=== PATIENT | female | born 1950 | race Caucasian/White ===

== ENCOUNTER 2020-10-04 07:23 | Outpatient (REF) | payer MEDICARE, SELFPAY ==
--- NOTE | ~2020-10-04 | MM_ITS ---
EXAMINATION: MM SCREENING DIGITAL BREAST TOMOSYNTHESIS, BILATERAL CLINICAL INFORMATION: Screening. Asymptomatic. The lifetime risk of breast cancer based on the Tyrer-Cuzick Model is 11.3%. COMPARISON: Mammography: September 28, 2019 and studies dating back to June 30, 2012 TECHNIQUE: Digital breast tomosynthesis is performed in both the craniocaudal and mediolateral oblique views along with computer-aided detection (CAD). Synthesized 2D images are generated from the tomosynthesis. FINDINGS: The breasts are extremely dense, which lowers the sensitivity of mammography (ACR BI-RADS breast composition Category d). Stable region of architectural distortion seen about the lateral aspect of the right breast. There is also stable region of distortion about the lateral aspect of the left breast. No new abnormal dominant mass or suspicious grouping of microcalcifications appreciated. MM/MM tomosynthesis screening BI IMPRESSION: There are no significant changes from prior study. ASSESSMENT: BI-RADS 2: Benign RECOMMENDATION: Routine annual mammography screening. This patient's information was entered into a reminder system with a target due date for their next mammogram.
== END 2020-10-04 07:24 | disposition home or self-care (01) ==
LOC: HO.MAMMO 07:23
PROVIDERS: PCP Internal Medicine; Visit Provider Internal Medicine
DX: Z12.31 Encounter for screening mammogram for malignant neoplasm of breast (principal)
CPT/HCPCS: 77063; 77067

== ENCOUNTER 2020-10-20 10:07 | Outpatient (REF) | payer MEDICARE, SELFPAY ==
[2020-10-20 10:11] LABS: MANUAL DIFF FLAG NO
[2020-10-20 10:27] LABS: Basophils Percent Auto 0.6 % (0-2); Eosinophils Absolute Auto 0.3 X10*3/uL (0.0-0.4); Eosinophils Percent Auto 5.8 % (0-4); Hematocrit 41.3 % (37-47); Hemoglobin 13.6 g/dl (12.0-16.0); Imm Gran Abs Auto 0.01 X10*3/uL (0.00-0.03); Imm Gran Pct Auto 0.2 % (0.0-0.4); Lymphocytes Percent Auto 37.8 % (20-40); Mean Corpuscular HGB Conc 32.9 g/dl (31.0-35.0); Mean Corpuscular Hemoglobin 30.6 pg (27.0-33.0); Mean Platelet Volume 10.9 fL (9.4-12.3); Monocytes Absolute Auto 0.6 X10*3/uL (0.1-1.2); Monocytes Percent Auto 10.8 % (2-11); Neutrophils Absolute Auto 2.3 X10*3/uL (2.0-8.3); Neutrophils Percent Auto 44.8 % (45-73); Platelet Count 227 X10*3/uL (160-400); Red Blood Count 4.44 X10*6/uL (4.20-5.50); White Blood Count 5.2 X10*3/uL (4.8-10.8)
[2020-10-20 10:50] LABS: Glucose Urine UA NEG (NEG); Leukocyte Esterase Urine NEG (NEG); Nitrite Urine NEG (NEG); Specific Gravity - Urine >= 1.030 (1.005-1.025); Urine Blood 2+ (NEG); Urine Ketones NEG (NEG); Urine Protein NEG (NEG-TRACE)
[2020-10-20 10:52] LABS: Appearance Urine CLEAR; Color Urine YELLOW
[2020-10-20 11:21] LABS: Alanine Aminotransferase 12 U/L (0-31); Alkaline Phosphatase 53 U/L (39-117); Anion Gap 11 (12-20); Aspartate Amino Transferase 16 U/L (5-31); Bilirubin Total 0.9 mg/dL (0.0-1.0); Blood Urea Nitrogen 12 mg/dL (9-16); Carbon Dioxide 27 mmol/L (22-29); Chloride 106 mmol/L (96-108); Cholesterol 255 mg/dL; Estimated Glomerular Filt Rate 54; Glucose Fasting 93 mg/dL (60-99); HDL Cholesterol 92 mg/dL; LDL Cholesterol Calculated 133 mg/dl; Potassium 3.8 mmol/L (3.3-5.1); Sodium 140 mmol/L (135-145); Total Protein 6.5 g/dL (6.5-8.0); Triglycerides 152 mg/dL
[2020-10-20 11:29] LABS: Amorphous Sediment Urine TRACE /LPF; RBC Urine 0-2 /HPF (0); Squamous Epithelial Cell Urine 1+ /LPF
[2020-10-20 11:41] LABS: Vitamin D 25-OH Total 37.9 ng/mL (>30)
== END 2020-10-20 10:08 | disposition home or self-care (01) ==
LOC: HO.LNP 10:07
PROVIDERS: Visit Provider Internal Medicine
DX: E78.00 Pure hypercholesterolemia, unspecified (principal); R31.21 Asymptomatic microscopic hematuria; N95.8 Other specified menopausal and perimenopausal disorders; E55.9 Vitamin D deficiency, unspecified
CPT/HCPCS: 80053; 80061; 81001; 82306; 85025

== ENCOUNTER 2020-12-29 08:12 | Outpatient (REF) | payer MEDICARE, SELFPAY ==
--- NOTE | ~2020-12-29 | MM_ITS ---
EXAMINATION: BONE DENSITOMETRY CLINICAL INDICATION: Postmenopausal. COMPARISON: Previous BD dated 09/26/2018 and baseline BD dated 07/11/2006. TECHNIQUE: Using a Bit[employer] DXA System (software version: 13.1) manufactured by [employer], dual-energy x-ray absorptiometry was performed of the lumbar spine and left hip. The images are of good technical quality. Summary results are attached. FINDINGS: AP SPINE L1-L4: Current: BMD 1.138 g/cm2, Z-score 1.0, T-score -0.3, normal, 1.5% decrease from previous, 8.0% decrease from baseline (<5% change is not significant). Prior: BMD 1.155 g/cm2. Baseline: BMD 1.237 g/cm2. LEFT FEMUR, NECK: Current: BMD 0.888 g/cm2, Z-score 0.4, T-score -1.1, osteopenia. Prior: BMD 0.913 g/cm2. Baseline: BMD 1.125 g/cm2. LEFT FEMUR, TOTAL: Current: BMD 0.972 g/cm2, Z-score 1.0, T-score -0.3, normal, 6.4% decrease from previous, 15.6% decrease from baseline (<5% change is not significant). Prior: BMD 1.038 g/cm2. Baseline: BMD 1.152 g/cm2. IDENTIFIED RISK FACTORS: Menopause, low calcium intake, renal, secondary osteoporosis. HISTORY OF FRACTURE: None listed. MEDICATIONS: Vitamin D. MM/XR DEXA axial skeleton IMPRESSION: 1. DIAGNOSIS: Osteopenia based on the lowest T-score value of -1.1 in the femoral neck applying World Health Organization criteria. 2. 10-YEAR FRACTURE RISK PREDICTION, FRAX: Major osteoporotic fracture (clinical spine, forearm, hip or shoulder) 9.0%. Hip fracture 1.0%. 3. Treatment Recommendations: NOF guidelines recommend consideration for treatment in postmenopausal women and men age 50 and older presenting with the following: -A hip or vertebral (clinical or morphometric) fracture. -T-score less than or equal to -2.5 at the femoral neck or spine after appropriate evaluation to exclude secondary causes. -Low bone mass at the hip or spine and a 10-year fracture probability by FRAX of greater than or equal to 3% for hip fracture or greater than or equal to 20% for major osteoporotic fracture based on the [place] adapted WHO algorithm. 4. Other Recommendations: All treatment decisions require clinical judgment and consideration of individual patient factors, including patient preferences, comorbidities, previous drug use, risk factors not captured in the FRAX model (e.g. frailty, falls, vitamin D deficiency, increased bone turnover, interval significant decline in bone density) and possible under or overestimation of fracture risk by FRAX. Additional medical evaluation for secondary cause of low bone mineral density may be appropriate. FUTURE SCAN RECOMMENDATION: People with diagnosed cases of osteoporosis or at high risk for fracture should have regular bone mineral density tests. For patients eligible for Medicare, routine testing is allowed once every 2 years. The testing frequency can be increased to one year for patients who have rapidly progressing disease, those who are receiving or discontinuing medical therapy to restore bone mass, or have additional risk factors.
== END 2020-12-29 08:13 | disposition home or self-care (01) ==
LOC: HO.MAMMO 08:12
PROVIDERS: Visit Provider Internal Medicine
DX: Z13.820 Encounter for screening for osteoporosis (principal); M85.80 Other specified disorders of bone density and structure, unspecified site; Z78.0 Asymptomatic menopausal state; Z79.899 Other long term (current) drug therapy
CPT/HCPCS: 77080

== ENCOUNTER 2021-01-11 07:56 | Day surgery (SDC) | payer MEDICARE, SELFPAY ==
--- NOTE | 2021-01-10 13:36 | P.CONAN_ITS ---
Documented by User: Lyn Beach NP 01/10/21 13:37 HPI - Anesthesia Eval Consult details Narrative: 70yo F for Colonoscopy PMFSH Past Medical History Medical History Arthritis Asthma Elevated cholesterol Gallstones Hayfever Hx of migraines IBS (irritable bowel syndrome) Mild obstructive sleep apnea PTSD (post-traumatic stress disorder) Renal cell carcinoma of right kidney Surgical History Surgical History History of breast surgery History of breast surgery History of right nephrectomy Hx of bilateral cataract extraction Hx of colonoscopy Hx of dilation and curettage Social History Social History Patient Tobacco Use Status: Never used Tobacco Use of substances other than those prescribed or required for medical reasons: No Have you been hit, kicked, punched, or otherwise hurt by someone within the past year? If so, by whom?: No Are you DNR?: No Advance Directives: No Advance Directives Information Provided: Yes Recently lost weight without trying: No Patient : No Meds Allergies Allergy/AdvReac Type Severity Reaction Status Date / Time Iodinated Contrast Media Allergy Unknown HIVES Verified 01/11/21 07:51 [IV CONTRAST] Penicillins [PENICILLINS] Allergy Unknown UNKNOWN Verified 01/11/21 07:51 senna [SENNA] Allergy Unknown RASH Verified 01/11/21 07:51 Home Medications Medication Instructions Recorded Confirmed Last Taken Type Lactobacillus rhamnosus GG 10 1 cap PO DAILY 01/04/21 01/04/21 Unknown History billion cell capsule (Culturelle) bupropion HCl 300 mg 24 hr tablet, 300 mg PO QAM 01/04/21 01/04/21 01/11/21 History extended release cholecalciferol (vitamin D3) 25 25 mcg PO DAILY 01/04/21 01/04/21 Unknown History mcg (1,000 unit) capsule (Vitamin D3) dextroamphetamine-amphetamine 20 20 mg PO DAILY 01/04/21 01/04/21 01/11/21 History mg tablet lorazepam 1 mg tablet 1 mg PO BEDTIME PRN 01/04/21 01/04/21 Unknown History sumatriptan succinate 100 mg tablet 100 mg PO BID PRN 01/04/21 01/04/21 Unknown History Exam Exam Date and Time: January 10, 2021 1336 Pertinent Lab Results Pertinent Lab Results: Laboratory Tests 10/20/20 10/20/20 07:10 07:10 WBC 5.2 Hgb 13.6 Hct 41.3 Plt Count 227 Sodium 140 Potassium 3.8 Chloride 106 Carbon Dioxide 27 BUN 12 Creatinine 1.01 Assessment and Plan Assessment Anesthesia Assessment: Chart Reviewed Documented by User: Ifeoma Gonzalez MD 01/11/21 10:02 [facility] Past Medical History Medical History Arthritis Asthma Elevated cholesterol Gallstones Hayfever Hx of migraines IBS (irritable bowel syndrome) Mild obstructive sleep apnea PTSD (post-traumatic stress disorder) Renal cell carcinoma of right kidney Surgical History Surgical History History of breast surgery History of breast surgery History of right nephrectomy Hx of bilateral cataract extraction Hx of colonoscopy Hx of dilation and curettage History of Problems with Anesthesia: No Social History Social History Patient Tobacco Use Status: Never used Tobacco Use of substances other than those prescribed or required for medical reasons: No Have you been hit, kicked, punched, or otherwise hurt by someone within the past year? If so, by whom?: No Are you DNR?: No Advance Directives: No Advance Directives Information Provided: Yes Recently lost weight without trying: No Patient : No Meds Allergies Allergy/AdvReac Type Severity Reaction Status Date / Time Iodinated Contrast Media Allergy Unknown HIVES Verified 01/11/21 07:51 [IV CONTRAST] Penicillins [PENICILLINS] Allergy Unknown UNKNOWN Verified 01/11/21 07:51 senna [SENNA] Allergy Unknown RASH Verified 01/11/21 07:51 Home Medications Medication Instructions Recorded Confirmed Last Taken Type Lactobacillus rhamnosus GG 10 1 cap PO DAILY 01/04/21 01/04/21 Unknown History billion cell capsule (Culturelle) bupropion HCl 300 mg 24 hr tablet, 300 mg PO QAM 01/04/21 01/04/21 01/11/21 History extended release cholecalciferol (vitamin D3) 25 25 mcg PO DAILY 01/04/21 01/04/21 Unknown History mcg (1,000 unit) capsule (Vitamin D3) dextroamphetamine-amphetamine 20 20 mg PO DAILY 01/04/21 01/04/21 01/11/21 History mg tablet lorazepam 1 mg tablet 1 mg PO BEDTIME PRN 01/04/21 01/04/21 Unknown History sumatriptan succinate 100 mg tablet 100 mg PO BID PRN 01/04/21 01/04/21 Unknown History Exam Airway Mallampati Class: II TM Dist: >3cm Neck ROM: Full Loose/Missing/Broken Teeth: No Heart: RRR Lungs: CTA Assessment and Plan Assessment Anesthesia Assessment: Anesthesia Plan Discussed Final Anesthetic Review History of Problems with Anesthesia: No NPO: Yes ASA Class: II Final Preanesthetic Review: Meds/Allgs Chart Reviewed, Consent Obtained/Reviewed and Anes Risks/Benef Reviewed Patient Risk: Low Procedure Risk: Low Anesthetic Plan Anesthetic Plan: MAC: Disposition: Standard PACU
[2021-01-11 07:49] VITALS: BMI 27.1
[2021-01-11 07:58] VITALS: BP 124/87; PULSE 90; RESP 7; TEMP 36.4; O2SAT 97
[2021-01-11] MEDS: Lactated Ringers 1,000 ML 50 ML IVCONT (08:21)
--- NOTE | 2021-01-11 10:48 | P.BOP_ITS ---
Brief Operative Note Date of Service: 01/11/21 Pre-op diagnosis: Screening Post-op diagnosis: other (Same, Diverticulsosis) Procedure: Coplonoscopy to the cecum and TI Surgeon: Garo Acosta Anesthesia: MAC Was an Product Development Engineer used for this Procedure?: No Estimated blood loss (mL): 0 Pathology: none sent Condition: stable Disposition: PACU
[2021-01-11 10:50] VITALS: BP 110/59; PULSE 88; RESP 16; TEMP 36.2; O2SAT 97
[2021-01-11 10:55] VITALS: BP 109/51; PULSE 78; RESP 16; O2SAT 97
[2021-01-11 11:00] VITALS: BP 119/53; PULSE 81; RESP 16; O2SAT 97
[2021-01-11 11:15] VITALS: BP 111/62; PULSE 83; RESP 16; O2SAT 97
--- NOTE | 2021-01-11 18:16 | OP_ITS ---
SURGEON: Garo Acosta MD INDICATIONS: The patient presents for evaluation of colorectal cancer screening and personal history of tubular adenoma of the colon. Full consent has been obtained from her for this, including risks of bleeding and perforation. PREOPERATIVE DIAGNOSIS: POSTOPERATIVE DIAGNOSIS: PROCEDURE PERFORMED: Colonoscopy to the cecum and terminal ileum. ESTIMATED BLOOD LOSS: COMPLICATIONS: ANESTHESIA: Monitored anesthesia care. ASSISTANTS: SPECIMENS: PREOPERATIVE DIAGNOSES: Colorectal cancer screening and personal history of tubular adenoma of the colon. POSTOPERATIVE DIAGNOSES: Colorectal cancer screening and personal history of tubular adenoma of the colon, diverticulosis and internal hemorrhoids. DESCRIPTION OF PROCEDURE: The patient was placed in the left lateral decubitus position. The digital rectal exam revealed no abnormalities. The Olympus video pediatric colonoscope was entered into the rectum and advanced to the cecum. Once in the cecum, I did identify normal-appearing cecal pouch with appendiceal orifice and a normal-appearing ileocecal valve. The terminal ileum was cannulated and appeared normal. The scope was withdrawn back in the colon. The entire cecum and ileocecal valve appeared normal. There was transillumination of light deep in the right lower quadrant. The scope was slowly withdrawn assessing all mucosal surfaces carefully. Preparation was excellent. I did not visualize any sign of polyps, colitis, nor angiodysplasia. There was a mild amount of sigmoid diverticulosis. In the rectum, scope was retroflexed, visualizing internal hemorrhoids, but no other pathology. The rectal mucosa appeared normal. The scope was straightened out and withdrawn from the patient. She tolerated the procedure well and was returned to recovery area in stable condition. IMPRESSION: 1. Diverticulosis. 2. Internal hemorrhoids. PLAN: Given today's negative exam, but previous history of tubular adenoma of the colon, I would recommend a repeat colonoscopy in 5 years for further screening. She will otherwise see me on a p.r.n. basis. This has been discussed with her . MD DIA Jacinto/KRYSTIN / [id number]
== END 2021-01-11 11:46 | disposition home or self-care (01) ==
PROVIDERS: PCP Internal Medicine; Visit Provider Internal Medicine
PROC: 0DJD8ZZ Inspection of Lower Intestinal Tract, Via Natural or Artificial Opening Endoscopic (ICD-10-PCS; CPT 45378; principal; 2021-01-11 09:10)
DX: Z12.11 Encounter for screening for malignant neoplasm of colon (principal); Z86.010 Personal history of colon polyps; Z83.71 Family history of colonic polyps; Z85.528 Personal history of other malignant neoplasm of kidney; Z80.49 Family history of malignant neoplasm of other genital organs; K57.30 Diverticulosis of large intestine without perforation or abscess without bleeding; K64.8 Other hemorrhoids; K58.1 Irritable bowel syndrome with constipation; K80.20 Calculus of gallbladder without cholecystitis without obstruction; G47.33 Obstructive sleep apnea (adult) (pediatric); J45.909 Unspecified asthma, uncomplicated; Z79.899 Other long term (current) drug therapy
CPT/HCPCS: G0105

== ENCOUNTER 2021-10-05 07:30 | Outpatient (REF) | payer MEDICARE, SELFPAY ==
--- NOTE | ~2021-10-05 | MM_ITS ---
EXAMINATION: MM SCREENING DIGITAL BREAST TOMOSYNTHESIS, BILATERAL CLINICAL INFORMATION: Screening. Asymptomatic. Previous breast biopsy. The lifetime risk of breast cancer based on the Tyrer-Cuzick Model is 5.1%. COMPARISON: Mammography: October 04, 2020 and studies dating back to June 30, 2012 TECHNIQUE: Digital breast tomosynthesis is performed in both the craniocaudal and mediolateral oblique views along with computer-aided detection (CAD). Synthesized 2D images are generated from the tomosynthesis. FINDINGS: The breasts are extremely dense, which lowers the sensitivity of mammography (ACR BI-RADS breast composition Category d). There are no significant masses, abnormal calcifications, or other abnormalities. Stable postsurgical change upper outer aspect right breast again seen. MM/MM tomosynthesis screening BI IMPRESSION: There are no significant changes from prior study. ASSESSMENT: BI-RADS 2: Benign RECOMMENDATION: Routine annual mammography screening. This patient's information was entered into a reminder system with a target due date for their next mammogram.
== END 2021-10-05 07:31 | disposition home or self-care (01) ==
LOC: HO.MAMMO 07:30
PROVIDERS: PCP Internal Medicine; Visit Provider Internal Medicine
DX: Z12.31 Encounter for screening mammogram for malignant neoplasm of breast (principal)
CPT/HCPCS: 77063; 77067

== ENCOUNTER 2021-11-20 07:54 | Outpatient (REF) | payer MEDICARE, SELFPAY ==
[2021-11-20 08:06] LABS: MANUAL DIFF FLAG NO
[2021-11-20 08:59] LABS: Basophils Absolute Auto 0.1 X10*3/uL (0.0-0.2); Basophils Percent Auto 0.7 % (0-2); Eosinophils Absolute Auto 0.2 X10*3/uL (0.0-0.4); Eosinophils Percent Auto 2.7 % (0-4); Hematocrit 40.8 % (37.0-47.0); Hemoglobin 13.2 g/dl (12.0-16.0); Imm Gran Abs Auto 0.03 X10*3/uL (0.00-0.03); Imm Gran Pct Auto 0.4 % (0.0-0.4); Lymphocytes Absolute Auto 2.4 X10*3/uL (1.2-4.9); Lymphocytes Percent Auto 34.3 % (20-40); Mean Corpuscular HGB Conc 32.4 g/dl (31.0-35.0); Mean Corpuscular Hemoglobin 29.5 pg (27.0-33.0); Mean Corpuscular Volume 91.1 fL (80.0-98.0); Mean Platelet Volume 10.9 fL (9.4-12.3); Monocytes Absolute Auto 0.6 X10*3/uL (0.1-1.2); Monocytes Percent Auto 8.4 % (2-11); Neutrophils Absolute Auto 3.8 x10*3/uL (2.0-8.3); Neutrophils Percent Auto 53.5 % (45-73); Platelet Count 268 X10*3/uL (160-400); Red Blood Count 4.48 X10*6/uL (4.20-5.50); Red Cell Distribution Width 11.9 % (11.0-16.0); White Blood Count 7.1 X10*3/uL (4.8-10.8)
[2021-11-20 08:59] LABS: Appearance Urine Clear; Color Urine Yellow; Glucose Urine UA Negative (Negative); Leukocyte Esterase Urine Large (3+) (Negative); Nitrite Urine Negative (Negative); PH 5.5 (5.0-9.0); UMIC TRIGGER UA YES; Urine Blood Trace (Negative); Urine Ketones Negative (Negative); Urine Protein Negative (Neg-Trace)
[2021-11-20 09:04] LABS: Bacteria Urine None Seen (None Seen); Hyaline Casts Urine 0-2 /LPF (0-2); RBC Urine 0-2 /HPF (0-2); WBC Urine 21-50 /HPF (0-5)
[2021-11-20 09:35] LABS: Alanine Aminotransferase 11 U/L (0-31); Alkaline Phosphatase 57 U/L (39-117); Anion Gap 15 (12-20); Aspartate Amino Transferase 16 U/L (5-31); Bilirubin Total 0.9 mg/dL (0.0-1.0); Blood Urea Nitrogen 12 mg/dL (9-16); Carbon Dioxide 25 mmol/L (22-29); Chloride 105 mmol/L (96-108); Cholesterol 270 mg/dL; Estimated Glomerular Filt Rate 51; Glucose Fasting 89 mg/dL (60-99); HDL Cholesterol 83 mg/dL; LDL Cholesterol Calculated 164 mg/dl; Sodium 141 mmol/L (135-145); Total Protein 6.5 g/dL (6.5-8.0); Triglycerides 116 mg/dL
[2021-11-20 09:54] LABS: Vitamin D 25-OH Total 39.8 ng/mL (>30)
== END 2021-11-20 07:55 | disposition home or self-care (01) ==
LOC: HO.LAB 07:54
PROVIDERS: PCP Internal Medicine; Visit Provider Internal Medicine
DX: E78.00 Pure hypercholesterolemia, unspecified (principal); E55.9 Vitamin D deficiency, unspecified
CPT/HCPCS: 36415; 80053; 80061; 81001; 82306; 85025

== ENCOUNTER 2021-11-27 16:18 | Outpatient (REF) | payer MEDICARE, SELFPAY | END 2021-11-27 16:19 | disposition home or self-care (01) | LOC: HO.LNP 16:18 | PROVIDERS: PCP Internal Medicine; Visit Provider Internal Medicine | DX: R82.81 Pyuria (principal) | CPT/HCPCS: 87086 ==

== ENCOUNTER 2022-10-08 07:28 | Outpatient (REF) | payer MEDICARE, SELFPAY ==
--- NOTE | ~2022-10-08 | MM_ITS ---
EXAMINATION: MM SCREENING DIGITAL BREAST TOMOSYNTHESIS, BILATERAL CLINICAL INFORMATION: Screening. Asymptomatic. The lifetime risk of breast cancer based on the Tyrer-Cuzick Model is 4.4%. COMPARISON: Mammography: This study is compared with prior exams dating back to 2017. TECHNIQUE: Digital breast tomosynthesis is performed in both the craniocaudal and mediolateral oblique views along with computer-aided detection (CAD). Synthesized 2D images are generated from the tomosynthesis. FINDINGS: The breasts are heterogeneously dense, which may obscure small masses (ACR BI-RADS breast composition Category c). There are no significant masses, abnormal calcifications, or other abnormalities. There is architectural changes in the upper outer quadrant of the right breast from prior surgery for benign disease. MM/MM tomosynthesis screening BI IMPRESSION: No mammographic evidence of malignancy. ASSESSMENT: BI-RADS BI-RADS 2 - Benign Findings RECOMMENDATION: Routine annual mammography screening. 1 year F/U This examination should not preclude the clinical evaluation of a suspicious palpable abnormality. This patient's information was entered into a reminder system with a target due date for their next mammogram.
== END 2022-10-08 07:29 | disposition home or self-care (01) ==
LOC: HO.MAMMO 07:28
PROVIDERS: PCP Internal Medicine; Visit Provider Internal Medicine
DX: Z12.31 Encounter for screening mammogram for malignant neoplasm of breast (principal)
CPT/HCPCS: 77063; 77067

== ENCOUNTER → 2022-10-08 07:45 | Outpatient (BNV) | payer MEDICARE, SELFPAY | PROVIDERS: PCP Internal Medicine; Visit Provider Radiology Diagnostic Radiology | DX: Z12.31 Encounter for screening mammogram for malignant neoplasm of breast (principal) | CPT/HCPCS: 77063; 77067 ==

== ENCOUNTER 2022-11-13 11:21 | Outpatient (REF) | payer MEDICARE, SELFPAY ==
[2022-11-13 11:24] LABS: MANUAL DIFF FLAG NO
[2022-11-13 11:38] LABS: Appearance Urine Clear; Color Urine Yellow; Glucose Urine UA Negative (Negative); Leukocyte Esterase Urine Moderate (2+) (Negative); Nitrite Urine Negative (Negative); UMIC TRIGGER UACC YES; Urine Blood Trace (Negative); Urine Ketones Negative (Negative); Urine Protein Negative (Neg-Trace)
[2022-11-13 11:44] LABS: Bacteria Urine None Seen (None Seen); Basophils Percent Auto 0.7 % (0-2); Eosinophils Absolute Auto 0.2 X10*3/uL (0.0-0.4); Eosinophils Percent Auto 3.1 % (0-4); Hematocrit 40.5 % (37.0-47.0); Hemoglobin 13.3 g/dl (12.0-16.0); Hyaline Casts Urine 0-2 /LPF (0-2); Imm Gran Abs Auto 0.02 X10*3/uL (0.00-0.03); Imm Gran Pct Auto 0.4 % (0.0-0.4); Lymphocytes Absolute Auto 2.4 X10*3/uL (1.2-4.9); Lymphocytes Percent Auto 43.2 % (20-40); Mean Corpuscular HGB Conc 32.8 g/dl (31.0-35.0); Mean Corpuscular Hemoglobin 29.9 pg (27.0-33.0); Mean Platelet Volume 11.1 fL (9.4-12.3); Monocytes Absolute Auto 0.5 X10*3/uL (0.1-1.2); Monocytes Percent Auto 9.1 % (2-11); Neutrophils Absolute Auto 2.4 x10*3/uL (2.0-8.3); Neutrophils Percent Auto 43.5 % (45-73); Platelet Count 250 X10*3/uL (160-400); RBC Urine 0-2 /HPF (0-2); Red Blood Count 4.45 X10*6/uL (4.20-5.50); Red Cell Distribution Width 11.9 % (11.0-16.0); UACC Culture Trigger YES; White Blood Count 5.5 X10*3/uL (4.8-10.8)
[2022-11-13 12:12] LABS: Alanine Aminotransferase 8 U/L (0-31); Albumin Level 3.9 g/dL (3.5-5.0); Alkaline Phosphatase 56 U/L (39-117); Anion Gap 10 (12-20); Aspartate Amino Transferase 16 U/L (5-31); Bilirubin Total 0.7 mg/dL (0.0-1.0); Blood Urea Nitrogen 12 mg/dL (9-16); Calcium 9.2 mg/dL (8.4-10.2); Carbon Dioxide 25 mmol/L (22-29); Chloride 110 mmol/L (96-108); Cholesterol 267 mg/dL (<200); Estimated Glomerular Filt Rate > 60; Glucose Fasting 95 mg/dL (60-99); HDL Cholesterol 81 mg/dL (>40); LDL Cholesterol Calculated 166 mg/dL (<100); Potassium 3.7 mmol/L (3.3-5.1); Sodium 141 mmol/L (135-145); Total Protein 6.7 g/dL (6.5-8.0); Triglycerides 104 mg/dL (<150)
[2022-11-13 12:14] LABS: Vitamin D 25-OH Total 69.6 ng/mL (>30)
== END 2022-11-13 11:22 | disposition home or self-care (01) ==
LOC: HO.LNP 11:21
PROVIDERS: Visit Provider Internal Medicine
DX: E78.00 Pure hypercholesterolemia, unspecified (principal); E55.9 Vitamin D deficiency, unspecified; R82.90 Unspecified abnormal findings in urine
CPT/HCPCS: 80053; 80061; 81001; 82306; 85025; 87086

== ENCOUNTER 2023-02-14 09:25 | Outpatient (REF) | payer MEDICARE, SELFPAY ==
--- NOTE | ~2023-02-14 | XR_ITS ---
EXAMINATION: XR CHEST CLINICAL INFORMATION: Persistent cough COMPARISON: None available. TECHNIQUE: 2 views of the chest were obtained. FINDINGS: The lungs are well expanded. No focal consolidation, interstitial pulmonary edema or pneumothorax. Central peribronchial thickening is noted. There is probably a focal area of atelectasis at the right lung base appreciated only on the PA view The cardiomediastinal silhouette is within normal limits for the pleural effusions. Mild degenerative changes involve the thoracic spine. XR/XR chest 2V IMPRESSION: 1. No pneumonia. 2. Probable focal area of atelectasis at the right lung base. 3. Central peribronchial thickening which can be seen with bronchitis or asthma.
== END 2023-02-14 09:26 | disposition home or self-care (01) ==
LOC: HO.XRAY 09:25
PROVIDERS: PCP Internal Medicine; Visit Provider Internal Medicine
DX: R05.3 Chronic cough (principal)
CPT/HCPCS: 71046

== ENCOUNTER 2023-03-15 10:23 | Outpatient (REF) | payer MEDICARE, SELFPAY ==
[2023-03-15 11:06] LABS: Blood Urea Nitrogen 18 mg/dL (9-16); Estimated Glomerular Filt Rate > 60
== END 2023-03-15 10:24 | disposition home or self-care (01) ==
LOC: HO.LNP 10:23
PROVIDERS: Visit Provider Internal Medicine
DX: K62.5 Hemorrhage of anus and rectum (principal)
CPT/HCPCS: 82565; 84520

== ENCOUNTER 2023-03-26 15:56 | Outpatient (REF) | payer MEDICARE, SELFPAY ==
--- NOTE | ~2023-03-26 | CT_ITS ---
EXAMINATION: CT ABDOMEN AND PELVIS WITHOUT AND WITH CONTRAST CLINICAL INFORMATION: Rectal bleeding COMPARISON: 09/19/2017 abdominal ultrasound TECHNIQUE: Multidetector volumetric imaging was performed of the abdomen and pelvis before and after the IV administration of 80 mL of Omnipaque 300 intravenous contrast. Sagittal and coronal reformatted images were obtained on the technologist's workstation. This CT examination was performed using dose optimization techniques as appropriate, variously including the following: *Automated exposure control *Adjustment of mA and/or kV according to patient size (this includes techniques or standardized protocols for targeted exams where dose is matched to indication/reason for exam; i.e. extremities or head) *Use of iterative reconstruction technique DLP: 982 mGy-cm FINDINGS: REED OR WIND INSTRUMENT TUNER: Nonobstructive bowel pattern. Phleboliths. L3-L4 disc space narrowing. Mild anterolisthesis L5 on S1 with disc space narrowing. LUNG BASES: Nonenlarged heart. No pericardial effusion. Right middle lobe atelectasis. LIVER, GALLBLADDER, AND BILIARY TREE: The liver is normal in size, shape, and attenuation. No biliary ductal dilatation is present. Multiple cysts, largest in the right hepatic lobe measures 4.2 cm The gallbladder contains layering dependent gallstones. No gallbladder wall thickening, or obvious pericholecystic inflammatory changes. PANCREAS: Unremarkable SPLEEN: Unremarkable ADRENAL GLANDS: Unremarkable KIDNEYS AND URETERS: Status post right nephrectomy. Left kidney measures 11.4 cm. Left upper pole focal cortical thinning/scarring. No identifiable renal parenchymal lesion. 2 mm nonobstructing left lower pole renal calculus. No hydronephrosis or hydroureter. No perinephric stranding. BLADDER: Decompressed. GASTROINTESTINAL TRACT: Under distended stomach, asymmetric fundal gastric wall thickening questioned. Nonobstructive bowel pattern. Unremarkable appendix. Mild diverticulosis without diverticulitis. Descending colon is decompressed. ABDOMINAL WALL: Very small fat filled umbilical hernia. LYMPH NODES: Normal VASCULAR: Unremarkable PELVIC VISCERA: Unremarkable. Phleboliths. OSSEOUS STRUCTURES: Degenerative changes. Grade 1 anterolisthesis L5 on S1 with disc space narrowing and vacuum disc phenomenon. L3-L4 disc space narrowing with vacuum disc. CT/CT abdomen pelvis wo/w IV con IMPRESSION: No acute intra-abdominal or pelvic pathology. Under distended stomach, fundal wall thickening questioned. Consider follow-up upper GI series or endoscopy. Status post right nephrectomy. 2 mm nonobstructing left lower pole renal calculus. Hepatic cysts. Cholelithiasis. Diverticulosis. Fleischner guidelines were followed.
[2023-03-26] MEDS: iohexoL 350 MG/ML 100 ML INFUS..BTL IV (16:42)
== END 2023-03-26 15:57 | disposition home or self-care (01) ==
LOC: HO.CT 15:56
PROVIDERS: PCP Internal Medicine; Visit Provider Internal Medicine
DX: K62.5 Hemorrhage of anus and rectum (principal)
CPT/HCPCS: 74178; Q9967

== ENCOUNTER 2023-04-04 14:35 | Outpatient (AMB) | payer MEDICARE, SELFPAY ==
--- NOTE | 2023-04-04 14:46 | A.OFFVIS_ITS ---
Intake Intake Visit Reasons: rectal bleeding Intake Note: This patient presents for an assessment for rectal bleeding. Patient c/o; Intermittent rectal bleeding, reports constipation, reports straining with bowel movements. Master [place] Required: No Accompanied by: Other Relationship Allergies Iodinated Contrast Media [IV CONTRAST] Allergy (Unknown, Verified 04/04/23 14:52) HIVES Penicillins [PENICILLINS] Allergy (Unknown, Verified 04/04/23 14:52) UNKNOWN senna [SENNA] Allergy (Unknown, Verified 04/04/23 14:52) RASH Medication List - Last Reconciled 04/04/23 by Nael Colorado MD bupropion HCl 300 mg PO QAM cholecalciferol (vitamin D3) (Vitamin D3) 25 mcg PO DAILY dextroamphetamine-amphetamine 20 mg 20 mg PO DAILY Lactobacillus rhamnosus GG (Culturelle) 1 cap PO DAILY lorazepam 1 mg PO BEDTIME PRN sumatriptan succinate 100 mg PO BID PRN HPI rectal bleeding HPI Details 72-year-old female referred for passage of bright blood per rectum. She states that this has been going on for several years. She had a colonoscopy [address] Acosta which did not reveal any significant colonic pathology She does note that she feels that she has hemorrhoids outside her anus She denies any pain with bowel movements. She denies being constipated [facility] Medical History (Updated 04/04/23 @ 15:27 by Nael Colorado MD) Bleeding hemorrhoids Arthritis Elevated cholesterol Mild obstructive sleep apnea Hayfever Hx of migraines Gallstones PTSD (post-traumatic stress disorder) IBS (irritable bowel syndrome) Asthma Renal cell carcinoma of right kidney Surgical History Hx of dilation and curettage Hx of bilateral cataract extraction History of breast surgery History of breast surgery Hx of colonoscopy History of right nephrectomy Family History Sister Cervical cancer Father Bladder cancer Liver cancer Cancer of kidney Social History Comment: Chronic shoulder pain present prior to procedure Patient Tobacco Use Status: Never used Tobacco Review of Systems Const Denies chills and Denies fever(s) Card Denies chest pain, Denies dyspnea and Denies dyspnea on exertion Resp Denies cough, Denies dyspnea and Denies dyspnea on exertion GI Reports hematochezia and Denies change in bowel habits Denies hematuria Musc Denies back pain and Denies limited range of motion Neuro Denies focal weakness and Denies convulsions Psych Denies depression and Denies mood swings Physical Exam Const General: comfortable and no acute distress Orientation/consciousness: patient oriented x3 Neck Neck: Yes no lymphadenopathy Resp Auscultation: clear to auscultation bilaterally Cardio Rhythm: regular rhythm GI Other: Rectal exam shows prominent external hemorrhoids 1 on the left lateral, 1 on the right posterior and 1 on the right anterior Palpation (GI): Soft to palpation, nontender and no guarding Neuro General: patient oriented x3 Office Procedures Anoscopy She was in graciela-knife position. The anoscope was gently inserted. A full examination of the anal canal was done. She had mixed internal and external hemorrhoidal columns on the left and 2 on the right side this was bulky has on the right side. There were no other lesions. There was no induration or any bleeding at this time. There was no tenderness [id number] Assessment & Plan Assessment & Plan (1) Bleeding hemorrhoids: Code(s): K64.9 - Unspecified hemorrhoids Plan: She has been passing bright blood per rectum for years and this is likely outlet bleeding from her hemorrhoids. I would explained to her the option of proceeding with hemorrhoidectomy. I discussed the technique of this procedure. I reviewed the risks including but not limited to bleeding, infections, postop pain, as well as the benefits and alternatives. I explained to her what to expect postoperatively At this time, she says that she has not ready to proceed with hemorrhoidectomy yet. She will reach out to me if she considers this down the line. Review of her colonoscopy 2020 shows she has some diverticulosis. Coding Level of Care Code New Pt Level 3 (47863) Diagnoses Bleeding hemorrhoids K64.9 CPT Codes Details - CPT: 11795-Rauzkytq ([id number])
== END 2023-04-04 15:13 | disposition home or self-care (01) ==
PROVIDERS: PCP Internal Medicine; Visit Provider Surgery
DX: K64.9 Unspecified hemorrhoids (principal); K64.8 Other hemorrhoids
CPT/HCPCS: 46600; 99203

== ENCOUNTER → 2023-04-04 14:35 | Outpatient (BNVA) | payer MEDICARE, SELFPAY | PROVIDERS: PCP Internal Medicine; Visit Provider Surgery | DX: K64.4 Residual hemorrhoidal skin tags (principal); K64.8 Other hemorrhoids | CPT/HCPCS: 46600; 99202 ==

== ENCOUNTER 2023-05-24 09:39 | Outpatient (REF) | payer MEDICARE, SELFPAY ==
--- NOTE | ~2023-05-24 | FL_ITS ---
EXAMINATION: XR FLUOROSCOPY UPPER GI WITH AIR CLINICAL INFORMATION: Reflux COMPARISON: None TECHNIQUE: Fluoroscopic air contrast upper GI examination was performed utilizing standard techniques with thin and thick barium and effervescent granules. Numerous spot images were obtained. FINDINGS: Lateral cine images of the oropharynx and hypopharynx demonstrate normal swallow mechanism with normal epiglottic inversion and soft palate elevation. No tracheal penetration, glottic or subglottic aspiration identified. No nasopharyngeal reflux present. Hypopharyngeal structures appear normal without evidence of mass or diverticulum. There is mild cricopharyngeal achalasia present. Dual and single contrast images of the esophagus demonstrate normal caliber, contour, and mucosal pattern. No evidence of stricture, mass, or ulcerations identified. Esophageal peristalsis was normal. A small type I hiatal hernia is present. Gastroesophageal reflux is seen up to the thoracic inlet. Dual contrast and single contrast images of the stomach demonstrated a normal contour. The gastric rugal folds appear mildly thickened. There are multiple tiny areas of contrast pooling in the fundus the stomach that may represents small superficial aphthous ulcers. No masses are seen. Contrast freely passed into the gastric antrum and duodenal bulb without delay. Single and air-contrast images of the duodenal bulb demonstrate no abnormality. The duodenal sweep has a normal appearance, course, and mucosal fold appearance. The imaged proximal jejunum has a normal fold pattern and caliber. FLUOROSCOPY TIME: 3 minutes 12 seconds Number of Spot Images: 11 Number of Cine: 13 DOSE AREA PRODUCT: 1622 uGy-m2 (microgray-meter squared) FL/FL upper GI series IMPRESSION: 1. Mild cricopharyngeal achalasia 2. Small type I hiatal hernia 3. Moderate gastroesophageal reflux 4. Mildly thickened gastric rugal folds. In addition there are multiple tiny areas of contrast pooling in the fundus the stomach suggesting apthous type ulcers. These findings are suggestive of erosive gastritis. Recommend correlation EGD. This procedure was performed by Raphael Pierce PA-C, and supervised by Dr. Reyes
== END 2023-05-24 09:40 | disposition home or self-care (01) ==
LOC: HO.XRAY 09:39
PROVIDERS: PCP Internal Medicine; Visit Provider Internal Medicine
DX: K80.20 Calculus of gallbladder without cholecystitis without obstruction (principal)
CPT/HCPCS: 74240

== ENCOUNTER → 2023-05-24 09:42 | Outpatient (BNV) | payer MEDICARE, SELFPAY | PROVIDERS: PCP Internal Medicine; Visit Provider Physician Assistant Surgical | DX: K21.9 Gastro-esophageal reflux disease without esophagitis (principal) | CPT/HCPCS: 74246 ==

== ENCOUNTER 2023-10-15 07:21 | Outpatient (REF) | payer MEDICARE, SELFPAY ==
--- NOTE | ~2023-10-15 | MM_ITS ---
EXAMINATION: MM SCREENING DIGITAL BREAST TOMOSYNTHESIS, BILATERAL CLINICAL INFORMATION: Screening. Asymptomatic. The patient has a history of bilateral, benign, excisional biopsies. COMPARISON: Mammography: This study is compared with prior exams dating back to 2019. TECHNIQUE: Digital breast tomosynthesis is performed in both the craniocaudal and mediolateral oblique views along with computer-aided detection (CAD). Synthesized 2D images are generated from the tomosynthesis. FINDINGS: The breasts are heterogeneously dense, which may obscure small masses (ACR BI-RADS breast composition Category c). There are no significant masses, abnormal calcifications, or other abnormalities. There are postsurgical changes and superior aspects of each breast. MM/MM tomosynthesis screening BI IMPRESSION: No mammographic evidence of malignancy. ASSESSMENT: BI-RADS BI-RADS 2 - Benign Findings RECOMMENDATION: Routine annual mammography screening. 1 year F/U This examination should not preclude the clinical evaluation of a suspicious palpable abnormality. This patient's information was entered into a reminder system with a target due date for their next mammogram. Electronically signed by: Patrica Lopes MD 11/07/2023 08:43 PM EDT
== END 2023-10-15 07:22 | disposition home or self-care (01) ==
LOC: HO.MAMMO 07:21
PROVIDERS: PCP Internal Medicine; Visit Provider Internal Medicine
DX: Z12.31 Encounter for screening mammogram for malignant neoplasm of breast (principal)
CPT/HCPCS: 77063; 77067

== ENCOUNTER → 2023-10-15 07:30 | Outpatient (BNV) | payer MEDICARE, SELFPAY | PROVIDERS: PCP Internal Medicine; Visit Provider Radiology Diagnostic Radiology | DX: Z12.31 Encounter for screening mammogram for malignant neoplasm of breast (principal) | CPT/HCPCS: 77063; 77067 ==

== ENCOUNTER 2023-11-22 15:59 | Outpatient (REF) | payer MEDICARE, SELFPAY ==
--- NOTE | ~2023-11-22 | XR_ITS ---
EXAMINATION: XR CHEST CLINICAL INFORMATION: Acute bronchitis. COMPARISON: Chest radiograph 02/14/2023. TECHNIQUE: 2 views of the chest were obtained. FINDINGS: Unchanged central peribronchial thickening. No focal consolidation, pleural effusion or pneumothorax. Normal appearance of the cardiomediastinal silhouette. No acute osseous findings. Thoracic spondylosis. XR/XR chest 2V IMPRESSION: Central peribronchial thickening which could be seen with small airways disease or atypical/viral infections. No consolidation or pleural effusion. Electronically signed by: Eliza Nash MD 11/22/2023 04:39 PM EDT
== END 2023-11-22 16:00 | disposition home or self-care (01) ==
LOC: HO.XRAY 15:59
PROVIDERS: PCP Internal Medicine; Visit Provider Internal Medicine
DX: J20.9 Acute bronchitis, unspecified (principal)
CPT/HCPCS: 71046

== ENCOUNTER 2023-12-12 13:43 | Outpatient (REF) | payer MEDICARE, SELFPAY ==
--- NOTE | ~2023-12-12 | CT_ITS ---
EXAMINATION: CT CHEST WITHOUT CONTRAST CLINICAL INFORMATION: Persistent cough COMPARISON: CT abdomen and pelvis 03/26/2023 TECHNIQUE: Multidetector volumetric CT imaging of the chest was done. Axial MIP volume rendering provided. Sagittal and coronal reformatted images were obtained. This CT examination was performed using dose optimization techniques as appropriate, variously including the following: *Automated exposure control *Adjustment of mA and/or kV according to patient size (this includes techniques or standardized protocols for targeted exams where dose is matched to indication/reason for exam; i.e. extremities or head) *Use of iterative reconstruction technique DLP: 168 mGy-cm FINDINGS: LUNGS: Central airways are patent. Focal pleural-based opacity in the anterior right middle lobe likely relating to atelectasis with adjacent bronchiolectasis, similar to prior CT from 03/26/2023. No focal consolidation. 2 mm pulmonary micronodule in the posterior medial right upper lobe, 5:169. Small calcified nodule/granuloma in the left upper lobe. No suspicious pulmonary nodule. Minimal bilateral bronchial wall thickening MEDIASTINUM: Heart is normal in size. No pericardial effusion. No enlarged mediastinal lymph nodes. Evaluation of hilar lymph nodes is limited in the absence of intravenous contrast. Nonaneurysmal thoracic aorta. CORONARY ARTERY CALCIFICATION: None visualized on this study. PLEURA: There is no pleural effusion. AXILLA: No lymphadenopathy. UPPER ABDOMEN: Scattered benign-appearing hepatic cysts ,similar to prior exam. Cholelithiasis. Surgical clips in the right retroperitoneum. OSSEOUS STRUCTURES: Minimal anterolisthesis of T2 over T3. Multilevel spondylosis of the visualized spine. No acute or suspicious osseous abnormality. CT/CT chest wo IV con IMPRESSION: Focal pleural-based opacity in the anterior right middle lobe likely relating to atelectasis with adjacent bronchiolectasis, similar to prior CT from 03/26/2023. No acute pulmonary disease. No suspicious pulmonary nodule. Minimal bilateral bronchial wall thickening which can be seen with reactive airways disease. Cholelithiasis. Scattered benign-appearing hepatic cysts. Electronically signed by: Bryan Ng MD 12/13/2023 09:01 AM EDT
== END 2023-12-12 13:44 | disposition home or self-care (01) ==
LOC: HO.CT 13:43
PROVIDERS: PCP Internal Medicine; Visit Provider Internal Medicine
DX: R05.3 Chronic cough (principal)
CPT/HCPCS: 71250

== ENCOUNTER 2024-01-22 13:51 | Outpatient (AMB) | payer MEDICARE, SELFPAY ==
--- NOTE | 2024-01-22 13:57 | MHC.OFFVIS ---
Vital Signs 01/22/24 13:58 Height 5 ft 6 in Weight 175 lb 4.28 oz BMI 28.3 BP 120/84 Blood Pressure Location Lt brachial Position Sitting Pulse 103 H Pulse Source Pulse Oximeter Pulse Oximetry (%) 94 Oxygen Delivery Method Room Air Intake Visit Reasons: cough Intake Note: pt is here as a new patient for a cough that has been happening since October. Movie Projectionist Required: No Allergies Iodinated Contrast Media [IV CONTRAST] Allergy (Unknown, Verified 01/22/24 14:38) HIVES Penicillins [PENICILLINS] Allergy (Unknown, Verified 01/22/24 14:38) UNKNOWN senna [SENNA] Allergy (Unknown, Verified 01/22/24 14:38) RASH Medication List - Last Reconciled 01/22/24 by Lucio Freitas MD bupropion HCl XL 300 mg PO QAM cholecalciferol (vitamin D3) (Vitamin D3) 25 mcg PO DAILY dextroamphetamine-amphetamine 20 mg 20 mg PO DAILY lorazepam 1 mg PO BEDTIME PRN Do you need a note to return to daycare/school/sports/work: No HPI HPI cough: Details: 73 YEARS OLD VERY PLEASANT FEMALE, BEING SEEN FOR THE 1ST TIME BECAUSE OF LINGERING COUGH SINCE MID OCTOBER OF THIS YEAR9 ALMOST 3 MONTHS) HER . 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 IT WAS ON 10/20 THAT SHE WAS WITH HER WHO WAS DOING THE RENOVATION WORK, SHE WAS EXPOSED TO SOME DUST AND MOLDS. IMMEDIATELY SHE FELT SOMEWHAT CONGESTED IN THE CHEST WITH COUGH AND . SOME WHEEZING A FEW DAYS EARLIER , THEY HAD A FAMILY GET-TOGETHER AND THERE WERE SOME KIDS IN THE GATHERING, WHO MAY HAVE HAD SOME ACUTE VIRAL CONDITION. AFTER THIS DATE SHE HAS CONTINUE TO HAVE COUGH, WITHOUT MUCH EXPECTORATION. COUGH GETS WORSE ON TALKING OR LAUGHING. SHE HAS BEEN TREATED WITH ALBUTEROL INHALER, WHICH HELPS ONLY TEMPORARILY. HAD 2 COURSES OF Z-JL, AND ALSO TO COURSES PREDNISONE, WITHOUT MUCH IMPROVEMENT. FOR THE LAST 2 WEEKS SHE IS USING BUDESONIDE 0.5 MG IN THE NEBULIZER TWICE A DAY, AND IT HAS HELPED SIGNIFICANTLY . NO LABA/ICS INHALERS WERE USED. IN THE PAST HISTORY, IT IS INTERESTING TO KNOW THAT WHEN SHE WAS GROWING UP SHE WAS LIVING WITH HER FATHER WHO WAS SMOKING UP TO 3 PACKS A DAY. FROM AGE 8 ON WORDS SHE DID HAVE FREQUENT BOUTS OF COUGH WITH CHEST CONGESTION. INTERESTINGLY WHEN SHE WENT TO COLLEGE AND MOVED AWAY FROM THE HOUSE, ALL HER RESPIRATORY SYMPTOMS IMPROVED AND LATER ON SHE HAS NOT BEEN BOTHERED BY THE SYMPTOMS UP UNTIL MID OCTOBER. SHE HAS NEVER BEEN SMOKER. SHE HAS HAD MILD POSTTRAUMATIC STRESS DISORDER/ADHD , AND USED DEXTRO AMPHETAMINE 20 MG A DAY BUT HAS NOT TAKEN IT FOR THE LAST 6 MONTHS. HAS HAD RIGHT NEPHRECTOMY FOR RENAL CANCER, NO RECURRENCE. 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 Bleeding hemorrhoids Arthritis Elevated cholesterol Mild obstructive sleep apnea Hayfever Hx of migraines Gallstones PTSD (post-traumatic stress disorder) IBS (irritable bowel syndrome) Asthma Renal cell carcinoma of right kidney Surgical History Hx of dilation and curettage Hx of bilateral cataract extraction History of breast surgery History of breast surgery Hx of colonoscopy History of right nephrectomy Family History Sister Cervical cancer Father Bladder cancer Liver cancer Cancer of kidney Social History Comment: Chronic shoulder pain present prior to procedure Patient Tobacco Use Status: Never used Tobacco Review of Systems Const All systems reviewed & are unremarkable except as noted in HPI and below Eyes Reports no additional complaints ENT Reports no additional complaints Card Denies chest pain, Denies irregular heart rhythm and Denies leg edema GI Reports no additional complaints Reports no additional complaints Musc Reports no additional complaints Skin/Breast Reports system reviewed and no additional complaints, except as documented Neuro Reports no additional complaints Psych Reports other (past h/o ADHD/PTSD , OK NOW ) Endo Reports no additional complaints Marshall/Lymph Reports no additional complaints Aller/Immun Reports no additional complaints Physical Exam Vital Signs: Last Vital Signs Pulse 103 H 01/22/24 13:58 BP 120/84 01/22/24 13:58 Pulse Ox 94 01/22/24 13:58 Oxygen Delivery Method Room Air 01/22/24 13:58 BMI result Body Mass Index 28.3 Const General: healthy appearing, comfortable, no acute distress, alert and awake Orientation/consciousness: patient oriented x3 HEENT Head: Yes normal to inspection General nose exam: No nasal polyps present and No nasal discharge present Face and sinus: Yes sinuses nontender Mouth: oropharynx normal Throat: Yes posterior oropharynx normal Eyes General: appearance normal, both eyes and all related structures Neck Neck: Yes normal visual inspection, Yes no lymphadenopathy, Yes trachea midline and Yes no JVD Thyroid: Thyroid normal Chest Chest palpation & inspection: normal inspection of the chest, normal palpation of entire chest wall and no tenderness Resp Effort & Inspection: normal respiratory effort Auscultation: clear to auscultation bilaterally, no crackles and no wheezes Cardio Palpation: normal PMI Rate: regular rate Rhythm: regular rhythm Heart sounds: no gallops and no murmurs Peripheral pulses: Peripheral pulses 2+ throughout GI Palpation (GI): Soft to palpation, nontender, No hepatosplenomegaly present and no masses Auscultation: normal bowel sounds Back/Spine/Pelvis Thoracic/Lumbar Spine: thoracic and lumbar spine normal to inspection Skin General skin exam: no rashes or lesions noted Neuro General: patient oriented x3 and no focal motor deficits Cranial nerves: Yes CN's II-XII intact bilaterally Extrem General: Yes normal to inspection, Yes no clubbing, cyanosis or edema and Yes no calf tenderness Psych Appearance: grossly normal and well kempt Speech and movement: Normal speech and movement present Results Reviewed Results Reviewed: CHEST X-RAY, 02/14/2023 NO INFILTRATE BUT PERIBRONCHIAL THICKENING WAS NOTED. CT SCAN OF THE CHEST ON 12/12/23 NO INFILTRATES OR MASS NOTED. NO INTERSTITIAL LUNG DISEASE. 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 AND SHE CONTINUES TO HAVE SPASMODIC COUGH FOR THE LAST 3 MONTHS. Code(s): J68.3 - Other acute and subacute respiratory conditions due to chemicals, gases, fumes and vapors Category: Medical Plan: DISCUSSED IN DETAIL WITH THE PATIENT. PULMONARY FUNCTION TEST IS ORDERED. FOR THE TIME BEING CONTINUE TO USE BUDESONIDE 0.5 MG SOLUTION IN THE NEBULIZER B.I.D.. (2) Asthma: Comment: ABOVE UNDER REACTIVE AIRWAYS SYNDROME. THIS PATIENT DOES HAVE HISTORY OF BRONCHIAL ASTHMA IN YOUNGER AGE, WHICH WAS AGGRAVATED BY SECONDHAND SMOKING. IT RESOLVED ONCE SHE WAS OUT OF THE SITUATION. NOW THE SYMPTOMS HAVE RECURRED AFTER EXPOSURE TO SOME IRRITANT MATERIAL OR AFTER A MILD NONSPECIFIC UPPER RESPIRATORY INFECTION, AND COUGH IS STILL LINGERING ON. Code(s): J45.909 - Unspecified asthma, uncomplicated Category: Medical Plan: TREATMENT UNDER REACTIVE AIRWAY DISORDER (3) Cough: Comment: COUGH IN HER CASE SEEMS TO BE AN ASTHMA VARIANT, Code(s): R05.9 - Cough, unspecified Category: Medical Plan: UNDER REACTIVE AIRWAY DISORDER Orders: Orders PFT pulmonary function test Today J45.909 - Unspecified asthma, uncomplicated, J68.3 - Other acute and subacute respiratory conditions due to chemicals, gases, fumes and vapors, R05.9 - Cough, unspecified Medications: New budesonide 0.5 mg (2 mL) inhalation BID 30 days 120 mL 3RF ASTHMA Coding Level of Care Code New Pt Level 4 (09250) Diagnoses 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
[2024-01-22 13:58] VITALS: BP 120/84; PULSE 103; O2SAT 94; BMI 28.3
== END 2024-01-22 14:47 | disposition home or self-care (01) ==
PROVIDERS: PCP Internal Medicine; Visit Provider Internal Medicine
DX: J68.3 Other acute and subacute respiratory conditions due to chemicals, gases, fumes and vapors (principal); J45.909 Unspecified asthma, uncomplicated; R05.9 Cough, unspecified
CPT/HCPCS: 99204

== ENCOUNTER → 2024-01-22 13:51 | Outpatient (BNVA) | payer MEDICARE, SELFPAY | PROVIDERS: PCP Internal Medicine; Visit Provider Internal Medicine | DX: R05.9 Cough, unspecified (principal); J68.3 Other acute and subacute respiratory conditions due to chemicals, gases, fumes and vapors; J45.909 Unspecified asthma, uncomplicated | CPT/HCPCS: 99202 ==

== ENCOUNTER 2024-02-06 12:14 | Outpatient (REF) | payer MEDICARE, SELFPAY ==
[2024-02-06 12:19] LABS: MANUAL DIFF FLAG NO
[2024-02-06 12:52] LABS: Appearance Urine Clear; Color Urine Dark Yellow; Glucose Urine UA Negative (Negative); Leukocyte Esterase Urine Trace (Negative); Nitrite Urine Negative (Negative); PH 5.5 (5.0-9.0); Specific Gravity - Urine >= 1.030 (1.005-1.025); UMIC TRIGGER UACC YES; Urine Blood Small (1+) (Negative); Urine Ketones Negative (Negative); Urine Protein Trace mg/dL (Neg-Trace)
[2024-02-06 12:53] LABS: Basophils Absolute Auto 0.1 X10*3/uL (0.0-0.2); Basophils Percent Auto 1.1 % (0-2); Eosinophils Absolute Auto 0.1 X10*3/uL (0.0-0.4); Eosinophils Percent Auto 3.1 % (0-4); Hematocrit 41.9 % (37.0-47.0); Hemoglobin 13.8 g/dl (12.0-16.0); Imm Gran Abs Auto 0.01 X10*3/uL (0.00-0.03); Imm Gran Pct Auto 0.2 % (0.0-0.4); Lymphocytes Percent Auto 43.5 % (20-40); Mean Corpuscular HGB Conc 32.9 g/dl (31.0-35.0); Mean Corpuscular Hemoglobin 29.4 pg (27.0-33.0); Mean Corpuscular Volume 89.3 fL (80.0-98.0); Mean Platelet Volume 10.6 fL (9.4-12.3); Monocytes Absolute Auto 0.6 X10*3/uL (0.1-1.2); Monocytes Percent Auto 13.8 % (2-11); Neutrophils Absolute Auto 1.8 x10*3/uL (2.0-8.3); Neutrophils Percent Auto 38.3 % (45-73); Platelet Count 238 X10*3/uL (160-400); Red Blood Count 4.69 X10*6/uL (4.20-5.50); White Blood Count 4.6 X10*3/uL (4.8-10.8)
[2024-02-06 13:09] LABS: Alanine Aminotransferase 15 U/L (0-31); Albumin Level 3.9 g/dL (3.5-5.0); Alkaline Phosphatase 53 U/L (39-117); Anion Gap 10 (12-20); Aspartate Amino Transferase 22 U/L (5-31); Bilirubin Total 0.9 mg/dL (0.0-1.0); Blood Urea Nitrogen 10 mg/dL (9-16); Calcium 8.9 mg/dL (8.4-10.2); Carbon Dioxide 28 mmol/L (22-29); Chloride 108 mmol/L (96-108); Cholesterol 250 mg/dL (<200); Estimated Glomerular Filt Rate 47; Glucose Fasting 102 mg/dL (60-99); HDL Cholesterol 77 mg/dL (>40); LDL Cholesterol Calculated 144 mg/dL (<100); Potassium 3.9 mmol/L (3.3-5.1); Sodium 142 mmol/L (135-145); Total Protein 6.9 g/dL (6.5-8.0); Triglycerides 147 mg/dL (<150)
[2024-02-06 13:24] LABS: Vitamin D 25-OH Total 50.3 ng/mL (>30)
[2024-02-06 13:25] LABS: Bacteria Urine None Seen (None Seen); Hyaline Casts Urine 0-2 /LPF (0-2); WBC Urine 0-5 /HPF (0-5)
== END 2024-02-06 12:15 | disposition home or self-care (01) ==
LOC: HO.LNP 12:14
PROVIDERS: Visit Provider Internal Medicine
DX: E78.00 Pure hypercholesterolemia, unspecified (principal); E55.9 Vitamin D deficiency, unspecified
CPT/HCPCS: 80053; 80061; 81001; 82306; 85025

== ENCOUNTER 2024-03-05 13:48 | Outpatient (REF) | payer MEDICARE, SELFPAY ==
[2024-03-05 09:39] VITALS: PULSE 89; O2SAT 97
--- NOTE | 2024-03-05 13:51 | PFT_ITS ---
Indication: Cough Spirometry [FEV1 to FVC 67%; FEV1 2.34 L; FVC 3.49 L. there was a significant response to bronchodilators noted.] Lung Volumes [Total lung capacity 100% predicted; expiratory reserve volume 41% predicted] Diffusion Capacity [DLCO 118% predicted] Comparisons [None] Interpretation [There is a obstructive ventilatory defect consistent with mild COPD. There is a significant response to bronchodilators noted. Significant small airways disease. Lung volumes are normal except for decrease in the expiratory reserve volume secondary to an elevated BMI. Diffusing capacity is within normal limits. Clinical correlation warranted.] MTDD
--- OUTSIDE RECORDS SUMMARY | 2024-03-05 15:08 | XMS_ITS ---
Author Organization Harpreet Vega MD Address [address] [place], [place] [id number] Care Team Providers Care Talking Books Library Clerk Name Role Phone Harpreet Vega Primary Care Provider RESULTS Component Value Reference Range Notes Complete Blood Count Auto Di ff Reviewed date:02/06/2024 03:16:30 PM Interpretation: Performing Lab:[facility], [address] [place] [phone] Notes/Report: White Blood Count 4.6 4.8-10.8 X10*3/uL [...] NRBC Abs Auto 0.000 0.0-0.012 X10*3/uL Comprehensive [place]. Panel Fa st Reviewed date:02/06/2024 03:31:30 PM Interpretation: Performing Lab:[address] [phone] Notes/Report: Sodium 142 135-145 mmol/L Potassium 3.9 [...] Panel Reviewed date:02/06/2024 03:13:49 PM Interpretation: Performing Lab:[facility], [address] [place] [phone] Notes/Report: Triglycerides 147 <150 mg/dL Desirable Triglyceride: [...] Total Reviewed date:02/06/2024 03:14:41 PM Interpretation: Performing Lab:[facility], [address] [place] [phone] Notes/Report: Vitamin D 25-OH Total 50.3 >30 [...] t Reviewed date:02/06/2024 03:14:32 PM Interpretation: Performing Lab:[facility], [address] [place] [phone] Notes/Report: Urine, Clean Catch Color Urine Dark Yellow Appearance Urine Clear PH 5.5 5.0-9.0 Glucose Urine UA Negative Negative mg/dL Urine Blood Small (1+) Negative Specific [place] - Urine >= 1.030 1.005-1.025 Urine Protein [...] Location Date Provider Diagnosis Harpreet Vega MD [address] [place] [address] [place] [phone] 02/06/2024 Harpreet Vega Pure hypercholestero lemia E78.00 and Vitamin D deficiency E55.9 ASSESSMENTS Encounter Date Diagnosis Assessment Notes Treatment Notes Treatment Clinical Notes 02/06/2024 Pure hypercholestero lemia (ICD-10 - E78.00) 02/06/2024 Vitamin D deficiency (ICD-10 - E55.9) PLAN OF TREATMENT Next Appt Details Provider Name:Harpreet gunter, 03/09/2024 03:00:00 PM, [address] [place] [address], [place] [address], [place], [place], [phone], Provider Name:Harpreet gunter, 08/03/2024 08:00:00 AM, [address] [place] [address], [place] [address], [place], [place], [phone], Provider Name:Harpreet gunter, 08/10/2024 09:15:00 AM, [address] [place] [address], [place] [address], [place], [place], [phone], Provider Name:Harpreet gunter, 02/05/2025 07:45:00 AM, [address] [place] [address], [address], [phone], Provider Name:Harpreet gunter, 02/12/2025 08:00:00 AM, [address] [place] [address], [address], [phone],
--- OUTSIDE RECORDS SUMMARY | 2024-03-05 15:09 | XMS_ITS ---
Author Organization Harpreet Vega MD Address [address] [place], [place] [phone] Care Team Providers Care Brake Tester Name Role Phone Harpreet Vega Primary Care Provider ALLERGIES Allergen (clinical drug ingredient) Drug/Non Drug Allergy documented on EMR Reaction Allergy Type Onset Date Status Gadolinium hives Drug Allergy Active IVP dye (uncoded) huge hives Allergy A ctive penicillin (uncoded) hives Allergy Active REASON FOR VISIT 2 week follow up appt, Accompanied by MEDICATIONS Medication SIG (Take, Route, Frequency, Duration) Notes [...] mL Inhalation Twi ce a day in [facility] for 30 days 12/23/2023 Active SUMAtriptan Succinate 100 MG TAKE ONE TABLET BY MOUTH TWICE A DAY NEEDED for 30 Not-Taking Culturelle Digestive Daily - as directed Orally Not-Takin g Pramipexole Dihydrochloride 0.25 MG 1 tablet before bedtime Orally Once a day Not-Taking Ventolin HFA 108 (90 Base) MCG/ACT 2 puffs as needed Inhalation every 4 hrs for 30 days 11/18/2015 Not-Taking VITAL SIGNS Blood pressure systolic 122 mm Hg 01/03/20 24 Blood pressure diastolic 70 mm Hg 024 Height 66.5 in 01/03/2024 Encounters Encounter Location Date Provider Diagnosis Harpreet Vega MD [address] [place] [phone] 01/03/2024 Harpreet Vega Mild intermittent asthmatic bronchitis with acute exacerbation J45.21 ASSESSMENTS Encounter Date Diagnosis Assessment Notes Treatment Notes Treatment Clinical Notes 01/03/2024 Mild intermittent asthmatic bronchitis with acute exacerbation (ICD-10 - J45.21) PLAN OF TREATMENT Medication Medication Name Sig Start Date Stop Date Notes Pulmicort 0.5 MG/2ML 1 mL Inhalation Twi ce a day for 14 days 12/23/2023 Next Appt Details Follow Up: 4 Weeks, Reason: Provider Name:Harpreet gunter, 03/09/2024 03:00:00 PM, [address] [place] [address], [address], [phone], Provider Name:Harpreet gunter, 08/03/2024 08:00:00 AM, [address] [place] [address], [phone], Provider Name:Harpreet gunter, 08/10/2024 09:15:00 AM, [address] [place] [address], [phone], Provider Name:Harpreet ugnter, 02/05/2025 07:45:00 AM, [address] [place] [address], [phone], Provider Name:Harpreet gunter, 02/12/2025 08:00:00 AM, [address], [address], [place], [place], [phone], Progress Notes * Examination Category Sub-Category Detail Notes General Examination GENERAL APPEARANCE: much les s coughing HEAD: normocephalic HEART: no murmurs, rubs, ga llops , regular rate and rhythm LUNGS: no wheezes, rales, r honchi , good air movement , clear to auscultation bilaterally
--- OUTSIDE RECORDS SUMMARY | 2024-03-05 15:09 | XMS_ITS | Patient Health Record ---
Author Organization Harpreet Vega MD Address [address] [place], [place] [id number] Care Team Providers Care Supervisor Sheet Manufacturing Name Role Phone Harpreet Vega Primary Care Provider ALLERGIES Allergen (clinical drug ingredient) Drug/Non Drug Allergy documented on EMR Reaction Allergy Type Onset Date Status Gadolinium hives Drug Allergy Active IVP dye (uncoded) huge hives Allergy A ctive penicillin (uncoded) hives Allergy Active RESULTS Component Value Reference Range Notes Hold Red Reviewed date:03/15/2023 12:51:26 PM Interpretation: Performing Lab:[facility], [address] [place] [phone] Notes/Report: Hold Red See Note Specimen held untested for 24 hours; Call to request Chemistry testing. Blood Urea Nitrogen Reviewed date:03/15/2023 12:39:01 PM Interpretation: Performing Lab:[facility], [address] [place] [phone] Notes/Report: Blood Urea Nitrogen 18 9-16 mg/dL Creatinine Reviewed date:03/15/2023 12:38:42 PM Interpretation: Performing Lab:[facility], [address] [place] [phone] Notes/Report: Creatinine 0.90 0.5-1.4 mg/dL Estimated Glomerular Filt Rate > 60 NOTE: For -Maltese individuals, multiply the result by 1.210. Chronic Kidney Disease: Estimated GFR < 60 mL/min/1.73m2 Severe Kidney Disease: Estimated GFR < 15 mL/min/1.73m2 CT abdomen pelvis wo/w con Reviewed date:04/01/2023 09:48:25 AM Interpretation:CBAVIRGIL 04/01/23 Performing Lab: Notes/Report: [address] [address] [address] Scan Report Signed Patient: Pedro Joshi MR#: [id number] 9 : 1950 Acct:[id number] Age/Sex: 72 / F ADM Date: 03/26/23 Loc: HO.CT Attending Dr: Harpreet Vega MD Ordering Physician: Harpreet Vega MD Date of Service: 03/26/23 Procedure(s): CT abdomen pelvis wo/w IV con Accession Number(s): [id number] cc: Harpreet Vega MD EXAMINATION: CT ABDOMEN AND PELVIS WITHOUT AND WITH CONTRAST CLINICAL INFORMATION: Rectal bleeding COMPARISON: 09/19/2017 abdominal ultrasound TECHNIQUE: Multidetector volumetric imaging was performed of the abdomen and pelvis before and after the IV administration of 80 mL of Omnipaque 300 intravenous contrast. Sagittal and coronal reformatted images were obtained on the technologist's workstation. This CT examination was performed using dose optimization techniques as appropriate, variously including the following: *Automated exposure control *Adjustment of mA and/or kV according to patient size (this includes techniques or standardized protocols for targeted exams where dose is matched to indication/reason for exam; i.e. extremities or head) *Use of iterative reconstruction technique DLP: 982 mGy-cm FINDINGS: PLASTIC PARTS DESIGNER: Nonobstructive bowel pattern. Phleboliths. L3-L4 disc space narrowing. Mild anterolisthesis L5 on S1 with disc space narrowing. LUNG BASES: Nonenlarged heart. No pericardial effusion. Right middle lobe atelectasis. LIVER, GALLBLADDER, AND BILIARY TREE: The liver is normal in size, shape, and attenuation. No biliary ductal dilatation is present. Multiple cysts, largest in the right hepatic lobe measures 4.2 cm The gallbladder contains layering dependent gallstones. No gallbladder wall thickening, or obvious pericholecystic inflammatory changes. PANCREAS: Unremarkable SPLEEN: Unremarkable ADRENAL GLANDS: Unremarkable KIDNEYS AND URETERS: Status post right nephrectomy. Left kidney measures 11.4 cm. Left upper pole focal cortical thinning/scarring. No identifiable renal parenchymal lesion. 2 mm nonobstructing left lower pole renal calculus. No hydronephrosis or hydroureter. No perinephric stranding. BLADDER: Decompressed. GASTROINTESTINAL TRACT: Under distended stomach, asymmetric fundal gastric wall thickening questioned. Nonobstructive bowel pattern. Unremarkable appendix. Mild diverticulosis without diverticulitis. Descending colon is decompressed. ABDOMINAL WALL: Very small fat filled umbilical hernia. LYMPH NODES: Normal VASCULAR: Unremarkable PELVIC VISCERA: Unremarkable. Phleboliths. OSSEOUS STRUCTURES: Degenerative changes. Grade 1 anterolisthesis L5 on S1 with disc space narrowing and vacuum disc phenomenon. L3-L4 disc space narrowing with vacuum disc. CT/CT abdomen pelvis wo/w IV con IMPRESSION: No acute intra-abdominal or pelvic pathology. Under distended stomach, fundal wall thickening questioned. Consider follow-up upper GI series or endoscopy. Status post right nephrectomy. 2 mm nonobstructing left lower pole renal calculus. Hepatic cysts. Cholelithiasis. Diverticulosis. Fleischner guidelines were followed. Dictated By: Tarsha Snow MD Signed By: <Electronically signed by Tarsha Snow MD in OV> 03/29/23 0936 DD/ 1647 TD/TT: Case Management Manager: FL upper GI series Reviewed date:05/28/2023 10:47:11 AM Interpretation:see back 05-28-2023 Performing Lab: Notes/Report: [address] [address] Fluoroscopy Report Signed Patient: Pedro Joshi MR#: [id number] 9 : 1950 Acct:[id number] Age/Sex: 72 / F ADM Date: 05/24/23 Loc: HO.KANNAN Attending Dr: Harpreet Vega MD Ordering Physician: Harpreet Vega MD Date of Service: 05/24/23 Procedure(s): FL upper GI series Accession Number(s): [id number] cc: Harpreet Vega MD EXAMINATION: XR FLUOROSCOPY UPPER GI WITH AIR CLINICAL INFORMATION: Reflux COMPARISON: None TECHNIQUE: Fluoroscopic air contrast upper GI examination was performed utilizing standard techniques with thin and thick barium and effervescent granules. Numerous spot images were obtained. FINDINGS: Lateral cine images of the oropharynx and hypopharynx demonstrate normal swallow mechanism with normal epiglottic inversion and soft palate elevation. No tracheal penetration, glottic or subglottic aspiration identified. No nasopharyngeal reflux present. Hypopharyngeal structures appear normal without evidence of mass or diverticulum. There is mild cricopharyngeal achalasia present. Dual and single contrast images of the esophagus demonstrate normal caliber, contour, and mucosal pattern. No evidence of stricture, mass, or ulcerations identified. Esophageal peristalsis was normal. A small type I hiatal hernia is present. Gastroesophageal reflux is seen up to the thoracic inlet. Dual contrast and single contrast images of the stomach demonstrated a normal contour. The gastric rugal folds appear mildly thickened. There are multiple tiny areas of contrast pooling in the fundus the stomach that may represents small superficial aphthous ulcers. No masses are seen. Contrast freely passed into the gastric antrum and duodenal bulb without delay. Single and air-contrast images of the duodenal bulb demonstrate no abnormality. The duodenal sweep has a normal appearance, course, and mucosal fold appearance. The imaged proximal jejunum has a normal fold pattern and caliber. FLUOROSCOPY TIME: 3 minutes 12 seconds Number of Spot Images: 11 Number of Cine: 13 DOSE AREA PRODUCT: 1622 uGy-m2 (microgray-meter squared) FL/FL upper GI series IMPRESSION: 1. Mild cricopharyngeal achalasia 2. Small type I hiatal hernia 3. Moderate gastroesophageal reflux 4. Mildly thickened gastric rugal folds. In addition there are multiple tiny areas of contrast pooling in the fundus the stomach suggesting apthous type ulcers. These findings are suggestive of erosive gastritis. Recommend correlation EGD. This procedure was performed by Raphael Pierce PA-C, and supervised by Dr. Reyes Dictated By: Raphael Pierce Signed By: <Electronically signed by Raphael Pierce in OV> 05/24/23 1548 <Electronically signed by Nathan Reyes MD in OV> 05/24/23 1552 DD/ 1022 TD/TT: Case Management Manager: [place] tomosynthesis screening B I Reviewed date:11/12/2023 08:47:23 AM Interpretation: Performing Lab: Notes/Report: [address] [place] [address] Mammography Report Signed Patient: Pedro Joshi MR#: [id number] 9 : 1950 Acct:[id number] Age/Sex: 73 / F ADM Date: 10/15/23 Loc: HO.MAMMO Attending Dr: Harpreet Vega MD Ordering Physician: Harpreet Vega MD Results: 2Be nign Findings Date of Service: 10/15/23 Follow Up: 1 Year From [facility] Mammogram Procedure(s): MM tomosynthesis screening BI Accession Number(s): [id number] cc: Harpreet Vega MD EXAMINATION: MM SCREENING DIGITAL BREAST TOMOSYNTHESIS, BILATERAL CLINICAL INFORMATION: Screening. Asymptomatic. The patient has a history of bilateral, benign, excisional biopsies. COMPARISON: Mammography: This study is compared with prior exams dating back to 2019. TECHNIQUE: Digital breast tomosynthesis is performed in both the craniocaudal and mediolateral oblique views along with computer-aided detection (CAD). Synthesized 2D images are generated from the tomosynthesis. FINDINGS: The breasts are heterogeneously dense, which may obscure small masses (ACR BI-RADS breast composition Category c). There are no significant masses, abnormal calcifications, or other abnormalities. There are postsurgical changes and superior aspects of each breast. MM/MM tomosynthesis screening BI IMPRESSION: No mammographic evidence of malignancy. ASSESSMENT: BI-RADS BI-RADS 2 - Benign Findings RECOMMENDATION: Routine annual mammography screening. 1 year F/U This examination should not preclude the clinical evaluation of a suspicious palpable abnormality. This patient's information was entered into a reminder system with a target due date for their next mammogram. Electronically signed by: Patrica Lopes MD 11/07/2023 08:43 PM EDT Dictated By: Patrica Lopes MD Signed By: <Electronically signed by Patrica Lopes MD in OV> 11/07/232042 DD/ 9 TD/TT: 10/15/2348 Case Management Manager: XR chest 2V Reviewed date:11/25/2023 08:52:38 AM Interpretation: Performing Lab: Notes/Report: [address] [address] XRay Report Signed Patient: Pedro Joshi MR#: [id number] 9 : 1950 Acct:[id number] Age/Sex: 73 / F ADM Date: 11/22/23 Loc: HO.XRAY Attending Dr: Harpreet Vega MD Ordering Physician: Harpreet Vega MD Date of Service: 11/22/23 Procedure(s): XR chest 2V Accession Number(s): [id number] cc: Harpreet Vega MD EXAMINATION: XR CHEST CLINICAL INFORMATION: Acute bronchitis. COMPARISON: Chest radiograph 02/14/2023. TECHNIQUE: 2 views of the chest were obtained. FINDINGS: Unchanged central peribronchial thickening. No focal consolidation, pleural effusion or pneumothorax. Normal appearance of the cardiomediastinal silhouette. No acute osseous findings. Thoracic spondylosis. XR/XR chest 2V IMPRESSION: Central peribronchial thickening which could be seen with small airways disease or atypical/viral infections. No consolidation or pleural effusion. Electronically signed by: Eliza Nash MD 11/22/2023 04:39 PM EDT RP Dictated By: Eliza Nash Signed By: <Electronically signed by Eliza Nash in OV> 11/22/23 1639 DD/ 1605 TD/TT: 11/22/23 1628 Case Management Manager: CT chest wo con Reviewed date:12/13/2023 01:45:48 PM Interpretation: Performing Lab: Notes/Report: [address] [address] [address] Scan Report Signed Patient: Pedro Joshi MR#: [id number] 9 : 1950 Acct:[id number] Age/Sex: 73 / F ADM Date: 12/12/23 Loc: HO.CT Attending Dr: Harpreet Vega MD Ordering Physician: Harpreet Vega MD Date of Service: 12/12/23 Procedure(s): CT chest wo IV con Accession Number(s): [id number] cc: Harpreet Vega MD EXAMINATION: CT CHEST WITHOUT CONTRAST CLINICAL INFORMATION: Persistent cough COMPARISON: CT abdomen and pelvis 03/26/2023 TECHNIQUE: Multidetector volumetric CT imaging of the chest was done. Axial MIP volume rendering provided. Sagittal and coronal reformatted images were obtained. This CT examination was performed using dose optimization techniques as appropriate, variously including the following: *Automated exposure control *Adjustment of mA and/or kV according to patient size (this includes techniques or standardized protocols for targeted exams where dose is matched to indication/reason for exam; i.e. extremities or head) *Use of iterative reconstruction technique DLP: 168 mGy-cm FINDINGS: LUNGS: Central airways are patent. Focal pleural-based opacity in the anterior right middle lobe likely relating to atelectasis with adjacent bronchiolectasis, similar to prior CT from 03/26/2023. No focal consolidation. 2 mm pulmonary micronodule in the posterior medial right upper lobe, 5:169. Small calcified nodule/granuloma in the left upper lobe. No suspicious pulmonary nodule. Minimal bilateral bronchial wall thickening MEDIASTINUM: Heart is normal in size. No pericardial effusion. No enlarged mediastinal lymph nodes. Evaluation of hilar lymph nodes is limited in the absence of intravenous contrast. Nonaneurysmal thoracic aorta. CORONARY ARTERY CALCIFICATION: None visualized on this study. PLEURA: There is no pleural effusion. AXILLA: No lymphadenopathy. UPPER ABDOMEN: Scattered benign-appearing hepatic cysts ,similar to prior exam. Cholelithiasis. Surgical clips in the right retroperitoneum. OSSEOUS STRUCTURES: Minimal anterolisthesis of T2 over T3. Multilevel spondylosis of the visualized spine. No acute or suspicious osseous abnormality. CT/CT chest wo IV con IMPRESSION: Focal pleural-based opacity in the anterior right middle lobe likely relating to atelectasis with adjacent bronchiolectasis, similar to prior CT from 03/26/2023. No acute pulmonary disease. No suspicious pulmonary nodule. Minimal bilateral bronchial wall thickening which can be seen with reactive airways disease. Cholelithiasis. Scattered benign-appearing hepatic cysts. Electronically signed by: Bryan Ng MD 12/13/2023 09:01 AM EDT Dictated By: Bryan Ng Signed By: <Electronically signed by Bryan Ng in OV> 12/13/23 0901 DD/ 1356 TD/TT: 12/12/23 1423 Case Management Manager: Katina Benitez Reviewed date:02/06/2024 12:50:56 PM Interpretation: Performing Lab:[facility], [address] [place] [phone] Notes/Report: Katina Benitez See Note Specimen held untested for 24 hours; Call to request Chemistry testing. Complete Blood Count Auto Di ff Reviewed date:02/06/2024 03:16:30 PM Interpretation: Performing Lab:[facility], [address] [place] [phone] Notes/Report: White Blood Count 4.6 4.8-10.8 X10*3/uL [...] NRBC Abs Auto 0.000 0.0-0.012 X10*3/uL Comprehensive [place]. Panel Fa Reviewed date:02/06/2024 03:31:30 PM Interpretation: Performing Lab:[facility], [address] [place] [phone] Notes/Report: Sodium 142 135-145 mmol/L Potassium 3.9 [...] Panel Reviewed date:02/06/2024 03:13:49 PM Interpretation: Performing Lab:[facility], [address] [place] [phone] Notes/Report: Triglycerides 147 <150 mg/dL Desirable Triglyceride: [...] Total Reviewed date:02/06/2024 03:14:41 PM Interpretation: Performing Lab:[facility], [address] [place] [phone] Notes/Report: Vitamin D 25-OH Total 50.3 >30 [...] t Reviewed date:02/06/2024 03:14:32 PM Interpretation: Performing Lab:[facility], [address] [place] [phone] Notes/Report: Urine, Clean Catch Color Urine Dark Yellow Appearance Urine Clear PH 5.5 5.0-9.0 Glucose Urine UA Negative Negative mg/dL Urine Blood Small (1+) Negative Specific [place] - Urine >= 1.030 1.005-1.025 Urine Protein Trace Neg-Trace mg/dL Urine Ketones Negative Negative mg/dL Nitrite Urine Negative Negative Leukocyte Esterase Urine Trace Negative RBC Urine 3-5 0-2 /HPF WBC Urine 0-5 0-5 /HPF Squamous Epithelial Cell Urine 3-5 0-2 /HPF Bacteria Urine None Seen None Seen Hyaline Casts Urine 0-2 0-2 /LPF REASON FOR REFERRAL Reason rectal bleeding Diagnosis 1 Rectal bleeding (K62 .5) Referral Organization Harpreet Vega MD Referring Provider First Name Harpreet Referring Provider Last Name Silvia Referring Provider Speciality Internal M edicine Referred Provider Nael [place] Referred Provider Specialty Surgery General Notes Flores Richard 10:00:58 AM EST > patient is aware of appt Referral Priority Routine Referral Appointment Date 04/04/2023 Reason acute superficial ga stritis without hemorrhage Diagnosis 1 Acute superficial ga stritis without hemorrhage (K29.00) Referral Organization Harpreet Vega MD Referring Provider First Name Harpreet Referring Provider Last Name Silvia Referring Provider Speciality Internal M edicine Referred Provider Garo Harrington Referred Provider Specialty Gastroentero logy General Notes Flores Richard 09:36:21 AM EDT > info faxed Hilary Annette 06/04/2023 08:20:10 AM EDT > info mailed to patient , Maria Esther Calixto 10/14/2023 12:53:19 PM EDT > PER DR HARRINGTON OFFICE PEDRO CANCELLED HER APPT BECAUSE SHE WAS FEELING BETTER Referral Priority Routine Referral Appointment Date 10/14/2023 Reason persistent cough Diagnosis 1 Persistent cough (R0 5.3) Referral Organization aHrpreet Vega MD Referring Provider First Name Harpreet Referring Provider Last Name Silvia Referring Provider Speciality Internal M edicine Referred Provider BENITA YATES Referred Provider Specialty Pulmonary Di seases General Notes Flores Richard 01:16:28 PM EDT > ct chest for persistent cough at [facility] 12-12-2023 2pmHilary Annette 12/12/2023 12:54:05 PM EDT > info faxedHilary Annette 12/19/2023 03:03:17 PM >was told to refaxHilary rubi Annette 12/23/2023 09:45:52 AM >was told by office they will be reaching out to patient on SaturdayHilary Annette 12/27/2023 11:49:24 AM > patient was called with above info Referral Priority Routine Referral Appointment Date 01/22/2024 MEDICATIONS Medication SIG (Take, Route, Frequency, Duration) Notes Start Date End Date Status diphenhydrAMINE HCl 50 MG 1 capsule at b edtime as needed Orally take one hour before the test for 1 days 02/14/2023 Active Albuterol Sulfate (2.5 MG/3ML) 0.083% 3 mL as needed Inhalation every 6 hrs 11/22/2023 Active Pulmicort 0.5 MG/2ML 1 mL Inhalation Twi ce a day 12/23/2023 Active Amphetamine-Dextroamphetami ne 20 MG (Schedule II Drug) TAKE 1 TABLET BY MOUTH TWICE A DAY Oral once a day Active Wellbutrin XL 300 MG 1 tablet in the morning Orally Once a day Active Vitamin D 1000 UNIT 1 tablet Orally Once a day Active SUMAtriptan Succinate 100 MG TAKE ONE TABLET BY MOUTH TWICE A DAY NEEDED for 30 Not-Taking Pramipexole Dihydrochloride 0.25 MG 1 tablet before bedtime Orally Once a day Not-Taking Albuterol Sulfate HFA 108 (90 Base) MCG/ACT 1 puff as needed Inhalation every 4 hrs 08/03/2022 Active Hyoscyamine Sulfate 0.125 MG 1 tablet under the tongue and allow to dissolve before meals as needed Sublingual every 4 hrs as needed 01/29/2012 Not-Taking LORazepam 1 MG 2 tablet HS Act murray IMMUNIZATIONS Vaccine Route Administration Date Status Comme nts Flu Vaccine IM Intramuscular 02/05/2012 Administered Shingles IM Intramuscular 01/05/2013 Administered Fluarix Quadrivalent IM Intramuscular 11/10/2013 Administe red TDaP Unknown 06/19/2010 Administered Fluarix Quadrivalent IM Intramuscular 12/07/2014 Admin[facility] red TDaP IM Intramuscular 04/25/2015 Administered PPSV23 (Pnemovax) IM Intramuscular 06/14/2015 Administered Fluarix Quadrivalent IM Intramuscular 12/05/2015 Admininscription [facility] red Prevnar 13 IM Intramuscular 07/03/2016 Administered Fluarix Quadrivalent IM Intramuscular 11/19/2016 Admininscription [facility] red Fluarix Quadrivalent IM Intramuscular 12/16/2017 Admininscription [facility] red Influenza High Dose IM Intramuscular 12/09/2018 Administer ed PPSV23 (Pnemovax) IM Intramuscular 04/06/2019 Administered Influenza High Dose IM Intramuscular 11/05/2019 Administer ed SARS-COV-2 Moderna Unknown 04/28/2020 Administered SARS-COV-2 Moderna Unknown 05/26/2020 Administered Influenza High Dose IM Intramuscular 11/11/2020 Administer ed Influenza High Dose IM Intramuscular 12/01/2021 Administer ed Influenza High Dose IM Intramuscular 11/13/2022 Administer ed Influenza High Dose IM Intramuscular 12/23/2023 Administer ed Flu Vaccine Unknown 11/10/2013 Pending SOCIAL HISTORY Tobacco Use: Social History Observation Description Date Details (start date - stop date) Never Smoker NA - NA Sex Assigned At : Social History Observation Description Sex Assigned At Unknown Tobacco Use/Smoking Question Answer Notes Patient is a nonsmoker Additional Findings: Tobacco Non-User Cu rrent non-smoker, currently using no form of tobacco Alcohol Screen Question Answer Notes Did you have a drink containing alcohol in the p ast year? No Points 0 Interpretation Negative PROBLEMS Problem Type ICD Code Onset Dates Problem Status W/U Status Risk SNOMED Code Notes Problem Actinic keratosis (L57.0) Active confirmed Problem Neuropathy (G62.9) Active confirmed 386 109101 Problem Lymphocytosis (D72.820) Active confirmed 68554907 Problem Restless leg syndrom e (G25.81) Active confirmed 11632158 Problem Vitamin D deficiency (E55.9) Active confirmed 92852866 Problem Dupuytren contractur e (M72.0) Active confirmed 229354163 Problem Other specified menopausal and perimenopausal disorders (N95.8) Active confirmed 295808992 Problem Lumbar disc disease (M51.9) Active confirmed 440058830 Problem Tubular adenoma of colon (D12.6) Active confirmed 629506267 Problem Cervical disc diseas e (M50.90) Active confirmed 327987204 Problem Migraine without aur a and without status migrainosus, not intractable (G43.009) Active confirmed 709013892 Problem Gall stones (K80.20) Active confirmed 2 21075406 Problem Carpal tunnel syndro me of right wrist (G56.01) Active confirmed 238022424291141 Problem Dysthymia (F34.1) Active confirmed 7866 7006 Problem Sleep apnea, unspecified type (G47.30) Active confirmed 22644468 Problem Psychophysiological insomnia (F51.04) Active confirmed 490387356 Problem Pure hypercholesterolemia (E78.00) Active confirmed 627969507 Problem Mild intermittent asthmatic bronchitis with acute exacerbation (J45.21) Active confirmed 341924297 Problem Moderate persistent asthmatic bronchitis with acute exacerbation (J45.41) Active confirmed 814450389 Problem Malignant neoplasm o f kidney, 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) Active confirmed 091238815 Problem Acute superficial gastritis without hemorrhage (K29.00) Active confirmed 609251506 Problem Osteopenia of lumbar spine (M85.88) Active confirmed 532715003 Problem Abnormal chest xray (R93.89) Active confirmed 337532907 Problem Moderate major depression (F32.1) Active confirmed 766288 Problem Compulsive eating patterns (F50.9) Active confirmed 025844967 Problem Abnormal CT scan (R93.89) Active confirmed 475220426 VITAL SIGNS Blood pressure diastolic 90 mm Hg 02/14/2024 michelle ght is up 6 pounds since 02-08-23 Height 66.5 in 02/14/2024 weight is up 6 pounds since 02-08-23 Blood pressure systolic 136 mm Hg 02/14/2024 weig ht is up 6 pounds since 02-08-23 Weight 175 lbs 02/14/2024 weight is up 6 pounds since 02-08-23 BMI 27.82 kg/m2 02/14/2024 weight is up 6 pounds since 02-08-23 Encounters Encounter Location Date Provider Diagnosis Harpreet Vega MD [address] [place] [id number] 04/01/2023 Harpreet Vega Gall stones K80.20 ; Rectal bleeding K62.[address] scan R93.89 [address]reet Vega [address] [place] [id number] 02/14/2024 Harpreet Vega Mild intermittent asthmatic bronchitis with acute exacerbation J45.21 ; Microscopic hematuria R31.29 ; Lymphocytosis D72.820 ; Pure hypercholesterolemia E78.00 ; Vitamin D deficiency E55.9 and Dysthymia F34.1 Harpreet Vega MD [address] [place] [id number] 02/06/2024 Harpreet Vega Pure hypercholestero lemia E78.00 and Vitamin D deficiency E55.9 Harpreet Vega MD [address] [place] [id number] 03/15/2023 Harpreet Vega Rectal bleeding K62. 5 [address]reet Vega [address] [place] [id number] 06/21/2023 Harpreet Vega Dupuytren contractur e M72.0 ; Cervical disc disease M50.90 and Carpal tunnel syndrome of right wrist G56.01 Harpreet Vega MD [address] [place] [id number] 12/10/2023 Harpreet Vega Persistent cough R05 .3 Harpreet Vega MD [address] [place] [id number] 12/23/2023 Harpreet Vega Mild intermittent asthmatic bronchitis with acute exacerbation J45.21 and Encounter for administration of vaccine Z23 Harpreet Vega MD [address] [place] [address] [id number] 01/03/2024 Harpreet Vega Mild intermittent asthmatic bronchitis with acute exacerbation J45.21 Harpreet Vega MD [address] [place] [address] [id number] 11/11/2023 Harpreet Vega MD [address] [place] [address] [id number] 11/25/2023 Harpreet Vega MD [address] [place] [address] [id number] 12/23/2023 Harpreet Vega MD [address] [place] [address] [id number] 05/28/2023 Harpreet Vega Acute superficial gastritis without hemorrhage K29.00 Harpreet Vega MD [address] [place] [address] [id number] 10/29/2023 Harpreet Vega Moderate persistent asthmatic bronchitis with acute exacerbation J45.41 Harpreet Vega MD [address] [place] [address] [id number] 11/22/2023 Harpreet Vega Acute bronchitis, unspecified organism J20.9 Harpreet Vega MD [address] [place] [address] [id number] 11/26/2023 Harpreet Vega Mild intermittent asthmatic bronchitis with acute exacerbation J45.21 and Abnormal chest xray R93.89 ASSESSMENTS Encounter Date Diagnosis Assessment Notes Treatment Notes Treatment Clinical Notes 04/01/2023 Rectal bleeding (ICD -10 - K62.5) after bowel movement and sometimes after standing will get a cup/ refer to dr colorado 04/01/2023 Gall stones (ICD-10 - K80.20) at present there are no symptoms/GI series recommended by radiologist after review of CT Scan. order faxed to dept-appt booked for 05-24-23 at 10am 02/14/2024 Microscopic hematuri a (ICD-10 - R31.29) 02/14/2024 Mild intermittent asthmatic bronchitis with acute exacerbation (ICD-10 - J45.21) stable, will continue current regiment 02/06/2024 Vitamin D deficiency (ICD-10 - E55.9) 02/06/2024 Pure hypercholestero lemia (ICD-10 - E78.00) 03/15/2023 Rectal bleeding (ICD -10 - K62.5) 06/21/2023 Dupuytren contractur e (ICD-10 - M72.0) will observe if worse will send to hand surgeon 06/21/2023 Cervical disc diseas e (ICD-10 - M50.90) doesn't want nsaids due to one kidney 12/10/2023 Persistent cough (IC D-10 - R05.3) did do better with the zpack/ referral to pulmonary at [facility]/0rder faxed to [facility] 12/23/2023 Encounter for administration of vaccine (ICD-10 - Z23) flu vaccine administered 12/23/2023 Mild intermittent asthmatic bronchitis with acute exacerbation (ICD-10 - J45.21) patient verbalized understanding of medication and directions for use 01/03/2024 Mild intermittent asthmatic bronchitis with acute exacerbation (ICD-10 - J45.21) 05/28/2023 Acute superficial gastritis without hemorrhage (ICD-10 - K29.00) have gone over the ugi with her and will refer her to dr harrington 10/29/2023 Moderate persistent asthmatic bronchitis with acute exacerbation (ICD-10 - J45.41) 11/22/2023 Acute bronchitis, unspecified organism (ICD-10 - J20.9) order faxed to [facility] Patient reg, pending diagnostic testing, patent verbalized understanding of medication and directions for use 11/26/2023 Mild intermittent asthmatic bronchitis with acute exacerbation (ICD-10 - J45.21) advised to continue using the nebulizer every 6 hours and chest doing better 11/26/2023 Abnormal chest xray (ICD-10 - R93.89) have gone samira the results of the xray and explained there there was nothing there and no evidence of copd 04/01/[address] scan (IC D-10 - R93.89) discussed findings with patient and recommendation of radiologist for further diagnostic gtesting testing 02/14/2024 Lymphocytosis (ICD-1 0 - D72.820) 06/21/2023 Carpal tunnel syndro me of right wrist (ICD-10 - G56.01) patient verbalized understanding of medicationand directions for use, will observe 02/14/2024 Pure hypercholestero lemia (ICD-10 - E78.00) stable, will continue to monitor 02/14/2024 Vitamin D deficiency (ICD-10 - E55.9) stable, will continue current regiment 02/14/2024 Dysthymia (ICD-10 - F34.1) stale, will continue current regiment PLAN OF TREATMENT Pending Test Test Name Order Date Electrocardiogram (EKG) 06/28/2015 CARDIOVASCULAR STRESS TEST 06/28/2015 XR CHEST 2 VIEW PA & LAT 11/22/2023 XR CHEST 2 VIEW PA & LAT 02/08/2023 XR GI SERIES 04/01/2023 BONE DENSITY DEXA 12/05/2020 CT abdomen pelvis wo/w con 02/08/2023 Future Test Test Name Order Date Complete Blood Count Auto Diff Next Appt Details Provider Name:Harpreet gunter, 03/09/2024 03:00:00 PM, [address] [place] [address], [address], [phone], Provider Name:Harpreet Cervantes ier, 08/03/2024 08:00:00 AM, [address] [place] [address], [address], [phone], Provider Name:Harpreet Cervantes ier, 08/10/2024 09:15:00 AM, [address] [place] [address], [phone], Provider Name:Harpreet bhatr, 02/05/2025 07:45:00 AM, [address] [place] [address], [address], [phone], Provider Name:Harpreet bhatr, 02/12/2025 08:00:00 AM, [address] [place] [address], [phone], Insurance Providers Payer Name Payer Address Payer Phone Subscriber Number Group Number Insured Name Patient Relationship to Insured Coverage Start Date Coverage End Date [employer] [address] [place] [address] [id number] Pedro Joshi Self - patient is the insured [employer] [address] [place], [place] [id number] Pedro Joshi Self - patient is the insured MEDICAL (GENERAL) HISTORY Medical History History ICD Code 07/20/2013 - Colonoscopy with Dr. Harrington; colonoscopy by Dr. harrington scheduled for 08/19/19;CX due to COVID - not R/S yet had reaction one time with c at scan dye and had many ct with dye after that with pretretment with prednisone and benedryl colonoscipy 01/22 repeat 5 years (2025) Surgical History Surgery Date(Month/Year) RT Cataract Extration w/Intraocular Lens Insertion (Dr. Martinez) 05/2018
--- OUTSIDE RECORDS SUMMARY | 2024-03-05 15:10 | XMS_ITS | Patient Health Record ---
Author Organization [facility] Address [address] [place] [address] Care Team Providers Care Laborer [employer] Name Role Phone Silvia JACK, Harpreet Primary Care Provider Garo Guerrero [phone] ALLERGIES Allergen (clinical drug ingredient) Drug/Non Drug Allergy documented on EMR Reaction Allergy Type Onset Date Status Penicillin Unknown Drug Allergy Active bee stings (uncoded) Unknown Allergy Active ct scan dye (uncoded) Unknown Allergy Active REASON FOR REFERRAL No Information MEDICATIONS Medication SIG (Take, Route, Frequency, Duration) Notes Start Date End Date Status Vitamin D 25 MCG (1000 UT) 1 tablet Oral ly Once a day Active metroNIDAZOLE 0.75 % 1 application Exter hans Twice a day Active LORazepam 1 MG 1 tablet at bedtime as needed Orally Once a day Active Amphetamine-Dextroamphetami ne 20 MG 1 tablet Orally once a day Active buPROPion HCl ER (XL) 300 MG TAKE 1 TABLET BY MOUTH ONCE DAILY Oral Once a day Active SUMAtriptan Succinate 100 MG TAKE 1 TABLET BY MOUTH TWICE A DAY Oral for 30 Active Culturelle Active IMMUNIZATIONS Vaccine Route Administration Date Status Comme nts Influenza Unknown 11/12/2018 Administered Influenza Unknown 11/03/2019 Administered SOCIAL HISTORY Sex Assigned At : Social History Observation Description Sex Assigned At Unknown PROBLEMS Problem Type ICD Code Onset Dates Problem Status W/U Status Risk SNOMED Code Notes Problem Encounter for screening for malignant neoplasm of colon (Z12.11) Active confirmed 100624203 Problem Personal history of colonic polyps (Z86.010) Active confirmed History of poly p of colon (situation) (659453169) Problem Calculus of gallbladder without cholecystitis without obstruction (K80.20) Active confirmed 78969823 Problem Preprocedural examination (Z01.818) Active confirmed 197717317995079 Problem Hx of adenomatous colonic polyps (Z86.010) Active confirmed 572928585 Problem Diverticulosis of sigmoid colon (K57.30) Active confirmed Diverticulosis of sigmoid colon (958961726) Problem Irritable bowel syndrome with constipation (K58.1) Active confirmed 604994852 Encounters Encounter Location Date Provider Diagnosis [facility] [address] [place] [address] 09/11/2023 Garo Acosta [facility] [address] [place] [address] 09/04/2023 Garo Acosta PLAN OF TREATMENT Future Test Test Name Order Date COLONOSCOPY 06/04/2013 COLONOSCOPY 12/30/2018 COLONOSCOPY 12/08/2020 Insurance Providers Payer Name Payer Address Payer Phone Subscriber Number Group Number Insured Name Patient Relationship to Insured Coverage Start Date Coverage End Date MEDICARE OF [place] [address] [place] [address] [phone] [id number] PEDRO NASCIMENTO Self - patient is the insured [employer] CLAIMS [address] [place] [address] [id number] PEDRO NASCIMENTO Self - patient is the insured MEDICAL (GENERAL) HISTORY Medical History History ICD Code Renal cell carcinoma (right kidney remov ed)--1991 Asthma Irritable bowel syndrome Post traumatic stress disorder--has had a hard time leaving the house Denies NM,DM,CVA, renal disease(aside fr om the previous cancer) Gallstones--intermittent upp er abdominal pains-U/S in 2012 and 2017--D/W patient on 12/30/18--told to see a surgeon if symptomatic She had a negative colonoscopy with me denise [place] May of 2002 Hay fever Colonoscopy 07/2013-1 small tubular adeno ma Migraines Surgical History Surgery Date(Month/Year) Right kidney removed in 1991 as above--a t [facility] Right breast cyst removed in 1991-benign Left breast---milk ducts removed in 1973
--- OUTSIDE RECORDS SUMMARY | 2024-03-05 15:10 | XMS_ITS ---
Author Organization [facility] Address [address] [place] [address] Care Team Providers Care Baseball Glove Shaper Name Role Phone Harpreet Vega MD Primary Care Provider Garo Guerrero [phone] REASON FOR VISIT cancel appt Encounters Encounter Location Date Provider Diagnosis [facility] [address] [place] [phone] 09/04/2023 Garo Acosta PLAN OF TREATMENT No Information
--- OUTSIDE RECORDS SUMMARY | 2024-03-05 15:10 | XMS_ITS ---
Author Organization [facility] Address [address] [place] [address] Care Team Providers Care Tie Tape Machine Operator Name Role Phone Harpreet Vega MD Primary Care Provider Garo Guerrero [phone] REASON FOR VISIT Patient presents today for an ACUTE GASTRITIS Encounters Encounter Location Date Provider Diagnosis [facility] [address] [place] [address] 09/11/2023 Garo Acosta PLAN OF TREATMENT No Information
== END 2024-03-05 13:49 | disposition home or self-care (01) ==
LOC: HO.RESP 13:48
PROVIDERS: PCP Internal Medicine; Visit Provider Internal Medicine
DX: R05.9 Cough, unspecified (principal); J68.3 Other acute and subacute respiratory conditions due to chemicals, gases, fumes and vapors; J45.909 Unspecified asthma, uncomplicated
CPT/HCPCS: 94010; 94640; 94727; 94729; 99212

== ENCOUNTER 2024-03-05 14:44 | Outpatient (AMB) | payer MEDICARE, SELFPAY ==
--- NOTE | 2024-03-05 14:54 | MHC.OFFVIS ---
Vital Signs 03/05/24 14:55 Height 5 ft 6 in Weight 175 lb BMI 28.2 BP 140/90 H Blood Pressure Location Lt brachial Position Sitting Pulse 93 Pulse Source Pulse Oximeter Pulse Oximetry (%) 97 Oxygen Delivery Method Room Air Intake Visit Reasons: Cough/PFT Follow Up Intake Note: pt is here for Allergies Iodinated Contrast Media [IV CONTRAST] Allergy (Unknown, Verified 03/05/24 15:38) HIVES Penicillins [PENICILLINS] Allergy (Unknown, Verified 03/05/24 15:38) UNKNOWN senna [SENNA] Allergy (Unknown, Verified 03/05/24 15:38) RASH Medication List - Last Reconciled 03/05/24 by Lucio Freitas MD budesonide 0.5 mg (2 mL) inhalation BID 30 days bupropion HCl XL 300 mg PO QAM cholecalciferol (vitamin D3) (Vitamin D3) 25 mcg PO DAILY dextroamphetamine-amphetamine 20 mg 20 mg PO DAILY PRN lorazepam 1 mg PO BEDTIME PRN Do you need a note to return to daycare/school/sports/work: No HPI HPI Cough/PFT Follow Up: Details: THIS 73 YEARS OLD VERY PLEASANT FEMALE IS HERE FOR FOLLOW-UP. SHE HAS LONGSTANDING HISTORY OF ENVIRONMENTAL ALLERGIES, MILD ASTHMA OFF AND ON. AND NOW SHE WAS HAVING PERSISTENT COUGH AFTER A BOUT OF UPPER RESPIRATORY INFECTION. SINCE HER LAST VISIT SHE WAS STARTED ON BUDESONIDE 0.5 MG SOLUTION IN THE NEBULIZER B.I.D.. HER COUGH RESOLVED VERY QUICKLY AFTER THAT. SHE DID NOT HAVE TO USE ANY RESCUE INHALER. SHE COMES BACK TODAY FOR FOLLOW-UP. ADD COMPLETE PULMONARY FUNCTION TEST DONE TODAY. SHE IS NONSMOKER. 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 Bleeding hemorrhoids Arthritis Elevated cholesterol Mild obstructive sleep apnea Hayfever Hx of migraines Gallstones PTSD (post-traumatic stress disorder) IBS (irritable bowel syndrome) Asthma Renal cell carcinoma of right kidney Surgical History Hx of dilation and curettage Hx of bilateral cataract extraction History of breast surgery History of breast surgery Hx of colonoscopy History of right nephrectomy Family History Sister Cervical cancer Father Bladder cancer Liver cancer Cancer of kidney Social History Comment: Chronic shoulder pain present prior to procedure Patient Tobacco Use Status: Never used Tobacco Review of Systems Const All systems reviewed & are unremarkable except as noted in HPI and below Eyes Reports no additional complaints ENT Reports no additional complaints Card Denies chest pain, Denies irregular heart rhythm and Denies leg edema GI Reports no additional complaints Reports no additional complaints Musc Reports no additional complaints Skin/Breast Reports system reviewed and no additional complaints, except as documented Neuro Reports no additional complaints Psych Reports other (past h/o ADHD/PTSD , OK NOW ) Endo Reports no additional complaints Marshall/Lymph Reports no additional complaints Aller/Immun Reports no additional complaints Physical Exam Vital Signs: Last Vital Signs Pulse 93 03/05/24 14:55 BP 140/90 H 03/05/24 14:55 Pulse Ox 97 03/05/24 14:55 Oxygen Delivery Method Room Air 03/05/24 14:55 BMI result Body Mass Index 28.2 Const General: healthy appearing, comfortable, no acute distress, alert and awake Orientation/consciousness: patient oriented x3 HEENT Head: Yes normal to inspection General nose exam: No nasal polyps present and No nasal discharge present Face and sinus: Yes sinuses nontender Mouth: oropharynx normal Throat: Yes posterior oropharynx normal Eyes General: appearance normal, both eyes and all related structures Neck Neck: Yes normal visual inspection, Yes no lymphadenopathy, Yes trachea midline and Yes no JVD Thyroid: Thyroid normal Chest Chest palpation & inspection: normal inspection of the chest, normal palpation of entire chest wall and no tenderness Resp Effort & Inspection: normal respiratory effort Auscultation: clear to auscultation bilaterally, no crackles and no wheezes Cardio Palpation: normal PMI Rate: regular rate Rhythm: regular rhythm Heart sounds: no gallops and no murmurs Peripheral pulses: Peripheral pulses 2+ throughout GI Palpation (GI): Soft to palpation, nontender, No hepatosplenomegaly present and no masses Auscultation: normal bowel sounds Back/Spine/Pelvis Thoracic/Lumbar Spine: thoracic and lumbar spine normal to inspection Skin General skin exam: no rashes or lesions noted Neuro General: patient oriented x3 and no focal motor deficits Cranial nerves: Yes CN's II-XII intact bilaterally Extrem General: Yes normal to inspection, Yes no clubbing, cyanosis or edema and Yes no calf tenderness Psych Appearance: grossly normal and well kempt Speech and movement: Normal speech and movement present Results Reviewed Results Reviewed: PULMONARY FUNCTION TEST. 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 AND SHE CONTINUED TO HAVE SPASMODIC COUGH FOR AT LEAST 3 MONTHS. SHE HAD SIGNIFICANT IMPROVEMENT AFTER STARTING USE OF BUDESONIDE 0.5 MG IN THE NEBULIZER B.I.D.. TODAY SHE CLAIMS THAT SHE HARDLY HAS ANY RESIDUAL COUGH, OR WHEEZING. SHE IS SOMEWHAT SENSITIVE TO ALBUTEROL, ( GETS LIGHTHEADED) Code(s): J68.3 - Other acute and subacute respiratory conditions due to chemicals, gases, fumes and vapors Category: Medical Plan: SEE UNDER ASTHMA, (2) Asthma: Comment: ABOVE UNDER REACTIVE AIRWAYS SYNDROME. THIS PATIENT DOES HAVE HISTORY OF BRONCHIAL ASTHMA IN YOUNGER AGE, WHICH WAS AGGRAVATED BY SECOND HAND SMOKING. IT RESOLVED ONCE SHE WAS OUT OF THE SITUATION. SHE WAS SUFFERING FROM COUGH ASTHMA VARIANT, FOR ABOUT 3 MONTHS AFTER EXPOSURE TO, SOME IRRITANT OR A BOUT OF UPPER RESPIRATORY INFECTION. IT HAS NOW IMPROVED. Code(s): J45.909 - Unspecified asthma, uncomplicated Category: Medical Plan: TREATMENT PLAN> HAD A DETAILED DISCUSSION WITH THE PATIENT AND HER . CONTINUE USING BUDESONIDE 0.5 MG SOLUTION IN THE NEBULIZER B.I.D., FOR ANOTHER 4 WEEKS, THEN CUT DOWN TO ONCE A DAY FOR 4 WEEKS AND THEN USE ONLY P.R.N.. ALBUTEROL HFA MAY USE 1 PUFF AT A TIME Q 6 HOURS ONLY P.R.N.. AVOID EXPOSURE TO ANY IRRITANTS , DUST OR SMOKE ETC.. 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
[2024-03-05 14:55] VITALS: BP 140/90; PULSE 93; O2SAT 97; BMI 28.2
--- OUTSIDE RECORDS SUMMARY | 2024-03-05 16:17 | XMS_ITS ---
Author Organization Harpreet Vega MD Address [address] [place], [place] [id number] Care Team Providers Care Manager Latin Name Role Phone Harpreet Vega Primary Care Provider ALLERGIES Allergen (clinical drug ingredient) Drug/Non Drug Allergy documented on EMR Reaction Allergy Type Onset Date Status Gadolinium hives Drug Allergy Active IVP dye (uncoded) huge hives Allergy A ctive penicillin (uncoded) hives Allergy Active REASON FOR VISIT review labs, Accompanied by MEDICATIONS Medication SIG (Take, Route, [...] 1 MG 2 tablet HS Act murray SOCIAL HISTORY Tobacco Use: Social History Observation [...] W/U Status Risk SNOMED Code Notes Problem Lymphocytosis (D72.820) Active confirmed 21945872 VITAL SIGNS BMI 27.82 kg/m2 02/14/2024 Blood pressure systolic 136 mm Hg 02/14/20 24 Blood pressure diastolic 90 mm Hg 024 Height 66.5 in 02/14/2024 Weight 175 lbs 02/14/2024 weight is up 6 pounds since 02-08-23 Encounters Encounter Location Date Provider Diagnosis Harpreet Vega MD [address] [place] [address] Drive [address] [place], [place] [phone] 02/14/2024 Harpreet Vega Mild intermittent asthmatic bronchitis with acute exacerbation J45.21 ; Microscopic hematuria R31.29 ; Lymphocytosis D72.820 ; Pure hypercholesterolemia E78.00 ; Vitamin D deficiency E55.9 and Dysthymia F34.1 ASSESSMENTS Encounter Date Diagnosis Assessment Notes Treatment Notes Treatment Clinical Notes 02/14/2024 Mild intermittent asthmatic bronchitis with acute exacerbation (ICD-10 - J45.21) stable, will continue current regiment 02/14/2024 Microscopic hematuri a (ICD-10 - R31.29) 02/14/2024 Lymphocytosis (ICD-1 0 - D72.820) 02/14/2024 Pure hypercholestero lemia (ICD-10 - E78.00) stable, will continue to monitor 02/14/2024 Vitamin D deficiency (ICD-10 - E55.9) stable, will continue current regiment 02/14/2024 Dysthymia (ICD-10 - F34.1) s tale, will continue current regiment PLAN OF TREATMENT Medication Medication Name Sig [...] regiment Dysthymia stale, will continue current regiment Future Test Test Name Order Date Complete Blood Count Auto Diff Next Appt Details Follow Up: 6 Months, Reason: Provider Name:Harpreet gunter, 03/09/2024 03:00:00 PM, [address] [place] [address], [address], [phone], Provider Name:Harpreet gunter, 08/03/2024 08:00:00 AM, [address] [place] [address], [phone], Provider Name:Harpreet gunter, 08/10/2024 09:15:00 AM, [address] [place] [address], [phone], Provider Name:Harpreet gunter, 02/05/2025 07:45:00 AM, [address] [place] [address], [phone], Provider Name:Harpreet gutner, 02/12/2025 08:00:00 AM, [address] [place] [address], [phone], Progress Notes * Examination Category Sub-Category Detail Notes General Examination GENERAL APPEARANCE: well dev eloped, well nourished, in no acute distress HEAD: normocephalic, atrau matic EYES: pupils equal, round, reactive to light and accommodation, sclera non- icteric EARS: normal THROAT: clear NECK/THYROID: neck supple, [...] BREASTS: not examined RECTAL EXAM: done by box car bracer FEMALE GENITOURINARY: done by box car bracer ORAL CAVITY: mucosa moist History and Physical Notes * HPI (History of Present Illness) Category Sub-Category Detail Notes Depression Screening PHQ-9 Little inte rest or [...] Have you had any falls with injury in the past year?: No Have you had two or more falls in the year?: No Communication Needs Communication Needs Does the patient have a hearing impairment: Yes ?If yes, what is the hearing impairment? : Hard of hearing, Hearing Aids Does the patient have a vision impairmen t?: Yes ?If yes, what is the vision impairment?: Glasses Does the patient have a cognition impair ment?: No
== END 2024-03-05 15:39 | disposition home or self-care (01) ==
PROVIDERS: PCP Internal Medicine; Visit Provider Internal Medicine
DX: J68.3 Other acute and subacute respiratory conditions due to chemicals, gases, fumes and vapors (principal); J45.909 Unspecified asthma, uncomplicated
CPT/HCPCS: 99213

== ENCOUNTER 2024-03-09 15:38 | Outpatient (REF) | payer MEDICARE, SELFPAY ==
--- OUTSIDE RECORDS SUMMARY | 2024-03-09 17:22 | XMS_ITS ---
Author Organization Harpreet Vega MD Address [address] [place], [place] [id number] Care Team Providers Care Collections Assistant Name Role Phone Harpreet Vega Primary Care Provider ALLERGIES Allergen (clinical drug ingredient) Drug/Non Drug Allergy documented on EMR Reaction Allergy Type Onset Date Status Gadolinium hives Drug Allergy Active IVP dye (uncoded) huge hives Allergy A ctive penicillin (uncoded) hives Allergy Active REASON FOR VISIT bilateral shoulder pain x 2 months and right hand x 1 month, Accompanied by hiusband MEDICATIONS Medication SIG (Take, Route, Frequency, Duration) [...] 1 MG 2 tablet HS Act murray PROBLEMS Problem Type ICD Code Onset Dates Problem Status W/U Status Risk SNOMED Code Notes Problem Bilateral carpal tunnel syndrome (G56.03) Active confirmed [id number] VITAL SIGNS Blood pressure systolic 148 mm Hg 03/09/19 25 Blood pressure diastolic 80 mm Hg 025 Height 66.5 in 03/09/2024 refused weight Encounters Encounter Location Date Provider Diagnosis Harpreet Vega MD [address] [place], [place] [phone] 03/09/2024 Harpreet Vega Migraine with visual aura G43.109 ; Bilateral carpal tunnel syndrome G56.03 ; Hives of unknown origin L50.9 and Diffuse arthralgia M25.50 ASSESSMENTS Encounter Date Diagnosis Assessment Notes Treatment Notes Treatment Clinical Notes 03/09/2024 Migraine with visual aura (ICD-10 - G43.109) no treatment needed at present. the loss of vision sounds like a scotomata/ THE LAB SLIP WAS GIVEN TO MANUELA TO GO TO LAB 03/09/2024 Bilateral carpal tunnel syndrome (ICD-10 - G56.03) pending diagnostic testing, [place]G [place] [facility] [place], 03/09/2024 Hives of unknown origin (ICD-10 - L50.9) 03/09/2024 Diffuse arthralgia (ICD-10 - M25.50) PLAN OF TREATMENT Medication Medication Name Sig [...] testing, THE EMG ORDER WAS FA[place]ED [place] [facility] [place] [facility] [place], Pending Test Test Name Order Date EMG 03/09/2024 Tick-borne Disease Molecular 03/09/2024 Next Appt Details Follow Up: 2 Months, Reason: Provider Name:Harpreet Cervantes perlitar, 05/19/2024 11:00:00 AM, [address] [place] [address], Suite [facility], [place], [phone], Provider Name:Harpreet Cervantes perlitar, 08/03/2024 08:00:00 AM, [address] [place] [address], Suite [facility], [place], [phone], Provider Name:Harpreet Ash Billy bhatr, 08/10/2024 09:15:00 AM, [address] [place] [address], Suite [facility], [place], [place], [phone], Provider Name:Harpreet Samsonmarina bhatr, 02/05/2025 07:45:00 AM, [address] [place] [address], Suite [facility], [place], [place], [phone], Provider Name:Harpreet Cervantes jani, 02/12/2025 08:00:00 AM, [address] [place] [address], [place] [address], [place], [place], [phone], Progress Notes * Examination Category Sub-Category Detail Notes General Examination GENERAL APPEARANCE: alert, w ell hydrated, in no distress HEAD: normocephalic SKIN: good turgor EXTREMITIES: right hand weak. dtr 's brisk.
--- OUTSIDE RECORDS SUMMARY | 2024-03-09 17:23 | XMS_ITS | Patient Health Record ---
Author Organization [facility] Address [address] [place] [address] Care Team Providers Care Dental Equipment Installer And Servicer Name Role Phone Silvia JACK, Harpreet Primary Care Provider Garo Guerrero [phone] ALLERGIES Allergen (clinical drug ingredient) Drug/Non Drug [...] malignant neoplasm of colon (Z12.11) Active confirmed [id number] Problem Personal history of colonic polyps (Z86.010) Active confirmed History of poly p of colon (situation) (491798266) Problem Calculus of gallbladder without cholecystitis without obstruction (K80.20) Active confirmed 46846058 Problem Preprocedural examination (Z01.818) Active confirmed [id number] Problem Hx of adenomatous colonic polyps (Z86.010) Active confirmed 491195981 Problem Diverticulosis of sigmoid colon (K57.30) Active confirmed Diverticulosis of sigmoid colon (580121734) Problem Irritable bowel syndrome with constipation (K58.1) Active confirmed 837612321 Encounters Encounter Location Date Provider Diagnosis [facility] [address] [place] [address] 09/11/2023 Garo Acosta [facility] [address] [place] [address] 09/04/2023 Garo Acosta PLAN OF TREATMENT Future Test Test Name Order Date COLONOSCOPY 06/04/2013 COLONOSCOPY 12/30/2018 COLONOSCOPY 12/08/2020 Insurance Providers Payer Name Payer Address Payer Phone Subscriber Number Group Number Insured Name Patient Relationship to Insured Coverage Start Date Coverage End Date MEDICARE OF [place] [address] [place] [address] [id number] PEDRO NASCIMENTO Self - patient is the insured MEDEX ATTN CLAIMS [address] [place] [address] [id number] PEDRO NASCIMENTO Self - patient is the insured MEDICAL (GENERAL) HISTORY Medical History History ICD Code Renal cell carcinoma (right kidney remov ed)--1991 Asthma Irritable bowel syndrome Post traumatic stress disorder--has had a hard time leaving the house Denies CA,DM,CVA, renal disease(aside fr om the previous cancer) Gallstones--intermittent upp er abdominal pains-U/S in 2012 and 2017--D/W patient on 12/30/18--told to see a surgeon if symptomatic She had a negative colonoscopy with me denise shore May of 2002 Hay fever Colonoscopy 07/2013-1 small tubular adeno ma Migraines Surgical History Surgery Date(Month/Year) Right kidney removed in 1991 as above--a t [facility] Right breast cyst removed in 1991-benign Left breast---milk ducts removed in 1973
--- OUTSIDE RECORDS SUMMARY | 2024-03-09 17:23 | XMS_ITS ---
Author Organization [facility] Address [address] [place] [address] Care Team Providers Care Cheesemaking Laborer Name Role Phone Harpreet Vega MD Primary Care Provider Garo Guerrero [phone] REASON FOR VISIT cancel appt Encounters Encounter Location Date Provider Diagnosis [facility] [address] [place] [phone] 09/04/2023 Garo Acosta PLAN OF TREATMENT No Information
--- OUTSIDE RECORDS SUMMARY | 2024-03-09 17:23 | XMS_ITS ---
Author Organization [facility] Address [address] [place] [address] Care Team Providers Care Manager Electrical Name Role Phone Harpreet Vega MD Primary Care Provider Garo Guerrero [phone] REASON FOR VISIT Patient presents today for an ACUTE GASTRITIS Encounters Encounter Location Date Provider Diagnosis [facility] [address] [place] [phone] 09/11/2023 Garo Acosta PLAN OF TREATMENT No Information
--- OUTSIDE RECORDS SUMMARY | 2024-03-09 17:23 | XMS_ITS ---
Author Organization Harpreet Vega MD Address [address] [place], [place] [phone] Care Team Providers Care Hvac Sheet Metal Installer Name Role Phone Harpreet Vega Primary Care Provider RESULTS Component Value Reference Range Notes Complete Blood Count Auto Di ff Reviewed date:02/06/2024 03:16:30 PM Interpretation: Performing Lab:[facility], [address] [place] [phone] Notes/Report: White Blood Count 4.6 4.8-10.8 X10*3/uL [...] NRBC Abs Auto 0.000 0.0-0.012 X10*3/uL Comprehensive Delta. Panel Fa st Reviewed date:02/06/2024 03:31:30 PM Interpretation: Performing Lab:[address] [address] Notes/Report: Sodium 142 135-145 mmol/L Potassium 3.9 [...] Panel Reviewed date:02/06/2024 03:13:49 PM Interpretation: Performing Lab:[facility], [address] [place] [phone] Notes/Report: Triglycerides 147 <150 mg/dL Desirable Triglyceride: [...] Total Reviewed date:02/06/2024 03:14:41 PM Interpretation: Performing Lab:[facility], [address] [place] [phone] Notes/Report: Vitamin D 25-OH Total 50.3 >30 [...] t Reviewed date:02/06/2024 03:14:32 PM Interpretation: Performing Lab:[facility], [address] [place] [phone] Notes/Report: Urine, Clean Catch Color Urine Dark Yellow Appearance Urine Clear PH 5.5 5.0-9.0 Glucose Urine UA Negative Negative mg/dL Urine Blood Small (1+) Negative Specific [place] - Urine >= 1.030 1.005-1.025 Urine Protein [...] Location Date Provider Diagnosis Harpreet Vega MD [address] [place] [address] [place] [phone] 02/06/2024 Harpreet Vega Pure hypercholestero lemia E78.00 and Vitamin D deficiency E55.9 ASSESSMENTS Encounter Date Diagnosis Assessment Notes Treatment Notes Treatment Clinical Notes 02/06/2024 Pure hypercholestero lemia (ICD-10 - E78.00) 02/06/2024 Vitamin D deficiency (ICD-10 - E55.9) PLAN OF TREATMENT Next Appt Details Provider Name:Harpreet gunter, 05/19/2024 11:00:00 AM, [address] [place] [address], [place] [address], [place], [place], [phone], Provider Name:Harpreet gunter, 08/03/2024 08:00:00 AM, [address] [place] [address], [place] [address], [place], [place], [phone], Provider Name:Harpreet gunter, 08/10/2024 09:15:00 AM, [address] [place] [address], [place] [address], [place], [place], [phone], Provider Name:Harpreet gunter, 02/05/2025 07:45:00 AM, [address] [place] [address], [address], [phone], Provider Name:Harpreet gunter, 02/12/2025 08:00:00 AM, [address] [place] [address], [address], [phone],
--- OUTSIDE RECORDS SUMMARY | 2024-03-09 17:23 | XMS_ITS | Patient Health Record ---
Author Organization Harpreet Vega MD Address [address] [place], [place] [id number] Care Team Providers Care Neon Installer Name Role Phone Harpreet Vega Primary Care Provider ALLERGIES Allergen (clinical drug ingredient) Drug/Non Drug Allergy documented on EMR Reaction Allergy Type Onset Date Status Gadolinium hives Drug Allergy Active IVP dye (uncoded) huge hives Allergy A ctive penicillin (uncoded) hives Allergy Active RESULTS Component Value Reference Range Notes Hold Red Reviewed date:03/15/2023 12:51:26 PM Interpretation: Performing Lab:[facility], [address] [place] [phone] Notes/Report: Hold Red See Note Specimen held untested for 24 hours; Call to request Chemistry testing. Blood Urea Nitrogen Reviewed date:03/15/2023 12:39:01 PM Interpretation: Performing Lab:[facility], [address] [place] [phone] Notes/Report: Blood Urea Nitrogen 18 9-16 mg/dL Creatinine Reviewed date:03/15/2023 12:38:42 PM Interpretation: Performing Lab:[facility], [address] [place] [phone] Notes/Report: Creatinine 0.90 0.5-1.4 mg/dL Estimated Glomerular Filt Rate > 60 NOTE: For -Belgian individuals, multiply the result by 1.210. Chronic Kidney Disease: Estimated GFR < 60 mL/min/1.73m2 Severe Kidney Disease: Estimated GFR < 15 mL/min/1.73m2 CT abdomen pelvis wo/w con Reviewed date:04/01/2023 09:48:25 AM Interpretation:CBAVIRGIL 04/01/23 Performing Lab: Notes/Report: [address] [address] [address] Scan Report Signed Patient: Pedro Joshi MR#: [id number] 9 : 1950 Acct:[id number] Age/Sex: 72 / F ADM Date: 03/26/23 Loc: HO.CT Attending Dr: Harpreet Vega MD Ordering Physician: Harpreet Vega MD Date of Service: 03/26/23 Procedure(s): CT abdomen pelvis wo/w IV con Accession Number(s): [id number] cc: Harpreet Vega MD EXAMINATION: CT ABDOMEN [...] iterative reconstruction technique DLP: 982 mGy-cm FINDINGS: APPEALS AND GENERALIST CLERK: Nonobstructive bowel pattern. Phleboliths. L3-L4 disc space [...] in OV> 03/29/23 0936 DD/ 1647 TD/TT: Space Controller: FL upper GI series Reviewed date:05/28/2023 10:47:11 AM Interpretation:see back 05-28-2023 Performing Lab: Notes/Report: [address] [address] Fluoroscopy Report Signed Patient: Pedro Joshi MR#: [id number] 9 : 1950 Acct:[id number] Age/Sex: 72 / F ADM Date: 05/24/23 Loc: HO.KANNAN Attending Dr: Harpreet Vega MD Ordering Physician: Harpreet Vega MD Date of Service: 05/24/23 Procedure(s): FL upper GI series Accession Number(s): [id number] cc: Harpreet Vega MD EXAMINATION: XR FLUOROSCOPY [...] in OV> 05/24/23 1552 DD/ 1022 TD/TT: Space Controller: [place] tomosynthesis screening B I Reviewed date:11/12/2023 08:47:23 AM Interpretation: Performing Lab: Notes/Report: [address] [place] [address] Mammography Report Signed Patient: Pedro Joshi MR#: [id number] 9 : 1950 Acct:[id number] Age/Sex: 73 / F ADM Date: 10/15/23 Loc: HO.MAMMO Attending Dr: Harpreet Vega MD Ordering Physician: Harpreet Vega MD Results: 2Be nign Findings Date of Service: 10/15/23 Follow Up: 1 Year From [facility] Mammogram Procedure(s): MM tomosynthesis screening BI Accession Number(s): [id number] cc: Harpreet Vega MD EXAMINATION: MM SCREENING [...] in OV> 11/07/232042 DD/ 9 TD/TT: 10/15/2348 Space Controller: XR chest 2V Reviewed date:11/25/2023 08:52:38 AM Interpretation: Performing Lab: Notes/Report: [address] [address] XRay Report Signed Patient: Pedro Joshi MR#: [id number] 9 : 1950 Acct:[id number] Age/Sex: 73 / F ADM Date: 11/22/23 Loc: HO.XRAY Attending Dr: Harpreet Vega MD Ordering Physician: Harpreet Vega MD Date of Service: 11/22/23 Procedure(s): XR chest 2V Accession Number(s): [id number] cc: Harpreet Vega MD EXAMINATION: XR CHEST [...] 11/22/23 1639 DD/ 1605 TD/TT: 11/22/23 1628 Space Controller: CT chest wo con Reviewed date:12/13/2023 01:45:48 PM Interpretation: Performing Lab: Notes/Report: [address] [address] [address] Scan Report Signed Patient: Pedro Joshi MR#: [id number] 9 : 1950 Acct:[id number] Age/Sex: 73 / F ADM Date: 12/12/23 Loc: HO.CT Attending Dr: Harpreet Vega MD Ordering Physician: Harpreet Vega MD Date of Service: 12/12/23 Procedure(s): CT chest wo IV con Accession Number(s): [id number] cc: Harpreet Vega MD EXAMINATION: CT CHEST [...] 12/13/23 0901 DD/ 1356 TD/TT: 12/12/23 1423 Space Controller: Katina Benitez Reviewed date:02/06/2024 12:50:56 PM Interpretation: Performing Lab:[facility], [address] [place] [phone] Notes/Report: Katina Benitez See Note Specimen held untested for 24 hours; Call to request Chemistry testing. Complete Blood Count Auto Di ff Reviewed date:02/06/2024 03:16:30 PM Interpretation: Performing Lab:[facility], [address] [place] [phone] Notes/Report: White Blood Count 4.6 4.8-10.8 X10*3/uL [...] NRBC Abs Auto 0.000 0.0-0.012 X10*3/uL Comprehensive [place]. Panel Fa Reviewed date:02/06/2024 03:31:30 PM Interpretation: Performing Lab:[facility], [address] [place] [phone] Notes/Report: Sodium 142 135-145 mmol/L Potassium 3.9 [...] Panel Reviewed date:02/06/2024 03:13:49 PM Interpretation: Performing Lab:[facility], [address] [place] [phone] Notes/Report: Triglycerides 147 <150 mg/dL Desirable Triglyceride: [...] Total Reviewed date:02/06/2024 03:14:41 PM Interpretation: Performing Lab:[facility], [address] [place] [phone] Notes/Report: Vitamin D 25-OH Total 50.3 >30 [...] t Reviewed date:02/06/2024 03:14:32 PM Interpretation: Performing Lab:[facility], [address] [place] [phone] Notes/Report: Urine, Clean Catch Color Urine Dark Yellow Appearance Urine Clear PH 5.5 5.0-9.0 Glucose Urine UA Negative Negative mg/dL Urine Blood Small (1+) Negative Specific [place] - Urine >= 1.030 1.005-1.025 Urine Protein [...] Rectal bleeding (K62 .5) Referral Organization Harpreet eVga MD Referring Provider First Name Harpreet Referring [...] 1 Persistent cough (R0 5.3) Referral Organization Harpreet Vega MD Referring Provider First Name Harpreet Referring Provider Last Name Silvia Referring Provider Speciality Internal M edicine Referred Provider BENITA YATES Referred Provider Specialty Pulmonary Di seases General Notes Flores Richard 01:16:28 PM EDT > ct chest for persistent cough [place] [facility] 12-12-2023 2pmHilary Annette 12/12/2023 12:54:05 PM EDT [...] Duration) Notes Start Date End Date Status Wellbutrin XL 300 MG 1 tablet in the morning Orally Once a day Active Amphetamine-Dextroamphetami ne 20 MG (Schedule II Drug) TAKE 1 TABLET BY MOUTH TWICE A DAY Oral once a day Active EpiPen 2-Bulmaro 0.3 MG/0.3ML as directed In jection daily as needed for 30 days Active diphenhydrAMINE HCl 50 MG 1 capsule at b edtime as needed Orally take one hour before the test for 1 days 02/14/2023 Active LORazepam 1 MG 2 tablet HS Act murray Pulmicort 0.5 MG/2ML 1 mL Inhalation Twi ce a day 12/23/2023 Active Albuterol Sulfate (2.5 MG/3ML) 0.083% 3 mL as needed Inhalation every 6 hrs 11/22/2023 Active Albuterol Sulfate HFA 108 (90 Base) MCG/ACT 1 puff as needed Inhalation every 4 hrs 08/03/2022 Active Vitamin D 1000 UNIT 1 tablet Orally Once a day Active Hyoscyamine Sulfate 0.125 MG 1 tablet under the tongue and allow to dissolve before meals as needed Sublingual every 4 hrs as needed 01/29/2012 Not-Taking Pramipexole Dihydrochloride 0.25 MG 1 tablet before bedtime Orally Once a day Not-Taking SUMAtriptan Succinate 100 MG TAKE ONE TABLET BY MOUTH TWICE A DAY NEEDED for 30 Not-Taking IMMUNIZATIONS Vaccine Route Administration Date Status Comme nts Flu Vaccine IM Intramuscular 02/05/2012 Administered Shingles IM Intramuscular 01/05/2013 Administered Fluarix Quadrivalent IM Intramuscular 11/10/[facility] Unknown 06/19/2010 Administered Fluarix Quadrivalent IM Intramuscular 12/07/[facility] IM Intramuscular 04/25/2015 Administered PPSV23 (Pnemovax) IM Intramuscular 06/14/2015 Administered Fluarix Quadrivalent IM Intramuscular 12/05/2015 [facility] red Prevnar 13 IM Intramuscular 07/03/2016 Administered Fluarix Quadrivalent IM Intramuscular 11/19/2016 [facility] Flu[facility]ix Quadrivalent IM Intramuscular 12/16/2017 [facility] red Influenza High Dose IM Intramuscular 12/09/2018 [...] confirmed Problem Neuropathy (G62.9) Active confirmed 386 789222 Problem Lymphocytosis (D72.820) Active confirmed 25314712 Problem Restless leg syndrom e (G25.81) Active confirmed 06935074 Problem Vitamin D deficiency (E55.9) Active confirmed 15756064 Problem Dupuytren contractur e (M72.0) Active confirmed 348438845 Problem Other specified menopausal and perimenopausal disorders (N95.8) Active confirmed 708486827 Problem Lumbar disc disease (M51.9) Active confirmed 741638147 Problem Tubular adenoma of colon (D12.6) Active confirmed 148059692 Problem Cervical disc diseas e (M50.90) Active confirmed 819212693 Problem Migraine without aur a and without status migrainosus, not intractable (G43.009) Active confirmed 654987846 Problem Gall stones (K80.20) Active confirmed 2 37648142 Problem Carpal tunnel syndro me of right wrist (G56.01) Active confirmed 026653110058777 Problem Dysthymia (F34.1) Active confirmed 7866 7006 Problem Sleep apnea, unspecified type (G47.30) Active confirmed 56692028 Problem Psychophysiological insomnia (F51.04) Active confirmed 964801125 Problem Pure hypercholesterolemia (E78.00) Active confirmed 659512152 Problem Bilateral carpal tunnel syndrome (G56.03) Active confirmed 49211788161851627 Problem Mild intermittent asthmatic bronchitis with acute exacerbation (J45.21) Active confirmed 772765027 Problem Moderate persistent asthmatic bronchitis with acute exacerbation (J45.41) Active confirmed 559016223 Problem Malignant neoplasm o f kidney, 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) Active confirmed 099300152 Problem Acute superficial gastritis without hemorrhage (K29.00) Active confirmed 851245215 Problem Osteopenia of lumbar spine (M85.88) Active confirmed 801301482 Problem Abnormal chest xray (R93.89) Active confirmed 158025425 Problem Moderate major depression (F32.1) Active confirmed 187560 Problem Compulsive eating patterns (F50.9) Active confirmed 067882260 Problem Abnormal CT scan (R93.89) Active confirmed 835908813 VITAL SIGNS Blood pressure diastolic 80 mm Hg 03/09/2024 ref used weight Height 66.5 in 03/09/2024 refused weight Blood pressure systolic 148 mm Hg 03/09/2024 refu sed weight Weight 175 lbs 02/14/2024 weight is up 6 pounds since 02-08-23 BMI 27.82 kg/m2 02/14/2024 weight is up 6 pounds since 02-08-23 Encounters Encounter Location Date Provider Diagnosis Harpreet Vega MD [address] [place] [id number] 04/01/2023 Harpreet Vega Gall stones K80.20 ; Rectal bleeding K62.[address] scan R93.89 [address] V[address] [place] [id number] 02/14/2024 Harpreet Vega Mild intermittent asthmatic bronchitis with acute exacerbation J45.21 ; Microscopic hematuria R31.29 ; Lymphocytosis D72.820 ; Pure hypercholesterolemia E78.00 ; Vitamin D deficiency E55.9 and Dysthymia F34.1 Har[address]reet Vega MD [address] [place] [id number] 02/06/2024 Harpreet Vega Pure hypercholestero lemia E78.00 and Vitamin D deficiency E55.9 Harpreet Vega MD [address] [place] [id number] 03/15/2023 Harpreet Vega Rectal bleeding K62. [address] [place] [id number] 06/21/2023 Harpreet Vega Dupuytren contractur e M72.0 ; Cervical disc disease M50.90 and Carpal tunnel syndrome of right wrist G56.01 Harpreet Vega MD [address] [place] [id number] 12/10/2023 Harpreet Vega Persistent cough R05 .[address]reet Vega MD [address] [place] [id number] 12/23/2023 Harpreet Vega Mild intermittent asthmatic bronchitis with acute exacerbation J45.21 and Encounter for administration of vaccine Z23 Harpreet Vega MD [address] [place] [id number] 01/03/2024 Harpreet Vega Mild intermittent asthmatic bronchitis with acute exacerbation J45.21 Harpreet Vega MD [address] [place] [id number] 03/09/2024 Harpreet Vega Migraine with visual aura G43.109 ; Bilateral carpal tunnel syndrome G56.03 ; Hives of unknown origin L50.9 and Diffuse arthralgia M25.50 Harpreet Vega MD [address] [place] [id number] 11/11/2023 Harpreet Vega MD [address] [place] [id number] 11/25/2023 Harpreet Vega MD [address] [place] [address] [id number] 12/23/2023 Harpreet Vega MD [address] [place] [id number] 05/28/2023 Harpreet Vega Acute superficial gastritis without hemorrhage K29.00 Harpreet Vega MD [address] [place] [id number] 10/29/2023 Harpreet Vega Moderate persistent asthmatic bronchitis with acute exacerbation J45.41 Harpreet Vega MD [address] [place] [id number] 11/22/2023 Harpreet Vega Acute bronchitis, unspecified organism J20.9 Harpreet Vega MD [address] [place] [id number] 11/26/2023 Harpreet Vega Mild intermittent asthmatic bronchitis [...] review of CT Scan. order faxed to CS dept-appt booked for 05-24-23 at 10am 02/14/2024 [...] with the zpack/ [place] [facility]0rder faxed [place] [facility] 12/23/2023 Encounter for administration of vaccine (ICD-10 - Z23) flu vaccine administered 12/23/2023 Mild intermittent asthmatic bronchitis with acute exacerbation (ICD-10 - J45.21) patient verbalized understanding of medication and directions for use 01/03/2024 Mild intermittent asthmatic bronchitis with acute exacerbation (ICD-10 - J45.21) 03/09/2024 Bilateral carpal augustus kathie syndrome (ICD-10 - G56.03) pending diagnostic testing, THE EMG ORDER WAS FAXED [place] [facility] CENTRALIZED SCHEDULE, 03/09/2024 Migraine with visual aura (ICD-10 - G43.109) no treatment needed at present. the loss of vision sounds like a scotomata/ THE LAB SLIP WAS GIVEN TO PEDRO TO GO TO LAB 05/28/2023 Acute superficial gastritis without hemorrhage (ICD-10 - K29.00) have gone over the ugi with her and will refer her to dr harrington 10/29/2023 Moderate persistent asthmatic bronchitis with acute exacerbation (ICD-10 - J45.41) 11/22/2023 Acute bronchitis, unspecified organism (ICD-10 - J20.9) order faxed to [facility] Patient reg, pending diagnostic testing, patent verbalized [...] of medicationand directions for use, will observe 03/09/2024 Hives of unknown regina gin (ICD-10 - L50.9) 02/14/2024 Pure hypercholestero lemia (ICD-10 - E78.00) stable, will continue to monitor 03/09/2024 Diffuse arthralgia (ICD-10 - M25.50) 02/14/2024 Vitamin D deficiency (ICD-10 - E55.9) stable, will continue current regiment 02/14/2024 Dysthymia (ICD-10 - F34.1) stale, will continue current regiment PLAN OF TREATMENT Pending Test Test Name Order Date Electrocardiogram (EKG) 06/28/2015 CARDIOVASCULAR STRESS TEST 06/28/2015 XR CHEST 2 VIEW PA & LAT 11/22/2023 XR CHEST 2 VIEW PA & LAT 02/08/2023 XR GI SERIES 04/01/2023 BONE DENSITY DEXA 12/05/2020 EMG 03/09/2024 Tick-borne Disease Molecular 03/09/2024 CT abdomen pelvis wo/w con 02/08/2023 Future Test Test Name Order Date Complete Blood Count Auto Diff Next Appt Details Provider Name:Harpreet gunter, 05/19/2024 11:00:00 AM, [address] [place] [address], [address], [place], [place], [phone], Provider Name:Harpreet gunter, 08/03/2024 08:00:00 AM, [address], [address], [place], [place], [phone], Provider Name:Harpreet Cervantes ier, 08/10/2024 09:15:00 AM, [address], [address], [place], [place], [phone], Provider Name:Harpreet Cervantes ier, 02/05/2025 07:45:00 AM, [address], [address], [place], [place], [phone], Provider Name:Harpreet Cervantes ier, 02/12/2025 08:00:00 AM, [address] [facility], [address] [place], [phone], Insurance Providers Payer Name Payer Address Payer Phone Subscriber Number Group Number Insured Name Patient Relationship to Insured Coverage Start Date Coverage End Date MEDICARE [employer] [address] [place] [address] [id number] Pedro Joshi Self - patient is the insured [facility] [address] [place], [place] [id number] [phone] [id number] LuceroVirginia gutiérrezara Self - patient is the insured MEDICAL [...]
--- OUTSIDE RECORDS SUMMARY | 2024-03-09 17:23 | XMS_ITS ---
Author Organization Harpreet Vega MD Address [address] [place], [place] [phone] Care Team Providers Care Aircraft Shipping Checker Name Role Phone Harpreet Vega Primary Care [...] Code Notes Problem Lymphocytosis (D72.820) Active confirmed [id number] VITAL SIGNS BMI 27.82 kg/m2 02/14/2024 Blood pressure systolic 136 mm Hg 02/14/20 24 Blood pressure diastolic 90 mm Hg 024 Height 66.5 in 02/14/2024 Weight 175 lbs 02/14/2024 weight is up 6 pounds since 02-08-23 Encounters Encounter Location Date Provider Diagnosis Harpreet Vega MD [address] [place] [address] Drive [address] [place], [place] [phone] 02/14/2024 Harpreet Vega Mild intermittent asthmatic bronchitis [...] Up: 6 Months, Reason: Provider Name:Harpreet gunter, 05/19/2024 11:00:00 AM, [address] [place] [address], [address], [phone], Provider Name:Harpreet gunter, 08/03/2024 08:00:00 AM, [address] [place] [address], [phone], Provider Name:Harpreet gunter, 08/10/2024 09:15:00 AM, [address] [place] [address], [phone], Provider Name:Harpreet gunter, 02/05/2025 07:45:00 AM, [address] [place] [address], [phone], Provider Name:Hrapreet gunter, 02/12/2025 08:00:00 AM, [address] [place] [address], [phone], Progress Notes * Examination Category Sub-Category Detail [...] BREASTS: not examined RECTAL EXAM: done by casing mixer FEMALE GENITOURINARY: done by casing mixer ORAL CAVITY: mucosa moist History and Physical [...]
[2024-03-11 01:28] LABS: A. Phagocytphilium DNA,RT-PCR NOT DETECTED (NOT DETECTED); Babesia Microti DNA, RT-PCR NOT DETECTED (NOT DETECTED); Borrelia Miyamotoi,DNA RT-PCR NOT DETECTED (NOT DETECTED); E.Chaffeensis DNA RT-PCR NOT DETECTED (NOT DETECTED); Lyme(Borrelia ssp)DNA RT-PCR NOT DETECTED (NOT DETECTED)
== END 2024-03-09 15:39 | disposition home or self-care (01) ==
LOC: HO.LAB 15:38
PROVIDERS: PCP Internal Medicine; Visit Provider Internal Medicine
DX: G43.109 Migraine with aura, not intractable, without status migrainosus (principal)
CPT/HCPCS: 36415; 87468; 87469; 87478; 87484; 87798

== ENCOUNTER 2024-04-02 14:53 | Outpatient (REF) | payer MEDICARE, SELFPAY ==
--- NOTE | 2024-04-02 14:55 | EMG_ITS ---
Chief complaint: Bilateral hand swelling, stiffness, burning, numbness Reason for referral: Evaluate for Carpal Tunnel Syndrome or neuropathy Referred by: Bilateral upper extremities NCS/EMG Procedure done: Dr. Harpreet Vega Precautions and/or limitations: None The limb temperature was monitored continuously and remained between 32-36 degrees C during the performance of the NCS. Ulnar motor NCS was performed with moderate elbow flexion between 70-90 degrees, with across-elbow distance of 10 cm. Nerve Conduction Studies Anti Sensory Summary Table ?Stim Site NR Onset (ms) Norm Onset (ms) Peak (ms) Norm Peak (ms) O-P Amp (?V) Norm O-P Amp Site1 Site2 Delta-0 (ms) Dist (cm) Prasanna (m/s) Norm Prasanna (m/s) Left Median Anti Sensory (2nd Digit) Wrist ? 4.9 6.3 <3.6 7.1 >10 Wrist 2nd Digit 4.9 14.0 29 Right Median Anti Sensory (2nd Digit) Wrist NR <3.6 >10 Wrist 2nd Digit 14.0 Left Ulnar Anti Sensory (5th Digit) Wrist ? 2.8 3.7 <3.7 20.5 >15.0 Wrist 5th Digit 2.8 14.0 50 Right Ulnar Anti Sensory (5th Digit) Wrist ? 3.0 4.1 <3.7 14.6 >15.0 Wrist 5th Digit 3.0 14.0 47 Motor Summary Table ?Stim Site NR Onset (ms) Norm Onset (ms) O-P Amp (mV) Norm O-P Amp iAmp (mV) Amp (1st) (%) Site1 Site2 Delta-0 (ms) Dist (cm) Prasanna (m/s) Norm Prasanna (m/s) Left Median Motor (Abd Poll Brev) Wrist ? 6.2 <3.9 6.7 >4.5 8.4 100.0 Elbow Wrist 4.0 19.0 48 >45 Elbow ? 10.2 4.7 5.9 70.1 Right Median Motor (Abd Poll Brev) Wrist ? 8.3 <3.9 3.2 >4.5 3.9 100.0 Elbow Wrist 4.2 20.0 48 >45 Elbow ? 12.5 3.1 3.8 96.9 Left Ulnar Motor (Abd Dig Minimi) Wrist ? 3.0 <3.0 8.0 >5 9.6 100.0 B Elbow Wrist 3.3 17.0 52 >45 B Elbow ? 6.3 7.4 9.3 92.5 A Elbow B Elbow 1.9 10.0 53 >45 A Elbow ? 8.2 6.6 8.6 82.5 Right Ulnar Motor (Abd Dig Minimi) Wrist ? 3.7 <3.0 10.3 >5 11.6 100.0 B Elbow Wrist 2.9 17.0 59 >45 B Elbow ? 6.6 9.6 10.9 93.2 A Elbow B Elbow 1.8 10.0 56 >45 A Elbow ? 8.4 9.0 10.4 87.4 Right Ulnar Motor (FDI) Wrist ? 3.8 <3.0 6.5 >5 8.1 100.0 B Elbow Wrist 3.0 17.0 57 >45 B Elbow ? 6.8 5.5 6.8 84.6 A Elbow B Elbow 2.0 10.0 50 >45 A Elbow ? 8.8 5.0 6.1 76.9 EMG ?Side Muscle Nerve Root Ins Act Fibs Psw Amp Dur Poly Recrt Int Pat Comment Right 1stDorInt Ulnar C8-T1 Nml Nml Nml Nml Nml 0 Nml Complete Right FlexCarRad Median C6-7 Nml Nml Nml Nml Nml 0 Nml Complete Right Biceps Musculocut C5-6 Nml Nml Nml Nml Nml 0 Nml Complete Right Triceps Radial C6-7-8 Nml Nml Nml Nml Nml 0 Nml Complete Right Deltoid Axillary C5-6 Nml Nml Nml Nml Nml 0 Nml Complete Left 1stDorInt Ulnar C8-T1 Nml Nml Nml Nml Nml 0 Nml Complete Left FlexCarRad Median C6-7 Nml Nml Nml Nml Nml 0 Nml Complete Left Biceps Musculocut C5-6 Nml Nml Nml Nml Nml 0 Nml Complete Left Triceps Radial C6-7-8 Nml Nml Nml Nml Nml 0 Nml Complete Left Deltoid Axillary C5-6 Nml Nml Nml Nml Nml 0 Nml Complete FINDINGS: Right median motor nerve showed prolonged distal latency, small amplitude and normal conduction velocity. Right ulnar motor nerve, recording ADM and FDI, showed prolonged distal latency, normal amplitude and slightly slow conduction velocity across the elbow. Left median motor nerve showed prolonged distal latency, normal amplitude and normal conduction velocity. Right median sensory nerve showed absent response. Left median sensory nerve showed small amplitude and prolonged peak latency. All other nerves tested were within normal. Concentric needle EMG was performed in selected muscles of the bilateral upper extremities. Study did not reveal signs of electric abnormalities as shown in the table above. IMPRESSION: 1. This is an abnormal study. 2. There is electrodiagnostic evidence for bilateral moderate-severe median neuropathy at the wrist, consistent with carpal tunnel syndrome. 3. 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 There is no electrodiagnostic evidence for brachial plexopathy or cervical radiculopathy. Thank you for your kind referral. Ariana Solitario MD, KYLE Board Certified, [place] [employer] and Rehabilitation (ABPMR) Board Certified, [place] Board of Electrodiagnostic Medicine (ABEM) CODIN 73886 x 2 MTDD
--- OUTSIDE RECORDS SUMMARY | 2024-04-02 18:49 | XMS_ITS ---
Author Organization [facility] Address [address] [place] [address] Care Team Providers Care Egg Processing Supervisor Name Role Phone Harpreet Vega MD Primary Care Provider Garo Guerrero [phone] REASON FOR VISIT Patient presents today for an ACUTE GASTRITIS Encounters Encounter Location Date Provider Diagnosis [facility] [address] [place] [phone] 09/11/2023 Garo Acosta PLAN OF TREATMENT No Information
--- OUTSIDE RECORDS SUMMARY | 2024-04-02 18:49 | XMS_ITS ---
Author Organization Harpreet Vega MD Address [address] [place], [place] [phone] Care Team Providers Care Security System Installer Name Role Phone Harpreet Vega Primary [...] First Name Harpreet Referring Provider Last Name Siliva Referring Provider Speciality Internal M edicine Ref[facility] Referred Provider Specialty Rheumatology Referral Priority Routine REASON FOR VISIT leg [...] Problem Status W/U Status Risk Notes Problem [id number] Arthritis (M19.90) Active confirmed Vital Signs Blood pressure systolic 120 mm Hg 04/02/19 25 Blood pressure diastolic 66 mm Hg 025 Height 66.5 in 04/02/2024 weight refused Encounters Encounter Location Date Provider Diagnosis Harpreet Vega MD [address] [place] [phone] 04/02/2024 Harpreet Vega Arthritis M19.90 Assessments Encounter Date Diagnosis (ICD Code) Assessment Notes Treatment Notes Treatment Clinical Notes Section Notes 04/02/2024 Arthritis (ICD-10 - M19.90) will refer to licensed appraiser . they are [place] [facility] [place] Plan Of Treatment Treatment Notes Assessment Notes Arthritis will refer to rheuma tologist. they are going [place] get [place] [facility] Referrals Referral Date Details 04/02/2024 04/02/2024, [facility]am pop [facility] Next Appt Details Provider Name:Harpreet gunter, 05/19/2024 11:00:00 AM, [address] [place] [address], [address], [phone], Provider Name:Harpreet gunter, 08/03/2024 08:00:00 AM, [address] [place] [address], [phone], Provider Name:Harpreet gunter, 08/10/2024 09:15:00 AM, [address] [place] [address], [phone], Provider Name:Harpreet gunter, 02/05/2025 07:45:00 AM, [address] [place] [address], [phone], Provider Name:Harpreet gunter, 02/12/2025 08:00:00 AM, [address], [address], [place], [phone], Progress Notes * Manuela NASCIMETNODOB:1950 (73 yo F)Acc No.[id number]:04/02/2024 Progress Notes Patient:?Manuela NASCIMENTO Provider:?Harpreet Vega MD :1950???Age:73 Y???Sex:Female D ate:04/02/2024 Address:[address] [place] [address] [id number] Subjective: * Chief Complaints: * ???1. Leg ankle knee pain x 3 weeks. * HPI: ???Symptom(s):?patient is a 73 yo female here with complaint of leg, ankle, knee pain for 3 weeks. getting pains all over joints. little swollen.. can't take nsaids due to one kidney. * ROS:?General/Constitutional:?Denies?Chills.?Denies?Fatigue.?Denies?Fever.?Denies?Headache.?ENT:?Patient denies?decreased sense of smell, any loss of taste, sore throat.?Denies?Sore throat.?Respiratory:?Denies?Cough.?Denies?Shortness of breath at rest.?Denies?Shortness of breath with exertion.?Gastrointestinal:?Denies?Diarrhea.?Denies?Nausea.?Musculoskeletal:?Patient denies?muscle aches.?Patient complaining of?pains in multiple joints that sometimes last only one day. sometime 2 days.?Peripheral Vascular:?Patient denies?red and blue toes.? * Medical History:?07/20/2013 - Colonoscopy with Dr. Gray; colonoscopy by Dr. gray scheduled for 08/19/19;CX due to COVID - not R/S yet, Had reaction one time with cat scan dye and had many ct with dye after that with pretretment with prednisone and benedryl, Colonoscipy 01/22 repeat 5 years (2025). * Medications:?Taking LORazepa m 1 MG Tablet 2 tablet HS , Taking diphenhydrAMINE HCl 50 MG Capsule 1 capsule at bedtime as needed Orally take one hour before the test , Taking Vitamin D 1000 UNIT Tablet 1 tablet Orally Once a day , Taking Albuterol Sulfate HFA 108 (90 Base) MCG/ACT Aerosol Solution 1 puff as needed Inhalation every 4 hrs , Taking Albuterol Sulfate (2.5 MG/3ML) 0.083% Nebulization Solution 3 mL as needed Inhalation every 6 hrs , Taking Pulmicort 0.5 MG/2ML Suspension 1 mL Inhalation Twice a day , Taking EpiPen 2-Bulmaro 0.3 MG/0.3ML Solution Auto-injector as directed Injection daily as needed , Not-Taking/PRN SUMAtriptan Succinate 100 MG Tablet TAKE ONE TABLET BY MOUTH TWICE A DAY NEEDED , Not-Taking/PRN Pramipexole Dihydrochloride 0.25 MG Tablet 1 tablet before bedtime Orally Once a day , Not-Taking/PRN Hyoscyamine Sulfate 0.125 MG Tablet Sublingual 1 tablet under the tongue and allow to dissolve before meals as needed Sublingual every 4 hrs as needed , Discontinued Amphetamine-Dextroamphetamine 20 MG Tablet (Schedule II Drug) TAKE 1 TABLET BY MOUTH TWICE A DAY Oral once a day , Discontinued Wellbutrin XL 300 MG Tablet Extended Release 24 Hour 1 tablet in the morning Orally Once a day , Medication List reviewed and reconciled with the patient * Allergies:?penicillin: hives , IVP dye: huge hives, Gadolinium: hives. Objective: * Vitals:?Ht: 66.5, BP:120/66. weight? refused. * Examination: ???General Examination: ?GENERAL APPEARANCE:?alert, well hydrated, in no distress.?HEART:?no murmurs, rubs, gallops, regular rate and rhythm.?LUNGS:?no wheezes, rales, rhonchi, good air movement, clear to auscultation bilaterally.? Assessment: * Assessment: 1.?Arthritis - M19.90 (Prima ry)??? Plan: * Treatment: * * The named appointment provid er may or may not be the originator of this progress note, and it is not deemed complete until electronically signed by the appointment provider. Sign off status: Pending * Provider:?Harpreet Vega MD Date:?0 04/02/2024 Generated for Sorin johns/Margy/Robertitting on:?04/02/2024 06:49 PM EST History and Physical Notes * [...] es 04/02/2024 Harpreet Vega Arthritis Treat [facility], [facility] arthritis
--- OUTSIDE RECORDS SUMMARY | 2024-04-02 18:49 | XMS_ITS | Patient Health Record ---
Author Organization [facility] Address [address] [place] [address] Care Team Providers Care Volunteer Services Supervisor Name Role Phone Silvia JACK, Harpreet Primary Care Provider Garo Guerrero [phone] ALLERGIES Allergen (clinical drug ingredient) Drug/Non Drug [...] malignant neoplasm of colon (Z12.11) Active confirmed 612969509 Problem Personal history of colonic polyps (Z86.010) Active confirmed History of poly p of colon (situation) (226581514) Problem Calculus of gallbladder without cholecystitis without obstruction (K80.20) Active confirmed 04388915 Problem Preprocedural examination (Z01.818) Active confirmed 829138444891356 Problem Hx of adenomatous colonic polyps (Z86.010) Active confirmed 978655398 Problem Diverticulosis of sigmoid colon (K57.30) Active confirmed Diverticulosis of sigmoid colon (951934613) Problem Irritable bowel syndrome with constipation (K58.1) Active confirmed 130734144 Encounters Encounter Location Date Provider Diagnosis [facility] [address] [place] [address] 09/11/2023 Garo Acosta [facility] [address] [place] [address] 09/04/2023 Garo Acosta PLAN OF TREATMENT Future Test Test Name Order Date COLONOSCOPY 06/04/2013 COLONOSCOPY 12/30/2018 COLONOSCOPY 12/08/2020 Insurance Providers Payer Name Payer Address Payer Phone Subscriber Number Group Number Insured Name Patient Relationship to Insured Coverage Start Date Coverage End Date MEDICARE OF [place] [address] [facility] [place] [address] [id number] PEDRO NASCIMENTO Self - patient is the insured MEDEX ATTN CLAIMS [address] [place] [address] [id number] PEDRO NASCIMENTO Self - patient is the insured MEDICAL (GENERAL) HISTORY Medical History History ICD Code Renal cell carcinoma (right kidney remov ed)--1991 Asthma Irritable bowel syndrome Post traumatic stress disorder--has had a hard time leaving the house Denies AR,DM,CVA, renal disease(aside fr om the previous cancer) Gallstones--intermittent upp er abdominal pains-U/S in 2012 and 2017--D/W patient on 12/30/18--told to see a surgeon if symptomatic She had a negative colonoscopy with me denise shore May of 2002 Hay fever Colonoscopy 07/2013-1 small tubular adeno ma Migraines Surgical History Surgery Date(Month/Year) Right kidney removed in 1991 as above--a t [facility] Right breast cyst removed in 1991-benign Left breast---milk ducts removed in 1973
--- OUTSIDE RECORDS SUMMARY | 2024-04-02 18:50 | XMS_ITS ---
Author Organization [facility] Address [address] [place] [address] Care Team Providers Care Safety Associate Name Role Phone Harpreet Vega MD Primary Care Provider Garo Guerrero [phone] REASON FOR VISIT cancel appt Encounters Encounter Location Date Provider Diagnosis [facility] [address] [place] [id number] 09/04/2023 Garo Acosta PLAN OF TREATMENT No Information
--- OUTSIDE RECORDS SUMMARY | 2024-04-02 18:50 | XMS_ITS ---
Author Organization Harpreet Vega MD Address [address] [place], [place] [phone] Care Team Providers Care Underwriting Service Representative Name Role Phone Harpreet Vega Primary Care [...] Problem Status W/U Status Risk Notes Problem [id number] Lymphocytosis (D72.820) Active confirmed Vital Signs Blood pressure systolic 136 mm Hg 02/14/20 24 Blood pressure diastolic 90 mm Hg 024 Height 66.5 in 02/14/2024 Weight 175 lbs 02/14/2024 BMI 27.82 kg/m2 02/14/2024 weight is up 6 pounds since 02-08-23 Encounters Encounter Location Date Provider Diagnosis Harpreet Vega MD [address] [place] [address] [place] [phone] 02/14/2024 Harpreet Vega Mild intermittent asthmatic bronchitis [...] Reason: Provider Name:Harpreet gunter, 05/19/2024 11:00:00 AM, [address] [place] [address], [address], [phone], Provider Name:Harpreet gunter, 08/03/2024 08:00:00 AM, [address] [place] [address], [address], [phone], Provider Name:Harpreet gunter, 08/10/2024 09:15:00 AM, [address] [place] [address], [address], [phone], Provider Name:Harpreet gunter, 02/05/2025 07:45:00 AM, [address] [place] [address], [phone], Provider Name:Harpreet gunter, 02/12/2025 08:00:00 AM, [address] [place] [address], [phone], Progress Notes * Manuela NASCIMENTODOJessica:1950 (73 yo F)Acc No.[id number]:02/14/2024 Patient:?Noeloscarbrock Manuela Provider:?Harpreet Vega MD :1950???Age:73 Y???Sex:Female D ate:02/14/2024 Address:[address], [id number] Subjective: * Chief Complaints: * ???Review labsAccompanied by * HPI: ???Depression Screening:?PHQ-9?Little interest or pleasure in doing things?Several days,?Feeling down, depressed, or hopeless?More than half the days,?Trouble falling or staying asleep, or sleeping too much?Nearly every day,?Feeling tired or having little energy?Nearly every day,?Poor appetite or overeating?Nearly every day,?Feeling bad about yourself or that you are a failure, or have let yourself or your family down?Nearly every day,?Trouble concentrating on things, such as reading the newspaper or watching television?Several days,?Moving or speaking so slowly that other people could have noticed; or the opposite, being so fidgety or restless that you have been moving around a lot more than usual?Not at all,?Thoughts that you would be better off or of hurting yourself in some way?Not at all,?Total Score?16,?Interpretation?Moderately Severe Depression.?Communication Needs:?Communication Needs?Does the patient have a hearing impairment?Yes,?If yes, what is the hearing impairment??Hard of hearing, Hearing Aids,?Does the patient have a vision impairment??Yes,?If yes, what is the vision impairment??Glasses,?Does the patient have a cognition impairment??No.?Fall Risk:?History?Have you had any falls with injury in the past year??No,?Have you had two or more falls in the past year??No.?SDOH Questions:?SDOH Questions?In the past year have you been worried about losing housing??No,?In the past year have you or any family members you live with been unable to get any of the following when it was really needed? Check all that apply:?None.?Symptom(s):? Patient is a 73 yo female here for review of recent labs and follow up of chronic issues. here for yearly exam. having trouble with hearing. * ROS:?General/Constitutional:?Patient denies?fatigue , headache.?Change in appetite?denies.?Chills?denies.?Fever?denies.?Ophthalmologic:?Blurred vision?denies.?Discharge?denies.?Pain?denies.?ENT:?Patient denies?decreased sense of smell , any loss of taste , sore throat.?Decreased hearing?denies.?Sore throat?denies.?Swollen glands?denies.?Endocrine:?Cold intolerance?denies.?Excessive thirst?denies.?Heat intolerance?denies.?Weight loss?denies.?Respiratory:?Cough?denies.?Shortness of breath at rest?denies.?Shortness of breath with exertion?denies.?Wheezing?denies.?Cardiovascular:?Chest pain at rest?denies.?Chest pain with exertion?denies.?Irregular heartbeat?denies.?Shortness of breath?denies.?Gastrointestinal:?Abdominal pain?denies.?Change in bowel habits?denies.?Diarrhea?denies.?Nausea?denies.?Rectal bleeding?denies.?Vomiting?denies .?Genitourinary:?Blood in urine?denies.?Difficulty urinating?denies.?Frequent urination?denies.?Urinary incontinence?Denies.?Musculoskeletal:?Patient denies?muscle aches.?Painful joints?denies.?Weakness?denies.?Peripheral Vascular:?Patient denies?red and blue toes.?Skin:?Dry skin?denies.?Itching?denies.?Denies?Mole(s),? changes in moles, new moles or any lesions of concern.?Denies?Photosensitivity.?Rash?denies.?Neurologic:?Dizziness?denies.?Fainting?denies.?Headache?denies.? * Medical History:? * Surgical History:? * Hospitalization/Major Diagno stic Procedure:? * Family History:?Father: dece ased 72 yrs, diagnosed with Cancer.?Mother: 93 yrs.?2 brother(s) , 1 sister(s) . 3 son(s) , 1 daughter(s) . .? Mother-Healthy, Denies mental health/substance abuse family history, Denies mental health/substance abuse family history, No pertinent family medical history, No pertinent family medical history. * Social History:?Tobacco Use:?Tobacco Use/Smoking?Patient is a?nonsmoker,?Additional Findings: Tobacco Non-User?Current non-smoker, currently using no form of tobacco.?Drugs/Alcohol:?Alcohol Screen?Did you have a drink containing alcohol in the past year??No,?Points?0,?Interpretation?Negative.?Miscellaneous:?no Caffeine. Children: yes. no Community involvements. no Exercise. Home smoke detector use: yes. Housing: owning. Living with: family. Marital status: . 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 Pets: none. no Travel outside of the [place]. * Medications:?TakingLORazepam 1 MG Tablet 2 tablet HSWellbutrin XL [...] reconciled with the patient * Allergies:?penicillin: hives IVP dye: huge hivesGadolinium: hivesyes[Allergies Verified] Objective: * Vitals:?Ht: 66.5, Wt:175, BM I:27.82, BP:136/90, Repeat BP:136/78 weight is up 6 pounds since 02-08-23. * ???Past Orders: ???Lab: ClnCatch+Micro w/r flx Cult (Order Date - 02/06/2024) (Collection Date - 02/06/2024) ? Value Reference Range ?Color Urine Dark Yellow - ?Appearance Urine Clear - ?PH 5.5 5.0-9.0 - ?Glucose Urine UA Negative Neg ative - mg/dL ?Urine Blood Small (1+) A Negative - ?Specific [place] - Urine >= 1.030 H 1.005-1.025 - ?Urine Protein Trace Neg-Tr denice - mg/dL ?Urine Ketones Negative Negati ve - mg/dL ?Nitrite Urine Negative Negati ve - ?Leukocyte Esterase Urine Trace A Negative - ?RBC Urine 3-5 A 0-2 - /HPF ?WBC Urine 0-5 0-5 - /HPF ?Squamous Epithelial Cell Urine 3-5 0-2 - /HPF ?Bacteria Urine None Seen None Seen - ?Hyaline Casts Urine 0-2 0-2 - /LPF ???Lab:Complete Blood Count Auto Diff (Order Date - 02/06/2024) (Collection Date - 02/06/2024) ? Value Reference Range ?White Blood Count 4.6 L 4. 8-10.8 - X10*3/uL ?Red Blood Count 4.69 4.20 -5.50 - X10*6/uL ?Hemoglobin 13.8 12.0-16.0 - g/dl ?Hematocrit 41.9 37.0-47.0 - % ?Mean Corpuscular Volume 89.3 80.0-98.0 - fL ?Mean Corpuscular Hemoglobin 29.4 27.0-33.0 - pg ?Mean Corpuscular HGB Conc 32.9 31.0-35.0 - g/dl ?Red Cell Distribution Width 12.0 11.0-16.0 - % ?Platelet Count 238 160-4 00 - X10*3/uL ?Mean Platelet Volume 10.6 9.4-12.3 - fL ?Neutrophils Percent Auto 38.3 L 45-73 - % ?Imm Gran Pct Auto 0.2 0. 0-0.4 - % ?Lymphocytes Percent Auto 43.5 H 20-40 - % ?Monocytes Percent Auto 13.8 H 2-11 - % ?Eosinophils Percent Auto 3.1 0-4 - % ?Basophils Percent Auto 1.1 0-2 - % ?NRBC Pct Auto 0.0 0.0-0. 2 - /100WBC ?Neutrophils Absolute Auto 1.8 L 2.0-8.3 - x10*3/uL ?Imm Gran Abs Auto 0.01 0. 00-0.03 - X10*3/uL ?Lymphocytes Absolute Auto 2.0 1.2-4.9 - X10*3/uL ?Monocytes Absolute Auto 0.6 0.1-1.2 - X10*3/uL ?Eosinophils Absolute Auto 0.1 0.0-0.4 - X10*3/uL ?Basophils Absolute Auto 0.1 0.0-0.2 - X10*3/uL ?NRBC Abs Auto 0.000 0.0-0. 012 - X10*3/uL ???Lab:Comprehensive [place]. P ab Fast (Order Date - 02/06/2024) (Collection Date - 02/06/2024) ? Value Reference Range ?Sodium 142 135-145 - mmo l/L ?Bilirubin Total 0.9 0.0- 1.0 - mg/dL ?Aspartate Amino Transferase 22 5-31 - U/L ?Alanine Aminotransferase 15 0-31 - U/L ?Total Protein 6.9 6.5-8. 0 - g/dL ?Albumin Level 3.9 3.5-5. 0 - g/dL ?Alkaline Phosphatase 53 39-117 - U/L ?Potassium 3.9 3.3-5.1 - mmol/L ?Chloride 108 96-108 - mm ol/L ?Carbon Dioxide 28 22-29 - mmol/L ?Anion Gap 10 L 12-20 - ?Blood Urea Nitrogen 10 9-16 - mg/dL ?Creatinine 1.14 0.5-1.4 - mg/dL ?Estimated Glomerular Filt Rate 47 - ?Glucose Fasting 102 H 60-9 9 - mg/dL ?Calcium 8.9 8.4-10.2 - m g/dL ???Lab:Lipid Panel (Order Da 02/06/2024) (Collection Date - 02/06/2024) ? Value Reference Range ?Triglycerides 147 <150 - mg/dL ?Cholesterol 250 H <200 - m g/dL ?LDL Cholesterol Calculated 144 H <100 - mg/dL ?HDL Cholesterol 77 >40 - mg/dL ???Lab:Vitamin D 25-OH Total (Order Date 02/06/2024) (Collection Date - 02/06/2024) ? Value Reference Range ?Vitamin D 25-OH Total 50.3 >30 - ng/mL * Examination: ???General Examination: ?GENERAL APPEARANCE:?well developed, well nourished, in no acute distress.?HEAD:?normocephalic, atraumatic.?EYES:?pupils equal, round, reactive to light and accommodation, sclera non-icteric.?EARS:?normal.?ORAL CAVITY:?mucosa moist.?THROAT:?clear.?NECK/THYROID:?neck supple, full range of motion, no cervical lymphadenopathy, no bruits.?SKIN:?warm and dry, no suspicious lesions.?HEART:?regular rate and rhythm, S1, S2 normal, no murmurs.?LUNGS:?clear to auscultation bilaterally.?BREASTS:?not examined.?ABDOMEN:?soft, nontender, nondistended, bowel sounds present, normal, no organomegaly , no masses palpable.?RECTAL EXAM:?done by receiving room clerk.?FEMALE GENITOURINARY:?done by receiving room clerk.?EXTREMITIES:?no clubbing, cyanosis, or edema.?NEUROLOGIC:?nonfocal, motor strength normal upper and lower extremities, sensory exam intact.? Assessment: * Assessment: 1.?Mild intermittent asthmat ic bronchitis with acute exacerbation - J45.21 (Primary)?2.?Microscopic hematuria - R31.29?3.?Lymphocytosis - D72.820?4.?Pure hypercholesterolemia - E78.00?5.?Vitamin D deficiency - E55.9?6.?Dysthymia - F34.1? Plan: * Treatment: 2.?Pure hypercholesterolemia ? Notes: stable, will continue to monitor?? 3.?Vitamin D deficiency? Continue Vitamin D Tablet, 1000 UNIT, 1 tablet, Orally, Once a day.?? Notes: stable, will continue current regiment?? 4.?Dysthymia? Continue Wellbutrin XL Tablet Extended Release 24 Hour, 300 MG, 1 tablet in the morning, Orally, Once a day.?? Notes: stale, will continue current regiment?? * Procedure Codes:? * Follow Up:?6 Months * * Sign off status: Completed true * Provider:?Harpreet Vega MD Date:?1 04/16/2023 Generated for Sorin johns/Margy/Tororansmitting on:?04/02/2024 06:49 PM EST History and Physical [...] had two or more falls in the st year?: No Communication Needs Communication Needs Does [...] BREASTS: not examined RECTAL EXAM: done by receiving room clerk FEMALE GENITOURINARY: done by receiving room clerk ORAL CAVITY: mucosa moist
--- OUTSIDE RECORDS SUMMARY | 2024-04-02 18:50 | XMS_ITS ---
Author Organization Harpreet Vega MD Address [address] [place], [place] [phone] Care Team Providers Care Community Health Program Coordinator Name Role Phone Harpreet Vega Primary Care Provider Allergies Allergen (clinical drug ingredient) Drug/Non Drug Allergy documented on EMR Reaction Allergy Type Onset Date Status Gadolinium hives Drug Allergy Active IVP dye (uncoded) huge hives Allergy A ctive penicillin (uncoded) hives Allergy Active Results Component Value Reference Range Notes Tick-borne Disease Molecular Reviewed date:03/11/2024 03:25:40 PM Interpretation: Performing Lab:[facility], [address] [place] [phone] Notes/Report: Babesia Microti DNA, RT-PCR NOT DETECTED NOT DETECTED This test was developed and its analytical performance characteristics have been determined by [employer]. It has not been cleared or approved by the FDA. This assay has been validated pursuant to the CLIA regulations and is used for clinical purposes. THIS TEST WAS PERFORMED AT: [facility] [address] [place] [phone] JENNY BLAIR MD E.Chaffeensis DNA RT-PCR NOT DETECTED NOT DETECTED This test was developed and its analytical performance characteristics have been determined by [employer]. It has not been cleared or approved by the FDA. This assay has been validated pursuant to the CLIA regulations and is used for clinical purposes. THIS TEST WAS PERFORMED AT: [facility] [address] [place] [phone] JENNY BLAIR MD A. Phagocytphilium DNA,RT-PCR NOT DETECTED NOT DETECTE D This test was developed and its analytical performance characteristics have been determined by [employer]. It has not been cleared or approved by the FDA. This assay has been validated pursuant to the CLIA regulations and is used for clinical purposes. Lyme(Borrelia ssp)DNA RT-PCR NOT DETECTED NOT DETECTED This test was developed and its analytical performance characteristics have been determined by [employer]. It has not been cleared or approved by the FDA. This assay has been validated pursuant to the CLIA regulations and is used for clinical purposes. For additional information, please refer to https://education.[employer]/faq/ehb004 (This link is being provided for informational/ educational purposes only.) THIS TEST WAS PERFORMED AT: [facility] [address] [place] [phone] JENNY BLAIR MD Borrelia Miyamotoi,DNA RT-PCR NOT DETECTED NOT DETECTE D This test detects but does not distinguish between B. miyamotoi and B. hermsii. This test was developed and its analytical performance characteristics have been determined by [employer]. It has not been cleared or approved by the FDA. This assay has been validated pursuant to the CLIA regulations and is used for clinical purposes. THIS TEST WAS PERFORMED AT: [facility] [address] [place] [phone] JENNY BLAIR MD Tick Mol. Panel Cmmt [...] be indicated. THIS TEST WAS PERFORMED AT: [facility] [address] [place] [phone] JENNY BLAIR MD REASON FOR VISIT bilateral [...] Problem Status W/U Status Risk Notes Problem [id number] Bilateral carpal tunnel syndrome (G56.03) Active confirmed Vital Signs Blood pressure systolic 148 mm Hg 03/09/19 25 Blood pressure diastolic 80 mm Hg 025 Height 66.5 in 03/09/2024 refused weight Encounters Encounter Location Date Provider Diagnosis Harpreet Vega MD [address] [facility] [address] [place], [place] [phone] 03/09/2024 Harpreet Vega Migraine with visual aura [...] testing, THE EMG ORDER WAS FAXED TO [facility], patient can't write due to [...] testing, THE EMG ORDER WAS FAXED TO [facility], patient can't write due to [...] Up: 2 Months, Reason: Provider Name:Harpreet gunter, 05/19/2024 11:00:00 AM, [address] [place] [address], [address] [place] [address], [phone], Provider Name:Harpreet gunter, 08/03/2024 08:00:00 AM, [address] [place] [address], Suite [facility], [place], [place], [phone], Provider Name:Harpreet gunter, 08/10/2024 09:15:00 AM, [address] [place] [address], Suite [facility], [place], [place], [phone], Provider Name:Harpreet gunter, 02/05/2025 07:45:00 AM, [address], [address], [place], [place], [phone], Provider Name:Harpreet Cervantes ier, 02/12/2025 08:00:00 AM, [address], [address], [place], [phone], Progress Notes * Manuela NASCIMENTODOB:1950 (73 yo F)Acc No.[id number]:03/09/2024 Progress Notes Patient:?Manuela Nascimento Provider:?Harpreet Vega MD :1950???Age:73 Y???Sex:Female D ate:03/09/2024 Address:[address] [place] [address] [id number] Subjective: * Chief Complaints: * ???Bilateral shoulder pain x 2 months and right hand x 1 monthAccompanied by hiusband * HPI: ???Symptom(s):? patient is a 73 yo female here [...] 6 hours before migraine. happens frequently. * ROS:?General/Constitutional:?Denies?Chills.?Denies?Fatigue.?Denies?Fever.?Denies?Headache.?ENT:?Patient denies?decreased sense of smell , any loss of taste.?Denies?Sore throat.?Respiratory:?Denies?Cough.?Denies?Shortness of breath at rest.?Denies?Shortness of breath with exertion.?Gastrointestinal:?Denies?Diarrhea.?Denies?Nausea.?Musculoskeletal:?Patient denies?muscle aches.?Peripheral Vascular:?Patient denies?red and blue toes.? * Medical History:? * Surgical History:? * Hospitalization/Major Diagno stic Procedure:? * Medications:?TakingLORazepam 1 MG Tablet 2 tablet HSdiphenhydrAMINE HCl [...] hivesGadolinium: hivesyes[Allergies Verified] Objective: * Vitals:?Ht: 66.5, BP:148/80 refused weight. * Examination: ???General Examination: ?GENERAL APPEARANCE:?alert, well hydrated, in no distress.?HEAD:?normocephalic.?SKIN:?good turgor.?EXTREMITIES:?right hand weak. dtr's brisk..? Assessment: * Assessment: 1.?Migraine with visual aura - G43.109 (Primary)?2.?Bilateral carpal tunnel syndrome - G56.03?3.?Hives of unknown origin - L50.9?4.?Diffuse arthralgia - M25.50? Plan: * Treatment: 2.?Bilateral carpal tunnel s yndrome?Imaging: EMG Notes: pending diagnostic testing, THE EMG ORDER WAS FAXED TO [facility], patient can't write due to inablilty to hold pen. seems could be carpal tunnel ?? 3.?Hives of unknown origin? Notes: she had eaten shrimp minutes before the hive. am concerned that she has developed a seafod allergy so will give an epi pen?? 4.?Diffuse arthralgia? Notes: has aches and pains in various joints with swelling and redness that comes and goes. may be developing an arthrits symbdrome but will check for tick borne illnesses?? * Procedure Codes:? * Follow Up:?2 Months * * Sign off status: Completed true * Provider:?Harpreet Vega MD Date:?0 03/09/2024 Generated for Sorin johns/Margy/Robertitting on:?04/02/2024 06:50 PM EST History and Physical Notes * [...]
== END 2024-04-02 14:54 | disposition home or self-care (01) ==
LOC: HO.NEURO 14:53
PROVIDERS: PCP Internal Medicine; Visit Provider Internal Medicine
DX: G43.109 Migraine with aura, not intractable, without status migrainosus (principal); G56.03 Carpal tunnel syndrome, bilateral upper limbs
CPT/HCPCS: 95886; 95910; 95911

== ENCOUNTER 2024-07-06 10:55 | Outpatient (AMB) | payer MEDICARE, SELFPAY ==
[2024-07-06 11:01] VITALS: BP 124/88; PULSE 86; O2SAT 96; BMI 28.3
--- NOTE | 2024-07-06 11:01 | A.OFFVIS_ITS ---
Vital Signs 07/06/24 11:01 Height 5 ft 6 in Weight 175 lb 4.28 oz BMI 28.3 BP 124/88 Blood Pressure Location Rt brachial Position Sitting Pulse 86 Pulse Source Pulse Oximeter Pulse Oximetry (%) 96 Oxygen Delivery Method Room Air Intake Visit Reasons: Cough Allergies Iodinated Contrast Media [IV CONTRAST] Allergy (Unknown, Verified 07/06/24 11:26) HIVES Penicillins [PENICILLINS] Allergy (Unknown, Verified 07/06/24 11:26) UNKNOWN senna [SENNA] Allergy (Unknown, Verified 07/06/24 11:26) RASH Medication List - Last Reconciled 07/06/24 by Lucio Freitas MD budesonide 0.5 mg (2 mL) inhalation BID 30 days cholecalciferol (vitamin D3) (Vitamin D3) 25 mcg PO DAILY folic acid 1 mg PO DAILY lorazepam 1 mg PO BEDTIME PRN methotrexate sodium 15 mg PO QWEEK Do you need a note to return to daycare/school/sports/work: No HPI HPI Cough: Details: PEDRO IS A VERY PLEASANT 74-YEAR-OLD HERE TODAY FOR FOUR-MONTH FOLLOW-UP FOR ENVIRONMENTAL ALLERGIES AND MILD ASTHMA WITH A PERSISTENT COUGH. SHE REPORTS COUGH HAS COMPLETELY RESOLVED AFTER USING THE BUDESONIDE 0.5MG. SHE USED THE BUDESONIDE B.I.D. DAILY X1 MONTH THEN DAILY FOR 1 MONTH AND HAS NOT HAD TO USE THE BUDESONIDE AT ALL OVER THE LAST 2 MONTHS. OTHER THAN HAVING DRY EYES HER SEASONAL ALLERGIES HAVE BEEN WELL CONTROLLED. SHE HAS NOT HAD ANY RESPIRATORY IN INFECTIONS OVER THE LAST 4 MONTHS. 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 SHE CONTINUES TO HAVE PAIN AND SWELLING IN HER HANDS BUT METHOTREXATE HAS HELPED WITH THE PAIN IN HER ANKLES AND KNEES. [facility] Medical History (Updated 07/06/24 @ 11:48 by Lucio Freitas MD) Cough Reactive airways dysfunction syndrome with acute exacerbation Bleeding hemorrhoids Arthritis Elevated cholesterol Mild obstructive sleep apnea Hayfever Hx of migraines Gallstones PTSD (post-traumatic stress disorder) IBS (irritable bowel syndrome) Asthma Renal cell carcinoma of right kidney Surgical History Hx of dilation and curettage Hx of bilateral cataract extraction History of breast surgery History of breast surgery Hx of colonoscopy History of right nephrectomy Family History Sister Cervical cancer Father Bladder cancer Liver cancer Cancer of kidney Social History Comment: Chronic shoulder pain present prior to procedure Patient Tobacco Use Status: Never used Tobacco Review of Systems Const All systems reviewed & are unremarkable except as noted in HPI and below Eyes Reports no additional complaints ENT Reports no additional complaints Card Denies chest pain, Denies irregular heart rhythm and Denies leg edema GI Reports no additional complaints Reports no additional complaints Musc Reports no additional complaints and Reports arthralgias (SHE HAS PAIN IN THE INTERPHALANGEAL JOINTS OF BOTH HANDS, ) Skin/Breast Reports system reviewed and no additional complaints, except as documented Neuro Reports no additional complaints Psych Reports other (past h/o ADHD/PTSD , OK NOW ) Endo Reports no additional complaints Marshall/Lymph Reports no additional complaints Aller/Immun Reports no additional complaints Physical Exam Vital Signs: Last Vital Signs Pulse 86 07/06/24 11:01 BP 124/88 07/06/24 11:01 Pulse Ox 96 07/06/24 11:01 Oxygen Delivery Method Room Air 07/06/24 11:01 BMI result Body Mass Index 28.3 Const General: healthy appearing, comfortable, no acute distress, alert and awake Orientation/consciousness: patient oriented x3 HEENT Head: Yes normal to inspection General nose exam: No nasal polyps present and No nasal discharge present Face and sinus: Yes sinuses nontender Mouth: oropharynx normal Throat: Yes posterior oropharynx normal Eyes General: appearance normal, both eyes and all related structures Neck Neck: Yes normal visual inspection, Yes no lymphadenopathy, Yes trachea midline and Yes no JVD Thyroid: Thyroid normal Chest Chest palpation & inspection: normal inspection of the chest, normal palpation of entire chest wall and no tenderness Resp Effort & Inspection: normal respiratory effort and other (SHE DOES HAVE MILD SWELLING OF IP JOINTS OF THE RIGHT HAND .) Auscultation: clear to auscultation bilaterally, no crackles and no wheezes Cardio Palpation: normal PMI Rate: regular rate Rhythm: regular rhythm Heart sounds: no gallops and no murmurs Peripheral pulses: Peripheral pulses 2+ throughout GI Palpation (GI): Soft to palpation, nontender, No hepatosplenomegaly present and no masses Auscultation: normal bowel sounds Back/Spine/Pelvis Thoracic/Lumbar Spine: thoracic and lumbar spine normal to inspection Skin General skin exam: no rashes or lesions noted Neuro General: patient oriented x3 and no focal motor deficits Cranial nerves: Yes CN's II-XII intact bilaterally Extrem General: Yes normal to inspection, Yes no clubbing, cyanosis or edema and Yes no calf tenderness Psych Appearance: grossly normal and well kempt Speech and movement: Normal speech and movement present Assessment & Plan Assessment & Plan (1) Asthma: Comment: THIS PATIENT DOES HAVE HISTORY OF BRONCHIAL ASTHMA IN YOUNGER AGE, WHICH WAS AGGRAVATED BY SECOND HAND SMOKING. IT RESOLVED ONCE SHE WAS OUT OF THE SITUATION. SHE WAS SUFFERING FROM COUGH ASTHMA VARIANT, FOR ABOUT 3 MONTHS AFTER EXPOSURE TO, SOME IRRITANT OR A BOUT OF UPPER RESPIRATORY INFECTION. IT HAS NOW IMPROVED AFTER USING BUDESONIDE. CURRENTLY SHE HAS CUT DOWN BUDESONIDE 0.5 MG TO USE IN THE NEBULIZER ONLY ONCE A DAY, AND THAT ALSO SHE IS USING ONLY P.R.N.. SHE HAS NOT NEEDED TO USE THE RESCUE INHALER SINCE SHE IS ON BUDESONIDE. Code(s): J45.909 - Unspecified asthma, uncomplicated Category: Medical Plan: BUDESONIDE 0.5 MG INHALATION B.I.D. NEEDED FOR COUGH OR SHORTNESS OF BREATH. EXPLAINED TO HER THAT SHE DOES NOT HAVE TO USE BUDESONIDE EVERY DAY. AND CAN USE ONLY NEEDED. (2) Cough: Comment: COUGH IN HER CASE WAS MOST LIKELY A COUGH VARIANT BRONCHIAL ASTHMA, WHICH HAS NOW RESOLVED Code(s): R05.9 - Cough, unspecified Category: Medical Plan: BUDESONIDE 0.5 MG INHALATION B.I.D. NEEDED FOR COUGH Coding Level of Care Code Est Pt Level 3 (29356) Diagnoses Asthma J45.909 Cough R05.9
--- OUTSIDE RECORDS SUMMARY | 2024-07-06 12:34 | XMS_ITS ---
Author Organization [facility] Address [address] [place] [phone] Care Team Providers Care Power Engineer Name Role Phone Silvia JACK, Harpreet Primary Care Provider Garo Guerrero [phone] REASON FOR VISIT Patient presents today for an ACUTE GASTRITIS Encounters Encounter Location Date Provider Diagnosis [facility] [address] [place] [phone] 09/11/2023 Garo Acosta Plan Of Treatment No Information Progress Notes * PEDRO NASCIMENTODOB:1950 (74 yo F)Acc No.[id number]:09/11/2023 Progress Notes Patient:PEDRO MILLER Provider:?Garo Acosta MD :1950???Age:73 Y???Sex:Female D ate:09/11/2023 Address:[address] [place], [place] [phone] Pcp:Harpreet Vega MD Subjective: * Chief Complaints: * ???1. Patient presents today for an ACUTE GASTRITIS. * Medical History:? Objective: * Vitals:? Assessment: Plan: * Treatment: * * The named appointment provid er may or may not be the originator of this progress note, and it is not deemed complete until electronically signed by the appointment provider. Sign off status: Pending * Provider:?Garo Acosta MD Date:? 024 Generated for Sorin johns/Margy/eTransmitting on:?07/06/2024 12:33 PM EDT
--- OUTSIDE RECORDS SUMMARY | 2024-07-06 12:34 | XMS_ITS ---
Author Organization Harpreet Vega MD Address [address] [place], [place] [phone] Care Team Providers Care Actuarial Mathematician Name Role Phone Harpreet Vega Primary Care [...] >per patient's request [place] to go [place] [facility] [place] faxed in Hilary Annette 04/09/2024 08:56:45 [...] Problem Status W/U Status Risk Notes Problem 2489168 Arthritis (M19.90) Active confirmed Vital Signs Blood pressure systolic 120 mm Hg 04/02/19 25 Blood pressure diastolic 66 mm Hg 025 Height 66.5 in 04/02/2024 weight refused Encounters Encounter Location Date Provider Diagnosis Harpreet Vega MD [address] [place] [address] [place] [phone] 04/02/2024 Harpreet Vega Arthritis M19.90 Assessments Encounter Date Diagnosis (ICD Code) Assessment Notes Treatment Notes Treatment Clinical Notes Section Notes 04/02/2024 Arthritis (ICD-10 - M19.90) will refer to line decorator . they are going to try to get to [facility] will Plan Of Treatment Treatment Notes Assessment Notes Arthritis will refer to rheuma tologist. they are going to try to get to [facility] Referrals Referral Date Details 04/02/2024 04/02/2024, [facility] Next Appt Details Provider Name:Harpreet gunter, 07/14/2024 10:00:00 AM, [address] [place] [address], [address] [place] [address], [id number], Provider Name:Harpreet gunter, 08/03/2024 08:00:00 AM, [address] [place] [address], [address], [phone], Provider Name:Harpreet Cervantes ier, 08/10/2024 09:15:00 AM, [address] [facility], [address], [place], [phone], Provider Name:Harpreet Cervantes ier, 02/05/2025 07:45:00 AM, [address] [facility], [address], [place], [phone], Provider Name:Harpreet Cervantes ier, 02/12/2025 08:00:00 AM, [address] [facility], [address], [place], [phone], Progress Notes * Manuela NASCIMENTODOB:1950 (73 yo F)Acc No.[id number]:04/02/2024 Progress Notes Patient:?Manuela NASCIMENTO Provider:?Harpreet Vega MD :1950???Age:73 Y???Sex:Female D ate:04/02/2024 Address:[address] [place] [address] [place], [id number] Subjective: * Chief Complaints: * ???Leg ankle knee pain x 3 w eeks * HPI: ???Symptom(s):?patient is a 73 yo [...] * Medications:?TakingLORazepam 1 MG Tablet 2 tablet HS diphenhydrAMINE [...] hivesGadolinium: hivesyes[Allergies Verified] Objective: * Vitals:?Ht: 66.5, BP:120/66. weight? refused. * Examination: ???General Examination: ?GENERAL APPEARANCE:?alert, well hydrated, in no distress.?HEART:?no murmurs, rubs, gallops, regular rate and rhythm.?LUNGS:?no wheezes, rales, rhonchi, good air movement, clear to auscultation bilaterally.? Assessment: * Assessment: 1.?Arthritis - M19.90 (Prima ry)??? Plan: * Treatment: * Procedure Codes:? * * Sign off status: Completed true * Provider:?Harpreet Vega MD Date:?0 04/02/2024 Generated for Sorin johns/Margy/Coco on:?07/06/2024 12:34 PM EDT History and Physical Notes * HPI [...] Not es 04/02/2024 Harpreet Vega Arthritis Treat [facility] arthritis
--- OUTSIDE RECORDS SUMMARY | 2024-07-06 12:34 | XMS_ITS | Patient Health Record ---
Author Organization [facility] Address [address] [place] [address] Care Team Providers Care Resident Inspector Name Role Phone Silvia JACK, Harpreet Primary Care Provider Garo Guerrero [phone] Allergies Allergen (clinical drug ingredient) Drug/Non Drug Allergy documented on EMR Reaction Allergy Type Onset Date Status Penicillin Unknown Drug Allergy Active bee stings (uncoded) Unknown Allergy Active ct scan dye (uncoded) Unknown Allergy Active Reason For Referral No Information Medications Medication SIG (Take, Route, Frequency, Duration) [...] DAY Oral for 30 Active Culturelle Active Immunizations Vaccine Route Administration Date Status Comme nts Influenza Unknown 11/12/2018 Administered Influenza Unknown 11/03/2019 Administered Problems Problem Type SNOMED Code ICD Code Onset Dates Problem Status W/U Status Risk Notes Problem 132558020 Encounter for screening for malignant neoplasm of colon (Z12.11) Active confirmed Problem History of polyp of colon (situation) (548490632) Personal history of colonic polyps (Z86.010) Active confirmed Problem 11178114 Calculus of gallbladder without cholecystitis without obstruction (K80.20) Active confirmed Problem 599695672423315 Preprocedural examination (Z01.818) Active confirmed Problem 822813502 Hx of adenomatou s colonic polyps (Z86.010) Active confirmed Problem Diverticulosis of sigmoid colon (798959126) Diverticulosis of sigmoid colon (K57.30) Active confirmed Problem 374646970 Irritable bowel syndrome with constipation (K58.1) Active confirmed Encounters Encounter Location Date Provider Diagnosis [facility] [address] [place] [address] 09/04/2023 Garo Acosta Plan Of Treatment Future Test Test Name Order Date COLONOSCOPY 06/04/2013 COLONOSCOPY 12/30/2018 COLONOSCOPY 12/08/2020 Insurance Providers Payer Name Payer Address Payer Phone Subscriber Number Group Number Insured Name Patient Relationship to Insured Coverage Start Date Coverage End Date MEDICARE OF [place] [address] [place] [address] [id number] PEDRO NASCIMENTO Self - patient is the insured [employer] ATTN CLAIMS [address] [place] [address] [id number] PEDRO NASCIMENTO Self - patient is the insured Medical (General) History Medical History History ICD Code Renal cell carcinoma (right kidney remov ed)--1991 Asthma Irritable bowel syndrome Post traumatic stress disorder--has had a hard time leaving the house Denies MA,DM,CVA, renal disease(aside fr om the previous cancer) Gallstones--intermittent upp er abdominal pains-U/S in 2012 and 2017--D/W patient on 12/30/18--told to see a surgeon if symptomatic She had a negative colonoscopy with me i n May of 2002 Hay fever Colonoscopy 07/2013-1 small tubular adeno ma Migraines Surgical History Surgery Date(Month/Year) Right kidney removed in 1991 as above--a t [facility] Right breast cyst removed in 1991-benign Left breast---milk ducts removed in 1973
--- OUTSIDE RECORDS SUMMARY | 2024-07-06 12:35 | XMS_ITS ---
Author Organization Harpreet Vega MD Address [address] [place], [place] [id number] Care Team Providers Care Administrator Social Welfare Name Role Phone Harpreet Vega Primary Care Provider [phone] Allergies Allergen (clinical drug ingredient) Drug/Non Drug [...] worked on . they are backed logged Referral Priority Routine REASON FOR VISIT 2 MO F/U Medications [...] Status Risk Notes Problem Carpal tunnel syndrome (G56.00) Active confirmed Vital Signs Blood pressure systolic 122 mm Hg 06/02/19 25 Blood pressure diastolic 74 mm Hg 025 Height 66.5 in 06/01/2024 refused weight Encounters Encounter Location Date Provider Diagnosis Harpreet Vega MD [address] [facility] [address] [place] [id number] 06/01/2024 Harpreet Vega Neuropathy G62.9 and Carpal [...] 06/01/2024 06/01/2024, Carpal t unnel syndrome, Haylie Almanza Next Appt Details Follow Up: 6 Weeks, Reason: Provider Name:Harpreet Cervantes ier, 07/14/2024 10:00:00 AM, [address], [address], [place], [phone], Provider Name:Harpreet Ash Billy bhatr, 08/03/2024 08:00:00 AM, [address], [address], [place], [phone], Provider Name:Harpreet bhatr, 08/10/2024 09:15:00 AM, [address], [address], [place], [phone], Provider Name:Harpreet bhatr, 02/05/2025 07:45:00 AM, [address], [address], [place], [phone], Provider Name:Harpreet bhatr, 02/12/2025 08:00:00 AM, [address] [place] [address], [address], [place], [phone], Progress Notes * Manuela NASCIMENTODOB:1950 (73 yo F)Acc No.[id number]:06/01/2024 Progress Notes Patient:?Manuela NASCIMENTO Provider:?Harpreet Vega MD :1950???Age:73 Y???Sex:Female D ate:06/01/2024 Address:[address] [place] [id number] Subjective: * Chief Complaints: * ???2 MO F/U * HPI: ???Symptom(s):? patient is a 73 yo female here for 2 month follow up visit. * ROS:?General/Constitutional:?Denies?Chills.?Denies?Fatigue.?Denies?Fever.?Denies?Headache.?ENT:?Denies?Sore throat.?Respiratory:?Denies?Cough.?Denies?Shortness of breath at rest.?Denies?Shortness of breath with exertion.?Gastrointestinal:?Denies?Diarrhea.?Admits?Nausea.?Neurologic:?Patient complaining of?numbness in medial aspect of thigh that lasts hours but is gone most of the time.? * Medical History:? * Surgical History:? * [...] hivesGadolinium: hivesyes[Allergies Verified] Objective: * Vitals:?Ht: 66.5, BP:122/74. refused? weight. * Examination: ???General Examination: ?GENERAL APPEARANCE:?abnormal with swelling in? fingers and weakness in fingers. not able to use finger..?HEART:?no murmurs, rubs, gallops, regular rate and rhythm.?LUNGS:?no wheezes, rales, rhonchi, good air movement, clear to auscultation bilaterally.? Assessment: * Assessment: 1.?Neuropathy - G62.9 (Prima ry)???2.?Carpal tunnel syndrome - G56.00??? Plan: * Treatment: 2.?Carpal tunnel syndrome? Notes: seems most of her symptoms are not carpal tunnel but will refer her to hand surgeon. either dr almanza or the hand center.? Referral To:Haylie Almanza??Orthopedic Surgery ?Reason:Carpal tunnel syndrome * Procedure Codes:? * Follow Up:?6 Weeks * * Sign off status: Completed true * Provider:?Harpreet Vega MD Date:?0 06/01/2024 Generated for Sorin johns/Margy/Coco on:?07/06/2024 12:35 PM EDT History and Physical Notes * [...]
--- OUTSIDE RECORDS SUMMARY | 2024-07-06 12:35 | XMS_ITS ---
Author Organization Harpreet Vega MD Address [address] [place], [place] [phone] Care Team Providers Care Glass Or Mirror Inspector Name Role Phone Harpreet Vega Primary Care Provider [phone] Allergies Allergen (clinical drug ingredient) Drug/Non Drug Allergy documented on EMR Reaction Allergy Type Onset Date Status Gadolinium hives Drug Allergy Active IVP dye (uncoded) huge hives Allergy A ctive penicillin (uncoded) hives Allergy Active Results Component Value Reference Range Notes Tick-borne Disease Molecular Reviewed date:03/11/2024 03:25:40 PM Interpretation: Performing Lab:[facility], [address] [place] [phone] Notes/Report: Babesia Microti DNA, RT-PCR NOT DETECTED NOT DETECTED This test was developed and its analytical performance characteristics have been determined by [employer]. It has not been cleared or approved by the FDA. This assay has been validated pursuant to the CLIA regulations and is used for clinical purposes. THIS TEST WAS PERFORMED AT: [facility] [address] [place] [phone] JENNY BLAIR MD E.Chaffeensis DNA RT-PCR NOT DETECTED NOT DETECTED This test was developed and its analytical performance characteristics have been determined by [employer]. It has not been cleared or approved by the FDA. This assay has been validated pursuant to the CLIA regulations and is used for clinical purposes. THIS TEST WAS PERFORMED AT: [facility] [address] [place] [phone] JENNY BLAIR MD A. Phagocytphilium DNA,RT-PCR NOT DETECTED NOT DETECTE D This test was developed and its analytical performance characteristics have been determined by [employer]. It has not been cleared or approved by the FDA. This assay has been validated pursuant to the CLIA regulations and is used for clinical purposes. Lyme(Borrelia ssp)DNA RT-PCR NOT DETECTED NOT DETECTED This test was developed and its analytical performance characteristics have been determined by [employer]. It has not been cleared or approved by the FDA. This assay has been validated pursuant to the CLIA regulations and is used for clinical purposes. For additional information, please refer to https://education.[employer]/faq/uop834 (This link is being provided for informational/ educational purposes only.) THIS TEST WAS PERFORMED AT: [facility] [address] [place] [phone] JENNY BLAIR MD Borrelia Miyamotoi,DNA RT-PCR NOT DETECTED NOT DETECTE D This test detects but does not distinguish between B. miyamotoi and B. hermsii. This test was developed and its analytical performance characteristics have been determined by [employer]. It has not been cleared or approved by the FDA. This assay has been validated pursuant to the CLIA regulations and is used for clinical purposes. THIS TEST WAS PERFORMED AT: [facility] [address] [place] [phone] JENNY BLAIR MD Tick Mol. Panel Cmmt [...] be indicated. THIS TEST WAS PERFORMED AT: [facility] [address] [place] [phone] JENNY BLAIR MD REASON FOR VISIT bilateral [...] Problem Status W/U Status Risk Notes Problem [id number] Bilateral carpal tunnel syndrome (G56.03) Active confirmed Vital Signs Blood pressure systolic 148 mm Hg 03/09/19 25 Blood pressure diastolic 80 mm Hg 025 Height 66.5 in 03/09/2024 refused weight Encounters Encounter Location Date Provider Diagnosis Harpreet Vega MD [address] [facility] [address] [place], [place] [phone] 03/09/2024 Harpreet Vega Migraine with visual aura [...] testing, THE EMG ORDER WAS FAXED TO [facility], patient can't write due to [...] testing, THE EMG ORDER WAS FAXED TO [facility], patient can't write due to [...] Up: 2 Months, Reason: Provider Name:Harpreet gunter, 07/14/2024 10:00:00 AM, [address] [place] [address], [address] [place] [address], [phone], Provider Name:Harpreet gunter, 08/03/2024 08:00:00 AM, [address] [place] [address], Suite [facility], [place], [place], [phone], Provider Name:Harpreet gunter, 08/10/2024 09:15:00 AM, [address] [place] [address], Suite [facility], [place], [place], [phone], Provider Name:Harpreet gunter, 02/05/2025 07:45:00 AM, [address], [address], [place], [place], [phone], Provider Name:Harpreet Cervantes ier, 02/12/2025 08:00:00 AM, [address] [facility] [address], [address], [place], [id number], Progress Notes * Manuela NASCIMENTODOB:1950 (73 yo F)Acc No.[id number]:03/09/2024 Progress Notes Patient:?Manuela Nascimento Provider:?Harpreet Vega MD :1950???Age:73 Y???Sex:Female D ate:03/09/2024 Address:[address] [place] [address] [phone] Subjective: * Chief Complaints: * ???Bilateral shoulder [...] testing, THE EMG ORDER WAS FAXED TO [facility], patient can't write due to [...] MD Date:?0 03/09/2024 Generated for Sorin johns/Margy/Robertitting on:?07/06/2024 12:35 PM EDT History and Physical [...]
--- OUTSIDE RECORDS SUMMARY | 2024-07-06 12:35 | XMS_ITS | Patient Health Record ---
Author Organization Harpreet Vega MD Address [address] [place], [place] [id number] Care Team Providers Care Collar Folder Operator Name Role Phone Harpreet Vega Primary Care Provider [phone] Allergies Allergen (clinical drug ingredient) Drug/Non Drug Allergy documented on EMR Reaction Allergy Type Onset Date Status Gadolinium hives Drug Allergy Active IVP dye (uncoded) huge hives Allergy A ctive penicillin (uncoded) hives Allergy Active Results Component Value Reference Range Notes Complete Blood Count Auto Di ff Reviewed date:02/06/2024 03:16:30 PM Interpretation: Performing Lab:[facility], [address] [place] [phone] Notes/Report: White Blood Count 4.6 4.8-10.8 X10*3/uL [...] 0.0-0.2 /100WBC Neutrophils Absolute Auto 1.8 2.0-8.3 x10*3/uL Imm Gran Abs Auto 0.01 0.00-0.03 X10*3/uL Lymphocytes Absolute Auto 2.0 1.2-4.9 X10*3/uL Monocytes Absolute Auto 0.6 0.1-1.2 X10*3/uL Eosinophils Absolute Auto 0.1 0.0-0.4 X10*3/uL Basophils Absolute Auto 0.1 0.0-0.2 X10*3/uL NRBC Abs Auto 0.000 0.0-0.012 X10*3/uL Comprehensive Baldwin. Panel Fa st Reviewed date:02/06/2024 03:31:30 PM Interpretation: Performing Lab:[facility], [address] [place] [phone] Notes/Report: Sodium 142 135-145 mmol/L Potassium 3.9 [...] Panel Reviewed date:02/06/2024 03:13:49 PM Interpretation: Performing Lab:[facility], [address] [place] [phone] Notes/Report: Triglycerides 147 <150 mg/dL Desirable Triglyceride: [...] Total Reviewed date:02/06/2024 03:14:41 PM Interpretation: Performing Lab:[facility], [address] [place] [phone] Notes/Report: Vitamin D 25-OH Total 50.3 >30 [...] t Reviewed date:02/06/2024 03:14:32 PM Interpretation: Performing Lab:[facility], [address] [place] [phone] Notes/Report: Urine, Clean Catch Color Urine Dark Yellow Appearance Urine Clear PH 5.5 5.0-9.0 Glucose Urine UA Negative Negative mg/dL Urine Blood Small (1+) Negative Specific [place] - Urine >= 1.030 1.005-1.025 Urine Protein Trace Neg-Trace mg/dL Urine Ketones Negative Negative mg/dL Nitrite Urine Negative Negative Leukocyte Esterase Urine Trace Negative RBC Urine 3-5 0-2 /HPF WBC Urine 0-5 0-5 /HPF Squamous Epithelial Cell Urine 3-5 0-2 /HPF Bacteria Urine None Seen None Seen Hyaline Casts Urine 0-2 0-2 /LPF CT chest wo con Reviewed date:12/13/2023 01:45:48 PM Interpretation: Performing Lab: Notes/Report: [address] [address] [address] Scan Report Signed Patient: Pedro Joshi MR#: [id number] 9 : 1950 Acct:[id number] Age/Sex: 73 / F ADM Date: 12/12/23 Loc: HO.CT Attending Dr: Harpreet Vega MD Ordering Physician: Harpreet Vega MD Date of Service: 12/12/23 Procedure(s): CT chest wo IV con Accession Number(s): [id number] cc: Harpreet Vega MD EXAMINATION: CT CHEST [...] 12/13/23 0901 DD/ 1356 TD/TT: 12/12/23 1423 [employer]: [address] [address] [address] Scan Report Signed Patient: Moses Joshi ra MR#: [id number] 9 : 1950 Acct:[id number] Age/Sex: 73 / F ADM Date: 12/12/23 Loc: HO.CT Attending Dr: Harpreet Vega MD Ordering Physician: Harpreet Vega MD Date of Service: 12/12/23 Procedure(s): CT lexy st wo IV con Accession Number(s): [id number] cc: Harpreet Vega MD EXAMINATION: CT CHEST WITHOUT CONTRAST CLINICAL INFORMATION: Persistent cough COMPARISON: CT abdomen and pelvi s 03/26/2023 TECHNIQUE: Multidetector volume tric CT imaging of the chest was done. Axial MIP volume rendering provided. Sagittal and coronal reformatted images were obtained. This CT examination was performed using dose optimization techniques as appropriate, various ly including the following: *Automated exposure control *Adjustment of mA an d/or kV according to patient size (this includes techniques or standardized protocols for targeted exams where dose is matched to indication/reason for exam; i.e. extremities or head) *Use of iterative reconstruction technique DLP: 168 mGy-cm FINDINGS: LUNGS: Central airwa ys are patent. Focal pleural-based opacity in the anterior right middl e lobe likely relating to atelectasis with adjacent bronchiolectasis, similar to prior CT from 03/26/2023. No focal consolidation. 2 mm pulmonary micronodule in the posterior medial right upper lobe, 5:169. S mall calcified nodule/granuloma in the left upper lobe. No suspicious pulmonary nodule. Minimal bilateral bronchial wall thickening MEDIASTINUM: Heart i s normal in size. No pericardial effusion. No enlarged mediastinal lymph nodes. Evaluation of hilar lymph nodes is limited in the absen ce of intravenous contrast. Nonaneurysmal thoracic aorta. CORONARY ARTERY CALCIFICATION: None visualized on this study. PLEURA: There is no pleural effusion. AXILLA: No lymphadenopathy. UPPER ABDOMEN: Scatt ered benign-appearing hepatic cysts ,similar to prior exam. Cholelithiasis. Surgical clips in the right retroperitoneum. OSSEOUS STRUCTURES: Minimal anterolisthesis of T2 over T3. Multilevel spondylosis of the visualized spine. No acute or suspicious osseous abnormality. C T/CT chest wo IV con IMPRESSION: Focal pleural-based opacity in the anterior right middle lobe likely relating to atelecta sis with adjacent bronchiolectasis, similar to prior CT from 03/26/2023. No acute pulmonary disease. No suspicious pulmonary nodule. Minimal bilateral bronchial wall thickening which can be seen with reactive airways disease. Cholelithiasis. Scattered benign-appearing hepatic cysts. Electronically zabrina d by: Bryan Ng MD 12/13/2023 09:01 AM EDT Dictated By: Bryan Ng Signed By: <Electronically signed by Bryan Ng in OV> 12/13/23 0901 DD/ 1356 TD/TT: 12/12/23 1423 [employer]: Tick-borne Disease Molecular Reviewed date:03/11/2024 03:25:40 PM Interpretation: Performing Lab:[facility], [address] [place] [phone] Notes/Report: Babesia Microti DNA, RT-PCR NOT DETECTED NOT DETECTED This test was developed and its analytical performance characteristics have been determined by [facility] [employer]. It has not been cleared or approved by the FDA. This assay has been validated pursuant to the CLIA regulations and is used for clinical purposes. THIS TEST WAS PERFORMED AT: [facility] [address] [phone] JENNY BLAIR MD E.Chaffeensis DNA RT-PCR NOT DETECTED NOT DETECTED This test was developed and its analytical performance characteristics have been determined by [facility]. It has not been cleared or approved by the FDA. This assay has been validated pursuant to the CLIA regulations and is used for clinical purposes. THIS TEST WAS PERFORMED AT: [facility] [address] [place] [phone] JENNY BLAIR MD A. Phagocytphilium DNA,RT-PCR NOT DETECTED NOT DETECTED This test was developed and its analytical performance characteristics have been determined by [facility]. It has not been cleared or approved by the FDA. This assay has been validated pursuant to the CLIA regulations and is used for clinical purposes. Lyme(Borrelia ssp)DNA RT-PCR NOT DETECTED NOT DETECTED This test was developed and its analytical performance characteristics have been determined by [facility]. It has not been cleared or approved by the FDA. This assay has been validated pursuant to the CLIA regulations and is used for clinical purposes. For additional information, please refer to https://education.[employer]faq /hct932 (This link is being provided for informational/ educational purposes only.) THIS TEST WAS PERFORMED AT: [facility] [address] [place] [phone] JENNY BLAIR MD Borrelia Miyamotoi,DNA RT-PCR NOT DETECTED NOT DETECTED This test detects but does not distinguish between B. miyamotoi and B. hermsii. This test was developed and its analytical performance characteristics have been determined by [facility]. It has not been cleared or approved by the FDA. This assay has been validated pursuant to the CLIA regulations and is used for clinical purposes. THIS TEST WAS PERFORMED AT: [facility] [address] [place] [phone] JENNY BLAIR MD Tick Mol. Panel Cmmt [...] be indicated. THIS TEST WAS PERFORMED AT: [facility] [address] [place] [phone] JENNY BLAIR MD MM tomosynthesis screening B I Reviewed date:11/12/2023 08:47:23 AM Interpretation: Performing Lab: Notes/Report: [facility] [address] [place] [address] Mammography Report Signed Patient: Pedro Joshi MR#: [id number] 9 : 1950 Acct:[id number] Age/Sex: 73 / F ADM Date: 10/15/23 Loc: HO.MAMMO Attending Dr: Harpreet Vega MD Ordering Physician: Harpreet Vega MD Results: 2Be nign Findings Date of Service: 10/15/23 Follow Up: 1 Year From [facility] Mammogram Procedure(s): MM tomosynthesis screening BI Accession Number(s): [id number] cc: Harpreet Vega MD EXAMINATION: MM SCREENING [...] Patrica Lopes MD 11/07/2023 08:43 PM EDT RP Dictated By: Patrica Lopes MD Signed By: <Electronically signed by Patrica Lopes MD in OV> 11/07/232042 DD/ 9 TD/TT: 10/15/23 0748 [employer]: [facility] [address] [place] [address] Mammography Report Signed Patient: Moses Joshi ra MR#: [id number] 9 : 1950 Acct:[id number] Age/Sex: 73 / F ADM Date: 10/15/23 Loc: HODomoMAMMO Attending Dr: Harpreet Vega MD Ordering Physician: Harpreet Vega MD Results: 2Be nign Findings Date of Service: 10/15/23 Follow Up: 1 Year From [facility] Mammogram Procedure(s): MM tomosynthesis screening BI Accession Number(s): [id number] cc: Harpreet Vega MD EXAMINATION: MM SCREENING DIGITAL BREAST TOMOSYNTHESIS, BILATERAL CLINICAL INFORMATION: Screening. Asymptomatic. The patient has a history of bilateral, benign, excisional biopsies. COMPARISON: Mammography: This st udy is compared with prior exams dating back to 2019. TECHNIQUE: Digital breast tomosynthesis is performed in both the craniocaudal and mediolateral oblique views along with computer-aided detection (CAD). Synthesized 2D image s are generated from the tomosynthesis. FINDINGS: The breasts are heterogeneously dense, which may obscure small masses (ACR BI-RADS breast composition Category c). There are no signifi cant masses, abnormal calcifications, or other abnormalities. There are postsurgic al changes and superior aspects of each breast. M M/MM tomosynthesis screening BI IMPRESSION: No mammographic evid ence of malignancy. ASSESSMENT: BI-RADS BI-RADS 2 - Benign Findings RECOMMENDATION: Routine annual mammography screening. 1 year F/U This examination ricco uld not preclude the clinical evaluation of a suspicious palpable abnormality. This patient's information was entered into a reminder system with a target due date for their next mammogram. Electronically zabrina d by: Patrica Lopes MD 11/07/2023 08:43 PM EDT RP Dictated By: Patrica Lopes MD Signed By: <Electronically signed by Patrica Lopes MD in OV> 11/07/23 2043 DD/ 0730 TD/TT: 10/15/23 0748 [employer]: XR chest 2V Reviewed date:11/25/2023 08:52:38 AM Interpretation: Performing Lab: Notes/Report: [address] [address] XRay Report Signed Patient: Pedro Joshi MR#: [id number] 9 : 1950 Acct:[id number] Age/Sex: 73 / F ADM Date: 11/22/23 Loc: HO.XRAY Attending Dr: Harpreet Vega MD Ordering Physician: Harpreet Vega MD Date of Service: 11/22/23 Procedure(s): XR chest 2V Accession Number(s): [id number] cc: Harpreet Vega MD EXAMINATION: XR CHEST [...] 11/22/23 1639 DD/ 1605 TD/TT: 11/22/23 1628 [employer] [employer]: [address] [address] XRay Report Signed Patient: Moses Joshi MR#: [id number] 9 : 1950 Acct:[id number] Age/Sex: 73 / F ADM Date: 11/22/23 Loc: HO.ANASTASIIAAY Attending Dr: Harpreet Vega MD Ordering Physician: Harpreet Vega MD Date of Service: 11/22/23 Procedure(s): XR lexy st 2V Accession Number(s): [id number] cc: Harpreet Vega MD EXAMINATION: XR CHEST CLINICAL INFORMATION: Acute bronchitis. COMPARISON: Chest radiograph 02/14/2023. TECHNIQUE: 2 views of the chest were obtained. FINDINGS: Unchanged central peribronchial thickening. No focal consolidation, pleural effusion or pneumothorax. Normal appearance of the cardiomediastinal silhouette. No acute osseous findings. Thoracic spondylosis. X R/XR chest 2V IMPRESSION: Central peribronchia l thickening which could be seen with small airways disease or atypical/viral infections. No consolidation or pleural effusion. Electronically zabrina d by: Eliza Nash MD 11/22/2023 04:39 PM EDT RP Dictated By: Eliza Nash Signed By: <Electronically signed by Eliza Nash in OV> 11/22/23 1639 DD/ 1605 TD/TT: 11/22/23 1628 [employer]: Katina Benitez Reviewed date:02/06/2024 12:50:56 PM Interpretation: Performing Lab:[facility], [address] [place] [phone] Notes/Report: Katina Benitez See Note Specimen held untested for 24 hours; Call to request Chemistry testing. Reason For Referral Reason persistent cough Diagnosis 1 Persistent cough (R0 5.3) Referral Organization Harpreet Vega MD Referring Provider First Name Harpreet Referring Provider Last Name Silvia Referring Provider Speciality Internal M edicine Referred Provider BENITA YATES Referred Provider Specialty Pulmonary Di seases General Notes Flores Richard 01:16:28 PM EDT > [place] for [place] [facility] 2[place], Flores Richard 12/12/2023 12:54:05 PM EDT > info faxed, Flores Richard 12/19/2023 03:03:17 PM >was told to refaxedHilary Annette 12/23/2023 09:45:52 AM >was told by office they will be reaching out to patient on Saturday, Flores Richard 12/27/2023 11:49:24 AM > patient was called with above info Referral Priority Routine Referral Appointment Date 01/22/2024 Reason arthritis Diagnosis 1 Arthritis (M19.90) Referral Organization Harpreet Vega MD Referring Provider First Name Harpreet Referring Provider Last Name Silvia Referring Provider Speciality Internal edicine [facility] Referred Provider Specialty Rheumatology General Notes Flores Richard 0 04/03/2024 11:52:43 AM >info faxedHilary Annette 04/07/2024 01:34:01 PM >per patient's request wants to go to [facility] Rheumatology faxed in Hilary Annette 04/09/2024 08:56:45 AM >patient is aware of appt, Maria Esther Calixto 05/28/2024 08:28:48 AM >OFFICE NOTE RECD Referral Priority Routine Reason Carpal tunnel syndro me Diagnosis 1 Carpal tunnel syndro me (G56.00) Referral Organization Harpreet Vega MD Referring Provider First Name Harpreet Referring Provider Last Name Silvia Referring Provider Speciality Internal edicine Referred Provider Haylie Almanza Referred Provider [...] they are backed logged Referral Priority Routine Medications Medication SIG (Take, Route, Frequency, Duration) [...] needed Inhalation every 6 hrs 11/22/2023 Active Vitamin D 1000 UNIT 1 tablet Orally Once a day Active Immunizations Vaccine Route Administration Date Status Comme nts Flu Vaccine IM Intramuscular 02/05/2012 Administered Shingles IM Intramuscular 01/05/2013 Administered Fluarix Quadrivalent IM Intramuscular 11/10/2013 Administ red TDaP Unknown 06/19/2010 Administered Fluarix Quadrivalent IM Intramuscular 12/07/2014 Adminunc health red TDaP IM Intramuscular 04/25/2015 Administered PPSV23 (Pnemovax) IM Intramuscular 06/14/2015 Administered Fluarix Quadrivalent IM Intramuscular 12/05/2015 Adminunc health red Prevnar 13 IM Intramuscular 07/03/2016 Administered Fluarix Quadrivalent IM Intramuscular 11/19/2016 Adminunc health red Fluarix Quadrivalent IM Intramuscular 12/16/2017 Adminunc health red Influenza High Dose IM Intramuscular 12/09/2018 [...] Administer ed Flu Vaccine Unknown 11/10/2013 Pending Social History Tobacco Use: Social History Observation [...] Problem Status W/U Status Risk Notes Problem 092131553 Actinic keratosi s (L57.0) Active confirmed Problem 634070195 Neuropathy (G62.9) Active confirmed Problem 49906487 Lymphocytosis (D72.820) Active confirmed Problem Carpal tunnel sy ndrome (G56.00) Active confirmed Problem 24820302 Restless leg syn drome (G25.81) Active confirmed Problem 91331261 Vitamin D defici ency (E55.9) Active confirmed Problem 173337985 Dupuytren contra cture (M72.0) Active confirmed Problem 278810309 Other specified menopausal and perimenopausal disorders (N95.8) Active confirmed Problem 2492864 Arthritis (M19.90) Active confirmed Problem 659981333 Lumbar disc dise ase (M51.9) Active confirmed Problem 657685718 Tubular adenoma of colon (D12.6) Active confirmed Problem 772340911 Cervical disc di sease (M50.90) Active confirmed Problem 409096546 Migraine without aura and without status migrainosus, not intractable (G43.009) Active confirmed Problem 876044020 Gall stones (K80.20) Active confirmed Problem 746937420143003 Carpal tunnel sy ndrome of right wrist (G56.01) Active confirmed Problem 10082647 Dysthymia (F34.1) Active confirmed Problem 33814247 Sleep apnea, unspecified type (G47.30) Active confirmed Problem 047908059 Psychophysiologi nj insomnia (F51.04) Active confirmed Problem 746473821 Pure hypercholesterolemia (E78.00) Active confirmed Problem 24467933940761239 Bilateral carp al tunnel syndrome (G56.03) Active confirmed Problem 200135805 Mild intermitten t asthmatic bronchitis with acute exacerbation (J45.21) Active confirmed Problem 150419274 Moderate persist ent asthmatic bronchitis with acute exacerbation (J45.41) Active confirmed Problem 839967634 Malignant neopla sm of kidney, 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) Active confirmed Problem 785806875 Acute superficia l gastritis without hemorrhage (K29.00) Active confirmed Problem 362268058 Osteopenia of bryan mbar spine (M85.88) Active confirmed Problem 663127632 Abnormal chest x ray (R93.89) Active confirmed Problem 904388 Moderate major depression (F32.1) Active confirmed Problem 235696738 Compulsive eatin g patterns (F50.9) Active confirmed Problem 762659756 Abnormal CT scan (R93.89) Active confirmed Vital Signs Blood pressure diastolic 74 mm Hg 06/01/2024 ref used weight Height 66.5 in 06/01/2024 refused weight Blood pressure systolic 122 mm Hg 06/01/2024 refu sed weight Weight 175 lbs 02/14/2024 weight is up 6 pounds since 02-08-23 BMI 27.82 kg/m2 02/14/2024 weight is up 6 pounds since 02-08-23 Encounters Encounter Location Date Provider Diagnosis Harpreet Vega MD [address] [place] [id number] 02/06/2024 Harpreet Vega Pure hypercholestero lemia E78.00 and Vitamin D deficiency E55.9 Harpreet Vega MD [address] [place] [id number] 10/29/2023 Harpreet Vega Moderate persistent asthmatic bronchitis with acute exacerbation J45.41 Harpreet Vega MD [address] [place] [id number] 11/22/2023 Harpreet Vega Acute bronchitis, unspecified organism J20.9 Harpreet Vega MD [address] [place] [id number] 11/26/2023 Harpreet Vega Mild intermittent asthmatic bronchitis with acute exacerbation J45.21 and Abnormal chest xray R93.89 Harpreet Vega MD [address] [place] [id number] 12/10/2023 Harpreet Vega Persistent cough R05 .[address] V[address] [place] [id number] 12/23/2023 Harpreet Vega Mild intermittent asthmatic bronchitis with acute exacerbation J45.21 and Encounter for administration of vaccine Z23 Harpreet Vega MD [address] [place] [id number] 01/03/2024 Harpreet Vega Mild intermittent asthmatic bronchitis with acute exacerbation J45.21 Harpreet Vega MD [address] [place] [id number] 02/14/2024 Harpreet Vega Mild intermittent asthmatic bronchitis with acute exacerbation J45.21 ; Microscopic hematuria R31.29 ; Lymphocytosis D72.820 ; Pure hypercholesterolemia E78.00 ; Vitamin D deficiency E55.9 and Dysthymia F34.1 Harpreet Vega MD [address] [place] [id number] 03/09/2024 Harpreet Vega Migraine with visual aura G43.109 ; Bilateral carpal tunnel syndrome G56.03 ; Hives of unknown origin L50.9 and Diffuse arthralgia M25.50 Harpreet Vega MD [address] [place] [id number] 04/02/2024 Harpreet Vega Arthritis M19.90 Harpreet Vega MD [address] [place] [id number] 06/01/2024 Harpreet Vega Neuropathy G62.9 and Carpal tunnel syndrome G56.00 Harpreet Vega MD [address] [place] [id number] 11/11/2023 Harpreet Vega MD [address] [place] [id number] 11/25/2023 Harpreet Vega [address] [place] [id number] 12/23/2023 Harpreet Vega Assessments Encounter Date Diagnosis (ICD Code) Assessment Notes Treatment Notes Treatment Clinical Notes Section Notes 02/06/2024 Pure hypercholesterolemia (ICD-10 - E78.00) 02/06/2024 Vitamin D deficiency (ICD-10 - E55.9) 10/29/2023 Moderate persistent asthmatic bronchitis with acute exacerbation (ICD-10 - J45.41) 11/22/2023 Acute bronchitis, unspecified organism (ICD-10 - J20.9) [place] [facility] [place] reg, pending diagnostic testing, patent verbalized [...] nothing there and no evidence of copd 12/10/2023 Persistent cough (ICD-10 - R05.3) did do better with the zpack/ referral to pulmonary [place] [facility]0rder faxed to [facility] 12/23/2023 Mild intermittent asthmatic bronchitis with acute exacerbation (ICD-10 - J45.21) patient verbalized understanding of medication and directions for use 12/23/2023 Encounter for administration of vaccine (ICD-10 - Z23) flu vaccine administered 01/03/2024 Mild intermittent asthmatic bronchitis with acute exacerbation (ICD-10 - J45.21) 02/14/2024 Mild intermittent asthmatic bronchitis with acute exacerbation (ICD-10 - J45.21) stable, will continue current regiment 02/14/2024 Microscopic hematuri a (ICD-10 - R31.29) 03/09/2024 Migraine with visual aura (ICD-10 - G43.109) no treatment needed at present. the loss of vision sounds like a scotomata/ THE LAB SLIP WAS GIVEN TO PEDRO TO GO TO LAB 03/09/2024 Bilateral carpal augustus kathie syndrome (ICD-10 - G56.03) pending diagnostic testing, THE EMG ORDER WAS FA[place]ED [place] [facility] [place]TRALIZED SCHEDULE, patient can't write due to inablilty to hold pen. seems could be carpal tunnel 04/02/2024 Arthritis (ICD-10 - M19.90) will refer to [employer]. [place] are going [place] [facility] [place] 06/01/2024 Neuropathy (ICD-10 - G62.9) comes and goes. will observe 06/01/2024 Carpal tunnel syndro me (ICD-10 - G56.00) seems most of her symptoms are not carpal tunnel but will refer her to hand surgeon. either dr almanza or the [facility]. 02/14/2024 Lymphocytosis (ICD-1 0 - D72.820) 03/09/2024 Hives of unknown regina gimone (ICD-10 - L50.9) she had eaten shrimp minutes before the hive. am concerned that she has developed a seafod allergy so will give an epi pen 02/14/2024 Pure hypercholesterolemia (ICD-10 - E78.00) stable, will continue to monitor 03/09/2024 Diffuse arthralgia (ICD-10 - M25.50) has aches and pains in various joints with swelling and redness that comes and goes. may be developing an arthrits symbdrome but will check for tick borne illnesses 02/14/2024 Vitamin D deficiency (ICD-10 - E55.9) stable, will continue current regiment 02/14/2024 Dysthymia (ICD-10 - F34.1) stale, will continue current regiment Plan Of Treatment Pending Test Test Name Order Date Electrocardiogram (EKG) 06/28/2015 CARDIOVASCULAR STRESS TEST 06/28/2015 XR CHEST 2 VIEW PA & LAT 11/22/2023 XR CHEST 2 VIEW PA & LAT 02/08/2023 XR GI SERIES 04/01/2023 BONE DENSITY DEXA 12/05/2020 EMG 03/09/2024 CT abdomen pelvis wo/w con 02/08/2023 Next Appt Details Provider Name:Harpreet gunter, 07/14/2024 10:00:00 AM, [address] [place] [address], Suite [facility], [place], [place], [phone], Provider Name:Harpreet gunter, 08/03/2024 08:00:00 AM, [address] [place] [address], Suite [facility], [place], [place], [phone], Provider Name:Harpreet gunter, 08/10/2024 09:15:00 AM, [address] [place] [address], [address] [place] [address], [phone], Provider Name:Harpreet gunter, 02/05/2025 07:45:00 AM, [address] [place] [address], [address] [place] [address], [phone], Provider Name:Harpreet gunter, 02/12/2025 08:00:00 AM, [address], [address], [place], [place], [phone], Insurance Providers Payer Name Payer Address Payer Phone Subscriber Number Group Number Insured Name Patient Relationship to Insured Coverage Start Date Coverage End Date MEDICARE [employer] [address] [place] [address] [id number] Pedro Joshi Self - patient is the insured [employer] [address] [place], [place] [id number] NoelVirginia arceoara Self - patient is the insured Medical (General) History Medical History History ICD Code 07/20/2013 - Colonoscopy with Dr. Gray; colonoscopy by [...]
--- OUTSIDE RECORDS SUMMARY | 2024-07-06 12:35 | XMS_ITS ---
Author Organization [facility] Address [address] [place] [phone] Care Team Providers Care Architect Marine Name Role Phone Harpreet Vega MD Primary Care Provider Garo Guerrero [phone] REASON FOR VISIT cancel appt Encounters Encounter Location Date Provider Diagnosis [facility] [address] [place] [phone] 09/04/2023 Garo Acosta Plan Of Treatment No Information Progress Notes * PEDRO NASCIMENTODOB:1950 (73 yo F)Acc No.[id number]:09/04/2023 Patient:?YANNIPEDRO NICHOLSON :1950???Age:73 Y???Sex:Female Address:[address] [place] [address] * true * Date:? Generated for Sorin johns/Margy/eTransmitting on:?07/06/2024 12:35 PM EDT
== END 2024-07-06 11:22 | disposition home or self-care (01) ==
LOC: HO.HPS 10:56
PROVIDERS: PCP Internal Medicine; Visit Provider Internal Medicine
DX: J45.909 Unspecified asthma, uncomplicated (principal); R05.9 Cough, unspecified
CPT/HCPCS: 99213

== ENCOUNTER → 2024-07-06 10:55 | Outpatient (BNVA) | payer MEDICARE, SELFPAY | PROVIDERS: PCP Internal Medicine; Visit Provider Internal Medicine | DX: J45.909 Unspecified asthma, uncomplicated (principal) | CPT/HCPCS: 99212 ==

== ENCOUNTER 2024-08-03 10:16 | Outpatient (REF) | payer MEDICARE, SELFPAY ==
[2024-08-03 10:18] LABS: MANUAL DIFF FLAG NO
[2024-08-03 10:40] LABS: Basophils Absolute Auto 0.1 X10*3/uL (0.0-0.2); Basophils Percent Auto 1.2 % (0-2); Eosinophils Absolute Auto 0.2 X10*3/uL (0.0-0.4); Hematocrit 40.5 % (37.0-47.0); Hemoglobin 13.5 g/dl (12.0-16.0); Imm Gran Abs Auto 0.01 X10*3/uL (0.00-0.03); Imm Gran Pct Auto 0.2 % (0.0-0.4); Lymphocytes Absolute Auto 2.4 X10*3/uL (1.2-4.9); Lymphocytes Percent Auto 40.6 % (20-40); Mean Corpuscular HGB Conc 33.3 g/dl (31.0-35.0); Mean Corpuscular Hemoglobin 29.7 pg (27.0-33.0); Mean Platelet Volume 10.9 fL (9.4-12.3); Monocytes Absolute Auto 0.6 X10*3/uL (0.1-1.2); Monocytes Percent Auto 9.3 % (2-11); Neutrophils Absolute Auto 2.7 x10*3/uL (2.0-8.3); Neutrophils Percent Auto 45.7 % (45-73); Platelet Count 243 X10*3/uL (160-400); Red Blood Count 4.55 X10*6/uL (4.20-5.50); Red Cell Distribution Width 14.5 % (11.0-16.0); White Blood Count 5.9 X10*3/uL (4.8-10.8)
--- OUTSIDE RECORDS SUMMARY | 2024-08-03 11:14 | XMS_ITS ---
Author Organization Harpreet Vega MD Address [address] [place], [place] [phone] Care Team Providers Care Video Machines Mechanic Name Role Phone Harpreet Vega Primary Care Provider Results Component Value Reference Range Notes Complete Blood Count Auto Di ff (Not yet reviewed by provider) Interpretation: Performing Lab:[facility], [address] [place] [phone] Notes/Report: White Blood Count 5.9 4.8-10.8 X10*3/uL [...] Location Date Provider Diagnosis Harpreet Vega MD [address] [place] [address] [place] [phone] 08/03/2024 Harpreet Vega Lymphocytosis D72.82 0 Assessments Encounter Date Diagnosis (ICD Code) Assessment Notes Treatment Notes Treatment Clinical Notes Section Notes 08/03/2024 Lymphocytosis (ICD-10 - D72.820) Plan Of Treatment Pending Test Test Name Order Date Complete Blood Count Auto Diff Next Appt Details Provider Name:Harpreet gunter, 10/20/2024 09:00:00 AM, [address] [place] [address], [address], [phone], Provider Name:Harpreet gunter, 02/05/2025 07:45:00 AM, [address] [place] [address], [address] [place] [address], [phone], Provider Name:Harpreet gunter, 02/12/2025 08:00:00 AM, [address] [place] [address], [address], [phone], Progress Notes * Manuela NASCIMENTODOB:1950 (74 yo F)Acc No.[id number]:08/03/2024 Progress Note Patient:?YANNIVirginia NICHOLSONara Provider:?Harpreet Vega MD :1950???Age:74 Y???Sex:Female D ate:08/03/2024 Address:[address] [place] [phone] Subjective: * Chief Complaints: * ???1. CBC. * Medical History:? Objective: * Vitals:? Assessment: * Assessment: 1.?Lymphocytosis - D72.820?? ? Plan: * Treatment: * Procedure Codes:?96362 VENIP UNCT, ROUTINE* * * The named appointment provid er may or may not be the originator of this progress note, and it is not deemed complete until electronically signed by the appointment provider. Sign off status: Pending * Provider:?Harpreet Vega MD Date:?0 08/03/2024 Generated for Sorin johns/Margy/eTulismitting on:?08/03/2024 11:13 AM EDT
== END 2024-08-03 10:17 | disposition home or self-care (01) ==
LOC: HO.LNP 10:16
PROVIDERS: Visit Provider Internal Medicine
DX: D72.820 Lymphocytosis (symptomatic) (principal)
CPT/HCPCS: 85025

== ENCOUNTER 2024-11-03 09:05 | Outpatient (REF) | payer MEDICARE, SELFPAY ==
--- OUTSIDE RECORDS SUMMARY | 2023-09-11 10:00 | XMS_ITS ---
Author Organization [facility] Address [address] [place] [phone] Care Team Providers Care Statistical Methods Teacher Name Role Phone Harpreet Vega MD Primary Care Provider Garo Guerrero [phone] REASON FOR VISIT Patient presents today for an ACUTE GASTRITIS Encounters Encounter Location Date Provider Diagnosis [facility] [address] [place] [phone] 09/11/2023 Garo Acosta Plan Of Treatment No Information Progress Notes * PEDRO NASCIMENTODOB:1950 (74 yo F)Acc No.[id number]:09/11/2023 Progress Notes Patient: PEDRO COLE Provider: Rosa Isela Acosta MD :1950 A ge:73 Y S ex:Female Date:09/11/2023 Address:[address] [place], [place] [phone] Pcp:Harpreet Vega MD Subjective: * Chief Complaints: * 1 . Patient presents today for an ACUTE GASTRITIS. * Medical History: Objective: * Vitals: Assessment: Plan: * Treatment: * * The named appointment provid er may or may not be the originator of this progress note, and it is not deemed complete until electronically signed by the appointment provider. Sign off status: Pending * Provider: Rosa Isela Acosta MD Date: 0 09/11/2023 Generated for Sorin johns/Margy/eTransmitting on: 11/03/2024 09:58 AM EDT
--- OUTSIDE RECORDS SUMMARY | 2024-03-09 11:00 | XMS_ITS ---
Author Organization Harpreet Vega MD Address [address] [place], [place] [id number] Care Team Providers Care Hand Binder Stripper Name Role Phone Harpreet Vega Primary Care Provider Allergies Allergen (clinical drug ingredient) Drug/Non Drug Allergy documented on EMR Reaction Allergy Type Onset Date Status Gadolinium hives Drug Allergy Active IVP dye (uncoded) huge hives Allergy A ctive penicillin (uncoded) hives Allergy Active Results Component Value Reference Range Notes Tick-borne Disease Molecular Reviewed date:03/11/2024 03:25:40 PM Interpretation: Performing Lab:[facility], [address] [place] [phone] Notes/Report: Babesia Microti DNA, RT-PCR NOT DETECTED NOT DETECTED This test was developed and its analytical performance characteristics have been determined by [employer]. It has not been cleared or approved by the FDA. This assay has been validated pursuant to the CLIA regulations and is used for clinical purposes. THIS TEST WAS PERFORMED AT: [facility] [address] [place] [phone] JENNY BLAIR MD E.Chaffeensis DNA RT-PCR NOT DETECTED NOT DETECTED This test was developed and its analytical performance characteristics have been determined by [employer]. It has not been cleared or approved by the FDA. This assay has been validated pursuant to the CLIA regulations and is used for clinical purposes. THIS TEST WAS PERFORMED AT: [facility] [address] [place] [phone] JENNY BLAIR MD A. Phagocytphilium DNA,RT-PCR NOT DETECTED NOT DETECTE D This test was developed and its analytical performance characteristics have been determined by [employer]. It has not been cleared or approved by the FDA. This assay has been validated pursuant to the CLIA regulations and is used for clinical purposes. Lyme(Borrelia ssp)DNA RT-PCR NOT DETECTED NOT DETECTED This test was developed and its analytical performance characteristics have been determined by [employer]. It has not been cleared or approved by the FDA. This assay has been validated pursuant to the CLIA regulations and is used for clinical purposes. For additional information, please refer to https://education.[employer]ob[employer]/faq/qnq711 (This link is being provided for informational/ educational purposes only.) THIS TEST WAS PERFORMED AT: [facility] [address] [place] [phone] JENNY BLAIR MD Borrelia Miyamotoi,DNA RT-PCR NOT DETECTED NOT DETECTE D This test detects but does not distinguish between B. miyamotoi and B. hermsii. This test was developed and its analytical performance characteristics have been determined by [employer]. It has not been cleared or approved by the FDA. This assay has been validated pursuant to the CLIA regulations and is used for clinical purposes. THIS TEST WAS PERFORMED AT: [facility] [address] [place] [phone] JENNY BLAIR MD Tick Mol. Panel Cmmt [...] be indicated. THIS TEST WAS PERFORMED AT: [facility] [address] [place] [phone] JENNY BLAIR MD REASON FOR VISIT bilateral [...] Problem Status W/U Status Risk Notes Problem [id number] Bilateral carpal tunnel syndrome (G56.03) Active confirmed Vital Signs Blood pressure systolic 148 mm Hg 03/09/19 25 Blood pressure diastolic 80 mm Hg 025 Height 66.5 in 03/09/2024 refused weight Encounters Encounter Location Date Provider Diagnosis Harpreet Vega MD [address] [facility] [address] [place], [place] [id number] 03/09/2024 Harpreet Vega Migraine with visual aura [...] testing, THE [place]G [place] [facility] [place], patient can't [...] testing, THE EMG ORDER WAS FAXED TO [facility] [place], patient can't [...] Up: 2 Months, Reason: Provider Name:Harpreet gunter, 11/09/2024 10:15:00 AM, [address], [address], [place], [place], [id number], Provider Name:Harpreet gunter, 02/05/2025 07:45:00 AM, [address], [address], [place], [place], [id number], Provider Name:Harpreet gunter, 02/12/2025 08:00:00 AM, [address], [address], [place], [place], [id number], Progress Notes * Birgit NASCIMENTO:1950 (73 yo F)Acc No.[id number]:03/09/2024 Progress Notes Patient: Manuela Jose Provider: Dean Vega MD :1950 A ge:73 Y S ex:Female Date:03/09/2024 Address:[address] [place] [address], [id number] Subjective: * Chief Complaints: * B ilateral shoulder pain x 2 months and right hand x 1 monthAccompanied by hiusband * HPI: S ymptom(s): patient is a [...] testing, THE EMG ORDER WAS [place]ED TO [facility] [place], patient can't [...] MD Date: 0 03/09/2024 Generated for Sorin johns/Margy/Robertitting on: 0 11/03/2024 09:57 AM EDT History and Physical Notes * HPI (History [...]
--- OUTSIDE RECORDS SUMMARY | 2024-04-02 06:15 | XMS_ITS ---
Author Organization Harpreet Vega MD Address [address] [place], [place] [phone] Care Team Providers Care Engineering Specialist Technician Name Role Phone Harpreet Vega Primary [...] >per patient's request wants to go to [facility] Rheumatology faxed in Hilary Annette 04/09/2024 08:56:45 [...] Problem Status W/U Status Risk Notes Problem [id number] Arthritis (M19.90) Active confirmed Vital Signs Blood pressure systolic 120 mm Hg 04/02/19 25 Blood pressure diastolic 66 mm Hg 025 Height 66.5 in 04/02/2024 weight refused Encounters Encounter Location Date Provider Diagnosis Harpreet Vega MD [address] [place] [address] [place] [phone] 04/02/2024 Harpreet Veag Arthritis M19.90 Assessments Encounter Date Diagnosis (ICD Code) Assessment Notes Treatment Notes Treatment Clinical Notes Section Notes 04/02/2024 Arthritis (ICD-10 - M19.90) will refer to dry yard worker . they are going to try to get [place] [facility] will Plan Of Treatment Treatment Notes Assessment Notes Arthritis will refer to rheuma tologist. they are going to try to get [place] [facility] Referrals Referral Date Details 04/02/2024 04/02/2024, [facility]am pop [facility] Next Appt Details Provider Name:Harpreet gunter, 11/09/2024 10:15:00 AM, [address] [place] [address], [address], [phone], Provider Name:Harpreet gunter, 02/05/2025 07:45:00 AM, [address] [place] [address], [address], [phone], Provider Name:Harpreet Cervantes perlitar, 02/12/2025 08:00:00 AM, [address] [facility], [address], [place], [phone], Progress Notes * Manuela NASCIMENTODOB:1950 (73 yo F)Acc No.[id number]:04/02/2024 Progress Notes Patient: Manuela COLE Provider: Dean Vega MD :1950 A ge:73 Y S ex:Female Date:04/02/2024 Address:[address] [place] [address] [place], [id number] Subjective: * Chief Complaints: * L eg [...] 0 04/02/2024 Generated for Sorin johns/Margy/Robertitting on: 0 11/03/2024 [...] Not es 04/02/2024 Harpreet Vega [facility], [facility] arthritis
--- OUTSIDE RECORDS SUMMARY | 2024-06-01 06:15 | XMS_ITS ---
Author Organization Harpreet Vega MD Address [address] [place], [place] [phone] Care Team Providers Care Certified Optician Name Role Phone Harpreet Vega Primary Care [...] on . they are backed logged phone [phone] ask for Hilary LEON Annette 07/31/2024 03:30:04 [...] Status Risk Notes Problem Carpal tunnel syndrome (29576251) Carpal tunnel syndrome (G56.00) Active confirmed Vital Signs Blood pressure systolic 122 mm Hg 06/02/19 25 Blood pressure diastolic 74 mm Hg 025 Height 66.5 in 06/01/2024 refused weight Encounters Encounter Location Date Provider Diagnosis Harpreet Vega MD [address] [place], [place] [phone] 06/01/2024 Harpreet Vega Neuropathy G62.9 and Carpal [...] Follow Up: 6 Weeks, Reason: Provider Name:Harpreet bhatr, 11/09/2024 10:15:00 AM, [address] [place] [address], Suite [facility], [place], [place], [phone], Provider Name:Harpreet bhatr, 02/05/2025 07:45:00 AM, [address] [place] [address], Suite [facility], [place], [place], [phone], Provider Name:Harpreet bhatr, 02/12/2025 08:00:00 AM, [address] [place] [address], Suite [facility], [place], [place], [phone], Progress Notes * Manuela NASCIMENTODOB:1950 (73 yo F)Acc No.[id number]:06/01/2024 Progress Notes Patient: Manuela COLE Provider: Dean Vega MD :1950 A ge:73 Y S ex:Female Date:06/01/2024 Address:[address] [place] [phone] Subjective: * Chief Complaints: * 2 MO [...] MD Date: 0 06/01/2024 Generated for Sorin johns/Margy/Robertitting on: 0 11/03/2024 [...]
--- OUTSIDE RECORDS SUMMARY | 2024-07-14 06:00 | XMS_ITS ---
Author Organization Harpreet Vega MD Address [address] [place], [place] [phone] Care Team Providers Care Complex Manager Name Role Phone Harpreet Vega Primary Care [...] W/U Status Risk Notes Problem Rheumatoid arthritis (69342614) Rheumatoid arthritis (M06.9) Active confirmed Vital Signs Blood pressure systolic 118 mm Hg 07/15/19 25 Blood pressure diastolic 70 mm Hg 025 Height 66.5 in 07/14/2024 Encounters Encounter Location Date Provider Diagnosis Harpreet Vega MD [address] [place] [phone] 07/14/2024 Harpreet Vega Carpal tunnel syndrome G56.00 [...] Up: 3 Months, Reason: Provider Name:Harpreet gunter, 11/09/2024 10:15:00 AM, [address] [place] [address], [address], [phone], Provider Name:Harpreet gunter, 02/05/2025 07:45:00 AM, [address] [place] [address], [phone], Provider Name:Harpreet gunter, 02/12/2025 08:00:00 AM, [address] [place] [address], [phone], Progress Notes * Manuela NASCIMENTODOB:1950 (74 yo F)Acc No.[id number]:07/14/2024 Progress Notes Patient: Manuela COLE Provider: Dean Vega MD :1950 A ge:74 Y S ex:Female Date:07/14/2024 Address:[address] [place] [address], [phone] Subjective: * Chief Complaints: * 6 weekAccompanied [...] true * Provider: Dean Vega MD Date: 07/14/2024 Generated for Sorin johns/Margy/Coco on: 11/03/2024 09:58 AM EDT History and Physical Notes * [...]
--- OUTSIDE RECORDS SUMMARY | 2024-08-03 04:00 | XMS_ITS ---
Author Organization Harpreet Vega MD Address [address] [place], [place] [phone] Care Team Providers Care Water Trainer Name Role Phone Harpreet Vega Primary Care Provider Results Component Value Reference Range Notes Complete Blood Count Auto Di ff Reviewed date:08/03/2024 01:32:08 PM Interpretation: Performing Lab:[facility], [address] [place] [phone] Notes/Report: White Blood Count 5.9 4.8-10.8 X10*3/uL [...] Date Provider Diagnosis Harpreet Vega MD [address] [place] [address] [place] [phone] 08/03/2024 Harpreet Vega Lymphocytosis D72.82 0 Assessments Encounter Date Diagnosis (ICD Code) Assessment Notes Treatment Notes Treatment Clinical Notes Section Notes 08/03/2024 Lymphocytosis (ICD-10 - D72.820) Plan Of Treatment Next Appt Details Provider Name:Harpreet gunter, 11/09/2024 10:15:00 AM, [address] [place] [address], [address], [phone], Provider Name:Harpreet gunter, 02/05/2025 07:45:00 AM, [address] [place] [address], [address], [phone], Provider Name:Harpreet gunter, 02/12/2025 08:00:00 AM, [address] [place] [address], [phone], Progress Notes * Manuela NASCIMENTODOB:1950 (74 yo F)Acc No.[id number]:08/03/2024 Progress Note Patient: Manuela COLE Provider: Dean Vega MD :1950 A ge:74 Y S ex:Female Date:08/03/2024 Address:[address] [place], [place] [phone] Subjective: * Chief Complaints: * 1 . [...] Pending * Provider: Dean Vega MD Date: 08/03/2024 Generated for Sorin johns/Margy/Robertitting on: 11/03/2024 09:58 AM EDT
--- NOTE | ~2024-11-03 | MM_ITS ---
EXAMINATION: MM SCREENING DIGITAL BREAST TOMOSYNTHESIS, BILATERAL CLINICAL INFORMATION: Screening. Asymptomatic. COMPARISON: Mammography: Comparison is made with available priors TECHNIQUE: Digital breast mammography with tomosynthesis is performed in both the craniocaudal and mediolateral oblique views along with computer-aided detection (CAD). FINDINGS: The breasts are heterogeneously dense, which may obscure small masses (ACR BI-RADS breast composition Category c). Bilateral postsurgical changes are stable. There are no significant masses, abnormal calcifications, or other abnormalities. MM/MM tomosynthesis screening BI IMPRESSION: No mammographic evidence of malignancy. ASSESSMENT: BI-RADS BI-RADS 2 - Benign Findings RECOMMENDATION: Routine annual mammography screening. 1 year F/U This examination should not preclude the clinical evaluation of a suspicious palpable abnormality. This patient's information was entered into a reminder system with a target due date for their next mammogram. Electronically signed by: Dede Mcfarland DO 11/03/2024 01:26 PM EDT
--- OUTSIDE RECORDS SUMMARY | 2024-11-03 09:57 | XMS_ITS | Patient Health Record ---
Author Organization [facility] Address [address] [place] [address] Care Team Providers Care Office Support Name Role Phone Silvia JACK, Harpreet Primary Care Provider Garo Guerrero [phone] Allergies Allergen (clinical drug ingredient) Drug/Non Drug [...] Problem Status W/U Status Risk Notes Problem 409919164 Encounter for screening for malignant neoplasm of colon (Z12.11) Active confirmed Problem Personal history of colonic polyps (Z86.010) Active confirmed Problem 47504010 Calculus of gallbladder without cholecystitis without obstruction (K80.20) Active confirmed Problem 984737563375590 Preprocedural examination (Z01.818) Active confirmed Problem 008667087 Hx of adenomatou s colonic polyps (Z86.010) Active confirmed Problem Diverticulosis of sigmoid colon (860426712) Diverticulosis of sigmoid colon (K57.30) Active confirmed Problem 243750210 Irritable bowel syndrome with constipation (K58.1) Active confirmed Plan Of Treatment Future Test Test Name Order Date COLONOSCOPY 06/04/2013 COLONOSCOPY 12/30/2018 COLONOSCOPY 12/08/2020 Insurance Providers Payer Name Payer Address Payer Phone Subscriber Number Group Number Insured Name Patient Relationship to Insured Coverage Start Date Coverage End Date MEDICARE [place] [address] [place] [address] [id number] PEDRO NASCIMENTO Self - patient is the insured [employer] CLAIMS [address] [place] [phone] [id number] PEDRO NASCIMENTO Self - patient is the insured Medical (General) History Medical History History ICD Code Renal cell carcinoma (right kidney remov ed)--1991 Asthma Irritable bowel syndrome Post traumatic stress disorder--has had a hard time leaving the house Denies OK,DM,CVA, renal disease(aside fr om the previous cancer) Gallstones--intermittent upp er abdominal pains-U/S in 2012 and 2017--D/W patient on 12/30/18--told to see a surgeon if symptomatic She had a negative colonoscopy with me i n May of 2002 Hay fever Colonoscopy 07/2013-1 small tubular adeno ma Migraines Surgical History Surgery Date(Month/Year) Right kidney removed in 1991 as above--[facility] Right breast cyst removed in 1991-benign Left breast---milk ducts removed in 1973
--- OUTSIDE RECORDS SUMMARY | 2024-11-03 09:58 | XMS_ITS | Encounter Summary ---
Author Organization [facility] Address [address] [facility] [address] [place] [address] Phone Care Team Providers Care Mailroom Messenger Name Role Phone Lyn Clayton NP Unavailable [phone] Felicia Blevins MD Unavailable [phone] Harpreet Vega MD Unavailable [phone] Harpreet Vega MD Primary Care Provider Encounter Details Date Type Department Care Team (Late st Contact Info) Description 04/27/2020 Telephone ABDIF[facility] Otolaryngology General [address] [place] [address] Romulo Jean Social History Tobacco Use Types Packs/Day Years Used Date Smoking Tobacco: Never Smokeless Tobacco: Never Alcohol Use Standard Drinks/Week Comments Not Currently 0 (1 standard drink = 0.6 oz pur e alcohol) Comments No Sex and Gender Information Value Date Recorded Sex Assigned at Female 05/01/2020 1:15 PM EST Legal Sex Female 4:57 PM EST Gender Identity Female 05/01/2020 1:15 PM EST Sexual Orientation Straight 05/01/2020 1: 15 PM EST documented as of this encounter Plan of Treatment Not on file documented as of this encounter Visit Diagnoses Not on filedocumented in this encounter Care Teams Mailroom Messenger Relationship Specialty Start Date End Date Harpreet Vega MD [address] [place] [address] [place] [address] PCP - General 1/4/18 Lyn Clayton NP [address] [place] [address] [address] [place] [address] Historical LMR Provider 12/20/162 2 Felicia Blevins MD [address] [place] [address] [address] [place] [address] [email or web address] Historical LMR Provider 12/20/16 Harpreet Vega MD [address] [place] [address] [place] [address] Historical LMR Provider 12/20/16 2 documented as of this encounter Additional Source Comments The information contained in this document represents components of the legal health record. It is not the complete legal health record.[facility]
--- OUTSIDE RECORDS SUMMARY | 2024-11-03 09:58 | XMS_ITS | Clinical Summary ---
Author Organization [facility] Address [address] [place] [id number] Phone Care Team Providers Care Customer Support Assistant Name Role Phone Felicia Blevins MD Unavailable [phone] Harpreet Vega MD Primary Care Provider Allergies Active Allergy Reactions Criticality Noted Date Comments Other 12/17/[address]/MRI Penicillins Itching 02/03/2009 Medications dextroamphetamin e-amphetamine (ADDERALL) 10 mg Tab tablet Orally Active cholecalciferol (VITAMIN D3) 3,000 unit tablet Active LORazepam (ATIVAN) 1 MG tablet Orally three times a day Active buPROPion (WELLBUTRIN XL) 300 MG ER 24 hr tablet 10/28/2018 Active SUMAtriptan (IMITREX) 25 MG tablet Take 25 mg by mouth every 2 (two) hours as needed for migraine. Not to exceed 200 mg/day Active Active Problems Problem Noted Date Diagnosed Date Obstructive sleep apnea (adult) (pediatric) 06/03 Assessment & Plan (12/21/2020 9:41 AM EDT): I had the pleasure of seeing Mrs. Joshi today in follow-up for ongoing management of her previously diagnosed mild obstructive sleep apnea. For the past couple of months, her PAP usage has slipped because of her severe upper respiratory tract infection. Fortunately, she is better now and is engaged and resuming nightly usage. We discussed the rationale for treatment and many of the implications of untreated FELIPE. I have encouraged her to use the device on a nightly basis for at least 4 hours. We discussed sleep hygiene, nonsupine sleep positioning and signs/symptoms that should be brought to my attention. I plan to see her back in 2 months and if needed. Assessment & Plan (09/14/2020 1:08 PM EDT): I had the pleasure of seeing Ms. Joshi via telemedicine today in follow-up for ongoing oversight/management of her previously diagnosed obstructive sleep apnea. Since her last visit, she has been using positive airway pressure therapy with some success. She does believe that it improves her sleep quality but she is struggled with the interface as well as some condensation in the mask. I reviewed her compliance and efficacy data which demonstrates substantial improvement in the degree of sleep disordered breathing according to the machine algorithm. I have recommended that she continue to work with her Outline to optimize her mask and humidification settings. We discussed the rationale for ongoing therapy. I reviewed signs/symptoms that should be brought to my attention. I plan to see her back in 3 to 4 months and if needed. All questions were answered to her satisfaction Assessment & Plan (06/22/2020 12:37 PM EDT): I had the pleasure of seeing Mrs. Joshi via telemedicine in follow-up for ongoing oversight/management of her suspected sleep disordered breathing. Since her last visit, she underwent an overnight home sleep study which did demonstrate evidence of sleep apnea with an AHI 3% = 14.7 and AHI 4% = 9.8. We discussed the diagnosis of sleep apnea and the potential implications of untreated disease. Based on her sleep study results, her medical issues and her complaints of excessive daytime sleepiness, I believe that she very likely has clinically significant sleep disordered breathing/sleep apnea. We discussed management strategies and I believe that positive airway pressure therapy is most appropriate. I have initiated a referral for treatment using an auto adjusting device with a pressure range of 5 to 15 cm of water. I plan to see her back to review her compliance and efficacy in 2 to 3 months and if needed. We also discussed optimal body weight, nonsupine sleep positioning, sleep hygiene, avoidance of driving and was feeling fully alert and signs/symptoms that should be brought to my attention. Sleep-disordered breathing 05/04/2020 Assessment & Plan (05/04/2020 9:24 AM EST): 69-year-old woman seen virtually today for suspected sleep disordered breathing/sleep apnea. Based on her symptoms of snoring, irregular nocturnal breathing, restless sleep and excessive daytime sleepiness, my suspicion for sleep apnea is significant. To further evaluate this possibility, I have made arrangements for her to undergo overnight portable sleep testing. That will be coordinated in the near future. I will be seeing her back to review the test results make further therapeutic recommendations. We discussed optimal body weight, nonsupine sleep positioning, sleep hygiene and avoidance of driving unless feeling fully alert. All questions were answered to her satisfaction. Vaginal dryness, menopausal 12/19/2018 Family History Medical History Relation Comments Bladder Cancer Father Liver cancer Father Lung cancer Father CV disease Maternal Grandfather Irritable bowel syndrome Mother Relation Status Comments Father Maternal Grandfather Mother Social History Tobacco Use Types Packs/Day Years Used Date Smoking Tobacco: Never Smokeless Tobacco: Never Alcohol Use Standard Drinks/Week Comments Not Currently 0 (1 standard drink = 0.6 oz pur e alcohol) Education Answer Date Recorded Are you interested in more education? Not on manuel e 06/30/2022 Are you concerned about learning? Not on file 06/30/2022 No 06/30/2022 No 06/30/2022 Digital Access Answer Date Recorded No 07/29/2022 No 07/29/2022 Reliable internet access at home? Not on file 07/29/2022 Device with a working camera? Not on file Comments No Sex and Gender Information Value Date Recorded Sex Assigned at Female 05/01/2020 1:15 PM EST Legal Sex Female 4:57 PM EST Gender Identity Female 05/01/2020 1:15 PM EST Sexual Orientation Straight 05/01/2020 1: 15 PM EST Last Filed Vital Signs Vital Sign Reading Time Taken Comments Blood Pressure 124/78 12/17/2018 1:08 PM EDT Pulse 76 10/17/2017 10:34 AM EDT Temperature - - Respiratory Rate - - Oxygen Saturation - - Inhaled Oxygen Concentration - - Weight 74.8 kg (165 lb) 08/21/2016 3:41 PM EDT Height 165.1 cm (5' 5 ) 12/17/2018 1:08 PM EDT Body Mass Index 26.63 08/21/2016 3:41 PM EDT Plan of Treatment Health Maintenance Due Date Last Done Comments LIPID PANEL 1950 MAMMOGRAM 1950 DEPRESSION SCREENING 1962 HEPATITIS C SCREENING 1968 COLOGUARD 07/03/1995 COLONOSCOPY 07/03/1995 COLORECTAL CANCER SCREENING 07/03/1995 FIT TEST 07/03/1995 FOBT 07/03/1995 SIGMOIDOSCOPY 07/03/1995 VIRTUAL COLONOSCOPY 07/03/1995 ZOSTER VACCINES (1 of 2) 2000 OSTEOPOROSIS SCREENING INITI AL (ONE-TIME) 07/03/2015 PAP SMEAR 07/10/2020 07/11/2015 COVID-19 VACCINE (2023-2 5 season) 2023 05/26/2020, 04/28/2020 Adult Td,Tdap Booster 04/25/2025 04/25/2015 RSV VACCINE (1 - 1-dose 75+ series) 2025 PNEUMOCOCCAL VACCINES (50+ years) Completed 04/06/2019, 07/03/2016, 06/14/2015 SMOKING STATUS SCREENING (On ce After 26 Yrs) Completed 01/12/2021 HEPATITIS A VACCINES Aged Out No long er eligible based on patient's age to complete this topic HIB VACCINES Aged Out No longer eligi ble based on patient's age to complete this topic MENINGOCOCCAL VACCINES (ACWY) Aged Out No longer eligible based on patient's age to complete this topic MENINGOCOCCAL VACCINES (B) Aged Out N o longer eligible based on patient's age to complete this topic Medical Devices Not on file Procedures Procedure Name Priority Date/Time Associated Diagnosis Comments PAP SMEAR FOR RESULT ENTRY ONLY Routine 07/11/2015 from Last 3 Months or Most Recently Relevant to Health Maintenance Results * PAP SMEAR FOR RESULT ENTRY ONLY (07/11/2015) Pap smear NIL, HPV Negative (-16/-18) us Historical Provider HEALTH MAINTENANCE Final Result from Last 3 Months or Most Recently Relevant to Health Maintenance Insurance [employer]EX SUPPLEMENT MEDICARE PART A & B [employer] MEDEX SUPPLEMENT MEDICARE PART A & B [employer] MEDEX SUPPLEMENT MEDICARE PART A & B BLUE CROSS MEDEX SUPPLEMENT MEDICARE PART A & B PLAYD8 MEDEX SUPPLEMENT MEDICARE PART A & B PLAYD8 MEDEX SUPPLEMENT MEDICARE PART A & B PLAYD8 MEDEX SUPPLEMENT MEDICARE PART A & B BLUE CROSS MEDEX SUPPLEMENT MEDICARE PART A & B [employer] CR[employer] MEDEX SUPPLEMENT MEDICARE PART A & B Care Teams Customer Support Assistant Relationship Specialty Start Date End Date Harpreet Vega MD [address] [place] [address] [place] [address] PCP - General 03/07/17 Felicia Blevins MD [address] [place] [address], [address] [place] [address] [email or web address] Historical LMR Provider 12/20/16 Additional Source Comments The information contained in this document represents components of the legal health record. It is not the complete legal health record.[facility]
--- OUTSIDE RECORDS SUMMARY | 2024-11-03 09:59 | XMS_ITS | Clinical Summary ---
Author Organization [facility] Address [address] [place] [address] Phone Care Team Providers Care Palliative Care Nurse Name Role Phone Harpreet Vega MD Primary Care Provider Allergies Active Allergy Reactions Criticality Noted Date Comments Iodinated Contrast Media 08/17/2024 Penicillins Itching 02/03/2009 Medications cholecalciferol , vitamin D3, 75 mcg (3,000 unit) tablet Active EPINEPHrine (EPIPEN) 0.3 mg/0.3 mL injection USE DIRECTED DAILY NEEDED. 5 Active folic acid (FOLVITE) 1 mg tablet Take 1 tablet (1,000 mcg total) by mouth 1 (one) time each day. 5 Active LORazepam (ATIVAN) 1 mg tablet 0.5 tablets (0.5 mg total). Every other day 9 Active SUMAtriptan (IMITREX) 25 mg tablet Take 1 tablet (25 mg total) by mouth every 2 hours as needed. 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 Dean S/p nephrectomy 08/17/2024 Overview (08/17/2024): 1992 Mild intermittent asthma without complication Overview (08/17/2024): On inhalers Carpal tunnel syndrome, unspecified upper limb 0 08/17/2024 Encounters Date Type Department Care Team Description 08/24/2024 Telephone Orthopedic Surgery - [address] [address] Latoya Haskins 08/17/2024 9:45 AM EDT Consult Orthopedic Surgery [address] [place] [address] Haylie Almanza MD Rheumatoid arthritis involving both hands with positive rheumatoid factor ([facility] V24, [facility] V28) (Primary Dx); Bilateral carpal tunnel syndrome; S/p nephrectomy; Mild intermittent asthma without complication; Right carpal tunnel syndrome from Last 3 Months Social History Tobacco Use Types Packs/Day Years Used Date Smoking Tobacco: Never Assessed Comments Unknown Sex and Gender Information Value Date Recorded Sex Assigned at Not on file Legal Sex Female 9:27 AM EDT Gender Identity Not on file Sexual Orientation Not on file Last Filed Vital Signs Vital Sign Reading Time Taken Comments Blood Pressure - - Pulse - - Temperature - - Respiratory Rate - - Oxygen Saturation - - Inhaled Oxygen Concentration - - Weight 75.8 kg (167 lb) 08/17/2024 9:42 AM EDT Height 167.6 cm (5' 6 ) 08/17/2024 9:42 AM EDT Body Mass Index 26.95 08/17/2024 9:42 AM EDT Plan of Treatment Health Maintenance Due Date Last Done Comments Breast Cancer Screening 1950 Depression Screening 03/04/2024 Colorectal Cancer Screening: Colonoscopy 07/07/2024 Falls Risk Assessment 07/07/2024 Hepatitis C Screening 07/07/2024 Medicare Annual Wellness Visit 07/07/2024 Osteoporosis Screening (Bone Density Screening) 07/07/2024 Social Influencers of Health Screening 07/07/2024 COVID-19 Vaccine (8 - Moderna risk season) 2024 01/16/2024, 12/08/2022, 02/15/2022, Additional history exists Influenza Vaccine (#1) 2024 , 11/13/2022, 12/01/2021, Additional history exists DTaP,Tdap,and Td Vaccines (2 - Td or Tdap) 04/25/2025 04/25/2015 Pneumococcal Vaccine: 50+ Years Completed 04/06/2019, 07/03/2016, 06/14/2015 RSV Immunization Adult Patients Completed 12/21/2022 Zoster Vaccines Completed 01/04/2023, 10/25/2022 HIB Vaccines Aged Out No longer eligi ble based on patient's age to complete this topic HPV Vaccines Aged Out No longer eligi ble based on patient's age to complete this topic Hepatitis A Vaccines Aged Out No long er eligible based on patient's age to complete this topic Hepatitis B Vaccines Aged Out No long er eligible based on patient's age to complete this topic IPV Vaccines Aged Out No longer eligi ble based on patient's age to complete this topic MMR Vaccines Aged Out No longer eligi ble based on patient's age to complete this topic Meningococcal ACWY Vaccine Aged Out N o longer eligible based on patient's age to complete this topic Meningococcal B Vaccine Aged Out No l onger eligible based on patient's age to complete this topic RSV Immunization Patients Under 20 months Aged Out No longer eligible based on patient's age to complete this topic Varicella Vaccines Aged Out No longer eligible based on patient's age to complete this topic Procedures Procedure Name Priority Date/Time Associated Diagnosis Comments XR HAND 3+ VIEWS BILAT Routine 08/17/2024 10:25 AM EDT Pain from Last 3 Months Results * XR Hand 3+ Views bilat (08/17/2024 10:25 AM EDT) Anatomical Region Laterality Modality Upper Extremities, Hand Bilateral Computed Radiography Narrative 08/17/2024 3:36 PM EDT AP, lateral, oblique of both hands were obtained on 08/17/2024. There are no obvious fractures, lytic lesions, or worrisome calcifications. Patient has some generalized demineralization throughout. On the patient's right hand there is some narrowing at the STT joint was some marginal osteophyte formation along with some squaring off of the radial styloid and scaphoid. There is also some narrowing and subchondral cyst formation at the basal joint. There is narrowing and periarticular cyst formation out of the DIP and PIP joints to varying degrees. There is some sclerosis noted in the subchondral bone particular at the DIP joints. Patient is ulnar neutral variant on the right. There is some narrowing and subchondral cysts at the DRUJ as well. On the patient's left side there are similar changes. There are subchondral cysts and joint space narrowing particularly out of the DIP joints. PIPs to a lesser degree. There is some narrowing and subchondral cyst formation at the MP joints of the ring and small finger. There is some narrowing at the STT and basal joint. Subchondral cyst formation noted at the lunotriquetral interval and at the ulnar styloid. Impression: Generalized osteopenia throughout coupled with small joint arthritic changes in the fingers as well as the basal joint and carpus. Haylie Almanza MD IMG XR PROCEDURES Final Resul t from Last 3 Months Insurance MEDICARE [facility] Care Teams Palliative Care Nurse Relationship Specialty Start Date End Date Harpreet Vega MD [address] [place] [address] Drive [address] [place] [id number] PCP - General Internal Medicine 07/07/24
--- OUTSIDE RECORDS SUMMARY | 2024-11-03 09:59 | XMS_ITS | Patient Health Record ---
Author Organization Harpreet Vega MD Address [address] [place], [place] [id number] Care Team Providers Care Casing Sewer Name Role Phone Harpreet Vega Primary Care Provider Allergies Allergen (clinical drug ingredient) Drug/Non Drug Allergy documented on EMR Reaction Allergy Type Onset Date Status Gadolinium hives Drug Allergy Active IVP dye (uncoded) huge hives Allergy A ctive penicillin (uncoded) hives Allergy Active Results Component Value Reference Range Notes Complete Blood Count Auto Di ff Reviewed date:02/06/2024 03:16:30 PM Interpretation: Performing Lab:[facility], [address] [place] [phone] Notes/Report: White Blood Count 4.6 4.8-10.8 X10*3/uL [...] NRBC Abs Auto 0.000 0.0-0.012 X10*3/uL Comprehensive [place]. Panel Fa st Reviewed date:02/06/2024 03:31:30 PM Interpretation: Performing Lab:[facility], [address] [place] [phone] Notes/Report: Sodium 142 135-145 mmol/L Potassium 3.9 [...] Panel Reviewed date:02/06/2024 03:13:49 PM Interpretation: Performing Lab:[facility], [address] [place] [phone] Notes/Report: Triglycerides 147 <150 mg/dL Desirable Triglyceride: [...] Total Reviewed date:02/06/2024 03:14:41 PM Interpretation: Performing Lab:[facility], [address] [place] [phone] Notes/Report: Vitamin D 25-OH Total 50.3 >30 [...] t Reviewed date:02/06/2024 03:14:32 PM Interpretation: Performing Lab:[facility], [address] [place] [phone] Notes/Report: Urine, Clean Catch Color Urine Dark Yellow Appearance Urine Clear PH 5.5 5.0-9.0 Glucose Urine UA Negative Negative mg/dL Urine Blood Small (1+) Negative Specific Kellogg - Urine >= 1.030 1.005-1.025 Urine Protein Trace Neg-Trace mg/dL Urine Ketones Negative Negative mg/dL Nitrite Urine Negative Negative Leukocyte Esterase Urine Trace Negative RBC Urine 3-5 0-2 /HPF WBC Urine 0-5 0-5 /HPF Squamous Epithelial Cell Urine 3-5 0-2 /HPF Bacteria Urine None Seen None Seen Hyaline Casts Urine 0-2 0-2 /LPF Complete Blood Count Auto Di ff Reviewed date:08/03/2024 01:32:08 PM Interpretation: Performing Lab:[facility], [address] [place] [phone] Notes/Report: White Blood Count 5.9 4.8-10.8 X10*3/uL [...] 0.0-0.2 /100WBC Neutrophils Absolute Auto 2.7 2.0-8.3 x10*3/uL Imm Gran Abs Auto 0.01 0.00-0.03 X10*3/uL Lymphocytes Absolute Auto 2.4 1.2-4.9 X10*3/uL Monocytes Absolute Auto 0.6 0.1-1.2 X10*3/uL Eosinophils Absolute Auto 0.2 0.0-0.4 X10*3/uL Basophils Absolute Auto 0.1 0.0-0.2 X10*3/uL NRBC Abs Auto 0.000 0.0-0.012 X10*3/uL CT chest wo con Reviewed date:12/13/2023 01:45:48 PM Interpretation: Performing Lab: Notes/Report: [address] [address] [address] Scan Report Signed Patient: Pedro Joshi MR#: [id number] 9 : 1950 Acct:[id number] Age/Sex: 73 / F ADM Date: 12/12/23 Loc: HO.CT Attending Dr: Harpreet Vega MD Ordering Physician: Harpreet Vega MD Date of Service: 12/12/23 Procedure(s): CT chest wo IV con Accession Number(s): [id number] cc: Harpreet Vega MD EXAMINATION: CT CHEST [...] 12/13/23 0901 DD/ 1356 TD/TT: 12/12/23 1423 Dictating Machine Mechanic: [address] [address] [address] Scan Report Signed Patient: Moses Joshi ra MR#: [id number] 9 : 1950 Acct:[id number] Age/Sex: 73 / F ADM Date: 12/12/23 Loc: HO.CT Attending Dr: Harpreet Vega MD Ordering Physician: Harpreet Vega MD Date of Service: 12/12/23 Procedure(s): CT lexy st wo IV con Accession Number(s): [id number] cc: Harpreet Vega MD EXAMINATION: CT CHEST [...] benign-appearing hepatic cysts. Electronically zabrina d by: rByan Ng MD 12/13/2023 09:01 AM EDT Dictated By: Bryan Ng Signed By: <Electronically signed by Bryan Ng in OV> 12/13/23 0901 DD/ 1356 TD/TT: 12/12/23 1423 Dictating Machine Mechanic: Tick[employer]borne [employer] Molecular Reviewed date:03/11/2024 03:25:40 PM Interpretation: Performing Lab:[facility], [address] [place] [phone] Notes/Report: Babesia Microti DNA, RT-PCR NOT DETECTED NOT DETECTED This test was developed and its analytical performance characteristics have been determined by [employer]. It has not been cleared or approved by the FDA. This assay has been validated pursuant to the CLIA regulations and is used for clinical purposes. THIS TEST WAS PERFORMED AT: [facility] [address] [place] [phone] JENNY BLAIR MD E.Chaffeensis DNA RT-PCR NOT DETECTED NOT DETECTED This test was developed and its analytical performance characteristics have been determined by [employer]. It has not been cleared or approved by the FDA. This assay has been validated pursuant to the CLIA regulations and is used for clinical purposes. THIS TEST WAS PERFORMED AT: [facility] [address] [place] [phone] JENNY BLAIR MD A. Phagocytphilium DNA,RT-PCR NOT DETECTED NOT DETECTED This test was developed and its analytical performance characteristics have been determined by [employer]. It has not been cleared or approved by the FDA. This assay has been validated pursuant to the CLIA regulations and is used for clinical purposes. Lyme(Borrelia ssp)DNA RT-PCR NOT DETECTED NOT DETECTED This test was developed and its analytical performance characteristics have been determined by [employer]. It has not been cleared or approved by the FDA. This assay has been validated pursuant to the CLIA regulations and is used for clinical purposes. For additional information, please refer to https://education.[employer] E[employer] TV/faq /dag078 (This link is being provided for informational/ educational purposes only.) THIS TEST WAS PERFORMED AT: [facility] [address] [place] [phone] JENNY BLAIR MD Borrelia Miyamotoi,DNA RT-PCR NOT DETECTED NOT DETECTED This test detects but does not distinguish between B. miyamotoi and B. hermsii. This test was developed and its analytical performance characteristics have been determined by [employer]. It has not been cleared or approved by the FDA. This assay has been validated pursuant to the CLIA regulations and is used for clinical purposes. THIS TEST WAS PERFORMED AT: [facility] [address] [place] [phone] JENNY BLAIR MD Tick Mol. Panel Cmmt [...] be indicated. THIS TEST WAS PERFORMED AT: [facility] [address] [place] [phone] JENNY BLAIR MD XR chest 2V Reviewed date:11/25/2023 08:52:38 AM Interpretation: Performing Lab: Notes/Report: [address] [address] XRay Report Signed Patient: Pedro Joshi MR#: [id number] 9 : 1950 Acct:[id number] Age/Sex: 73 / F ADM Date: 11/22/23 Loc: HO.XRAY Attending Dr: Harpreet Vega MD Ordering Physician: Harpreet Vega MD Date of Service: 11/22/23 Procedure(s): XR chest 2V Accession Number(s): [id number] cc: Harpreet Vega MD EXAMINATION: XR CHEST [...] Eliza Nash MD 11/22/2023 04:39 PM EDT Dictated By: Eliza Nash Signed By: <Electronically signed by Eliza Nash in OV> 11/22/23 1639 DD/ 1605 TD/TT: 11/22/23 1628 Dictating Machine Mechanic: [address] [address] XRay Report Signed Patient: Moses Joshi ra MR#: [id number] 9 : 1950 Acct:[id number] Age/Sex: 73 / F ADM Date: 11/22/23 Loc: HO.XRAY Attending Dr: Harpreet Vega MD Ordering Physician: Harpreet Vega MD Date of Service: 11/22/23 Procedure(s): XR lexy st 2V Accession Number(s): [id number] cc: Harpreet Vega MD EXAMINATION: XR CHEST [...] 11/22/23 1639 DD/ 1605 TD/TT: 11/22/23 1628 Dictating Machine Mechanic: Katina Benitez Reviewed date:02/06/2024 12:50:56 PM Interpretation: Performing Lab:[facility], [address] [place] [phone] Notes/Report: Katina Benitez See Note Specimen held [...] > ct chest for persistent cough at [facility] 12-12-2023 2pmHilary Annette 12/12/2023 12:54:05 PM EDT > info faxedHilary Annette 12/19/2023 03:03:17 PM >was told to Hilary levy Annette 12/23/2023 09:45:52 AM >was told by [...] >per patient's request wants to go to [facility] Rheumatology faxed in , Flores Richard 04/09/2024 08:56:45 AM >patient is aware of [...] on . they are backed logged phone [phone] ask for Hilary LEON Annette 07/31/2024 03:30:04 PM >was told to refaxed Nerve conduction studyHilary Annette 08/03/2024 09:31:55 AM > was told to refax Nerve Conduction studyHilary Annette 08/03/2024 09:35:53 AM >spoke with patient above info was given Referral Priority Routine Referral Appointment Date 08/17/2024 Medications Medication SIG (Take, Route, Frequency, Duration) Notes Start Date End Date Status LORazepam 1 MG 2 tablet HS Act murray diphenhydrAMINE HCl 50 MG 1 capsule at b edtime as needed Orally take one hour before the test for 1 days 02/14/2023 Active Vitamin D 1000 UNIT 1 tablet Orally Once a day Active Pulmicort 0.5 MG/2ML 1 mL Inhalation Twi ce a day 12/23/2023 Active EpiPen 2-Bulmaro 0.3 MG/0.3ML as directed In jection daily as needed for 30 days Active Albuterol Sulfate HFA 108 (90 Base) MCG/ACT 1 puff as needed Inhalation every 4 hrs 08/03/2022 Active Albuterol Sulfate (2.5 MG/3ML) 0.083% 3 mL as needed Inhalation every 6 hrs 11/22/2023 Active Folic Acid 1 MG 1 tablet Orally Once a day Active Hyoscyamine Sulfate 0.125 MG 1 tablet under the tongue and allow to dissolve before meals as needed Sublingual every 4 hrs as needed 01/29/2012 Not-Taking Methotrexate Sodium 2.5 MG 6 tabs on Sat Orally Active SUMAtriptan Succinate 100 MG TAKE ONE TABLET BY MOUTH TWICE A DAY NEEDED for 30 Not-Taking Pramipexole Dihydrochloride 0.25 MG 1 tablet before bedtime Orally Once a day Not-Taking Immunizations Vaccine Route Administration Date Status Comme nts Flu Vaccine IM Intramuscular 02/05/2012 Administered Shingles IM Intramuscular 01/05/2013 Administered Fluarix Quadrivalent IM Intramuscular 11/10/2013 Administoscar red TDaP Unknown 06/19/2010 Administered Fluarix Quadrivalent IM Intramuscular 12/07/2014 Adminsara red TDaP IM Intramuscular 04/25/2015 Administered PPSV23 (Pnemovax) IM Intramuscular 06/14/2015 Administered Fluarix Quadrivalent IM Intramuscular 12/05/2015 Adminsara red Prevnar 13 IM Intramuscular 07/03/2016 Administered Fluarix Quadrivalent IM Intramuscular 11/19/2016 Adminsara red Fluarix Quadrivalent IM Intramuscular 12/16/2017 Adminsara red Influenza High Dose IM Intramuscular 12/09/2018 [...] Problem Status W/U Status Risk Notes Problem 777685567 Actinic keratosi s (L57.0) Active confirmed Problem 165516921 Neuropathy (G62.9) Active confirmed Problem 56866392 Lymphocytosis (D72.820) Active confirmed Problem Carpal tunnel syndrome (98942037) Carpal tunnel syndrome (G56.00) Active confirmed Problem 47654998 Restless leg syn drome (G25.81) Active confirmed Problem 04413914 Vitamin D defici ency (E55.9) Active confirmed Problem 082481403 Dupuytren contra cture (M72.0) Active confirmed Problem 481376010 Other specified menopausal and perimenopausal disorders (N95.8) Active confirmed Problem 8575785 Arthritis (M19.90) Active confirmed Problem 773715014 Lumbar disc dise ase (M51.9) Active confirmed Problem 916783889 Tubular adenoma of colon (D12.6) Active confirmed Problem 383135305 Cervical disc di sease (M50.90) Active confirmed Problem 783407541 Migraine without aura and without status migrainosus, not intractable (G43.009) Active confirmed Problem 576324083 Gall stones (K80.20) Active confirmed Problem 819780294333816 Carpal tunnel sy ndrome of right wrist (G56.01) Active confirmed Problem Rheumatoid arthritis (57069493) Rheumatoid arthritis (M06.9) Active confirmed Problem 87638531 Dysthymia (F34.1) Active confirmed Problem 54080729 Sleep apnea, unspecified type (G47.30) Active confirmed Problem 317606907 Psychophysiologi nj insomnia (F51.04) Active confirmed Problem 622956875 Pure hypercholesterolemia (E78.00) Active confirmed Problem 55242315317557391 Bilateral carp al tunnel syndrome (G56.03) Active confirmed Problem 034540200 Mild intermitten t asthmatic bronchitis with acute exacerbation (J45.21) Active confirmed Problem 091671208 Moderate persist ent asthmatic bronchitis with acute exacerbation (J45.41) Active confirmed Problem 447814548 Malignant neopla sm of kidney, 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) Active confirmed Problem 221937444 Acute superficia l gastritis without hemorrhage (K29.00) Active confirmed Problem 293478280 Osteopenia of bryan mbar spine (M85.88) Active confirmed Problem 741845210 Abnormal chest x ray (R93.89) Active confirmed Problem 990400 Moderate major depression (F32.1) Active confirmed Problem 639258185 Compulsive eatin g patterns (F50.9) Active confirmed Problem 825558360 Abnormal CT scan (R93.89) Active confirmed Vital Signs Blood pressure diastolic 70 mm Hg 07/14/2024 Height 66.5 in 07/14/2024 Blood pressure systolic 118 mm Hg 07/14/2024 Weight 175 lbs 02/14/2024 weight is up 6 pounds since 02-08-23 BMI 27.82 kg/m2 02/14/2024 weight is up 6 pounds since 02-08-23 Encounters Encounter Location Date Provider Diagnosis Harpreet Vega MD [address] [place] [id number] 02/06/2024 Harpreet Vega Pure hypercholestero lemia E78.00 and Vitamin D deficiency E55.9 Harpreet Vega MD [address] [place] [id number] 08/03/2024 Harpreet Vega Lymphocytosis D72.82 0 Harpreet Vega MD [address] [place] [id number] 11/22/2023 Harpreet Vega Acute bronchitis, unspecified organism J20.9 Harpreet Vega MD [address] [place] [address] Drive [address] [place] [id number] 11/26/2023 Harpreet Vega Mild intermittent asthmatic bronchitis with acute exacerbation J45.21 and Abnormal chest xray R93.89 Harpreet Vgea MD [address] [place] [id number] 12/10/2023 Harpreet Vega Persistent cough R05 .3 Harpreet Vega MD [address] [place] [id number] 12/23/2023 Harpreet Vega Mild intermittent asthmatic bronchitis with acute exacerbation J45.21 and Encounter for administration of vaccine Z23 Harpreet Vega MD [address] [place] [id number] 01/03/2024 Harpreet Vega Mild intermittent asthmatic bronchitis with acute exacerbation J45.21 Harpreet Vega MD [address] [place] [id number] 02/14/2024 Harpreet Vega Mild intermittent asthmatic bronchitis with acute exacerbation J45.21 ; Microscopic hematuria R31.29 ; Lymphocytosis D72.820 ; Pure hypercholesterolemia E78.00 ; Vitamin D deficiency E55.9 and Dysthymia F34.1 Harpreet Vega MD [address] [place] [id number] 03/09/2024 Harpreet Vega Migraine with visual aura G43.109 ; Bilateral carpal tunnel syndrome G56.03 ; Hives of unknown origin L50.9 and Diffuse arthralgia M25.50 Harpreet Vega MD [address] [place] [id number] 04/02/2024 Harpreet Vega Arthritis M19.90 Harpreet Vega MD [address] [place] [id number] 06/01/2024 Harpreet Vega Neuropathy G62.9 and Carpal tunnel syndrome G56.00 Harpreet Vega MD [address] [place] [id number] 07/14/2024 Harpreet Vega Carpal tunnel syndro me G56.00 and Rheumatoid arthritis M06.9 Harpreet Vega MD [address] [place] [id number] 11/11/2023 Harpreet Vega MD [address] [place] [id number] 11/25/2023 Harpreet Vega MD [address] [place] [id number] 12/23/2023 Harpreet Vega Assessments Encounter Date Diagnosis (ICD Code) Assessment Notes Treatment Notes Treatment Clinical Notes Section Notes 02/06/2024 Pure hypercholesterolemia (ICD-10 - E78.00) 02/06/2024 Vitamin D deficiency (ICD-10 - E55.9) 08/03/2024 Lymphocytosis (ICD-1 0 - D72.820) 11/22/2023 Acute bronchitis, unspecified organism (ICD-10 - J20.9) order faxed to [facility] Patient reg, pending diagnostic testing, patent verbalized [...] with the zpack/ referral to pulmonary at [facility]/0rder faxed to [facility] 12/23/2023 Mild intermittent asthmatic bronchitis with acute [...] testing, THE EMG ORDER WAS FAXED TO [facility] CENTRALIZED SCHEDULE, patient can't write due to inablilty to hold pen. seems could be carpal tunnel 04/02/2024 Arthritis (ICD-10 - M19.90) will refer to supervisor glycerin. they are going to try to get to [facility] will 06/01/2024 Neuropathy (ICD-10 - G62.9) comes and goes. will observe 06/01/2024 Carpal tunnel syndro me (ICD-10 - G56.00) seems most of her symptoms are not carpal tunnel but will refer her to hand surgeon. either dr almanza or the hand center. 07/14/2024 Carpal tunnel syndro me (ICD-10 - G56.00) waiting for hand surgeon 07/14/2024 Rheumatoid arthritis (ICD-10 - M06.9) doing slightly better 02/14/2024 Lymphocytosis (ICD-1 0 - D72.820) 03/09/2024 Hives of unknown regina gin (ICD-10 - L50.9) she had eaten shrimp [...] 02/08/2023 Next Appt Details Provider Name:Harpreet gunter, 11/09/2024 10:15:00 AM, [address], [address], [place], [place], [id number], Provider Name:Harpreet gunter, 02/05/2025 07:45:00 AM, [address], [address], [place], [place], [id number], Provider Name:Harpreetmone bhatr, 02/12/2025 08:00:00 AM, [address] [facility], [address], [place], [place], [id number], Insurance Providers Payer Name Payer Address Payer Phone Subscriber Number Group Number Insured Name Patient Relationship to Insured Coverage Start Date Coverage End Date [employer] [address] [place] [address] [id number] Pedro Joshi Self - patient is the insured [facility] [address] [place], [place] [id number] [phone] [id number] Pedro Joshi Self - patient is the insured Medical [...]
== END 2024-11-03 09:06 | disposition home or self-care (01) ==
LOC: HO.MAMMO 09:05
PROVIDERS: PCP Internal Medicine; Visit Provider Internal Medicine
DX: Z12.31 Encounter for screening mammogram for malignant neoplasm of breast (principal)
CPT/HCPCS: 77063; 77067

== ENCOUNTER → 2024-11-03 09:15 | Outpatient (BNV) | payer MEDICARE, SELFPAY | PROVIDERS: PCP Internal Medicine; Visit Provider Internal Medicine | DX: Z12.31 Encounter for screening mammogram for malignant neoplasm of breast (principal) | CPT/HCPCS: 77063; 77067 ==

== ENCOUNTER 2025-01-20 14:57 | Outpatient (AMB) | payer MEDICARE, SELFPAY ==
--- OUTSIDE RECORDS SUMMARY | 2023-12-23 09:40 | XMS_ITS ---
Author Organization Harpreet Vega MD Address [address] [place] [phone] Care Team Providers Care Poker Prop Player Name Role Phone Harpreet Vega Primary Care Provider REASON FOR VISIT medication issue Encounters Encounter Location Date Provider Diagnosis Harpreet Vega MD [address] [facility] [address] [place] [phone] 12/23/2023 Harpreet Vega Plan Of Treatment Next Appt Details Provider Name:Harpreet gunter, 02/05/2025 07:45:00 AM, [address] [place] [address], Suite [facility], [place], [phone], Provider Name:Harpreet gunter, 02/23/2025 09:30:00 AM, [address] [place] [address], [address] [place] [address], [phone], Progress Notes * Manuela NASCIMENTODOB:1950 (73 yo F)Acc No.[id number]:12/23/2023 Patient: Treasure adinaVirginiaManuela :1950 A ge:73 Y S ex:Female Address:[address] [place] [phone] * true * Date: Generated for Sorin johns/Margy/eTransmitting on: 03/23/2024 03:31 AM EST
--- OUTSIDE RECORDS SUMMARY | 2024-01-03 05:45 | XMS_ITS ---
Author Organization Harpreet Vega MD Address [address] [place], [place] [phone] Care Team Providers Care Senior Technical Business Analyst Name Role Phone Harpreet Vega Primary Care Provider [phone] Allergies Allergen (clinical drug ingredient) Drug/Non Drug Allergy documented on EMR Reaction Allergy Type Onset Date Status Gadolinium hives Drug Allergy Active IVP dye (uncoded) huge hives Allergy A ctive penicillin (uncoded) hives Allergy Active REASON FOR VISIT 2 week follow up appt, Accompanied by Medications Medication SIG (Take, Route, Frequency, Duration) Notes Start Date End Date Status Pulmicort 0.5 MG/2ML 1 mL Inhalation Twi ce a day for 14 days 12/23/2023 Active Albuterol Sulfate (2.5 MG/3ML) 0.083% 3 mL as needed Inhalation every 6 hrs for 14 days 11/22/2023 Active Amphetamine-Dextroamphetami ne 20 MG (Schedule II Drug) TAKE 1 TABLET BY MOUTH TWICE A DAY Oral once a day Active Albuterol Sulfate HFA 108 (90 Base) MCG/ACT 1 puff as needed Inhalation every 4 hrs for 30 days 08/03/2022 Active LORazepam 1 MG 2 tablet HS Act murray Wellbutrin XL 300 MG 1 tablet in the morning Orally Once a day Active Vitamin D 1000 UNIT 1 tablet Orally Once a day Active diphenhydrAMINE HCl 50 MG 1 capsule at b edtime as needed Orally take one hour before the test for 1 days 02/14/2023 Active Hyoscyamine Sulfate 0.125 MG 1 tablet under the tongue and allow to dissolve before meals as needed Sublingual every 4 hrs as needed 01/29/2012 Not-Taking Pulmicort 0.5 MG/2ML 1 mL [facility]ation [facility] days 12/23/2023 Active SUMAtriptan Succinate 100 MG TAKE ONE TABLET BY MOUTH TWICE A DAY NEEDED for 30 Not-Taking Culturelle Digestive Daily - as directed Orally Not-Takin g Pramipexole Dihydrochloride 0.25 MG 1 tablet before bedtime Orally Once a day Not-Taking Ventolin HFA 108 (90 Base) MCG/ACT 2 puffs as needed Inhalation every 4 hrs for 30 days 11/18/2015 Not-Taking Vital Signs Blood pressure systolic 122 mm Hg 01/03/20 24 Blood pressure diastolic 70 mm Hg 024 Height 66.5 in 01/03/2024 Encounters Encounter Location Date Provider Diagnosis Harpreet Vega MD [address] [place] [phone] 01/03/2024 Harpreet Vega Mild intermittent asthmatic bronchitis with acute exacerbation J45.21 Assessments Encounter Date Diagnosis (ICD Code) Assessment Notes Treatment Notes Treatment Clinical Notes Section Notes 01/03/2024 Mild intermittent asthmatic bronchitis with acute exacerbation (ICD-10 - J45.21) Plan Of Treatment Medication Medication Name Sig Start Date Stop Date Notes Pulmicort 0.5 MG/2ML 1 mL Inhalation Twi ce a day for 14 days 12/23/2023 Next Appt Details Follow Up: 4 Weeks, Reason: Provider Name:Harpreet gunter, 02/05/2025 07:45:00 AM, [address] [place] [address], [address], [phone], Provider Name:Harpreet gunter, 02/23/2025 09:30:00 AM, [address] [place] [address], [address], [phone], Progress Notes * Manuela NASCIMENTODOB:1950 (73 yo F)Acc No.[id number]:01/03/2024 Progress Notes Patient: Manuela Jose Provider: Dean Vega MD :1950 A ge:73 Y S ex:Female Date:01/03/2024 Address:[address] [place] [address] [place], [id number] Subjective: * Chief Complaints: * 2 week follow up apptAccompanied by * HPI: S ymptom(s): patient is a 73 yo female here for 2 week follow up visit, has finally had a decrease in coughing. on pulmicort. * ROS: G eneral/Constitutional: Denies C hills. D enies F atigue. D enies F ever. D enies H eadache. E NT: Patient denies d ecreased sense of smell , any loss of taste , sore throat. D enies S ore throat. R espiratory: Admits C ough. D enies S hortness of breath at rest. D enies S hortness of breath with exertion. D enies S putum production. G astrointestinal: Denies D iarrhea. D enies N ausea. M usculoskeletal: Patient denies m uscle aches. P eripheral Vascular: Patient denies r ed and blue toes. * Medical History: * Surgical History: * Hospitalization/Major Diagno stic Procedure: * Medications: T akingLORazepam 1 MG Tablet 2 tablet HSWellbutrin XL 300 MG Tablet Extended Release 24 Hour 1 tablet in the morning Orally Once a dayVitamin D 1000 UNIT Tablet 1 tablet Orally Once a daydiphenhydrAMINE HCl 50 MG Capsule 1 capsule at bedtime as needed Orally take one hour before the testAmphetamine-Dextroamphetamine 20 MG Tablet (Schedule II Drug) TAKE 1 TABLET BY MOUTH TWICE A DAY Oral once a dayAlbuterol Sulfate HFA 108 (90 Base) MCG/ACT Aerosol Solution 1 puff as needed Inhalation every 4 hrsAlbuterol Sulfate (2.5 MG/3ML) 0.083% Nebulization Solution 3 mL as needed Inhalation every 6 hrsPulmicort 0.5 MG/2ML Suspension 1 mL Inhalation Twice a dayPulmicort 0.5 MG/2ML Suspension 1 mL Inhalation Twice a day in updraftTaking LORazepam 1 MG Tablet 2 tablet HSTaking Wellbutrin XL 300 MG Tablet Extended Release 24 Hour 1 tablet in the morning Orally Once a dayTaking Vitamin D 1000 UNIT Tablet 1 tablet Orally Once a dayTaking diphenhydrAMINE HCl 50 MG Capsule 1 capsule at bedtime as needed Orally take one hour before the testTaking Amphetamine- Dextroamphetamine 20 MG Tablet (Schedule II Drug) TAKE 1 TABLET BY MOUTH TWICE A DAY Oral once a dayTaking Albuterol Sulfate HFA 108 (90 Base) MCG/ACT Aerosol Solution 1 puff as needed Inhalation every 4 hrsTaking Albuterol Sulfate (2.5 MG/3ML) 0.083% Nebulization Solution 3 mL as needed Inhalation every 6 hrsTaking Pulmicort 0.5 MG/2ML Suspension 1 mL Inhalation Twice a dayTaking Pulmicort 0.5 MG/2ML Suspension 1 mL Inhalation Twice a day in updraftNot-Taking/PRNSUMAtriptan Succinate 100 MG Tablet TAKE ONE TABLET BY MOUTH TWICE A DAY NEEDED Culturelle Digestive Daily - Capsule as directed Orally Pramipexole Dihydrochloride 0.25 MG Tablet 1 tablet before bedtime Orally Once a dayVentolin HFA 108 (90 Base) MCG/ACT Aerosol Solution 2 puffs as needed Inhalation every 4 hrsHyoscyamine Sulfate 0.125 MG Tablet Sublingual 1 tablet under the tongue and allow to dissolve before meals as needed Sublingual every 4 hrs as neededNot-Taking/PRN SUMAtriptan Succinate 100 MG Tablet TAKE ONE TABLET BY MOUTH TWICE A DAY NEEDED Not-Taking/PRN Culturelle Digestive Daily - Capsule as directed Orally Not-Taking/PRN Pramipexole Dihydrochloride 0.25 MG Tablet 1 tablet before bedtime Orally Once a dayNot-Taking/PRN Ventolin HFA 108 (90 Base) MCG/ACT Aerosol Solution 2 puffs as needed Inhalation every 4 hrsNot-Taking/PRN Hyoscyamine Sulfate 0.125 MG Tablet Sublingual 1 tablet under the tongue and allow to dissolve before meals as needed Sublingual every 4 hrs as neededDiscontinuedpredniSONE 10 MG Tablet 1 tablet with food or milk Orally 4 tabs for 3 days,3tabs for 3 days, 2 tabs for 3 days, and 1 tab for 3 daysMedication List reviewed and reconciled with the patientDiscontinued predniSONE 10 MG Tablet 1 tablet with food or milk Orally 4 tabs for 3 days,3tabs for 3 days, 2 tabs for 3 days, and 1 tab for 3 daysMedication List reviewed and reconciled with the patient * Allergies: p enicillin: hivesIVP dye: huge hivesGadolinium: hivesyes[Allergies Verified] Objective: * Vitals: H t: 66.5, BP:122/70. * Examination: G eneral Examination: GENERAL APPEARANCE: m uch less coughing. HEAD: n ormocephalic. HEART: n o murmurs, rubs, gallops , regular rate and rhythm. LUNGS: n o wheezes, rales, rhonchi , good air movement , clear to auscultation bilaterally. Assessment: * Assessment: 1. M ild intermittent asthmatic bronchitis with acute exacerbation - J45.21 (Primary) Plan: * Treatment: * Procedure Codes: * Follow Up: 4 Weeks * * Sign off status: Completed true * Provider: Dean Vega MD Date: 03/04/2023 Generated for Sorin johns/Margy/Светланаsmitting on: 03/23/2024 03:33 AM EST History and Physical Notes * HPI (History of Present Illness) Category Sub-Category Detail Notes Category Not es Symptom(s) patient is a 73 yo female here for 2 week follow up visit, has finally had a decrease in coughing. on pulmicort Examination Category Sub-Category Detail Notes Category Not es General Examination GENERAL APPEARANCE: much less coug lamont HEAD: normocephalic HEART: no murmurs, rubs, ga llops , regular rate and rhythm LUNGS: no wheezes, rales, r honchi , good air movement , clear to auscultation bilaterally
--- OUTSIDE RECORDS SUMMARY | 2024-02-06 02:30 | XMS_ITS ---
Author Organization Harpreet Vega MD Address [address] [place], [place] [id number] Care Team Providers Care Speech Therapist Technician Name Role Phone Harpreet Vega Primary Care Provider Results Component Value Reference Range Notes Complete Blood Count Auto Di ff Reviewed date:02/06/2024 03:16:30 PM Interpretation: Performing Lab:[facility], [address] [place] [phone] Notes/Report: White Blood Count 4.6 4.8-10.8 X10*3/uL [...] NRBC Abs Auto 0.000 0.0-0.012 X10*3/uL Comprehensive [place]. Panel Fa st Reviewed date:02/06/2024 03:31:30 PM Interpretation: Performing Lab:[address] [phone] Notes/Report: Sodium 142 135-145 mmol/L Potassium 3.9 [...] Panel Reviewed date:02/06/2024 03:13:49 PM Interpretation: Performing Lab:[facility], [address] [place] [phone] Notes/Report: Triglycerides 147 <150 mg/dL Desirable Triglyceride: [...] Total Reviewed date:02/06/2024 03:14:41 PM Interpretation: Performing Lab:[facility], [address] [place] [phone] Notes/Report: Vitamin D 25-OH Total 50.3 >30 [...] t Reviewed date:02/06/2024 03:14:32 PM Interpretation: Performing Lab:[facility], [address] [place] [phone] Notes/Report: Urine, Clean Catch Color Urine Dark Yellow Appearance Urine Clear PH 5.5 5.0-9.0 Glucose Urine UA Negative Negative mg/dL Urine Blood Small (1+) Negative Specific [place] - Urine >= 1.030 1.005-1.025 Urine Protein [...] Date Provider Diagnosis Harpreet Vega MD [address] [place] [address] [address] [place] [phone] 02/06/2024 Harpreet Vega Pure hypercholestero lemia E78.00 and Vitamin D deficiency E55.9 Assessments Encounter Date Diagnosis (ICD Code) Assessment Notes Treatment Notes Treatment Clinical Notes Section Notes 02/06/2024 Pure hypercholesterolemia (ICD-10 - E78.00) 02/06/2024 Vitamin D deficiency (ICD-10 - E55.9) Plan Of Treatment Next Appt Details Provider Name:Harpreet gunter, 02/05/2025 07:45:00 AM, [address] [place] [address], [address] [facility], [place], [place], [phone], Provider Name:Harpreet gunter, 02/23/2025 09:30:00 AM, [address] [place] [address], [address] [facility], [place], [place], [phone], Progress Notes * Manuela NASCIMENTODOB:1950 (74 yo F)Acc No.[id number]:02/06/2024 Progress Note Patient: Manuela COLE Provider: Dean Vega MD :1950 A ge:73 Y S ex:Female Date:02/06/2024 Address:[address] [place], [place] [phone] Subjective: * Chief Complaints: * 1 . Yearly fasting. * Medical History: Objective: * Vitals: Assessment: * Assessment: 1. P ure hypercholesterolemia - E78.00 (Primary) 2 . V itamin D deficiency - E55.9 Plan: * Treatment: 2. V itamin D deficiency L AB: Complete Blood Count Auto Diff (Collection Date & Time - 02/06/2024 07:30 AM) L AB: Comprehensive [place]. Panel Fast (Collection Date & Time - [...] Pending * Provider: Dean Vega MD Date: 1 04/08/2023 Generated for Sorin johns/Margy/Robertitting on: 03/23/2024 03:31 AM EST
--- OUTSIDE RECORDS SUMMARY | 2024-02-14 06:00 | XMS_ITS ---
Author Organization Harpreet Vega MD Address [address] [place], [place] [id number] Care Team Providers Care Sanitary Plumber Name Role Phone Harpreet Vega Primary Care [...] Problem Status W/U Status Risk Notes Problem [id number] Lymphocytosis (D72.820) Active confirmed Vital Signs Blood pressure systolic 136 mm Hg 02/14/20 24 Blood pressure diastolic 90 mm Hg 024 Height 66.5 in 02/14/2024 Weight 175 lbs 02/14/2024 BMI 27.82 kg/m2 02/14/2024 weight is up 6 pounds since 02-08-23 Encounters Encounter Location Date Provider Diagnosis Harpreet Vega MD [address] [place] [address] [place] [id number] 02/14/2024 Harpreet Vega Mild intermittent asthmatic bronchitis [...] Up: 6 Months, Reason: Provider Name:Harpreet gunter, 02/05/2025 07:45:00 AM, [address] [place] [address], [address], [phone], Provider Name:Harpreet gunter, 02/23/2025 09:30:00 AM, [address] [place] [address], [place] [address], [place], [place], [phone], Progress Notes * Manuela NASCIMENTODOB:1950 (73 yo F)Acc No.[id number]:02/14/2024 Patient: Manuela Jose Provider: Dean Vega MD :1950 A ge:73 Y S ex:Female Date:02/14/2024 Address:[address] [place] [id number] Subjective: * Chief Complaints: * R eview [...] Blood Small (1+) A Negative - Specific [place] - Urine >= 1.030 H 1.005-1.025 - [...] Auto 0.000 0.0-0.012 - X10*3/uL L ab:Comprehensive [place]. Panel Fast (Order Date - 02/06/2024) (Collection [...] masses palpable. RECTAL EXAM: d one by micro computer specialist. FEMALE GENITOURINARY: d one by micro computer specialist. EXTREMITIES: n o clubbing, cyanosis, or edema. [...] Vega MD Date: 04/16/2023 Generated for Sorin johns/Margy/Светланаsmitting on: 03/23/2024 03:32 AM EST History and Physical Notes * [...] BREASTS: not examined RECTAL EXAM: done by micro computer specialist FEMALE GENITOURINARY: done by micro computer specialist ORAL CAVITY: mucosa moist
--- OUTSIDE RECORDS SUMMARY | 2024-03-09 10:00 | XMS_ITS ---
Author Organization Harpreet Vega MD Address [address] [place], [place] [id number] Care Team Providers Care Manager Product Design Name Role Phone Harpreet Vega Primary Care Provider Allergies Allergen (clinical drug ingredient) Drug/Non Drug Allergy documented on EMR Reaction Allergy Type Onset Date Status Gadolinium hives Drug Allergy Active IVP dye (uncoded) huge hives Allergy A ctive penicillin (uncoded) hives Allergy Active Results Component Value Reference Range Notes Tick-borne Disease Molecular Reviewed date:03/11/2024 03:25:40 PM Interpretation: Performing Lab:[facility], [address] [place] [phone] Notes/Report: Babesia Microti DNA, RT-PCR NOT DETECTED NOT DETECTED This test was developed and its analytical performance characteristics have been determined by [employer]. It has not been cleared or approved by the FDA. This assay has been validated pursuant to the CLIA regulations and is used for clinical purposes. THIS TEST WAS PERFORMED AT: [facility] [address] [place] [phone] JENNY BLAIR MD E.Chaffeensis DNA RT-PCR NOT DETECTED NOT DETECTED This test was developed and its analytical performance characteristics have been determined by [employer]. It has not been cleared or approved by the FDA. This assay has been validated pursuant to the CLIA regulations and is used for clinical purposes. THIS TEST WAS PERFORMED AT: [facility] [address] [place] [phone] JENNY BLAIR MD A. Phagocytphilium DNA,RT-PCR NOT DETECTED NOT DETECTE D This test was developed and its analytical performance characteristics have been determined by [employer]. It has not been cleared or approved by the FDA. This assay has been validated pursuant to the CLIA regulations and is used for clinical purposes. Lyme(Borrelia ssp)DNA RT-PCR NOT DETECTED NOT DETECTED This test was developed and its analytical performance characteristics have been determined by [employer]. It has not been cleared or approved by the FDA. This assay has been validated pursuant to the CLIA regulations and is used for clinical purposes. For additional information, please refer to https://education.Vitrina.Sootoo.com/faq/kzg634 (This link is being provided for informational/ educational purposes only.) THIS TEST WAS PERFORMED AT: [facility] [address] [place] [phone] JENNY BLAIR MD Borrelia Miyamotoi,DNA RT-PCR NOT DETECTED NOT DETECTE D This test detects but does not distinguish between B. miyamotoi and B. hermsii. This test was developed and its analytical performance characteristics have been determined by [employer]. It has not been cleared or approved by the FDA. This assay has been validated pursuant to the CLIA regulations and is used for clinical purposes. THIS TEST WAS PERFORMED AT: [facility] [address] [place] [phone] JENNY BLAIR MD Tick Mol. Panel Cmmt SEE NOTE A negative result does not exclude Borrelia infection as the concentration of the organism in blood may be low or non-existent in patients with Lyme disease, and may depend on timing of specimen collection from onset of symptoms. Clinical correlation is recommended and additional studies such as serologic testing may be indicated. THIS TEST WAS PERFORMED AT: [facility] [address] [place] [phone] JENNY BLAIR MD REASON FOR VISIT bilateral shoulder pain x 2 months and right hand x 1 month, Accompanied by hiusband Medications Medication SIG (Take, Route, Frequency, Duration) Notes Start Date End Date Status Pulmicort 0.5 MG/2ML 1 mL Inhalation Twi ce a day 12/23/2023 Active Albuterol Sulfate (2.5 MG/3ML) 0.083% 3 mL as needed Inhalation every 6 hrs 11/22/2023 Active Hyoscyamine Sulfate 0.125 MG 1 tablet under the tongue and allow to dissolve before meals as needed Sublingual every 4 hrs as needed 01/29/2012 Not-Taking Pramipexole Dihydrochloride 0.25 MG 1 tablet before bedtime Orally Once a day Not-Taking SUMAtriptan Succinate 100 MG TAKE ONE TABLET BY MOUTH TWICE A DAY NEEDED for 30 Not-Taking Wellbutrin XL 300 MG 1 tablet in the morning Orally Once a day Active Amphetamine-Dextroamphetami ne 20 MG (Schedule II Drug) TAKE 1 TABLET BY MOUTH TWICE A DAY Oral once a day Active diphenhydrAMINE HCl 50 MG 1 capsule at b edtime as needed Orally take one hour before the test for 1 days 02/14/2023 Active Albuterol Sulfate HFA 108 (90 Base) MCG/ACT 1 puff as needed Inhalation every 4 hrs 08/03/2022 Active Vitamin D 1000 UNIT 1 tablet Orally Once a day Active EpiPen 2-Bulmaro 0.3 MG/0.3ML as directed In jection daily as needed for 30 days Active LORazepam 1 MG 2 tablet HS Act murray Problems Problem Type SNOMED Code ICD Code Onset Dates Problem Status W/U Status Risk Notes Problem [id number] Bilateral carpal tunnel syndrome (G56.03) Active confirmed Vital Signs Blood pressure systolic 148 mm Hg 03/09/19 25 Blood pressure diastolic 80 mm Hg 025 Height 66.5 in 03/09/2024 refused weight Encounters Encounter Location Date Provider Diagnosis Harpreet Vega MD [address] [facility] [address] [place], [place] [id number] 03/09/2024 Harpreet Vega Migraine with visual aura G43.109 ; Bilateral carpal tunnel syndrome G56.03 ; Hives of unknown origin L50.9 and Diffuse arthralgia M25.50 Assessments Encounter Date Diagnosis (ICD Code) Assessment Notes Treatment Notes Treatment Clinical Notes Section Notes 03/09/2024 Migraine with visual aura (ICD-10 - G43.109) no treatment needed at present. the loss of vision sounds like a scotomata/ THE LAB SLIP WAS GIVEN TO MANUELA TO GO TO LAB 03/09/2024 Bilateral carpal tunnel syndrome (ICD-10 - G56.03) pending diagnostic testing, THE EMG ORDER WAS [place] [facility] [facility] [place], patient can't write due to inablilty to hold pen. seems could be carpal tunnel 03/09/2024 Hives of unknown origin (ICD-10 - L50.9) she had eaten shrimp minutes before the hive. am concerned that she has developed a seafod allergy so will give an epi pen 03/09/2024 Diffuse arthralgia (ICD-10 - M25.50) has aches and pains in various joints with swelling and redness that comes and goes. may be developing an arthrits symbdrome but will check for tick borne illnesses Plan Of Treatment Medication Medication Name Sig Start Date Stop Date Notes EpiPen 2-Bulmaro 0.3 MG/0.3ML as directed In jection daily as needed for 30 days Treatment Notes Assessment Notes Migraine with visual aura no treatment n eeded at present. the loss of vision sounds like a scotomata/ THE LAB SLIP WAS GIVEN TO MANUELA TO GO TO LAB Bilateral carpal tunnel syndrome pending diagnostic testing, THE EMG ORDER WAS FAXED TO [facility] [place], patient can't write due to inablilty to hold pen. seems could be carpal tunnel Hives of unknown origin she had eaten sh rimp minutes before the hive. am concerned that she has developed a seafod allergy so will give an epi pen Diffuse arthralgia has aches and pains in various joints with swelling and redness that comes and goes. may be developing an arthrits symbdrome but will check for tick borne illnesses Pending Test Test Name Order Date EMG 03/09/2024 Next Appt Details Follow Up: 2 Months, Reason: Provider Name:Harpreet gunter, 02/05/2025 07:45:00 AM, [address], [address], [place], [place], [id number], Provider Name:Harpreet gunter, 02/23/2025 09:30:00 AM, [address], [address], [place], [place], [id number], Progress Notes * Manuela NASCIMENTODOB:1950 (73 yo F)Acc No.[id number]:03/09/2024 Progress Notes Patient: Manuela Jose Provider: Dean Vega MD :1950 A ge:73 Y S ex:Female Date:03/09/2024 Address:[address] [id number] Subjective: * Chief Complaints: * B ilateral shoulder pain x 2 months and right hand x 1 monthAccompanied by ольгаband * HPI: S ymptom(s): patient is a 73 yo female here with complaint both shoulders hurting for one month. has hard time putting coat on. gets cramps in hand and now all the way up to shoulder. also hands swell up badly. can't hold a pen to write. hand is numb. saturday last week couldn't see out of left eye/ part of vision was missing left eye. had a migraine that night. had visual field loss 6 hours before migraine. happens frequently. * ROS: G eneral/Constitutional: Denies C hills. D enies F atigue. D enies F ever. D enies H eadache. E NT: Patient denies d ecreased sense of smell , any loss of taste. D enies S ore throat. R espiratory: Denies C ough. D enies S hortness of breath at rest. D enies S hortness of breath with exertion. G astrointestinal: Denies D iarrhea. D enies N ausea. M usculoskeletal: Patient denies m uscle aches. P eripheral Vascular: Patient denies r ed and blue toes. * Medical History: * Surgical History: * Hospitalization/Major Diagno stic Procedure: * Medications: T akingLORazepam 1 MG Tablet 2 tablet HSdiphenhydrAMINE HCl 50 MG Capsule 1 capsule at bedtime as needed Orally take one hour before the testAmphetamine- Dextroamphetamine 20 MG Tablet (Schedule II Drug) TAKE 1 TABLET BY MOUTH TWICE A DAY Oral once a dayWellbutrin XL 300 MG Tablet Extended Release 24 Hour 1 tablet in the morning Orally Once a dayVitamin D 1000 UNIT Tablet 1 tablet Orally Once a dayAlbuterol Sulfate HFA 108 (90 Base) MCG/ACT Aerosol Solution 1 puff as needed Inhalation every 4 hrsAlbuterol Sulfate (2.5 MG/3ML) 0.083% Nebulization Solution 3 mL as needed Inhalation every 6 hrsPulmicort 0.5 MG/2ML Suspension 1 mL Inhalation Twice a dayTaking LORazepam 1 MG Tablet 2 tablet HSTaking diphenhydrAMINE HCl 50 MG Capsule 1 capsule at bedtime as needed Orally take one hour before the testTaking Amphetamine-Dextroamphetamine 20 MG Tablet (Schedule II Drug) TAKE 1 TABLET BY MOUTH TWICE A DAY Oral once a dayTaking Wellbutrin XL 300 MG Tablet Extended Release 24 Hour 1 tablet in the morning Orally Once a dayTaking Vitamin D 1000 UNIT Tablet 1 tablet Orally Once a dayTaking Albuterol Sulfate HFA 108 (90 [...] Verified] Objective: * Vitals: H t: 66.5, BP:148/80 refused weight. * Examination: G eneral Examination: GENERAL APPEARANCE: a lert, well hydrated, in no distress.? HEAD: n ormocephalic. SKIN: g ood turgor. EXTREMITIES: r ight hand weak. dtr's brisk.. ? Assessment: * Assessment: 1. M igraine with visual aura - G43.109 (Primary) 2 . B ilateral carpal tunnel syndrome - G56.03 3 . H winston of unknown origin - L50.9 4 . D iffuse arthralgia - M25.50 Plan: * Treatment: 2. B ilateral carpal tunnel syndrome I maging: EMG Notes: pending diagnostic testing, THE EMG ORDER WAS FAXED TO [facility] [place], patient can't write due to inablilty to hold pen. seems could be carpal tunnel 3. H winston of unknown origin Notes: she had eaten shrimp minutes before the hive. am concerned that she has developed a seafod allergy so will give an epi pen 4. D iffuse arthralgia Notes: has aches and pains in various joints with swelling and redness that comes and goes. may be developing an arthrits symbdrome but will check for tick borne illnesses * Procedure Codes: * Follow Up: 2 Months * * Sign off status: Completed true * Provider: Dean Vega MD Date: 0 03/09/2024 Generated for Sorin johns/Margy/eTransmitting on: 03/23/2024 03:32 AM EST History and Physical Notes * HPI (History of Present Illness) Category Sub-Category Detail Notes Category Not es Symptom(s) patient is a 73 yo female here with complaint both shoulders hurting for one month. has hard time putting coat on. gets cramps in hand and now all the way up to shoulder. also hands swell up badly. can't hold a pen to write. hand is numb. saturday last week couldn't see out of left eye/ part of vision was missing left eye. had a migraine that night. had visual field loss 6 hours before migraine. happens frequently Examination Category Sub-Category Detail Notes Category Not es General Examination GENERAL APPEARANCE: alert, w ell hydrated, in no distress HEAD: normocephalic SKIN: good turgor EXTREMITIES: right hand weak. dtr 's brisk.
--- OUTSIDE RECORDS SUMMARY | 2024-04-02 05:15 | XMS_ITS ---
Author Organization Harpreet Vega MD Address [address] [place], [place] [phone] Care Team Providers Care Kiln Head House Operator Name Role Phone Harpreet Vega Primary Care Provider Allergies Allergen (clinical drug ingredient) Drug/Non Drug Allergy documented on EMR Reaction Allergy Type Onset Date Status Gadolinium hives Drug Allergy Active IVP dye (uncoded) huge hives Allergy A ctive penicillin (uncoded) hives Allergy Active Reason For Referral Reason arthritis Diagnosis 1 Arthritis (M19.90) Referral Organization Harpreet Vega MD Referring Provider First Name Harpreet Referring Provider Last Name Silvia Referring Provider Speciality Internal M edicine [facility] Provider [facility] Referred Provider Specialty Rheumatology General Notes Flores Richard 0 04/03/2024 11:52:43 AM >info faxedHilary Annette 04/07/2024 01:34:01 PM >per patient's request wants to go to [facility] Rheumatology faxed in Hilary Annette 04/09/2024 08:56:45 AM >patient is aware of Durga boo Patti A 05/28/2024 08:28:48 AM >OFFICE NOTE RECD Referral Priority Routine REASON FOR VISIT leg ankle knee pain x 3 weeks Medications Medication SIG (Take, Route, Frequency, Duration) Notes Start Date End Date Status Hyoscyamine Sulfate 0.125 MG 1 tablet under the tongue and allow to dissolve before meals as needed Sublingual every 4 hrs as needed 01/29/2012 Not-Taking SUMAtriptan Succinate 100 MG TAKE ONE TABLET BY MOUTH TWICE A DAY NEEDED for 30 Not-Taking Pramipexole Dihydrochloride 0.25 MG 1 tablet before bedtime Orally Once a day Not-Taking Pulmicort 0.5 MG/2ML 1 mL Inhalation Twi ce a day 12/23/2023 Active EpiPen 2-Bulmaro 0.3 MG/0.3ML as directed In jection daily as needed for 30 days Active Vitamin D 1000 UNIT 1 tablet Orally Once a day Active Albuterol Sulfate HFA 108 (90 Base) MCG/ACT 1 puff as needed Inhalation every 4 hrs 08/03/2022 Active Albuterol Sulfate (2.5 MG/3ML) 0.083% 3 mL as needed Inhalation every 6 hrs 11/22/2023 Active LORazepam 1 MG 2 tablet HS Act murray diphenhydrAMINE HCl 50 MG 1 capsule at b edtime as needed Orally take one hour before the test for 1 days 02/14/2023 Active Problems Problem Type SNOMED Code ICD Code Onset Dates Problem Status W/U Status Risk Notes Problem 6772672 Arthritis (M19.90) Active confirmed Vital Signs Blood pressure systolic 120 mm Hg 04/02/19 25 Blood pressure diastolic 66 mm Hg 025 Height 66.5 in 04/02/2024 weight refused Encounters Encounter Location Date Provider Diagnosis Harpreet Vega MD [address] [place] [address] [place] [phone] 04/02/2024 Harpreet Vega Arthritis M19.90 Assessments Encounter Date Diagnosis (ICD Code) Assessment Notes Treatment Notes Treatment Clinical Notes Section Notes 04/02/2024 Arthritis (ICD-10 - M19.90) will refer to financial solutions advisor . they are going to try to get to [facility] will Plan Of Treatment Treatment Notes Assessment Notes Arthritis will refer to rheuma tologist. they are going to try to get to [facility] Referrals Referral Date Details 04/02/2024 04/02/2024, [facility] Next Appt Details Provider Name:Harpreet gunter, 02/05/2025 07:45:00 AM, [address] [place] [address], Suite [facility], [place], [place], [phone], Provider Name:Harpreet gunter, 02/23/2025 09:30:00 AM, [address], [address], [phone], Progress Notes * Manuela NASCIMENTODOB:1950 (73 yo F)Acc No.[id number]:04/02/2024 Progress Notes Patient: Manuela COLE Provider: Dean Vega MD :1950 A ge:73 Y S ex:Female Date:04/02/2024 Address:[address] [place] [id number] Subjective: * Chief Complaints: * L eg ankle knee pain x 3 weeks * HPI: S ymptom(s): patient is a 73 yo female here with complaint of leg, ankle, knee pain for 3 weeks. getting pains all over joints. little swollen.. can't take nsaids due to one kidney. * ROS: G eneral/Constitutional: Denies C hills. D enies F atigue. D enies F ever. D enies H eadache. E NT: Patient denies d ecreased sense of smell, any loss of taste, sore throat. D enies S ore throat. R espiratory: Denies C ough. D enies S hortness of breath at rest. D enies S hortness of breath with exertion. G astrointestinal: Denies D iarrhea. D enies N ausea. M usculoskeletal: Patient denies m uscle aches. P atient complaining of?pains in multiple joints that sometimes last only one day. sometime 2 days. P eripheral Vascular: Patient denies r ed and blue toes. * Medical History: * Surgical History: * Hospitalization/Major Diagno stic Procedure: * Medications: T akingLORazepam 1 MG Tablet 2 tablet HS diphenhydrAMINE HCl 50 MG Capsule 1 capsule at bedtime as needed Orally take one hour before the test Vitamin D 1000 UNIT Tablet 1 tablet Orally Once a day Albuterol Sulfate HFA 108 (90 Base) MCG/ACT Aerosol Solution 1 puff as needed Inhalation every 4 hrs Albuterol Sulfate (2.5 MG/3ML) 0.083% Nebulization Solution 3 mL as needed Inhalation every 6 hrs Pulmicort 0.5 MG/2ML Suspension 1 mL Inhalation Twice a day EpiPen 2-Bulmaro 0.3 MG/0.3ML Solution Auto-injector as directed Injection daily as needed Taking LORazepam 1 MG Tablet 2 tablet HS Taking diphenhydrAMINE HCl 50 MG Capsule 1 capsule at bedtime as needed Orally take one hour before the test Taking Vitamin D 1000 UNIT Tablet 1 tablet Orally Once a day Taking Albuterol Sulfate HFA 108 (90 Base) MCG/ACT Aerosol Solution 1 puff as needed Inhalation every 4 hrs Taking Albuterol Sulfate (2.5 MG/3ML) 0.083% Nebulization Solution 3 mL as needed Inhalation every 6 hrs Taking Pulmicort 0.5 MG/2ML Suspension 1 mL Inhalation Twice a day Taking EpiPen 2-Bulmaro 0.3 MG/0.3ML Solution Auto-injector as directed Injection daily as needed Not-Taking/PRNSUMAtriptan Succinate 100 MG Tablet TAKE ONE TABLET BY MOUTH TWICE A DAY NEEDED Pramipexole Dihydrochloride 0.25 MG Tablet 1 tablet before bedtime Orally Once a day Hyoscyamine Sulfate 0.125 MG Tablet Sublingual 1 tablet under the tongue and allow to dissolve before meals as needed Sublingual every 4 hrs as needed Not-Taking/PRN SUMAtriptan Succinate 100 MG Tablet TAKE ONE TABLET BY MOUTH TWICE A DAY NEEDED Not-Taking/PRN Pramipexole Dihydrochloride 0.25 MG Tablet 1 tablet before bedtime Orally Once a day Not-Taking/PRN Hyoscyamine Sulfate 0.125 MG Tablet Sublingual 1 tablet under the tongue and allow to dissolve before meals as needed Sublingual every 4 hrs as needed DiscontinuedAmphetamine-Dextroamphetamine 20 MG Tablet (Schedule II Drug) TAKE 1 TABLET BY MOUTH TWICE A DAY Oral once a day Wellbutrin XL 300 MG Tablet Extended Release 24 Hour 1 tablet in the morning Orally Once a day Medication List reviewed and reconciled with the patientDiscontinued Amphetamine-Dextroamphetamine 20 MG Tablet (Schedule II Drug) TAKE 1 TABLET BY MOUTH TWICE A DAY Oral once a day Discontinued Wellbutrin XL 300 MG Tablet Extended Release 24 Hour 1 tablet in the morning Orally Once a day Medication List reviewed and reconciled with the patient * Allergies: p enicillin: hivesIVP dye: huge hivesGadolinium: hivesyes[Allergies Verified] Objective: * Vitals: H t: 66.5, BP:120/66. weight refused. * Examination: G eneral Examination: GENERAL APPEARANCE: a lert, well hydrated, in no distress.? HEART: n o murmurs, rubs, gallops, regular rate and rhythm.? LUNGS: n o wheezes, rales, rhonchi, good air movement, clear to auscultation bilaterally. Assessment: * Assessment: 1. A rthritis - M19.90 (Primary) Plan: * Treatment: * Procedure Codes: * * Sign off status: Completed true * Provider: Dean Vega MD Date: 0 04/02/2024 Generated for Sorin johns/Margy/Robertitting on: 03/23/2024 03:31 AM EST History and Physical Notes * HPI (History of Present Illness) Category Sub-Category Detail Notes Category Not es Symptom(s) patient is a 73 yo female here with complaint of leg, ankle, knee pain for 3 weeks. getting pains all over joints. little swollen.. can't take nsaids due to one kidney Examination Category Sub-Category Detail Notes Category Not es General Examination GENERAL APPEARANCE: alert, w ell hydrated, in no distress HEART: no murmurs, rubs, ga llops, regular rate and rhythm LUNGS: no wheezes, rales, r honchi, good air movement, clear to auscultation bilaterally Consultation Request Notes Referral Date Referring Provider Referred Provider Not es 04/02/2024 Harpreet Vega [facility]
--- OUTSIDE RECORDS SUMMARY | 2024-06-01 05:15 | XMS_ITS ---
Author Organization Harpreet Vega MD Address [address] [place], [place] [phone] Care Team Providers Care Water Ski Assembler Name Role Phone Harpreet Vega Primary Care Provider [phone] Allergies Allergen (clinical drug ingredient) Drug/Non Drug Allergy documented on EMR Reaction Allergy Type Onset Date Status Gadolinium hives Drug Allergy Active IVP dye (uncoded) huge hives Allergy A ctive penicillin (uncoded) hives Allergy Active Reason For Referral Reason Carpal tunnel syndro me Diagnosis 1 Carpal tunnel syndro me (G56.00) Referral Organization Harpreet Vega MD Referring Provider First Name Harpreet Referring Provider Last Name Silvia Referring Provider Speciality Internal M edicine Referred Provider Haylie Almanza Referred Provider Specialty Orthopedic S urgery General Notes Flores Richard 0 06/01/2024 11:05:27 AM Nerve conductive study also needs to be faxed, Flores Richard 06/11/2024 01:54:44 PM >info faxedHilary Annette 06/26/2024 11:22:38 AM > was told to call back on Saturday, referral team not in today, Flores Richard 07/03/2024 02:15:50 PM > called office appt is being worked on . they are backed logged phone [phone] ask for Hilary LEON Annette 07/31/2024 03:30:04 PM >was told to refaxed Nerve conduction studyHilary Annette 08/03/2024 09:31:55 AM > was told to refax Nerve Conduction studyHilary Annette 08/03/2024 09:35:53 AM >spoke with patient above info was given Referral Priority Routine Referral Appointment Date 08/17/2024 REASON FOR VISIT 2 MO F/U Medications Medication SIG (Take, Route, Frequency, Duration) Notes Start Date End Date Status LORazepam 1 MG 2 tablet HS Act [...] before bedtime Orally Once a day Not-Taking Vitamin D 1000 UNIT 1 tablet Orally Once a day Active SUMAtriptan Succinate 100 MG TAKE ONE TABLET BY MOUTH TWICE A DAY NEEDED for 30 Not-Taking Pulmicort 0.5 MG/2ML 1 mL Inhalation Twi ce a day 12/23/2023 Active EpiPen 2-Bulmaro 0.3 MG/0.3ML as directed In jection daily as needed for 30 days Active Albuterol Sulfate HFA 108 (90 Base) MCG/ACT 1 puff as needed Inhalation every 4 hrs 08/03/2022 Active Albuterol Sulfate (2.5 MG/3ML) 0.083% 3 mL as needed Inhalation every 6 hrs 11/22/2023 Active Problems Problem Type SNOMED Code ICD Code Onset Dates Problem Status W/U Status Risk Notes Problem Carpal tunnel syndrome (94929650) Carpal tunnel syndrome (G56.00) Active confirmed Vital Signs Blood pressure systolic 122 mm Hg 06/02/19 25 Blood pressure diastolic 74 mm Hg 025 Height 66.5 in 06/01/2024 refused weight Encounters Encounter Location Date Provider Diagnosis Harpreet Vega MD [address] [place], [place] [phone] 06/01/2024 Harpreet Vega Neuropathy G62.9 and Carpal tunnel syndrome G56.00 Assessments Encounter Date Diagnosis (ICD Code) Assessment Notes Treatment Notes Treatment Clinical Notes Section Notes 06/01/2024 Neuropathy (ICD-10 - G62.9) comes and goes. will observe 06/01/2024 Carpal tunnel syndrome (ICD-10 - G56.00) seems most of her symptoms are not carpal tunnel but will refer her to hand surgeon. either dr almanza or the [facility]. Plan Of Treatment Treatment Notes Assessment Notes Neuropathy comes and goes. will observe Carpal tunnel syndrome seems most of her symptoms are not carpal tunnel but will refer her to hand surgeon. either dr almanza or the hand center. Referrals Referral Date Details 06/01/2024 06/01/2024, Carpal t unnel syndrome, Haylie Archie Next Appt Details Follow Up: 6 Weeks, Reason: Provider Name:Harpreet Cervantes ier, 02/05/2025 07:45:00 AM, [address], [address], [place], [place], [id number], Provider Name:Harpreet Ash Malimarina ier, 02/23/2025 09:30:00 AM, [address], [address], [place], [place], [phone], Progress Notes * Manuela NASCIMENTODOB:1950 (73 yo F)Acc No.[id number]:06/01/2024 Progress Notes Patient: Manuela COLE Provider: Dean Vega MD :1950 A ge:73 Y S ex:Female Date:06/01/2024 Address:[address] [place] [id number] Subjective: * Chief Complaints: * 2 MO F/U * HPI: S ymptom(s): patient is a 73 yo female here for 2 month follow up visit. * ROS: G eneral/Constitutional: Denies C hills. D enies F atigue. D enies F ever. D enies H eadache. E NT: Denies S ore throat. R espiratory: Denies C ough. D enies S hortness of breath at rest. D enies S hortness of breath with exertion. G astrointestinal: Denies D iarrhea. A dmits N ausea. N eurologic: Patient complaining of n umbness in medial aspect of thigh that lasts hours but is gone most of the time. * Medical History: * Surgical History: * [...] needed Sublingual every 4 hrs as needed Medication List reviewed and reconciled with the patientNot-Taking/PRN SUMAtriptan Succinate 100 MG Tablet TAKE ONE TABLET BY MOUTH TWICE A DAY NEEDED Not- Taking/PRN Pramipexole Dihydrochloride 0.25 MG Tablet 1 tablet before bedtime Orally Once a day Not-Taking/PRN Hyoscyamine Sulfate 0.125 MG Tablet Sublingual 1 tablet under the tongue and allow to dissolve before meals as needed Sublingual every 4 hrs as needed Medication List reviewed and reconciled with the patient * Allergies: p enicillin: hivesIVP dye: huge hivesGadolinium: hivesyes[Allergies Verified] Objective: * Vitals: H t: 66.5, BP:122/74. refused weight. * Examination: G eneral Examination: GENERAL APPEARANCE: a bnormal with swelling in fingers and weakness in fingers. not able to use finger.. HEART: n o murmurs, rubs, gallops, regular rate and rhythm.? LUNGS: n o wheezes, rales, rhonchi, good air movement, clear to auscultation bilaterally. Assessment: * Assessment: 1. N europathy - G62.9 (Primary) 2 . C arpal tunnel syndrome - G56.00 ? Plan: * Treatment: 2. C arpal tunnel syndrome Notes: seems most of her symptoms are not carpal tunnel but will refer her to hand surgeon. either dr almanza or the hand center. Referral To:Haylie Almanza Orthopedic Surgery Reason:Carpal tunnel syndrome * Procedure Codes: * Follow Up: 6 Weeks * * Sign off status: Completed true * Provider: Dean Vega MD Date: 0 06/01/2024 Generated for Sorin johns/Margy/eTransmitting on: 03/23/2024 03:32 AM EST History and Physical Notes * HPI (History of Present Illness) Category Sub-Category Detail Notes Category Not es Symptom(s) patient is a 73 yo female here for 2 month follow up visit Examination Category Sub-Category Detail Notes Category Not es General Examination GENERAL APPEARANCE: abnormal with swelling in fingers and weakness in fingers. not able to use finger. HEART: no murmurs, rubs, ga llops, regular rate and rhythm LUNGS: no wheezes, rales, r honchi, good air movement, clear to auscultation bilaterally Consultation Request Notes Referral Date Referring Provider Referred Provider Not es 06/01/2024 Harpreet Vega Catherine Carpal tunnel syndrome
--- OUTSIDE RECORDS SUMMARY | 2024-07-14 05:00 | XMS_ITS ---
Author Organization Harpreet Vega MD Address [address] [place], [place] [phone] Care Team Providers Care Binder Operator Name Role Phone Harpreet Vega Primary [...] W/U Status Risk Notes Problem Rheumatoid arthritis (83225085) Rheumatoid arthritis (M06.9) Active confirmed Vital Signs Blood pressure systolic 118 mm Hg 07/15/19 25 Blood pressure diastolic 70 mm Hg 025 Height 66.5 in 07/14/2024 Encounters Encounter Location Date Provider Diagnosis Harpreet Vega MD [address] [place] [address] [place] [phone] 07/14/2024 Harpreet Vega Carpal tunnel syndrome G56.00 [...] Follow Up: 3 Months, Reason: Provider Name:Harpreet gunter, 02/05/2025 07:45:00 AM, [address] [place] [address], [place] [address], [place], [place], [phone], Provider Name:Harpreet gunter, 02/23/2025 09:30:00 AM, [address] [place] [address], [place] [address], [place], [place], [phone], Progress Notes * Manuela NASCIMENTODOB:1950 (74 yo F)Acc No.[id number]:07/14/2024 Progress Notes Patient: Manuela COLE Provider: Dean Vega MD :1950 A ge:74 Y S ex:Female Date:07/14/2024 Address:[address] [place], [place] [phone] Subjective: * Chief Complaints: * 6 weekAccompanied [...] MD Date: 0 07/14/2024 Generated for Sorin johns/Margy/Coco on: 03/23/2024 03:33 AM EST History and [...]
--- OUTSIDE RECORDS SUMMARY | 2024-08-03 03:00 | XMS_ITS ---
Author Organization Harpreet Vega MD Address [address] [place], [place] [phone] Care Team Providers Care Oracle Adf Developer Name Role Phone Harpreet Vega Primary Care Provider Results Component Value Reference Range Notes Complete Blood Count Auto Di ff Reviewed date:08/03/2024 01:32:08 PM Interpretation: Performing Lab:[facility], [address] [place] [phone] Notes/Report: White Blood Count 5.9 4.8-10.8 X10*3/uL Red Blood Count 4.55 4.20-5.50 X10*6/uL Hemoglobin 13.5 12.0-16.0 g/dl Hematocrit 40.5 37.0-47.0 % Mean Corpuscular Volume 89.0 80.0-98.0 fL Mean Corpuscular Hemoglobin 29.7 27.0-33.0 pg Mean Corpuscular HGB Conc 33.3 31.0-35.0 g/dl Red Cell Distribution Width 14.5 11.0-16.0 % Platelet Count 243 160-400 X10*3/uL Mean Platelet Volume 10.9 9.4-12.3 fL Neutrophils Percent Auto 45.7 45-73 % Imm Gran Pct Auto 0.2 0.0-0.4 % Lymphocytes Percent Auto 40.6 20-40 % Monocytes Percent Auto 9.3 2-11 % Eosinophils Percent Auto 3.0 0-4 % Basophils Percent Auto 1.2 0-2 % NRBC Pct Auto 0.0 0.0-0.2 /100WBC Neutrophils Absolute Auto 2.7 2.0-8.3 x10*3/u L Imm Gran Abs Auto 0.01 0.00-0.03 X10*3/uL Lymphocytes Absolute Auto 2.4 1.2-4.9 X10*3/u L Monocytes Absolute Auto 0.6 0.1-1.2 X10*3/uL Eosinophils Absolute Auto 0.2 0.0-0.4 X10*3/u L Basophils Absolute Auto 0.1 0.0-0.2 X10*3/uL NRBC Abs Auto 0.000 0.0-0.012 X10*3/uL REASON FOR VISIT CBC Encounters Encounter Location Date Provider Diagnosis Harpreet Vega MD [address] [place] [address] [place] [phone] 08/03/2024 Harpreet Vega Lymphocytosis D72.82 0 Assessments Encounter Date Diagnosis (ICD Code) Assessment Notes Treatment Notes Treatment Clinical Notes Section Notes 08/03/2024 Lymphocytosis (ICD-10 - D72.820) Plan Of Treatment Next Appt Details Provider Name:Harpreet gunter, 02/05/2025 07:45:00 AM, [address] [place] [address], [address] [place] [address], [phone], Provider Name:Harpreet gunter, 02/23/2025 09:30:00 AM, [address] [place] [address], Suite [facility], [place], [place], [phone], Progress Notes * Manuela NASCIMENTODOB:1950 (74 yo F)Acc No.[id number]:08/03/2024 Progress Note Patient: Manuela COLE Provider: Dean Vega MD :1950 A ge:74 Y S ex:Female Date:08/03/2024 Address:[address] [place] [phone] Subjective: * Chief Complaints: * 1 . CBC. * Medical History: Objective: * Vitals: Assessment: * Assessment: 1. L ymphocytosis - D72.820 (Primary) Plan: * Treatment: * Procedure Codes: 3 6415 VENIPUNCT, ROUTINE* * * The named appointment provid er may or may not be the originator of this progress note, and it is not deemed complete until electronically signed by the appointment provider. Sign off status: Pending * Provider: Dean Vega MD Date: 0 08/03/2024 Generated for Sorin johns/Margy/Coco on: 03/23/2024 03:32 AM EST
--- OUTSIDE RECORDS SUMMARY | 2024-11-09 05:15 | XMS_ITS ---
Author Organization Harpreet Vega MD Address [address] [place], [place] [id number] Care Team Providers Care Wood Type Cutter Name Role Phone Harpreet Vega Primary Care [...] Location Date Provider Diagnosis Harpreet Vega MD [address] [place] [phone] 11/09/2024 Harpreet Vega Encounter for administration of [...] regiment Next Appt Details Provider Name:Harpreet gunter, 02/05/2025 07:45:00 AM, [address] [place] [address], [place] [address], [place], [place], [phone], Provider Name:Harpreet gunter, 02/23/2025 09:30:00 AM, [address] [place] [address], [place] [address], [place], [place], [phone], Progress Notes * Manuela NASCIMENTODOB:1950 (74 yo F)Acc No.[id number]:11/09/2024 Progress Notes Patient: Manuela COLE Provider: Dean Vega MD :1950 A ge:74 Y S ex:Female Date:11/09/2024 Address:[address] [place], [place] [id number] Subjective: * Chief Complaints: * 6 month [...] 9 0662 FLU VACC PRSV FREE INC [id number] ADMN FLU VAC NO FEE SCHED SAME DAY * Preventive Medicine: Immunizations: I nfluenza H ave you had a flu shot since the most recent November 02? Y es. * * Sign off status: Completed true * Provider: Dean Vega MD Date: 0 11/09/2024 Generated for Sorin johns/Margy/Robertitting on: 03/23/2024 03:31 [...]
--- NOTE | 2025-01-20 15:05 | MHC.OFFVIS ---
Vital Signs 01/20/25 15:06 Height 5 ft 6 in Weight 166 lb 7.184 oz BMI 26.9 BP 132/84 Blood Pressure Location Lt brachial Position Sitting Pulse 70 Pulse Source Pulse Oximeter Pulse Oximetry (%) 98 Oxygen Delivery Method Room Air Intake Visit Reasons: cough Intake Note: pt is here for follow up and states she has a constant runny nose, would like some help with this, and question on cpap mask, no need for nebulizer, the cough is under better control. DME for cpap is [facility] [employer] Required: No Certified Medical Technician: Certified Medical Technician offered & declined Allergies cat dander (cats) Allergy (Mild, Verified 01/20/25 15:41) sneezing Iodinated Contrast Media (IV CONTRAST) Allergy (Unknown, Verified 01/20/25 15:41) HIVES Penicillins (PENICILLINS) Allergy (Unknown, Verified 01/20/25 15:41) UNKNOWN senna (SENNA) Allergy (Unknown, Verified 01/20/25 15:41) RASH mite-Dermatophagoides farinae, monica (dust mite - [place]) Allergy (Verified 01/20/25 15:41) wheeze Medication List - Last Reconciled 01/20/25 by uLcio Freitas MD budesonide 0.5 mg (2 mL) inhalation BID 30 days cholecalciferol (vitamin D3) (Vitamin D3) 25 mcg PO DAILY folic acid 1 mg PO DAILY methotrexate sodium 15 mg PO QWEEK HPI HPI cough: Details: PEDRO IS 74 YEARS OLD VERY PLEASANT FEMALE COMES FOR FOLLOW-UP AFTER 6 MONTHS. SHE HAS HISTORY OF COUGH ASTHMA VARIANT, WHICH IMPROVED ALMOST COMPLETELY BY USING BUDESONIDE SOLUTION IN THE NEBULIZER B.I.D.. NOW SHE STILL NEEDS TO USE ALBUTEROL INHALER P.R.N. FOR ANY BOUTS OF COUGH OR WHEEZING. HER CURRENT ISSUE IS ONGOING NASAL CONGESTION WITH MINIMAL POSTNASAL DRIP, WHICH RESULTS IN MILD COUGH. SHE IS HAVING IT LITTLE BIT MORE SINCE THE COLD WEATHER HAS STARTED. ANOTHER PIECE OF HISTORY SHE TELLS US TODAY IS THAT SHE WAS DIAGNOSED TO HAVE OBSTRUCTIVE SLEEP APNEA, ABOUT 5 OR 6 YEARS AGO AT THE START OF COVID EPIDEMIC. AT THAT TIME SHE WEIGHED QUITE HAVE YEAR, HER DESCRIBES THAT SHE USED TO HAVE LOUD SNORING AND INTERRUPTED SLEEP. SHE HAD A POLYSOMNOGRAM STUDY [place], SHE DID HAVE SLEEP APNEA AND WAS STARTED ON CPAP WHICH HELPED HER A LOT. LATER ON SHE LOST. WEIGHT ALMOST 20-25 LB AND SNORING WELL SLEEP APNEA ALMOST RESOLVED. SHE DID NOT USE THE CPAP ANYMORE BUT KEPT THE CPAP MACHINE. SHE SAY IS NOW SHE HAS PUT ON ABOUT 10 MORE LB AND ESPECIALLY WHEN SHE HAS NASAL CONGESTION SHE DOES HAVE INCREASE SNORING AT NIGHT AND THAT DISTURBS HER SLEEP. SHE IS WONDERING IF SHE CAN START USING THAT CPAP AGAIN. HER , ALBERTO, CAME WITH HER TODAY. HE IS BEING TREATED FOR PROSTATE CANCER. HE WAS PRESCRIBED MEDICAL MARIJUANA FOR PAIN CONTROL, AND IS NOT USING IT ANYMORE. PEDRO USES MEDICAL MARIJUANA AT NIGHTTIME, IT MAKES HER SLEEP BETTER. 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 Bleeding hemorrhoids Arthritis Elevated cholesterol Mild obstructive sleep apnea Hayfever Hx of migraines Gallstones PTSD (post-traumatic stress disorder) IBS (irritable bowel syndrome) Asthma Renal cell carcinoma of right kidney Surgical History Hx of dilation and curettage Hx of bilateral cataract extraction History of breast surgery History of breast surgery Hx of colonoscopy History of right nephrectomy Family History Sister Cervical cancer Father Bladder cancer Liver cancer Cancer of kidney Social History Comment: Chronic shoulder pain present prior to procedure Patient Tobacco Use Status: Never used Tobacco Review of Systems Const All systems reviewed & are unremarkable except as noted in HPI and below Eyes Reports no additional complaints ENT Reports no additional complaints Card Denies chest pain, Denies irregular heart rhythm and Denies leg edema GI Reports no additional complaints Reports no additional complaints Musc Reports no additional complaints and Reports arthralgias (SHE HAS PAIN IN THE INTERPHALANGEAL JOINTS OF BOTH HANDS, ) Skin/Breast Reports system reviewed and no additional complaints, except as documented Neuro Reports no additional complaints Psych Reports other (past h/o ADHD/PTSD , OK NOW ) Endo Reports no additional complaints Marshall/Lymph Reports no additional complaints Aller/Immun Reports no additional complaints Physical Exam Vital Signs: Last Vital Signs Pulse 70 11/19/25 15:06 BP 132/84 01/20/25 15:06 Pulse Ox 98 01/20/25 15:06 Oxygen Delivery Method Room Air 01/20/25 15:06 BMI result Body Mass Index 26.9 Const General: healthy appearing, comfortable, no acute distress, alert and awake Orientation/consciousness: patient oriented x3 HEENT Head: Yes normal to inspection General nose exam: No nasal polyps present, No nasal discharge present and Other nasal findings present (DOES HAVE MILD NASAL CONGESTION) Face and sinus: Yes sinuses nontender Mouth: oropharynx normal Throat: Yes posterior oropharynx normal Eyes General: appearance normal, both eyes and all related structures Neck Neck: Yes normal visual inspection, Yes no lymphadenopathy, Yes trachea midline and Yes no JVD Thyroid: Thyroid normal Chest Chest palpation & inspection: normal inspection of the chest, normal palpation of entire chest wall and no tenderness Resp Effort & Inspection: normal respiratory effort and other (SHE DOES HAVE MILD SWELLING OF IP JOINTS OF THE RIGHT HAND .) Auscultation: clear to auscultation bilaterally, no crackles and no wheezes Cardio Palpation: normal PMI Rate: regular rate Rhythm: regular rhythm Heart sounds: no gallops and no murmurs Peripheral pulses: Peripheral pulses 2+ throughout GI Palpation (GI): Soft to palpation, nontender, No hepatosplenomegaly present and no masses Auscultation: normal bowel sounds Back/Spine/Pelvis Thoracic/Lumbar Spine: thoracic and lumbar spine normal to inspection Skin General skin exam: no rashes or lesions noted Neuro General: patient oriented x3 and no focal motor deficits Cranial nerves: Yes CN's II-XII intact bilaterally Extrem General: Yes normal to inspection, Yes no clubbing, cyanosis or edema and Yes no calf tenderness Psych Appearance: grossly normal and well kempt Speech and movement: Normal speech and movement present Assessment & Plan Assessment & Plan (1) 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 AND SHE CONTINUED TO HAVE SPASMODIC COUGH FOR AT LEAST 3 MONTHS. SHE HAD SIGNIFICANT IMPROVEMENT AFTER STARTING USE OF BUDESONIDE 0.5 MG IN THE NEBULIZER B.I.D.. ONCE SHE STARTED USING BUDESONIDE IN THE NEBULIZER HER COUGH RESOLVED QUICKLY. NOW FOR MANY MONTHS SHE HAS NO COUGH AND SHE IS NOT USING BUDESONIDE ANYMORE. SHE STILL HAS ALBUTEROL ON HAND AND CAN USE IT ONLY P.R.N.. Code(s): J68.3 - Other acute and subacute respiratory conditions due to chemicals, gases, fumes and vapors Category: Medical Plan: ADVISED THAT SHE CAN USE ALBUTEROL 1 OR 2 PUFFS Q 6 HOURS PRN IF THERE IS ANY RECURRENCE OF COUGH OR WHEEZING. (2) Cough: Comment: COUGH IN HER CASE WAS MOST LIKELY A COUGH VARIANT BRONCHIAL ASTHMA, WHICH HAS NOW RESOLVED Code(s): R05.9 - Cough, unspecified Category: Medical Plan: HAS UNDER REACTIVE AIRWAYS (3) FELIPE (obstructive sleep apnea): Comment: TODAY SHE GIVES HISTORY OF HAVING OBSTRUCTIVE SLEEP APNEA DIAGNOSED ABOUT 6 YEARS AGO BY SLEEP MEDICINE SERVICES IN [facility]. SHE DID USE CPAP WITH A NASAL INTERFACE FOR ABOUT 9-12 MONTHS, THEN SHE HAD LOST SOME WEIGHT AND STOPPED USING THE CPAP. SHE CLAIMS THAT SHE HAS SOME SNORING COMING BACK, AND WONDERS IF SHE CAN RESTART USING THE CPAP. BUT DOES NOT HAVE ANY SUPPLIES. Code(s): G47.33 - Obstructive sleep apnea (adult) (pediatric) Category: Medical Plan: I TOLD HER THAT HER BODY FEATURES AT PRESENT DO NOT INDICATE THAT SHE WOULD HAVE SLEEP APNEA. HOWEVER IF SHE WANTS TO TRY SHE CAN START USING THE CPAP. SHE NEEDS THE NASAL MASK, AND WE ARE GOING TO SEE IF WE CAN PROVIDE HER WITH A SAMPLE. IF SHE DOES FEEL BETTER WITH THE USE OF THE CPAP AND SHE WANTS TO GET ON TO REGULAR SUPPLIES, IN THAT CASE SHE MAY NEED A NEW SLEEP STUDY, IF SHE DOES HAVE TO HAVE A SLEEP STUDY I CAN MAKE ARRANGEMENT TO HAVE IT AT HOME. (4) Allergic rhinitis: Code(s): J30.9 - Allergic rhinitis, unspecified Category: Medical Plan: IT SEEMS THAT A PART OF REACTIVE UPPER AIRWAYS, SHE ALSO HAS MILD ALLERGIC RHINITIS, THAT MAY HAVE BEEN TRIGGERED BY THE COLD AIR AND CHANGE IN THE WEATHER. Plan I TOLD HER THAT SHE CAN USE LORATADINE OR CETIRIZINE 10 MG TABLET MAY USE HALF OR 1 TABLET A DAY AND SEE IF THAT WOULD HELP HER NASAL CONGESTION. 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
[2025-01-20 15:06] VITALS: BP 132/84; PULSE 70; O2SAT 98; BMI 26.9
--- OUTSIDE RECORDS SUMMARY | 2025-01-21 03:31 | XMS_ITS | Patient Health Record ---
Author Organization [facility] Address [address] [place] [address] Care Team Providers Care Crystal Syrup Maker Name Role Phone Silvia JACK, Harpreet Primary Care Provider Garo Guerrero [phone] Allergies Allergen (clinical drug ingredient) Drug/Non Drug Allergy documented on EMR Reaction Allergy Type Onset Date Status bee stings (uncoded) Unknown Allergy Active ct scan dye (uncoded) Unknown Allergy Active Penicillin Unknown Drug Allergy Active Reason For Referral No Information Medications Medication SIG (Take, Route, Frequency, Duration) Notes Start Date End Date Status Vitamin D 25 MCG (1000 UT) Tablet 1 tablet Orally Once a day Active metroNIDAZOLE 0.75 % Cream 1 application Externally Twice a day Active LORazepam 1 MG Tablet 1 tablet at bedtim e as needed Orally Once a day Active Amphetamine-Dextroamphetami ne 20 MG Tablet 1 tablet Orally once a day Active buPROPion HCl ER (XL) 300 MG Tablet Extended Release 24 Hour TAKE 1 TABLET BY MOUTH ONCE DAILY Oral Once a day Active SUMAtriptan Succinate 100 MG Tablet TAKE 1 TABLET BY MOUTH TWICE A DAY Oral; Duration: 30 Active Culturelle Active Immunizations Vaccine Route Administration Date Status Comme nts Influenza Unknown 11/12/2018 Administered Influenza Unknown 11/03/2019 Administered Social History Social History Additional Details Category Social Info Options Details Miscellaneous: Marital status: 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 Notes: Nonsmoker; no sig alcohol Nonsmoker; no sig alcohol Nonsmoker; no sig alcohol Problems Problem Type SNOMED Code ICD Code Onset Dates Problem Status W/U Status Risk Notes Problem Screening for malignant neoplasm of colon (534173850) Encounter for screening for malignant neoplasm of colon (Z12.11) Active confirmed Problem History of polyp of colon (situation) (414023532) Personal history of colonic polyps (Z86.010) Active confirmed Problem Cholelithiasis without obstruction (08683292) Calculus of gallbladder without cholecystitis without obstruction (K80.20) Active confirmed Problem Preprocedural examination (464914546166605) Preprocedural examination (Z01.818) Active confirmed Problem History of adenomatous polyp of colon (240112307) Hx of adenomatous colonic polyps (Z86.010) Active confirmed Problem Diverticulosis of sigmoid colon (413781942) Diverticulosis of sigmoid colon (K57.30) Active confirmed Problem Irritable bowel syndrome characterized by constipation (038964469) Irritable bowel syndrome with constipation (K58.1) Active confirmed Plan Of Treatment Future Test Test Name Order Date COLONOSCOPY 06/04/2013 COLONOSCOPY 12/30/2018 COLONOSCOPY 12/08/2020 Insurance Providers Payer Name Payer Address Payer Phone Subscriber Number Group Number Insured Name Patient Relationship to Insured Coverage Start Date Coverage End Date MEDICARE OF [place] [address] [place] [phone] [id number] PEDRO NASCIMENTO Self - patient is the insured MEDEX ATTN CLAIMS [address] [place] [address] [id number] PEDRO NASCIMENTO Self - patient is the [...] She had a negative colonoscopy with me walker n May of 2002 Hay fever Colonoscopy 07/2013-1 small tubular adeno ma Migraines Surgical History Surgery Date(Month/Year) Right kidney removed in 1991 as above--a t [facility] Right breast cyst removed in 1991-benign Left breast---milk ducts removed in 1973
--- OUTSIDE RECORDS SUMMARY | 2025-01-21 03:32 | XMS_ITS | Encounter Summary ---
Author Organization [facility] Address [address] [facility] [address] [place] [address] Phone Care Team Providers Care Composite Bond Technician Name Role Phone Lyn Clayton NP Unavailable Felicia Blevins MD Unavailable [phone] Harpreet Vega MD Unavailable [phone] Harpreet Vega MD Primary Care Provider Encounter Details Date Type Department Care Team (Late st Contact Info) Description 04/27/2020 Telephone ABDIFATAH Otolaryngology General [address] [place] [address] Romulo Jean Social History Tobacco Use Types [...] on filedocumented in this encounter Care Teams Composite Bond Technician Relationship Specialty Start Date End Date Harpreet Vega MD [address] [place] [address] [place] [address] PCP - General 1/4/18 Lyn Clayton NP [address] [place] [address] [address] [place] [address] Historical LMR Provider 12/20/162 2 Felicia Blevins MD [address] [place] [address] [address] [place] [address] [email or web address] Historical LMR Provider 12/20/16 Harpreet Vega MD [address] [place] [address] [place] [address] Historical LMR Provider 12/20/16 2 documented as of this encounter Additional Source Comments The information contained in this document represents components of the legal health record. It is not the complete legal health record.[facility]
--- OUTSIDE RECORDS SUMMARY | 2025-01-21 03:32 | XMS_ITS | Clinical Summary ---
Author Organization [facility] Address [address] [place] [address] Phone Care Team Providers Care Credit Risk Specialist Name Role Phone Felicia Blevins MD Unavailable [phone] Harpreet Vega MD Primary Care Provider [...] that she continue to work with her TESARO to optimize her mask and humidification settings. [...] VACCINES (1 of 2) 2000 OSTEOPOROSIS SCREENING INITIAL (ONE-TIME) 07/03/2015 PAP SMEAR 07/10/2020 07/11/2015 INFLUENZA VACCINE (#1) 2024 , 11/03/2019, 12/09/2018, Additional history exists COVID-19 VACCINE (2024- season) 2024 05/26/2020, 04/28/2020 Adult Td,Tdap Booster 04/25/2025 04/25/2015 RSV VACCINE (1 - 1-dose 75+ series) 2025 PNEUMOCOCCAL VACCINES (50+ years) Completed 04/06/2019, 07/03/2016, 06/14/2015 SMOKING STATUS SCREENING (Once After 26 Yrs) Completed 01/12/2021 HEPATITIS A VACCINES Aged Out No long er eligible based on patient's age to complete this topic HIB VACCINES Aged Out No longer eligi ble based on patient's age to complete this topic IPV VACCINES Aged Out No longer eligi ble [...] (07/11/2015) Pap smear NIL, HPV Negative (-16/-18) Historical Provider HEALTH MAINTENANCE Final Result from Last 3 Months or Most Recently Relevant to Health Maintenance Insurance BLUE [employer]OSS MEDEX SUPPLEMENT MEDICARE PART A & B [employer] SUPPLEMENT MEDICARE PART A & B [employer] MEDEX SUPPLEMENT MEDICARE PART A & B [employer] MEDEX SUPPLEMENT MEDICARE PART A & B [employer] MEDEX SUPPLEMENT MEDICARE PART A & B [employer] MEDEX SUPPLEMENT MEDICARE PART A & B [facility] CROSS MEDEX SUPPLEMENT MEDICARE PART A & B [facility] CROSS MEDEX SUPPLEMENT MEDICARE PART A & B [facility] CROSS MEDEX SUPPLEMENT MEDICARE PART A & B Care Teams Credit Risk Specialist Relationship Specialty Start Date End Date Harpreet Vega MD [address] [place] [address] [place] [address] PCP - General 03/07/17 Felicia Blevins MD [address] [place] [address], [facility] [address] [place] [address] [email or web address] Historical LMR Provider 12/20/16 Additional Source Comments The information contained in this document represents components of the legal health record. It is not the complete legal health record.[facility]
--- OUTSIDE RECORDS SUMMARY | 2025-01-21 03:33 | XMS_ITS | Patient Health Record ---
Author Organization Harpreet Vega MD Address [address] [place], [place] [id number] Care Team Providers Care Rn Digestive Name Role Phone Harpreet Vega Primary Care Provider Allergies Allergen (clinical drug ingredient) Drug/Non Drug Allergy documented on EMR Reaction Allergy Type Onset Date Status Gadolinium hives Drug Allergy Active IVP dye (uncoded) huge hives Allergy A ctive penicillin (uncoded) hives Allergy Active Results Component Value Reference Range Notes Complete Blood Count Auto Di ff Reviewed date:02/06/2024 03:16:30 PM Interpretation: Performing Lab:[facility], [address] [place] [phone] Notes/Report: White Blood Count 4.6 4.8-10.8 X10*3/uL [...] NRBC Abs Auto 0.000 0.0-0.012 X10*3/uL Comprehensive [place]. Panel Fa st Reviewed date:02/06/2024 03:31:30 PM Interpretation: Performing Lab:[facility], [address] [place] [phone] Notes/Report: Sodium 142 135-145 mmol/L Potassium 3.9 [...] Panel Reviewed date:02/06/2024 03:13:49 PM Interpretation: Performing Lab:[facility], [address] [place] [phone] Notes/Report: Triglycerides 147 <150 mg/dL Desirable Triglyceride: [...] Total Reviewed date:02/06/2024 03:14:41 PM Interpretation: Performing Lab:[facility], [address] [place] [phone] Notes/Report: Vitamin D 25-OH Total 50.3 >30 [...] t Reviewed date:02/06/2024 03:14:32 PM Interpretation: Performing Lab:[facility], [address] [place] [phone] Notes/Report: Urine, Clean Catch Color Urine Dark Yellow Appearance Urine Clear PH 5.5 5.0-9.0 Glucose Urine UA Negative Negative mg/dL Urine Blood Small (1+) Negative Specific [place] - Urine >= 1.030 1.005-1.025 Urine Protein [...] ff Reviewed date:08/03/2024 01:32:08 PM Interpretation: Performing Lab:[facility], [address] [place] [phone] Notes/Report: White Blood Count 5.9 4.8-10.8 X10*3/uL [...] X10*3/uL NRBC Abs Auto 0.000 0.0-0.012 X10*3/uL Tick-borne Disease Molecular Reviewed date:03/11/2024 03:25:40 PM Interpretation: Performing Lab:[facility], [address] [place] [address], [place] [phone] Notes/Report: Babesia Microti DNA, RT-PCR NOT DETECTED NOT DETECTED This test was developed and its analytical performance characteristics have been determined by [email or web address]. It has not been cleared or approved by the FDA. This assay has been validated pursuant to the CLIA regulations and is used for clinical purposes. THIS TEST WAS PERFORMED AT: [facility] [address] [place] [phone] JENNY BLAIR MD E.Chaffeensis DNA RT-PCR NOT DETECTED NOT DETECTED This test was developed and its analytical performance characteristics have been determined by [email or web address]. It has not been cleared or approved by the FDA. This assay has been validated pursuant to the CLIA regulations and is used for clinical purposes. THIS TEST WAS PERFORMED AT: [facility] [address] [place] [phone] JENNY BLAIR MD A. Phagocytphilium DNA,RT-PCR NOT DETECTED NOT DETECTED This test was developed and its analytical performance characteristics have been determined by [email or web address]. It has not been cleared or approved by the FDA. This assay has been validated pursuant to the CLIA regulations and is used for clinical purposes. Lyme(Borrelia ssp)DNA RT-PCR NOT DETECTED NOT DETECTED This test was developed and its analytical performance characteristics have been determined by [email or web address]. It has not been cleared or approved by the FDA. This assay has been validated pursuant to the CLIA regulations and is used for clinical purposes. For additional information, please refer to https://education.Spectralminds.Vaximm/faq /gjd025 (This link is being provided for informational/ educational purposes only.) THIS TEST WAS PERFORMED AT: [facility] [address] [place] [phone] JENNY BLAIR MD Borrelia Miyamotoi,DNA RT-PCR NOT DETECTED NOT DETECTED This test detects but does not distinguish between B. miyamotoi and B. hermsii. This test was developed and its analytical performance characteristics have been determined by [email or web address]. It has not been cleared or approved by the FDA. This assay has been validated pursuant to the CLIA regulations and is used for clinical purposes. THIS TEST WAS PERFORMED AT: [facility] [address] [place] [phone] JENNY BLAIR MD Tick Mol. Panel Cmmt [...] be indicated. THIS TEST WAS PERFORMED AT: [facility] [address] [place] [phone] MD Katina BENTON Gold Reviewed date:02/06/2024 12:50:56 PM Interpretation: Performing Lab:[facility], [address] [place] [phone] Notes/Report: Katina Benitez See Note Specimen held untested for 24 hours; Call to request Chemistry testing. MM tomosynthesis screening B I Reviewed date:11/03/2024 06:33:43 PM Interpretation: Performing Lab: Notes/Report: [facility]'[address] [place] [address] Mammography Report Signed Patient: Pedro Joshi MR#: [id number] 9 : 1950 Acct:[id number] Age/Sex: 74 / F ADM Date: 11/03/24 Loc: HO.MAMMO Attending Dr: Harpreet Vega MD Ordering Physician: Harpreet Vega MD Results: 2Be nign Findings Date of Service: 11/03/24 Follow Up: 1 Year From [facility] Mammogram Procedure(s): MM tomosynthesis screening BI Accession Number(s): [id number] cc: Harpreet Vega MD EXAMINATION: MM SCREENING DIGITAL BREAST TOMOSYNTHESIS, BILATERAL CLINICAL INFORMATION: Screening. Asymptomatic. COMPARISON: Mammography: Comparison is made with available priors TECHNIQUE: Digital breast mammography with tomosynthesis is performed in both the craniocaudal and mediolateral oblique views along with computer-aided detection (CAD). FINDINGS: The breasts are heterogeneously dense, which may obscure small masses (ACR BI-RADS breast composition Category c). Bilateral postsurgical changes are stable. There are no significant masses, abnormal calcifications, or other abnormalities. MM/MM tomosynthesis screening BI IMPRESSION: No mammographic evidence of malignancy. ASSESSMENT: BI-RADS BI-RADS 2 - Benign Findings RECOMMENDATION: Routine annual mammography screening. 1 year F/U This examination should not preclude the clinical evaluation of a suspicious palpable abnormality. This patient's information was entered into a reminder system with a target due date for their next mammogram. Electronically signed by: Dede Mcfarland DO 11/03/2024 01:26 PM EDT RP Dictated By: Dede Mcfarland DO Signed By: <Electronically signed by Dede Mcfarland DO in OV> 11/03/24 1326 DD/ 09 TD/TT: 11/03/24 09 Pick Out Hand: [facility] [address] [place], [place] [address] Mammography Report Signed Patient: Moses Joshi ra MR#: [id number] 9 : 1950 Acct:[id number] Age/Sex: 74 / F ADM Date: 11/03/24 Loc: HO.MAMMO Attending Dr: Harpreet Vega MD Ordering Physician: Harpreet Vega MD Results: 2Be nign Findings Date of Service: 11/03/24 Follow Up: 1 Year From [facility] Mammogram Procedure(s): MM tomosynthesis screening BI Accession Number(s): [id number] cc: Harpreet Vega MD EXAMINATION: MM SCREENING DIGITAL BREAST TOMOSYNTHESIS, BILATERAL CLINICAL INFORMATION: Screening. Asymptomatic. COMPARISON: Mammography: Compari son is made with available priors TECHNIQUE: Digital breast mammography with tomosynthesis is performed in both the craniocaudal and mediolateral oblique views along with computer-aided detection (CAD). FINDINGS: The breasts are heterogeneously dense, which may obscure small masses (ACR BI-RADS breast composition Category c). Bilateral postsurgic al changes are stable. There are no significant masses, abnormal calcifications, or other abnormalities. MM/MM tomosynthesis screening BI IMPRESSION: No mammographic evidence of malignancy. ASSESSMENT: BI-RADS BI-RADS 2 - Benign Findings RECOMMENDATION: Routine annual mammography screening. 1 year F/U This examination ricco uld not preclude the clinical evaluation of a suspicious palpable abnormality. This patient's information was entered into a reminder system with a target due date for their next mammogram. Electronically zabrina d by: Dede Mcfarland DO 11/03/2024 01:26 PM EDT RP Dictated By: Dede Mcfarland DO Signed By: <Electronically signed by Dede Mcfarland DO in OV> 11/03/24 1326 DD/ 0910 TD/TT: 11/03/24 0940 Pick Out Hand: Reason For Referral Reason arthritis Diagnosis 1 Arthritis (M19.90) Referral Organization Harpreet Vega MD Referring Provider First Name Harpreet Referring Provider Last Name Silvia Referring Provider Speciality Internal M edicine [facility] Referred Provider Specialty Rheumatology General Notes Flores Richard 0 04/03/2024 11:52:43 AM >info Hilary wright Annette 04/07/2024 01:34:01 PM >per patient's request wants to go to [facility] Rheumatology faxed in Hilary Annette 04/09/2024 08:56:45 [...] faxed, Flores Richard 06/11/2024 01:54:44 PM >info faxHilary rubi Annette 06/26/2024 11:22:38 AM > was told to call back on Saturday, referral team not in today, Flores Richard 07/03/2024 02:15:50 PM > called office appt is being worked on . they are backed logged phone [phone] ask for EDWARD Flores Richard 07/31/2024 03:30:04 PM >was told to refaxed Nerve conduction study Flores Richard 08/03/2024 09:31:55 AM > was told to refax Nerve Conduction study Flores Richard 08/03/2024 09:35:53 AM >spoke with patient above info was given Referral Priority Routine Referral Appointment Date 08/17/2024 Medications Medication SIG (Take, Route, Frequency, Duration) Notes Start Date End Date Status Methotrexate Sodium 2.5 MG 6 tabs on [...] needed Inhalation every 4 hrs 08/03/2022 Active EpiPen 2-Bulmaro 0.3 MG/0.3ML as directed In jection daily as needed for 30 days Active Pulmicort 0.5 MG/2ML 1 mL Inhalation Twi ce a day 12/23/2023 Active Pramipexole Dihydrochloride 0.25 MG 1 tablet before bedtime Orally Once a day Not-Taking SUMAtriptan Succinate 100 MG TAKE ONE TABLET BY MOUTH TWICE A DAY NEEDED for 30 Not-Taking Immunizations Vaccine Route Administration Date Status Comme nts Flu Vaccine IM Intramuscular 02/05/2012 Administered Shingles IM Intramuscular 01/05/2013 Administered Fluarix Quadrivalent IM Intramuscular 11/10/2013 Administe red TDaP Unknown 06/19/2010 Administered Fluarix Quadrivalent IM Intramuscular 12/07/2014 Administe red TDaP IM Intramuscular 04/25/2015 Administered PPSV23 (Pnemovax) IM Intramuscular 06/14/2015 Administered Fluarix Quadrivalent IM Intramuscular 12/05/2015 Administe red Prevnar 13 IM Intramuscular 07/03/2016 Administered Fluarix Quadrivalent IM Intramuscular 11/19/2016 Administe red Fluarix Quadrivalent IM Intramuscular 12/16/2017 Administe red Influenza High Dose IM Intramuscular 12/09/2018 [...] High Dose IM Intramuscular 12/23/2023 Administer ed Influenza High Dose IM Intramuscular 11/09/2024 Administer ed Flu Vaccine Unknown 11/10/2013 Pending [...] Problem Status W/U Status Risk Notes Problem 538014856 Actinic keratosi s (L57.0) Active confirmed Problem 894067464 Neuropathy (G62.9) Active confirmed Problem 81785300 Lymphocytosis (D72.820) Active confirmed Problem Carpal tunnel syndrome (68323173) Carpal tunnel syndrome (G56.00) Active confirmed Problem 38441792 Restless leg syn drome (G25.81) Active confirmed Problem 31885259 Vitamin D defici ency (E55.9) Active confirmed Problem 347273838 Dupuytren contra cture (M72.0) Active confirmed Problem 190788563 Other specified menopausal and perimenopausal disorders (N95.8) Active confirmed Problem 9382524 Arthritis (M19.90) Active confirmed Problem 868483251 Lumbar disc dise ase (M51.9) Active confirmed Problem 175157791 Tubular adenoma of colon (D12.6) Active confirmed Problem 590273521 Cervical disc di sease (M50.90) Active confirmed Problem 699076728 Migraine without aura and without status migrainosus, not intractable (G43.009) Active confirmed Problem 614126247 Gall stones (K80.20) Active confirmed Problem 282559287967998 Carpal tunnel sy ndrome of right wrist (G56.01) Active confirmed Problem Rheumatoid arthritis (08547007) Rheumatoid arthritis (M06.9) Active confirmed Problem 52752858 Dysthymia (F34.1) Active confirmed Problem 16060508 Sleep apnea, unspecified type (G47.30) Active confirmed Problem 024329795 Psychophysiologi nj insomnia (F51.04) Active confirmed Problem 207072085 Pure hypercholesterolemia (E78.00) Active confirmed Problem 59979469012873177 Bilateral carp al tunnel syndrome (G56.03) Active confirmed Problem 741098000 Mild intermitten t asthmatic bronchitis with acute exacerbation (J45.21) Active confirmed Problem 488970649 Moderate persist ent asthmatic bronchitis with acute exacerbation (J45.41) Active confirmed Problem 286945754 Malignant neopla sm of kidney, 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) Active confirmed Problem 308986522 Acute superficia l gastritis without hemorrhage (K29.00) Active confirmed Problem 125594408 Osteopenia of bryan mbar spine (M85.88) Active confirmed Problem 902147434 Abnormal chest x ray (R93.89) Active confirmed Problem 048853 Moderate major depression (F32.1) Active confirmed Problem 275733765 Compulsive eatin g patterns (F50.9) Active confirmed Problem 663654727 Abnormal CT scan (R93.89) Active confirmed Vital Signs Blood pressure diastolic 72 mm Hg 11/09/2024 michelle ght refused Height 66.5 in 11/09/2024 weight refused Blood pressure systolic 120 mm Hg 11/09/2024 weig ht refused Weight 175 lbs 02/14/2024 weight is up 6 pounds since 02-08-23 BMI 27.82 kg/m2 02/14/2024 weight is up 6 pounds since 02-08-23 Encounters Encounter Location Date Provider Diagnosis Harpreet Vega MD [address] [place], [place] [id number] 02/06/2024 Harpreet Vega Pure hypercholestero lemia E78.00 and Vitamin D deficiency E55.9 Harpreet Vega MD [address] [place] [id number] 08/03/2024 Harpreet Vega Lymphocytosis D72.82 0 Harpreet Vega MD [address] [place] [id number] 02/14/2024 Harpreet Vega Mild intermittent asthmatic bronchitis with acute exacerbation J45.21 ; Microscopic hematuria R31.29 ; Lymphocytosis D72.820 ; Pure hypercholesterolemia E78.00 ; Vitamin D deficiency E55.9 and Dysthymia F34.1 Harpreet Vega MD [address] [place] [id number] 03/09/2024 Harpreet Vega Migraine with visual aura G43.109 ; Bilateral carpal tunnel syndrome G56.03 ; Hives of unknown origin L50.9 and Diffuse arthralgia M25.50 Harpreet Vega MD [address] [id number] 04/02/2024 Harpreet Vega Arthritis M19.90 Harpreet Vega MD [address] [place] [id number] 06/01/2024 Harpreet Vega Neuropathy G62.9 and Carpal tunnel syndrome G56.00 Harpreet Vega MD [address] [place] [id number] 07/14/2024 Harpreet Vega Carpal tunnel syndro me G56.00 and Rheumatoid arthritis M06.9 Harpreet Vega MD [address] [place] [id number] 11/09/2024 Harpreet Vega Encounter for administration of vaccine Z23 and Arthritis M19.90 Assessments Encounter Date Diagnosis (ICD Code) Assessment Notes Treatment Notes Treatment Clinical Notes Section Notes 02/06/2024 Pure hypercholesterolemia (ICD-10 - E78.00) 02/06/2024 Vitamin D deficiency (ICD-10 - E55.9) 08/03/2024 Lymphocytosis (ICD-1 0 - D72.820) 02/14/2024 Mild intermittent asthmatic bronchitis with acute [...] testing, THE EMG ORDER WAS FAXED TO [facility] CENTRALIZED SCHEDULE, patient can't write due to inablilty to hold pen. seems could be carpal tunnel 04/02/2024 Arthritis (ICD-10 - M19.90) will refer to dryer operator. they are going to try to get [place] [facility] will 06/01/2024 Neuropathy (ICD-10 - G62.9) comes and goes. will observe 06/01/2024 Carpal tunnel syndro me (ICD-10 - G56.00) seems most of her symptoms are not carpal tunnel but will refer her to hand surgeon. either dr almanza or the hand center. 07/14/2024 Carpal tunnel syndro me (ICD-10 - G56.00) waiting for hand surgeon 07/14/2024 Rheumatoid arthritis (ICD-10 - M06.9) doing slightly better 11/09/2024 Encounter for administration of vaccine (ICD-10 - Z23) HD flu vaccine administered 11/09/2024 Arthritis (ICD-10 - M19.90) doing great on methotrexate, will contiue current regiment 02/14/2024 Lymphocytosis (ICD-1 0 - D72.820) 03/09/2024 [...] con 02/08/2023 Next Appt Details Provider Name:Harpreet Cervantes ier, 02/05/2025 07:45:00 AM, [address], [address], [place], [place], [phone], Provider Name:Harpreet Cervantes ier, 02/23/2025 09:30:00 AM, [address], [address], [place], [place], [id number], Insurance Providers Payer Name Payer Address Payer Phone Subscriber Number Group Number Insured Name Patient Relationship to Insured Coverage Start Date Coverage End Date MEDICARE [employer] [address] [place] [address] [id number] Pedro Joshi Self - patient is the insured [employer] [address] [place], [place] [id number] [phone] [id number] Pedro Joshi Self - patient is [...]
== END 2025-01-20 15:44 | disposition home or self-care (01) ==
LOC: HO.HPS 14:58
PROVIDERS: PCP Internal Medicine; Visit Provider Internal Medicine
DX: J68.3 Other acute and subacute respiratory conditions due to chemicals, gases, fumes and vapors (principal); R05.9 Cough, unspecified; G47.33 Obstructive sleep apnea (adult) (pediatric); J30.9 Allergic rhinitis, unspecified
CPT/HCPCS: 99213

== ENCOUNTER → 2025-01-20 14:57 | Outpatient (BNVA) | payer MEDICARE, SELFPAY | PROVIDERS: PCP Internal Medicine; Visit Provider Internal Medicine | DX: J68.3 Other acute and subacute respiratory conditions due to chemicals, gases, fumes and vapors (principal); R05.9 Cough, unspecified; J30.9 Allergic rhinitis, unspecified; G47.33 Obstructive sleep apnea (adult) (pediatric) | CPT/HCPCS: 99212 ==

== ENCOUNTER 2025-02-05 10:34 | Outpatient (REF) | payer MEDICARE, SELFPAY ==
--- OUTSIDE RECORDS SUMMARY | 2024-01-03 05:45 | XMS_ITS ---
Author Organization Harpreet Vega MD Address [address] [place], [place] [phone] Care Team Providers Care Bandage Winding Machine Operator Name Role Phone Harpreet Vega Primary Care Provider Allergies Allergen (clinical drug ingredient) Drug/Non Drug [...] mL Inhalation Twi [facility] days 12/23/2023 Active SUMAtriptan Succinate [...] Location Date Provider Diagnosis Harpreet Vega MD [address] [place] [address] [place] [phone] 01/03/2024 Harpreet Vega Mild intermittent asthmatic bronchitis [...] Up: 4 Weeks, Reason: Provider Name:Harpreet gunter, 02/23/2025 09:30:00 AM, [address] [place] [address], Suite [facility], [place], [place], [phone], Progress Notes * Manuela NASCIMENTODOB:1950 (73 yo F)Acc No.[id number]:01/03/2024 Progress Notes Patient: Manuela Jose Provider: Dean Vega MD :1950 A ge:73 Y S ex:Female Date:01/03/2024 Address:[address] [place] [address] [id number] Subjective: * Chief Complaints: * 2 week [...] Vega MD Date: 03/04/2023 Generated for Sorin johns/Margy/Robertitting on: 04/08/2024 12:33 PM EST History and Physical Notes * HPI [...]
--- OUTSIDE RECORDS SUMMARY | 2024-02-06 02:30 | XMS_ITS ---
Author Organization Harpreet Vega MD Address [address] [place], [place] [id number] Care Team Providers Care Geochemist Name Role Phone Harpreet Vega Primary Care Provider [phone] Results Component Value Reference Range Notes Complete Blood Count Auto Di ff Reviewed date:02/06/2024 03:16:30 PM Interpretation: Performing Lab:[facility], [address] [place] [phone] Notes/Report: White Blood Count 4.6 4.8-10.8 X10*3/uL Red Blood Count 4.69 4.20-5.50 X10*6/uL Hemoglobin 13.8 12.0-16.0 g/dl Hematocrit 41.9 37.0-47.0 % Mean Corpuscular Volume 89.3 80.0-98.0 fL Mean Corpuscular Hemoglobin 29.4 27.0-33.0 pg Mean Corpuscular HGB Conc 32.9 31.0-35.0 g/dl Red Cell Distribution Width 12.0 11.0-16.0 % Platelet Count 238 160-400 X10*3/uL Mean Platelet Volume 10.6 9.4-12.3 fL Neutrophils Percent Auto 38.3 45-73 % Imm Gran Pct Auto 0.2 0.0-0.4 % Lymphocytes Percent Auto 43.5 20-40 % Monocytes Percent Auto 13.8 2-11 % Eosinophils Percent Auto 3.1 0-4 % Basophils Percent Auto 1.1 0-2 % NRBC Pct Auto 0.0 0.0-0.2 /100WBC Neutrophils Absolute Auto 1.8 2.0-8.3 x10*3/u L Imm Gran Abs Auto 0.01 0.00-0.03 X10*3/uL Lymphocytes Absolute Auto 2.0 1.2-4.9 X10*3/u L Monocytes Absolute Auto 0.6 0.1-1.2 X10*3/uL Eosinophils Absolute Auto 0.1 0.0-0.4 X10*3/u L Basophils Absolute Auto 0.1 0.0-0.2 X10*3/uL NRBC Abs Auto 0.000 0.0-0.012 X10*3/uL Comprehensive [place]. Panel Fa st Reviewed date:02/06/2024 03:31:30 PM Interpretation: Performing Lab:[address] [phone] Notes/Report: Sodium 142 135-145 mmol/L Potassium 3.9 3.3-5.1 mmol/L Chloride 108 96-108 mmol/L Carbon Dioxide 28 22-29 mmol/L Anion Gap 10 12-20 Blood Urea Nitrogen 10 9-16 mg/dL Creatinine 1.14 0.5-1.4 mg/dL Estimated Glomerular Filt Rate 47 Chronic Kidney Disease: Estimated GFR < 60 mL/min/1.73m2 Severe Kidney Disease: Estimated GFR < 15 mL/min/1.73m2 Glucose Fasting 102 60-99 mg/dL A fasting glucose from 100-125 mg/dl is considered impaired (pre-diabetes). Calcium 8.9 8.4-10.2 mg/dL Bilirubin Total 0.9 0.0-1.0 mg/dL Aspartate Amino Transferase 22 5-31 U/L Alanine Aminotransferase 15 0-31 U/L Total Protein 6.9 6.5-8.0 g/dL Albumin Level 3.9 3.5-5.0 g/dL Alkaline Phosphatase 53 39-117 U/L Lipid Panel Reviewed date:02/06/2024 03:13:49 PM Interpretation: Performing Lab:[facility], [address] [place] [phone] Notes/Report: Triglycerides 147 <150 mg/dL Desirable Triglyceride: less than 150 mg/dL Borderline High Triglyceride 150-199 mg/dL High Triglyceride: 200-499 mg/dL Very High Triglyceride: greater than or equal to 5OO mg/dL Cholesterol 250 <200 mg/dL Desirable Cholesterol: less than 200 mg/dL Borderline High Cholesterol: 200-239 mg/dL High Cholesterol: greater than 239 mg/dL LDL Cholesterol Calculated 144 <100 mg/dL Desirable LDL: less than 100 mg/dL Near Optimal/Above Optimal LDL: 110-129 mg/dL Borderline High LDL: 130-159 mg/dL High LDL: 160-189 mg/dL Very High LDL: greater than or equal to 190 mg/dL HDL Cholesterol 77 >40 mg/dL Desirable HDL: greater than 40 mg/dL Note: This HDL assay may give artificially low results in patients with liver disease. Vitamin D 25-OH Total Reviewed date:02/06/2024 03:14:41 PM Interpretation: Performing Lab:[facility], [address] [place] [phone] Notes/Report: Vitamin D 25-OH Total 50.3 >30 ng/mL Health Based Reference Values* < 20 ng/mL Deficient 20-30 ng/mL Insufficient > 30 ng/mL Sufficient *Maribell BROWN. N Engl J Med. 2007;357:266-280 Care must be taken in interpreting Vitamin D results from different laboratories and methodologies. Published data demonstrated that results from patients undergoing hemodialysis may show a negative bias when tested with various automated 25-OH vitamin D assays when compared to LC-MS/MS. When testing samples from patients whose predominant form of Vitamin D is Vitamin D2, such as patients receiving Vitamin D2 supplementation, results that are subtherapeutic should be confirmed with another method such as LC-MS/MS. UA ClnCatch+Micro w/rflx Cul t Reviewed date:02/06/2024 03:14:32 PM Interpretation: Performing Lab:[facility], [address] [place] [phone] Notes/Report: Urine, Clean Catch Color Urine Dark Yellow Appearance Urine Clear PH 5.5 5.0-9.0 Glucose Urine UA Negative Negative mg/dL Urine Blood Small (1+) Negative Specific [place] - Urine >= 1.030 1.005-1.025 Urine Protein Trace Neg-Trace mg/dL Urine Ketones Negative Negative mg/dL Nitrite Urine Negative Negative Leukocyte Esterase Urine Trace Negative RBC Urine 3-5 0-2 /HPF WBC Urine 0-5 0-5 /HPF Squamous Epithelial Cell Urine 3-5 0-2 /HPF Bacteria Urine None Seen None Seen Hyaline Casts Urine 0-2 0-2 /LPF REASON FOR VISIT yearly fasting Encounters Encounter Location Date Provider Diagnosis Harpreet Vega MD [address] [place], [place] [phone] 02/06/2024 Harpreet Vega Pure hypercholestero lemia E78.00 and Vitamin D deficiency E55.9 Assessments Encounter Date Diagnosis (ICD Code) Assessment Notes Treatment Notes Treatment Clinical Notes Section Notes 02/06/2024 Pure hypercholesterolemia (ICD-10 - E78.00) 02/06/2024 Vitamin D deficiency (ICD-10 - E55.9) Plan Of Treatment Next Appt Details Provider Name:Harpreet Cervantes ier, 02/23/2025 09:30:00 AM, [address], [address], [place], [place], [phone], Progress Notes * NINOManuela WRIGHTDOB:1950 (74 yo F)Acc No.[id number]:02/06/2024 Progress Note Patient: Manuela COLE Provider: Dean Vega MD :1950 A ge:73 Y S ex:Female Date:02/06/2024 Address:[address] [place] [id number] Subjective: * Chief Complaints: * 1 . Yearly fasting. * Medical History: Objective: * Vitals: Assessment: * Assessment: 1. P ure hypercholesterolemia - E78.00 (Primary) 2 . V itamin D deficiency - E55.9 Plan: * Treatment: 2. V itamin D deficiency L AB: Complete Blood Count Auto Diff (Collection Date & Time - 02/06/2024 07:30 AM) L AB: Comprehensive [place]. Panel Fast (Collection Date & Time - 02/06/2024 07:30 AM) L AB: Lipid Panel (Collection Date & Time - 02/06/2024 07:30 AM) L AB: Vitamin D 25-OH Total (Collection Date & Time - 02/06/2024 07:30 AM) L AB: UA ClnCatch+Micro w/rflx Cult (Collection Date & Time - 02/06/2024 07:30 AM) * Procedure Codes: 3 6415 VENIPUNCT, ROUTINE* * * The named appointment provid er may or may not be the originator of this progress note, and it is not deemed complete until electronically signed by the appointment provider. Sign off status: Pending * Provider: Dean Vega MD Date: 04/08/2023 Generated for Sorin johns/Margy/Coco on: 04/08/2024 12:31 PM EST
--- OUTSIDE RECORDS SUMMARY | 2024-02-14 06:00 | XMS_ITS ---
Author Organization Harpreet Vega MD Address [address] [place], [place] [id number] Care Team Providers Care Protective Clothing Issuer Name Role Phone Harpreet Vega Primary Care Provider [phone] Allergies Allergen (clinical drug ingredient) Drug/Non Drug Allergy documented on EMR Reaction Allergy Type Onset Date Status Gadolinium hives Drug Allergy Active IVP dye (uncoded) huge hives Allergy A ctive penicillin (uncoded) hives Allergy Active REASON FOR VISIT review labs, Accompanied by Medications Medication SIG (Take, Route, Frequency, Duration) Notes Start Date End Date Status Albuterol Sulfate (2.5 MG/3ML) 0.083% 3 mL as needed Inhalation every 6 hrs 11/22/2023 Active Pulmicort 0.5 MG/2ML 1 mL Inhalation Twi ce a day 12/23/2023 Active Vitamin D 1000 UNIT 1 tablet Orally Once a day Active Albuterol Sulfate HFA 108 (90 Base) MCG/ACT 1 puff as needed Inhalation every 4 hrs 08/03/2022 Active Hyoscyamine Sulfate 0.125 MG 1 tablet under the tongue and allow to dissolve before meals as needed Sublingual every 4 hrs as needed 01/29/2012 Not-Taking diphenhydrAMINE HCl 50 MG 1 capsule at b edtime as needed Orally take one hour before the test for 1 days 02/14/2023 Active Amphetamine-Dextroamphetami ne 20 MG (Schedule II Drug) TAKE 1 TABLET BY MOUTH TWICE A DAY Oral once a day Active Wellbutrin XL 300 MG 1 tablet in the morning Orally Once a day Active SUMAtriptan Succinate 100 MG TAKE ONE TABLET BY MOUTH TWICE A DAY NEEDED for 30 Not-Taking Pramipexole Dihydrochloride 0.25 MG 1 tablet before bedtime Orally Once a day Not-Taking LORazepam 1 MG 2 tablet HS Act murray Social History Tobacco Use: Social History Observation Description Date Details (start date - stop date) Never Smoker NA - NA Tobacco Use/Smoking Question Answer Notes Patient is a nonsmoker Additional Findings: Tobacco Non-User Cu rrent non-smoker, currently using no form of tobacco Alcohol Screen Question Answer Notes Did you have a drink containing alcohol in the p ast year? No Points 0 Interpretation Negative Problems Problem Type SNOMED Code ICD Code Onset Dates Problem Status W/U Status Risk Notes Problem 76350105 Lymphocytosis (D72.820) Active confirmed Vital Signs Blood pressure systolic 136 mm Hg 02/14/20 24 Blood pressure diastolic 90 mm Hg 024 Height 66.5 in 02/14/2024 Weight 175 lbs 02/14/2024 BMI 27.82 kg/m2 02/14/2024 weight is up 6 pounds since 02-08-23 Encounters Encounter Location Date Provider Diagnosis Harpreet Vega MD [address] [place] [address] [place] [phone] 02/14/2024 Harpreet Vega Mild intermittent asthmatic bronchitis with acute exacerbation J45.21 ; Microscopic hematuria R31.29 ; Lymphocytosis D72.820 ; Pure hypercholesterolemia E78.00 ; Vitamin D deficiency E55.9 and Dysthymia F34.1 Assessments Encounter Date Diagnosis (ICD Code) Assessment Notes Treatment Notes Treatment Clinical Notes Section Notes 02/14/2024 Mild intermittent asthmatic bronchitis with acute exacerbation (ICD-10 - J45.21) stable, will continue current regiment 02/14/2024 Microscopic hematuri a (ICD-10 - R31.29) 02/14/2024 Lymphocytosis (ICD-1 0 - D72.820) 02/14/2024 Pure hypercholesterolemia (ICD-10 - E78.00) stable, will continue to monitor 02/14/2024 Vitamin D deficiency (ICD-10 - E55.9) stable, will continue current regiment 02/14/2024 Dysthymia (ICD-10 - F34.1) stale, will continue current regiment Plan Of Treatment Medication Medication Name Sig Start Date Stop Date Notes Albuterol Sulfate (2.5 MG/3ML) 0.083% 3 mL as needed Inhalation every 6 hrs 11/22/2023 Pulmicort 0.5 MG/2ML 1 mL Inhalation Twice a day Vitamin D 1000 UNIT 1 tablet Orally Once a day Albuterol Sulfate HFA 108 (9 0 Base) MCG/ACT 1 puff as needed Inhalation every 4 hrs 08/03/2022 Wellbutrin XL 300 MG 1 tablet in the mor felipe Orally Once a day Treatment Notes Assessment Notes Mild intermittent asthmatic bronchitis with acute exacerbation stable, will continue current regiment Pure hypercholesterolemia stable, will c ontinue to monitor Vitamin D deficiency stable, will contin ue current regiment Dysthymia stale, will continue current regiment Next Appt Details Follow Up: 6 Months, Reason: Provider Name:Harpreet gunter, 02/23/2025 09:30:00 AM, [address] [place] [address], [address], [place], [place], [phone], Progress Notes * Manuela NASCIMENTODOB:1950 (73 yo F)Acc No.[id number]:02/14/2024 Patient: Manuela Jose Provider: Dean Vega MD :1950 A ge:73 Y S ex:Female Date:02/14/2024 Address:[address] [place], [place] [id number] Subjective: * Chief Complaints: * R eview labsAccompanied by * HPI: D epression Screening: PHQ-9 L ittle interest or pleasure in doing things S everal days, F eeling down, depressed, or hopeless M ore than half the days, T rouble falling or staying asleep, or sleeping too much N early every day, F eeling tired or having little energy N early every day, P oor appetite or overeating N early every day, F eeling bad about yourself or that you are a failure, or have let yourself or your family down N early every day, T rouble concentrating on things, such as reading the newspaper or watching television S everal days, M oving or speaking so slowly that other people could have noticed; or the opposite, being so fidgety or restless that you have been moving around a lot more than usual N ot at all, T houghts that you would be better off or of hurting yourself in some way N ot at all, T otal Score 1 6, I nterpretation M oderately Severe Depression. C ommunication Needs: Communication Needs D oes the patient have a hearing impairment Y es, I f yes, what is the hearing impairment? H marina of hearing, Hearing Aids, D oes the patient have a vision impairment? Y es, I f yes, what is the vision impairment? G lasses, D oes the patient have a cognition impairment? N o. F all Risk: History H ave you had any falls with injury in the past year? N o, H ave you had two or more falls in the past year? N o. S CLAUDETTE Questions: SDOH Questions I n the past year have you been worried about losing housing? N o, I n the past year have you or any family members you live with been unable to get any of the following when it was really needed? Check all that apply: N one. S ymptom(s): Patient is a 73 yo female here for review of recent labs and follow up of chronic issues. here for yearly exam. having trouble with hearing. * ROS: G eneral/Constitutional: Patient denies f atigue , headache. C hange in appetite?denies. C hills d enies. F ever d enies. O phthalmologic: Blurred vision d enies. D ischarge d enies. P ain d enies. E NT: Patient denies d ecreased sense of smell , any loss of taste , sore throat. D ecreased hearing d enies. S ore throat d enies. S wollen glands d enies. E ndocrine: Cold intolerance d enies. E xcessive thirst d enies. H eat intolerance d enies. W eight loss d enies. R espiratory: Cough d enies. S hortness of breath at rest d enies. S hortness of breath with exertion d enies. W heezing d enies. C ardiovascular: Chest pain at rest d enies. C hest pain with exertion?denies. I rregular heartbeat d enies. S hortness of breath d enies. ? G astrointestinal: Abdominal pain d enies. C hange in bowel habits d enies. D iarrhea d enies. N ausea d enies. R ectal bleeding d enies. V omiting d enies . G enitourinary: Blood in urine d enies. D ifficulty urinating d enies. F requent urination d enies. U rinary incontinence D enies. M usculoskeletal: Patient denies m uscle aches. P ainful joints d enies. W eakness d enies. P eripheral Vascular: Patient denies r ed and blue toes. S kin: Dry skin d enies. I tching d enies. D enies?Mole(s), changes in moles, new moles or any lesions of concern. D enies P hotosensitivity. R betsy d enies. N eurologic: Dizziness d enies. F ainting d enies. H eadache?denies. * Medical History: * Surgical History: * Hospitalization/Major Diagno stic Procedure: * Family History: F ather: 72 yrs, diagnosed with Cancer. M other: 93 yrs. 2 brother(s) , 1 sister(s) . 3 son(s) , 1 daughter(s) . . Mother-Healthy, Denies mental health/substance abuse family history, Denies mental health/substance abuse family history, No pertinent family medical history, No pertinent family medical history. * Social History: T obacco Use: T obacco Use/Smoking P atient is a n onsmoker, A dditional Findings: Tobacco Non-User C urrent non-smoker, currently using no form of tobacco. D rugs/Alcohol: A lcohol Screen D id you have a drink containing alcohol in the past year? N o, P oints 0 , I nterpretation N egative. M iscellaneous: n o Caffeine. Children: yes. no Community involvements. no Exercise. Home smoke detector use: yes. Housing: owning. Living with: family. Marital status: . 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 Pets: none. no Travel outside of the [place]. * Medications: T akingLORazepam 1 MG Tablet [...] Suspension 1 mL Inhalation Twice a dayTaking LORazepam 1 MG Tablet 2 tablet HSTaking Wellbutrin XL 300 MG Tablet Extended Release 24 Hour 1 tablet in the morning Orally Once a dayTaking Vitamin D 1000 UNIT Tablet 1 tablet Orally Once a dayTaking diphenhydrAMINE HCl 50 MG Capsule 1 capsule at bedtime as needed Orally take one hour before the testTaking Amphetamine-Dextroamphetamine 20 MG Tablet (Schedule II Drug) TAKE 1 TABLET BY MOUTH TWICE A DAY Oral once a dayTaking Albuterol Sulfate HFA 108 (90 Base) MCG/ACT Aerosol Solution 1 puff as needed Inhalation every 4 hrsTaking Albuterol Sulfate (2.5 MG/3ML) 0.083% Nebulization Solution 3 mL as needed Inhalation every 6 hrsTaking Pulmicort 0.5 MG/2ML Suspension 1 mL Inhalation Twice a dayNot-Taking/PRNSUMAtriptan Succinate 100 MG Tablet TAKE ONE TABLET BY MOUTH TWICE A DAY NEEDED Pramipexole Dihydrochloride 0.25 MG Tablet 1 tablet before bedtime Orally Once a dayHyoscyamine Sulfate 0.125 MG Tablet Sublingual 1 tablet under the tongue and allow to dissolve before meals as needed Sublingual every 4 hrs as neededMedication List reviewed and reconciled with the patientNot-Taking/PRN SUMAtriptan Succinate 100 MG Tablet TAKE ONE TABLET BY MOUTH TWICE A DAY NEEDED Not-Taking/PRN Pramipexole Dihydrochloride 0.25 MG Tablet 1 tablet before bedtime Orally Once a dayNot-Taking/PRN Hyoscyamine Sulfate 0.125 MG Tablet Sublingual 1 tablet under the tongue and allow to dissolve before meals as needed Sublingual every 4 hrs as neededMedication List reviewed and reconciled with the patient * Allergies: p enicillin: hivesIVP dye: huge hivesGadolinium: hivesyes[Allergies Verified] Objective: * Vitals: H t: 66.5, Wt:175, BMI:27.82, BP:136/90, Repeat BP:136/78 weight is up 6 pounds since 02-08-23. * P ast Orders: L ab:UA ClnCatch+Micro w/rflx Cult (Order Date - 02/06/2024) (Collection Date - 02/06/2024) Value Reference Range Color Urine Dark Yellow - Appearance Urine Clear - PH 5.5 5.0-9.0 - Glucose Urine UA Negative Negative - mg/dL Urine Blood Small (1+) A Negative - Specific [place] - Urine >= 1.030 H 1.005-1.025 - Urine Protein Trace Neg-Trace - mg/dL Urine Ketones Negative Negative - mg/dL Nitrite Urine Negative Negative - Leukocyte Esterase Urine Trace A Negative - RBC Urine 3-5 A 0-2 - /HPF WBC Urine 0-5 0-5 - /HPF Squamous Epithelial Cell Urine 3-5 0-2 - /HP F Bacteria Urine None Seen None Seen - Hyaline Casts Urine 0-2 0-2 - /LPF L ab:Complete Blood Count Auto Diff (Order Date - 02/06/2024) (Collection Date - 02/06/2024) Value Reference Range White Blood Count 4.6 L 4.8-10.8 - X10*3/uL Red Blood Count 4.69 4.20-5.50 - X10*6/uL Hemoglobin 13.8 12.0-16.0 - g/dl Hematocrit 41.9 37.0-47.0 - % Mean Corpuscular Volume 89.3 80.0-98.0 - fL Mean Corpuscular Hemoglobin 29.4 27.0-33.0 - pg Mean Corpuscular HGB Conc 32.9 31.0-35.0 - g/ dl Red Cell Distribution Width 12.0 11.0-16.0 - % Platelet Count 238 160-400 - X10*3/uL Mean Platelet Volume 10.6 9.4-12.3 - fL Neutrophils Percent Auto 38.3 L 45-73 - % Imm Gran Pct Auto 0.2 0.0-0.4 - % Lymphocytes Percent Auto 43.5 H 20-40 - % Monocytes Percent Auto 13.8 H 2-11 - % Eosinophils Percent Auto 3.1 0-4 - % Basophils Percent Auto 1.1 0-2 - % NRBC Pct Auto 0.0 0.0-0.2 - /100WBC Neutrophils Absolute Auto 1.8 L 2.0-8.3 - x10* 3/uL Imm Gran Abs Auto 0.01 0.00-0.03 - X10*3/uL Lymphocytes Absolute Auto 2.0 1.2-4.9 - X10* 3/uL Monocytes Absolute Auto 0.6 0.1-1.2 - X10*3/ uL Eosinophils Absolute Auto 0.1 0.0-0.4 - X10* 3/uL Basophils Absolute Auto 0.1 0.0-0.2 - X10*3/ uL NRBC Abs Auto 0.000 0.0-0.012 - X10*3/uL L ab:Comprehensive [place]. Panel Fast (Order Date - 02/06/2024) (Collection Date - 02/06/2024) Value Reference Range Sodium 142 135-145 - mmol/L Bilirubin Total 0.9 0.0-1.0 - mg/dL Aspartate Amino Transferase 22 5-31 - U/L Alanine Aminotransferase 15 0-31 - U/L Total Protein 6.9 6.5-8.0 - g/dL Albumin Level 3.9 3.5-5.0 - g/dL Alkaline Phosphatase 53 39-117 - U/L Potassium 3.9 3.3-5.1 - mmol/L Chloride 108 96-108 - mmol/L Carbon Dioxide 28 22-29 - mmol/L Anion Gap 10 L 12-20 - Blood Urea Nitrogen 10 9-16 - mg/dL Creatinine 1.14 0.5-1.4 - mg/dL Estimated Glomerular Filt Rate 47 - Glucose Fasting 102 H 60-99 - mg/dL Calcium 8.9 8.4-10.2 - mg/dL L ab:Lipid Panel (Order Date - 02/06/2024) (Collection Date - 02/06/2024) Value Reference Range Triglycerides 147 <150 - mg/dL Cholesterol 250 H <200 - mg/dL LDL Cholesterol Calculated 144 H <100 - mg/dL HDL Cholesterol 77 >40 - mg/dL L ab:Vitamin D 25-OH Total (Order Date - 02/06/2024) (Collection Date - 02/06/2024) Value Reference Range Vitamin D 25-OH Total 50.3 >30 - ng/mL * Examination: G eneral Examination: GENERAL APPEARANCE: w ell developed, well nourished, in no acute distress. HEAD: n ormocephalic, atraumatic. EYES: p upils equal, round, reactive to light and accommodation, sclera non-icteric. EARS: n ormal. ORAL CAVITY: m ucosa moist. THROAT: c lear. NECK/THYROID: n duc supple, full range of motion, no cervical lymphadenopathy, no bruits. SKIN: w arm and dry, no suspicious lesions. HEART: r egular rate and rhythm, S1, S2 normal, no murmurs.? LUNGS: c lear to auscultation bilaterally. BREASTS: n ot examined. ABDOMEN: s oft, nontender, nondistended, bowel sounds present, normal, no organomegaly , no masses palpable. RECTAL EXAM: d one by control valve mechanic. FEMALE GENITOURINARY: d one by control valve mechanic. EXTREMITIES: n o clubbing, cyanosis, or edema. NEUROLOGIC: n onfocal, motor strength normal upper and lower extremities, sensory exam intact. Assessment: * Assessment: 1. M ild intermittent asthmatic bronchitis with acute exacerbation - J45.21 (Primary) 2 .?Microscopic hematuria - R31.29 3 . L ymphocytosis - D72.820 4 . P ure hypercholesterolemia - E78.00 5 . V itamin D deficiency - E55.9 6 . D ysthymia - F34.1 Plan: * Treatment: 2. P ure hypercholesterolemia Notes: stable, will continue to monitor 3. V itamin D deficiency Continue Vitamin D Tablet, 1000 UNIT, 1 tablet, Orally, Once a day. Notes: stable, will continue current regiment 4. D ysthymia Continue Wellbutrin XL Tablet Extended Release 24 Hour, 300 MG, 1 tablet in the morning, Orally, Once a day. Notes: stale, will continue current regiment * Procedure Codes: * Follow Up: 6 Months * * Sign off status: Completed true * Provider: Dean Vega MD Date: 04/16/2023 Generated for Sorin johns/Margy/Coco on: 04/08/2024 12:32 PM EST History and Physical Notes * HPI (History of Present Illness) Category Sub-Category Detail Notes Category Not es Symptom(s) Patient is a 73 yo female here for review of recent labs and follow up of chronic issues. here for yearly exam. having trouble with hearing. Depression Screening PHQ-9 Little inte rest or pleasure in doing things: Several days Feeling down, depressed, or hopeless: Mo re than half the days Trouble falling or staying asleep, or sl eeping too much: Nearly every day Feeling tired or having little energy: N early every day Poor appetite or overeating: Nearly ever y day Feeling bad about yourself o r that you are a failure, or have let yourself or your family down: Nearly every day Trouble concentrating on thi ngs, such as reading the newspaper or watching television: Several days Moving or speaking so slowly that other people could have noticed; or the opposite, being so fidgety or restless that you have been moving around a lot more than usual: Not at all Thoughts that you would be b leonides off or of hurting yourself in some way: Not at all Total Score: 16 Interpretation: Moderately Severe Depres terell SDOH Questions SDOH Questions In the past year have you been worried about losing housing?: No In the past year have you or any family members you live with been unable to get any of the following when it was really needed? Check all that apply:: None Fall Risk History Have you had any falls with injury i n the past year?: No Have you had two or more falls in the year?: No Communication Needs Communication Needs Does the patient have a hearing impairment: Yes If yes, what is the hearing impairment?: Hard of hearing, Hearing Aids Does the patient have a vision impairmen t?: Yes If yes, what is the vision impairment?: Glasses Does the patient have a cognition impair ment?: No Examination Category Sub-Category Detail Notes Category Not es General Examination GENERAL APPEARANCE: well dev eloped, well nourished, in no acute distress HEAD: normocephalic, atrau matic EYES: pupils equal, round, reactive to light and accommodation, sclera non-icteric EARS: normal THROAT: clear NECK/THYROID: neck supple, full ra nge of motion, no cervical lymphadenopathy, no bruits HEART: regular rate and rhy thm, S1, S2 normal, no murmurs LUNGS: clear to auscultatio n bilaterally ABDOMEN: soft, nontender, non distended, bowel sounds present, normal, no organomegaly , no masses palpable NEUROLOGIC: nonfocal, motor stre ngth normal upper and lower extremities, sensory exam intact SKIN: warm and dry, no makayla picious lesions EXTREMITIES: no clubbing, cyanosi s, or edema BREASTS: not examined RECTAL EXAM: done by control valve mechanic FEMALE GENITOURINARY: done by control valve mechanic ORAL CAVITY: mucosa moist
--- OUTSIDE RECORDS SUMMARY | 2024-03-09 10:00 | XMS_ITS ---
Author Organization Harpreet Vega MD Address [address] [place], [place] [id number] Care Team Providers Care Purchasing Buyer Name Role Phone Harpreet Vega Primary Care Provider [phone] Allergies Allergen (clinical drug ingredient) Drug/Non Drug Allergy documented on EMR Reaction Allergy Type Onset Date Status Gadolinium hives Drug Allergy Active IVP dye (uncoded) huge hives Allergy A ctive penicillin (uncoded) hives Allergy Active Results Component Value Reference Range Notes Tick-borne Disease Molecular Reviewed date:03/11/2024 03:25:40 PM Interpretation: Performing Lab:[facility], [address] [place] [phone] Notes/Report: Babesia Microti DNA, RT-PCR NOT DETECTED NOT DETECTED This test was developed and its analytical performance characteristics have been determined by [employer]. It has not been cleared or approved by the FDA. This assay has been validated pursuant to the CLIA regulations and is used for clinical purposes. THIS TEST WAS PERFORMED AT: [facility] [address] [place] [phone] JENNY BLAIR MD E.Chaffeensis DNA RT-PCR NOT DETECTED NOT DETECTED This test was developed and its analytical performance characteristics have been determined by [employer]. It has not been cleared or approved by the FDA. This assay has been validated pursuant to the CLIA regulations and is used for clinical purposes. THIS TEST WAS PERFORMED AT: [facility] [address] [place] [phone] JENNY BLAIR MD A. Phagocytphilium DNA,RT-PCR NOT DETECTED NOT DETECTE D This test was developed and its analytical performance characteristics have been determined by [employer]. It has not been cleared or approved by the FDA. This assay has been validated pursuant to the CLIA regulations and is used for clinical purposes. Lyme(Borrelia ssp)DNA RT-PCR NOT DETECTED NOT DETECTED This test was developed and its analytical performance characteristics have been determined by [employer]. It has not been cleared or approved by the FDA. This assay has been validated pursuant to the CLIA regulations and is used for clinical purposes. For additional information, please refer to https://education.MixCom[employer]./faq/qel537 (This link is being provided for informational/ educational purposes only.) THIS TEST WAS PERFORMED AT: [facility] [address] [place] [phone] JENNY BLAIR MD Borrelia Miyamotoi,DNA RT-PCR NOT DETECTED NOT DETECTE D This test detects but does not distinguish between B. miyamotoi and B. hermsii. This test was developed and its analytical performance characteristics have been determined by [employer]. It has not been cleared or approved by the FDA. This assay has been validated pursuant to the CLIA regulations and is used for clinical purposes. THIS TEST WAS PERFORMED AT: [facility] [address] [place] [phone] JENNY BLAIR MD Tick Mol. Panel Cmmt [...] be indicated. THIS TEST WAS PERFORMED AT: [facility] [address] [place] [phone] JENNY BLAIR MD REASON FOR VISIT bilateral [...] Problem Status W/U Status Risk Notes Problem [id number] Bilateral carpal tunnel syndrome (G56.03) Active confirmed Vital Signs Blood pressure systolic 148 mm Hg 03/09/19 25 Blood pressure diastolic 80 mm Hg 025 Height 66.5 in 03/09/2024 refused weight Encounters Encounter Location Date Provider Diagnosis Harpreet Vega MD [address] [facility] [address] [place], [place] [phone] 03/09/2024 Harpreet Vega Migraine with visual aura [...] testing, [place]G [place] [facility] [place], patient can't write due to [...] testing, THE EMG ORDER WAS [place]ED [place] [facility] [place] [place] [facility], patient can't write due to [...] Up: 2 Months, Reason: Provider Name:Harpreet gunter, 02/23/2025 09:30:00 AM, [address] [facility], [address], [place], [place], [id number], Progress Notes * YANNILYN ManuelaDOB:1950 (73 yo F)Acc No.[id number]:03/09/2024 Progress Notes Patient: Manuela Jose Provider: Dean Vega MD :1950 A ge:73 Y S ex:Female Date:03/09/2024 Address:[address] [place], [place] [phone] Subjective: * Chief Complaints: * B ilateral shoulder pain x 2 months and right hand x 1 monthAccompanied by emma * HPI: S ymptom(s): patient is a [...] testing, THE EMG ORDER WAS [place] [facility] [place] [place] [facility], patient can't write due to [...] 0 03/09/2024 Generated for Sorin johns/Margy/eTransmitting on: 04/08/2024 12:33 PM EST History and [...]
--- OUTSIDE RECORDS SUMMARY | 2024-04-02 05:15 | XMS_ITS ---
Author Organization Harpreet Vega MD Address [address] [place], [place] [phone] Care Team Providers Care Sexual Assault Social Worker Name Role Phone Harpreet Vega Primary Care [...] >per patient's request wants to go to [facility] Rheumatology faxed in Hilary Annette 04/09/2024 08:56:45 [...] Problem Status W/U Status Risk Notes Problem [id number] Arthritis (M19.90) Active confirmed Vital Signs Blood pressure systolic 120 mm Hg 04/02/19 25 Blood pressure diastolic 66 mm Hg 025 Height 66.5 in 04/02/2024 weight refused Encounters Encounter Location Date Provider Diagnosis Harpreet Vega MD [address] [place], [place] [phone] 04/02/2024 Harpreet Vega Arthritis M19.90 Assessments Encounter Date Diagnosis (ICD Code) Assessment Notes Treatment Notes Treatment Clinical Notes Section Notes 04/02/2024 Arthritis (ICD-10 - M19.90) will refer to zigzagger . they are going [place] get [place] [facility] [place] Plan Of Treatment Treatment Notes Assessment Notes Arthritis will refer to rheuma tologist. they are going [place] get [place] [facility] Referrals Referral Date Details 04/02/2024 04/02/2024, [facility] Next Appt Details Provider Name:Harpreet gunter, 02/23/2025 09:30:00 AM, [address], [address], [place], [place], [phone], Progress Notes * Birgit NASCIMENTO:1950 (73 yo F)Acc No.[id number]:04/02/2024 Progress Notes Patient: Manuela COLE Provider: Dean Vega MD :1950 A ge:73 Y S ex:Female Date:04/02/2024 Address:[address] [place], [place] [address], [id number] Subjective: * Chief Complaints: * L eg [...] MD Date: 0 04/02/2024 Generated for Sorin johns/Margy/eTransmitting on: 04/08/2024 12:32 PM EST History and [...] Not es 04/02/2024 Harpreet Vega [facility]thritis [facility], [facility] arthritis
--- OUTSIDE RECORDS SUMMARY | 2024-07-14 05:00 | XMS_ITS ---
Author Organization Harpreet Vega MD Address [address] [place], [place] [phone] Care Team Providers Care Recording Engineer Name Role Phone Harpreet Vega Primary Care Provider Allergies Allergen (clinical drug ingredient) Drug/Non Drug Allergy documented on EMR Reaction Allergy Type Onset Date Status Gadolinium hives Drug Allergy Active IVP dye (uncoded) huge hives Allergy A ctive penicillin (uncoded) hives Allergy Active REASON FOR VISIT 6 week, Accompanied by Medications Medication SIG (Take, Route, Frequency, Duration) Notes Start Date End Date Status LORazepam 1 MG 2 tablet HS Act murray diphenhydrAMINE HCl 50 MG 1 capsule at b edtime as needed Orally take one hour before the test for 1 days 02/14/2023 Active Vitamin D 1000 UNIT 1 tablet Orally Once a day Active Albuterol Sulfate HFA 108 (90 Base) MCG/ACT 1 puff as needed Inhalation every 4 hrs 08/03/2022 Active Methotrexate Sodium 2.5 MG 6 tabs on Sat Orally Active EpiPen 2-Bulmaro 0.3 MG/0.3ML as directed In jection daily as needed for 30 days Active Folic Acid 1 MG 1 tablet Orally Once a day Active [...] Problem Status W/U Status Risk Notes Problem Rheumatoid arthritis (52888687) Rheumatoid arthritis (M06.9) Active confirmed Vital Signs Blood pressure systolic 118 mm Hg 07/15/19 25 Blood pressure diastolic 70 mm Hg 025 Height 66.5 in 07/14/2024 Encounters Encounter Location Date Provider Diagnosis Harpreet Vega MD [address] [place], [place] [phone] 07/14/2024 Harpreet Vega Carpal tunnel syndrome G56.00 and Rheumatoid arthritis M06.9 Assessments Encounter Date Diagnosis (ICD Code) Assessment Notes Treatment Notes Treatment Clinical Notes Section Notes 07/14/2024 Carpal tunnel syndrome (ICD-10 - G56.00) waiting for hand surgeon 07/14/2024 Rheumatoid arthritis (ICD-10 - M06.9) doing slightly better Plan Of Treatment Treatment Notes Assessment Notes Carpal tunnel syndrome waiting for hand surgeon Rheumatoid arthritis doing slightly bett er Next Appt Details Follow Up: 3 Months, Reason: Provider Name:Harpreet bhatr, 02/23/2025 09:30:00 AM, [address], [address], [place], [place], [phone], Progress Notes * AYNNILYN ManuelaDOB:1950 (74 yo F)Acc No.[id number]:07/14/2024 Progress Notes Patient: Manuela COLE Provider: Dean Vega MD :1950 A ge:74 Y S ex:Female Date:07/14/2024 Address:[address] [place] [phone] Subjective: * Chief Complaints: * 6 weekAccompanied by * HPI: S ymptom(s): patient is a 74 yo female here for 6 week follow up visit, doing well on methotrexate. * ROS: G eneral/Constitutional: Denies C hills. D enies F atigue. D enies F ever. D enies H eadache. E NT: Denies S ore throat. R espiratory: Denies C ough. D enies S hortness of breath at rest. D enies S hortness of breath with exertion. G astrointestinal: Denies D iarrhea. D enies N ausea. * Medical History: * Surgical History: * Hospitalization/Major Diagno stic Procedure: * Medications: T akingFolic Acid 1 MG Tablet 1 tablet Orally Once a day Methotrexate Sodium 2.5 MG Tablet 6 tabs on Orally LORazepam 1 MG Tablet 2 tablet HS diphenhydrAMINE [...] as directed Injection daily as needed Taking Folic Acid 1 MG Tablet 1 tablet Orally Once a day Taking Methotrexate Sodium 2.5 MG Tablet 6 tabs on Orally Taking LORazepam 1 MG Tablet 2 tablet [...] day Taking EpiPen 2-Bulmaro 0.3 MG/0.3ML Solution Auto- injector as directed Injection daily as needed Not-Taking/PRNSUMAtriptan [...] Verified] Objective: * Vitals: H t: 66.5, BP:118/70. * Examination: G eneral Examination: GENERAL APPEARANCE: a lert, well hydrated, in no distress, female. HEAD: n ormocephalic. SKIN: g ood turgor. HEART: r egular rate and rhythm. LUNGS: n o wheezes, rales, rhonchi, good air movement, clear to auscultation bilaterally. Assessment: * Assessment: 1. C arpal tunnel syndrome - G56.00 (Primary) 2 . R heumatoid arthritis - M06.9 Plan: * Treatment: 2. R heumatoid arthritis Notes: doing slightly better * Procedure Codes: * Follow Up: 3 Months * * Sign off status: Completed true * Provider: Dean Vega MD Date: 0 07/14/2024 Generated for Sorin johns/Margy/Светланаsmitting on: 1 04/08/2024 12:33 PM EST History and Physical Notes * HPI (History of Present Illness) Category Sub-Category Detail Notes Category Not es Symptom(s) patient is a 74 yo female here for 6 week follow up visit, doing well on methotrexate. Examination Category Sub-Category Detail Notes Category Not es General Examination GENERAL APPEARANCE: alert, w ell hydrated, in no distress, female HEAD: normocephalic HEART: regular rate and rhy thm LUNGS: no wheezes, rales, r honchi, good air movement, clear to auscultation bilaterally SKIN: good turgor
--- OUTSIDE RECORDS SUMMARY | 2024-08-03 03:00 | XMS_ITS ---
Author Organization Harpreet Vega MD Address [address] [place], [place] [phone] Care Team Providers Care Inspector Bicycle Name Role Phone Harpreet Vega Primary Care Provider Results Component Value Reference Range Notes Complete Blood Count Auto Di ff Reviewed date:08/03/2024 01:32:08 PM Interpretation: Performing Lab:[facility], [address] [place] [phone] Notes/Report: White Blood Count 5.9 4.8-10.8 X10*3/uL [...] Date Provider Diagnosis Harpreet Vega MD [address] [place] [address] Drive [address] [place], [place] [phone] 08/03/2024 Harpreet Vega Lymphocytosis D72.82 0 Assessments Encounter Date Diagnosis (ICD Code) Assessment Notes Treatment Notes Treatment Clinical Notes Section Notes 08/03/2024 Lymphocytosis (ICD-10 - D72.820) Plan Of Treatment Next Appt Details Provider Name:Harpreet bhatr, 02/23/2025 09:30:00 AM, [address] [place] [address], [address], [place], [place], [phone], Progress Notes * Manuela NASCIMENTODOB:1950 (74 yo F)Acc No.[id number]:08/03/2024 Progress Note Patient: Manuela COLE Provider: Dean Vega MD :1950 A ge:74 Y S ex:Female Date:08/03/2024 Address:[address] [place] [phone] Subjective: * Chief Complaints: * 1 . [...] 0 08/03/2024 Generated for Sorin johns/Margy/Coco on: 1 04/08/2024 12:30 PM EST
--- OUTSIDE RECORDS SUMMARY | 2024-11-09 05:15 | XMS_ITS ---
Author Organization Harpreet Vega MD Address [address] [place], [place] [id number] Care Team Providers Care Resident Care Supervisor Name Role Phone Harpreet Vega Primary Care Provider Allergies Allergen (clinical drug ingredient) Drug/Non Drug Allergy documented on EMR Reaction Allergy Type Onset Date Status Gadolinium hives Drug Allergy Active IVP dye (uncoded) huge hives Allergy A ctive penicillin (uncoded) hives Allergy Active REASON FOR VISIT 6 month Medications Medication SIG (Take, Route, Frequency, Duration) Notes Start Date End Date Status Hyoscyamine Sulfate 0.125 MG 1 tablet under the tongue and allow to dissolve before meals as needed Sublingual every 4 hrs as needed 01/29/2012 Not-Taking EpiPen 2-Bulmaro 0.3 MG/0.3ML as directed In jection daily as needed for 30 days Active Pulmicort 0.5 MG/2ML 1 mL Inhalation Twi ce a day 12/23/2023 Active Pramipexole Dihydrochloride 0.25 MG 1 tablet before bedtime Orally Once a day Not-Taking SUMAtriptan Succinate 100 MG TAKE ONE TABLET BY MOUTH TWICE A DAY NEEDED for 30 Not-Taking diphenhydrAMINE HCl 50 MG 1 capsule at b edtime as needed Orally take one hour before the test for 1 days 02/14/2023 Active LORazepam 1 MG 2 tablet HS Act murray Vitamin D 1000 UNIT 1 tablet Orally Once a day Active Albuterol Sulfate (2.5 MG/3ML) 0.083% 3 mL as needed Inhalation every 6 hrs 11/22/2023 Active Albuterol Sulfate HFA 108 (90 Base) MCG/ACT 1 puff as needed Inhalation every 4 hrs 08/03/2022 Active Methotrexate Sodium 2.5 MG 6 tabs on Sat Orally Active Folic Acid 1 MG 1 tablet Orally Once a day Active Immunizations Vaccine Route Administration Date Status Comme nts Influenza High Dose IM Intramuscular 11/09/2024 Administer ed Vital Signs Blood pressure systolic 120 mm Hg 11/10/19 25 Blood pressure diastolic 72 mm Hg 025 Height 66.5 in 11/09/2024 weight refused Encounters Encounter Location Date Provider Diagnosis Harpreet Vega MD [address] [place] [address] [address] [place], [place] [id number] 11/09/2024 Harpreet Vega Encounter for administration of vaccine Z23 and Arthritis M19.90 Assessments Encounter Date Diagnosis (ICD Code) Assessment Notes Treatment Notes Treatment Clinical Notes Section Notes 11/09/2024 Encounter for administration of vaccine (ICD-10 - Z23) HD flu vaccine administered 11/09/2024 Arthritis (ICD-10 - M19.90) doing great on methotrexate, will contiue current regiment Plan Of Treatment Treatment Notes Assessment Notes Encounter for administration of vaccine HD flu vaccine administered Arthritis doing great on metho trexate, will contiue current regiment Next Appt Details Provider Name:Harpreet gunter, 02/23/2025 09:30:00 AM, [address] [place] [address], [address], [place], [place], [id number], Progress Notes * YANNIChristianoKYLE ManuelaDOB:1950 (74 yo F)Acc No.[id number]:11/09/2024 Progress Notes Patient: Manuela COLE Provider: Dean Vega MD :1950 A ge:74 Y S ex:Female Date:11/09/2024 Address:[address] [place] [id number] Subjective: * Chief Complaints: * 6 month * HPI: S ymptom(s): patient is a 74 yo female here for 6 month follow up visit/ here for follow up.had been having nausea and diarrhea since starting on methotrexate. stil had the nausea and headache when off the methotrexate for one week. is dividing the methotrexate and is doing well. * ROS: G eneral/Constitutional: Denies C hills. D enies F atigue. D enies F ever. D enies H eadache. E NT: Denies S ore throat. R espiratory: Denies C ough. D enies S hortness of breath at rest. D enies S hortness of breath with exertion. G astrointestinal: Admits D iarrhea. D enies N ausea. * [...] Verified] Objective: * Vitals: H t: 66.5, BP:120/72. weight refused. * Examination: G eneral Examination: GENERAL APPEARANCE: a lert, well hydrated, in no distress.? HEAD: n ormocephalic. SKIN: g ood turgor. HEART: n o murmurs, rubs, gallops, regular rate and rhythm.? LUNGS: n o wheezes, rales, rhonchi, good air movement, clear to auscultation bilaterally. EXTREMITIES: w ith joints looking normal. ? Assessment: * Assessment: 1. A rthritis - M19.90 (Primary) 2 . E ncounter for administration of vaccine - Z23 Plan: * Treatment: 2. E ncounter for administration of vaccine Notes: HD flu vaccine administered * Immunizations: Influenza High Dose : 0.5 mL (Dose No:1) (Route: Intramuscular) given by Linda Madera , Office Staff on Left Deltoid * Procedure Codes: 9 0662 FLU VACC PRSV FREE INC [id number] ADMN FLU VAC NO FEE SCHED SAME DAY * Preventive Medicine: Immunizations: I nfluenza H ave you had a flu shot since the most recent November 02? Y es. * * Sign off status: Completed true * Provider: Dean Vega MD Date: 0 11/09/2024 Generated for Sorin johns/Margy/eTransmitting on: 1 04/08/2024 12:33 PM EST History and Physical Notes * HPI (History of Present Illness) Category Sub-Category Detail Notes Category Not es Symptom(s) patient is a 74 yo female here for 6 month follow up visit/ here for follow up.had been having nausea and diarrhea since starting on methotrexate. stil had the nausea and headache when off the methotrexate for one week. is dividing the methotrexate and is doing well. Examination Category Sub-Category Detail Notes Category Not es General Examination GENERAL APPEARANCE: alert, w ell hydrated, in no distress HEAD: normocephalic HEART: no murmurs, rubs, ga llops, regular rate and rhythm LUNGS: no wheezes, rales, r honchi, good air movement, clear to auscultation bilaterally SKIN: good turgor EXTREMITIES: with joints looking normal
--- OUTSIDE RECORDS SUMMARY | 2025-02-05 02:45 | XMS_ITS ---
Author Organization Harpreet Vega MD Address [address] [place], [place] [id number] Care Team Providers Care Tetryl Boiling Tub Operator Name Role Phone Harpreet Vega Primary Care Provider [phone] Results Component Value Reference Range Notes UA ClnCatch+Micro w/rflx Cul t (Not yet reviewed by provider) Interpretation: Performing Lab:[facility], [address] [place] [phone] Notes/Report: Urine, Clean Catch Color Urine Yellow Appearance Urine Clear PH 6.0 5.0-9.0 Glucose Urine UA Negative Negative mg/dL Urine Blood Moderate (2+) Negative Specific [place] - Urine 1.020 1.005-1.025 Urine Protein Negative Neg-Trace mg/dL Urine Ketones Negative Negative mg/dL Nitrite Urine Negative Negative Leukocyte Esterase Urine Negative Negative RBC Urine 0-2 0-2 /HPF WBC Urine 0-5 0-5 /HPF Squamous Epithelial Cell Urine 0-2 0-2 /HPF Bacteria Urine None Seen None Seen Hyaline Casts Urine 0-2 0-2 /LPF Complete Blood Count Auto Di ff Reviewed date:02/05/2025 11:44:00 AM Interpretation: Performing Lab:[facility], [address] [place] [phone] Notes/Report: White Blood Count 6.3 4.8-10.8 X10*3/uL Red Blood Count 4.54 4.20-5.50 X10*6/uL Hemoglobin 13.8 12.0-16.0 g/dl Hematocrit 42.8 37.0-47.0 % Mean Corpuscular Volume 94.3 80.0-98.0 fL Mean Corpuscular Hemoglobin 30.4 27.0-33.0 pg Mean Corpuscular HGB Conc 32.2 31.0-35.0 g/dl Red Cell Distribution Width 12.7 11.0-16.0 % Platelet Count 233 160-400 X10*3/uL Mean Platelet Volume 10.3 9.4-12.3 fL Neutrophils Percent Auto 51.0 45-73 % Imm Gran Pct Auto 0.3 0.0-0.4 % Lymphocytes Percent Auto 37.2 20-40 % Monocytes Percent Auto 8.5 2-11 % Eosinophils Percent Auto 2.1 0-4 % Basophils Percent Auto 0.9 0-2 % NRBC Pct Auto 0.0 0.0-0.2 /100WBC Neutrophils Absolute Auto 3.2 2.0-8.3 x10*3/u L Imm Gran Abs Auto 0.02 0.00-0.03 X10*3/uL Lymphocytes Absolute Auto 2.4 1.2-4.9 X10*3/u L Monocytes Absolute Auto 0.5 0.1-1.2 X10*3/uL Eosinophils Absolute Auto 0.1 0.0-0.4 X10*3/u L Basophils Absolute Auto 0.1 0.0-0.2 X10*3/uL NRBC Abs Auto 0.000 0.0-0.012 X10*3/uL Comprehensive [place]. Panel Fa st Reviewed date:02/05/2025 12:29:55 PM Interpretation: Performing Lab:[facility], [address] [place] [phone] Notes/Report: Sodium 142 135-145 mmol/L Potassium 3.8 3.3-5.1 mmol/L Chloride 107 96-108 mmol/L Carbon Dioxide 25 22-29 mmol/L Anion Gap 14 12-20 Blood Urea Nitrogen 14 9-16 mg/dL Creatinine 0.93 0.5-1.4 mg/dL Estimated Glomerular Filt Rate 59 Chronic Kidney Disease: Estimated GFR < 60 mL/min/1.73m2 Severe Kidney Disease: Estimated GFR < 15 mL/min/1.73m2 Glucose Fasting 83 60-99 mg/dL Calcium 9.0 8.4-10.2 mg/dL Bilirubin Total 1.0 0.0-1.0 mg/dL Aspartate Amino Transferase 28 5-31 U/L Alanine Aminotransferase 17 0-31 U/L Total Protein 6.9 6.5-8.0 g/dL Albumin Level 4.3 3.5-5.0 g/dL Alkaline Phosphatase 55 39-117 U/L Lipid Panel Reviewed date:02/05/2025 12:14:12 PM Interpretation: Performing Lab:[facility], [address] [place] [phone] Notes/Report: Triglycerides 176 <150 mg/dL Desirable Triglyceride: less than 150 mg/dL Borderline High Triglyceride 150-199 mg/dL High Triglyceride: 200-499 mg/dL Very High Triglyceride: greater than or equal to 5OO mg/dL Cholesterol 301 <200 mg/dL Desirable Cholesterol: less than 200 mg/dL Borderline High Cholesterol: 200-239 mg/dL High Cholesterol: greater than 239 mg/dL LDL Cholesterol Calculated 187 <100 mg/dL Desirable LDL: less than 100 mg/dL Near Optimal/Above Optimal LDL: 110-129 mg/dL Borderline High LDL: 130-159 mg/dL High LDL: 160-189 mg/dL Very High LDL: greater than or equal to 190 mg/dL HDL Cholesterol 79 >40 mg/dL Desirable HDL: greater than 40 mg/dL Note: This HDL assay may give artificially low results in patients with liver disease. Vitamin D 25-OH Total Reviewed date:02/05/2025 12:14:21 PM Interpretation: Performing Lab:[facility], [address] [place] [phone] Notes/Report: Vitamin D 25-OH Total 60.6 >30 ng/mL Health Based Reference Values* < 20 ng/mL Deficient 20-30 ng/mL Insufficient > 30 ng/mL Sufficient *Maribell BROWN. N Engl J Med. 2007;357:266-280 There is no well-established upper level of normal vitamin D levels. Some laboratories use 50 ng/mL as an upper limit of normal. However, toxicity is patient-dependent and may occur at any level. Careful correlation with the patient's presentation is necessary and, if there is concern for vitamin D toxicity, treatment should be considered irrespective of the serum level. Care must be taken in interpreting Vitamin [...] confirmed with another method such as LC-MS/MS. REASON FOR VISIT yearly fasting labs Encounters Encounter Location Date Provider Diagnosis Harpreet Vega MD [address] [place], [place] [id number] 02/05/2025 Harpreet Vega Pure hypercholestero lemia E78.00 ; Vitamin D deficiency E55.9 and Lymphocytosis D72.820 Assessments Encounter Date Diagnosis (ICD Code) Assessment Notes Treatment Notes Treatment Clinical Notes Section Notes 02/05/2025 Pure hypercholesterolemia (ICD-10 - E78.00) 02/05/2025 Vitamin D deficiency (ICD-10 - E55.9) 02/05/2025 Lymphocytosis (ICD-1 0 - D72.820) Plan Of Treatment Pending Test Test Name Order Date UA ClnCatch+Micro w/rflx Cult 02/05/2025 Next Appt Details Provider Name:Harpreet gunter, 02/23/2025 09:30:00 AM, [address] [facility], [address], [place], [place], [id number], Progress Notes * YANNILYN ManuelaDOB:1950 (74 yo F)Acc No.[id number]:02/05/2025 Progress Note Patient: Manuela COLE Provider: Dean Vega MD :1950 A ge:74 Y S ex:Female Date:02/05/2025 Address:[address] [place] [id number] Subjective: * Chief Complaints: * 1 . Yearly fasting labs. * Medical History: Objective: * Vitals: Assessment: * Assessment: 1. P ure hypercholesterolemia - E78.00 (Primary) 2 . V itamin D deficiency - E55.9 3 . L ymphocytosis - D72.820 Plan: * Treatment: 2. V itamin D deficiency L AB: UA ClnCatch+Micro w/rflx Cult (Collection Date & Time - 02/05/2025 07:45 AM) L AB: Complete Blood Count Auto Diff (Collection Date & Time - 02/05/2025 07:45 AM) L AB: Comprehensive [place]. Panel Fast (Collection Date & Time - 02/05/2025 07:45 AM) L AB: Lipid Panel (Collection Date & Time - 02/05/2025 07:45 AM) L AB: Vitamin D 25-OH Total (Collection Date & Time - 02/05/2025 07:45 AM) 3. L ymphocytosis L AB: UA ClnCatch+Micro w/rflx Cult (Collection Date & Time - 02/05/2025 07:45 AM) L AB: Complete Blood Count Auto Diff (Collection Date & Time - 02/05/2025 07:45 AM) L AB: Comprehensive [place]. Panel Fast (Collection Date & Time - 02/05/2025 07:45 AM) L AB: Lipid Panel (Collection Date & Time - 02/05/2025 07:45 AM) L AB: Vitamin D 25-OH Total (Collection Date & Time - 02/05/2025 07:45 AM) * Procedure Codes: 3 6415 VENIPUNCT, ROUTINE* * * The named appointment provid er may or may not be the originator of this progress note, and it is not deemed complete until electronically signed by the appointment provider. Sign off status: Pending * Provider: Dean Vega MD Date: 04/08/2024 Generated for Sorin johns/Margy/Coco on: 04/08/2024 12:33 PM EST
[2025-02-05 10:39] LABS: MANUAL DIFF FLAG NO
[2025-02-05 11:15] LABS: Hematocrit 42.8 % (37.0-47.0); Hemoglobin 13.8 g/dl (12.0-16.0); Imm Gran Abs Auto 0.02 X10*3/uL (0.00-0.03); Imm Gran Pct Auto 0.3 % (0.0-0.4); Lymphocytes Absolute Auto 2.4 X10*3/uL (1.2-4.9); Mean Corpuscular HGB Conc 32.2 g/dl (31.0-35.0); Mean Corpuscular Hemoglobin 30.4 pg (27.0-33.0); Mean Corpuscular Volume 94.3 fL (80.0-98.0); NRBC Abs Auto 0.000 X10*3/uL (0.0-0.012); NRBC Pct Auto 0.0 /100WBC (0.0-0.2); Platelet Count 233 X10*3/uL (160-400); Red Blood Count 4.54 X10*6/uL (4.20-5.50); White Blood Count 6.3 X10*3/uL (4.8-10.8)
[2025-02-05 11:27] LABS: Appearance Urine Clear; Glucose Urine UA Negative (Negative); PH 6.0 (5.0-9.0); Specific Gravity - Urine 1.020 (1.005-1.025); UMIC TRIGGER UACC YES
[2025-02-05 12:10] LABS: Alanine Aminotransferase 17 U/L (0-31); Albumin Level 4.3 g/dL (3.5-5.0); Alkaline Phosphatase 55 U/L (39-117); Anion Gap 14 (12-20); Aspartate Amino Transferase 28 U/L (5-31); Blood Urea Nitrogen 14 mg/dL (9-16); Calcium 9.0 mg/dL (8.4-10.2); Carbon Dioxide 25 mmol/L (22-29); Chloride 107 mmol/L (96-108); Cholesterol 301 mg/dL (<200); Estimated Glomerular Filt Rate 59; HDL Cholesterol 79 mg/dL (>40); Potassium 3.8 mmol/L (3.3-5.1); Sodium 142 mmol/L (135-145); Total Protein 6.9 g/dL (6.5-8.0); Triglycerides 176 mg/dL (<150)
--- OUTSIDE RECORDS SUMMARY | 2025-02-05 12:32 | XMS_ITS | Clinical Summary ---
Author Organization [address] [facility] Address [address] [place] [address] Phone Care Team Providers Care Merchandising Consultant Name Role Phone Harpreet Vega MD Primary [...] tunnel syndrome, unspecified upper limb 0 08/17/2024 Social History Tobacco Use Types Packs/Day Years [...] Last Done Comments Breast Cancer Screening 1950 Colorectal Cancer Screening: Colonoscopy 1950 Depression Screening 03/04/2024 Falls Risk Assessment 07/07/2024 Hepatitis C Screening 07/07/2024 Medicare Annual Wellness Visit 07/07/2024 Osteoporosis Screening (Bone Density Screening) 07/07/2024 Social Influencers of Health Screening 07/07/2024 COVID-19 Vaccine ( season) 2024 01/16/2024, 12/08/2022, 02/15/2022, Additional history [...] on patient's age to complete this topic Insurance MEDICARE [facility] Care Teams Merchandising Consultant Relationship Specialty Start Date End Date Harpreet Vega MD [address] [place] [address] [address] [place] [address] PCP - General Internal Medicine 07/07/24
--- OUTSIDE RECORDS SUMMARY | 2025-02-05 12:32 | XMS_ITS | Patient Health Record ---
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: Nonsmoker; no sig alcohol Nonsmoker; no sig alcohol Nonsmoker; no sig alcohol Problems Problem Type SNOMED Code ICD Code Onset Dates Problem Status W/U Status Risk Notes Problem Screening for malignant neoplasm of colon (119433591) Encounter for screening for malignant neoplasm of colon (Z12.11) Active confirmed Problem History of polyp of colon (situation) (284799412) Personal history of colonic polyps (Z86.010) Active confirmed Problem Cholelithiasis without obstruction (74954325) Calculus of gallbladder without cholecystitis without obstruction (K80.20) Active confirmed Problem Preprocedural examination (616746678893378) Preprocedural examination (Z01.818) Active confirmed Problem History of adenomatous polyp of colon (846639955) Hx of adenomatous colonic polyps (Z86.010) Active confirmed Problem Diverticulosis of sigmoid colon (998824007) Diverticulosis of sigmoid colon (K57.30) Active confirmed Problem Irritable bowel syndrome characterized by constipation (294277789) Irritable bowel syndrome with constipation (K58.1) Active confirmed Plan Of Treatment Future Test Test Name Order Date COLONOSCOPY 06/04/2013 COLONOSCOPY 12/30/2018 COLONOSCOPY 12/08/2020 Insurance Providers Payer Name Payer Address Payer Phone Subscriber Number Group Number Insured Name Patient Relationship to Insured Coverage Start Date Coverage End Date MEDICARE OF [place] [address] [facility] [place] [address] [phone] [id number] PEDRO NASCIMENTO Self - patient is the insured [employer] CLAIMS [address] [place] [address] [phone] [id number] PEDRO NASCIMENTO Self - patient is the [...] removed in 1991 as above--a t [facility] Right breast cyst removed in 1991-benign Left breast---milk ducts removed in 1973
--- OUTSIDE RECORDS SUMMARY | 2025-02-05 12:32 | XMS_ITS | Patient Health Record ---
Author Organization Harpreet Vega MD Address [address] [place], [place] [id number] Care Team Providers Care Suture Gauger Name Role Phone Harpreet Vega Primary Care Provider Allergies Allergen (clinical drug ingredient) Drug/Non Drug Allergy documented on EMR Reaction Allergy Type Onset Date Status Gadolinium hives Drug Allergy Active IVP dye (uncoded) huge hives Allergy A ctive penicillin (uncoded) hives Allergy Active Results Component Value Reference Range Notes Complete Blood Count Auto Di ff Reviewed date:02/06/2024 03:16:30 PM Interpretation: Performing Lab:[facility], [address] [place] [phone] Notes/Report: White Blood Count 4.6 4.8-10.8 X10*3/uL [...] NRBC Abs Auto 0.000 0.0-0.012 X10*3/uL Comprehensive Orange. Panel Fa st Reviewed date:02/06/2024 03:31:30 PM Interpretation: Performing Lab:[facility], [address] [place] [phone] Notes/Report: Sodium 142 135-145 mmol/L Potassium 3.9 [...] Panel Reviewed date:02/06/2024 03:13:49 PM Interpretation: Performing Lab:[facility], [address] [place] [phone] Notes/Report: Triglycerides 147 <150 mg/dL Desirable Triglyceride: [...] Total Reviewed date:02/06/2024 03:14:41 PM Interpretation: Performing Lab:[facility], [address] [place] [phone] Notes/Report: Vitamin D 25-OH Total 50.3 >30 [...] t Reviewed date:02/06/2024 03:14:32 PM Interpretation: Performing Lab:[facility], [address] [place] [phone] Notes/Report: Urine, Clean Catch Color Urine Dark Yellow Appearance Urine Clear PH 5.5 5.0-9.0 Glucose Urine UA Negative Negative mg/dL Urine Blood Small (1+) Negative Specific [place] - Urine >= 1.030 1.005-1.025 Urine Protein [...] ff Reviewed date:08/03/2024 01:32:08 PM Interpretation: Performing Lab:[facility], [address] [place] [phone] Notes/Report: White Blood Count 5.9 4.8-10.8 X10*3/uL [...] X10*3/uL NRBC Abs Auto 0.000 0.0-0.012 X10*3/uL UA ClnCatch+Micro w/rflx Cul t (Not yet reviewed by provider) Interpretation: Performing Lab:[facility], [address] [place] [phone] Notes/Report: Urine, Clean Catch Color Urine Yellow Appearance Urine Clear PH 6.0 5.0-9.0 Glucose Urine UA Negative Negative mg/dL Urine Blood Moderate (2+) Negative Specific [place] - Urine 1.020 1.005-1.025 Urine Protein Negative [...] ff Reviewed date:02/05/2025 11:44:00 AM Interpretation: Performing Lab:[facility], [address] [place] [phone] Notes/Report: White Blood Count 6.3 4.8-10.8 X10*3/uL [...] 0.0-0.2 /100WBC Neutrophils Absolute Auto 3.2 2.0-8.3 x10*3/uL Imm Gran Abs Auto 0.02 0.00-0.03 X10*3/uL Lymphocytes Absolute Auto 2.4 1.2-4.9 X10*3/uL Monocytes Absolute Auto 0.5 0.1-1.2 X10*3/uL Eosinophils Absolute Auto 0.1 0.0-0.4 X10*3/uL Basophils Absolute Auto 0.1 0.0-0.2 X10*3/uL NRBC Abs Auto 0.000 0.0-0.012 X10*3/uL Comprehensive Orange. Panel Fa st Reviewed date:02/05/2025 12:29:55 PM Interpretation: Performing Lab:[facility], [address] [place] [phone] Notes/Report: Sodium 142 135-145 mmol/L Potassium 3.8 [...] Panel Reviewed date:02/05/2025 12:14:12 PM Interpretation: Performing Lab:[facility], [address] [place] [phone] Notes/Report: Triglycerides 176 <150 mg/dL Desirable Triglyceride: [...] Total Reviewed date:02/05/2025 12:14:21 PM Interpretation: Performing Lab:[address] [phone] Notes/Report: Vitamin D 25-OH Total 60.6 >30 [...] confirmed with another method such as LC-MS/MS. Tick-borne Disease Molecular Reviewed date:03/11/2024 03:25:40 PM Interpretation: Performing Lab:[address] [phone] Notes/Report: Babesia Microti DNA, RT-PCR NOT DETECTED NOT DETECTED This test was developed and its analytical performance characteristics have been determined by [facility]. It has not been cleared or approved by the FDA. This assay has been validated pursuant to the CLIA regulations and is used for clinical purposes. THIS TEST WAS PERFORMED AT: [facility] [address] [phone] JENNY BLIAR MD E.Chaffeensis DNA RT-PCR NOT DETECTED NOT DETECTED This test was developed and its analytical performance characteristics have been determined by [facility]. It has not been cleared or approved by the FDA. This assay has been validated pursuant to the CLIA regulations and is used for clinical purposes. THIS TEST WAS PERFORMED AT: [facility] [address] [place] [phone] JENNY BLAIR MD A. Phagocytphilium DNA,RT-PCR NOT DETECTED NOT DETECTED This test was developed and its analytical performance characteristics have been determined by [facility]. It has not been cleared or approved by the FDA. This assay has been validated pursuant to the CLIA regulations and is used for clinical purposes. Lyme(Borrelia ssp)DNA RT-PCR NOT DETECTED NOT DETECTED This test was developed and its analytical performance characteristics have been determined by [facility]. It has not been cleared or approved by the FDA. This assay has been validated pursuant to the CLIA regulations and is used for clinical purposes. For additional information, please refer to https://education.opendorse/faq /jkv207 (This link is being provided for informational/ educational purposes only.) THIS TEST WAS PERFORMED AT: [facility] [address] [place] [phone] JENNY BLAIR MD Borrelia Miyamotoi,DNA RT-PCR NOT DETECTED NOT DETECTED This test detects but does not distinguish between B. miyamotoi and B. hermsii. This test was developed and its analytical performance characteristics have been determined by [facility]. It has not been cleared or approved by the FDA. This assay has been validated pursuant to the CLIA regulations and is used for clinical purposes. THIS TEST WAS PERFORMED AT: [facility] [address] [place] [phone] JENNY BLAIR MD Tick Mol. Panel Cmmt [...] be indicated. THIS TEST WAS PERFORMED AT: [facility] [address] [place] [phone] MD Katina BENTON Reviewed date:02/06/2024 12:50:56 PM Interpretation: Performing Lab:[facility], [address] [facility], [place] [address] Notes/Report: Katina Benitez See Note Specimen held untested for 24 hours; Call to request Chemistry testing. MM tomosynthesis screening B I Reviewed date:11/03/2024 06:33:43 PM Interpretation: Performing Lab: Notes/Report: [facility] [address] [place] [address] Mammography Report Signed Patient: Pedro Joshi MR#: [id number] 9 : 1950 Acct:[id number] Age/Sex: 74 / F ADM Date: 11/03/24 Loc: HO.MAMMO Attending Dr: Harpreet Vega MD Ordering Physician: Harpreet Vega MD Results: 2Be nign Findings Date of Service: 11/03/24 Follow Up: 1 Year From Orig ina Mammogram Procedure(s): MM tomosynthesis screening BI Accession Number(s): [id number] cc: Harpreet Vega MD EXAMINATION: MM SCREENING [...] Dede Mcfarland DO 11/03/2024 01:26 PM EDT Dictated By: Tyminski,Dede DO Signed By: <Electronically signed by Dede Mcfarland DO in OV> 11/03/24 1326 DD/ TD/TT: 11/03/24939 Tempering Oven Operator: [facility] [address] [place] [address] Dr. Kaur, SINDY [address] Mammography Report Signed Patient: Moses Joshi ra MR#: [id number] 9 : 1950 Acct:[id number] Age/Sex: 74 / F ADM Date: 11/03/24 Loc: HO.MAMMO Attending Dr: Harpreet Vega MD Ordering Physician: Harpreet Vega MD Results: 2Be nign Findings Date of Service: 11/03/24 Follow Up: 1 Year From Orig inal Mammogram Procedure(s): MM tomosynthesis screening BI Accession Number(s): [id number] cc: Harpreet Vega MD EXAMINATION: MM SCREENING [...] Dede Mcfarland DO 11/03/2024 01:26 PM EDT Dictated By: Dede Mcfarland DO Signed By: <Electronically signed by Dede Mcfarland DO in OV> 11/03/24 1326 DD/ TD/TT: 09/02/25 0940 Tempering Oven Operator: Reason For Referral Reason arthritis Diagnosis 1 Arthritis (M19.90) Referral Organization Harpreet Vega MD Referring Provider First Name Harpreet Referring Provider Last Name Silvia Referring Provider Speciality Internal edicine [facility] Provider [facility] Referred Provider Specialty Rheumatology General Notes Flores Richard 0 04/03/2024 11:52:43 AM >info faxedHilary Annette 04/07/2024 01:34:01 PM >per patient's request wants to go [place] [facility] faxed in Hilary Annette 04/09/2024 08:56:45 [...] on . they are backed logged phone [phone] ask for Hilary LEON Annette 07/31/2024 03:30:04 [...] 06/14/2015 Administered Fluarix Quadrivalent IM Intramuscular 12/05/2015 Administoscar red Prevnar 13 IM Intramuscular 07/03/2016 Administered [...] Problem Status W/U Status Risk Notes Problem 879662130 Actinic keratosi s (L57.0) Active confirmed Problem 946939195 Neuropathy (G62.9) Active confirmed Problem 16057840 Lymphocytosis (D72.820) Active confirmed Problem Carpal tunnel syndrome (28703795) Carpal tunnel syndrome (G56.00) Active confirmed Problem 25023554 Restless leg syn drome (G25.81) Active confirmed Problem 33059496 Vitamin D defici ency (E55.9) Active confirmed Problem 153515324 Dupuytren contra cture (M72.0) Active confirmed Problem 245904629 Other specified menopausal and perimenopausal disorders (N95.8) Active confirmed Problem 9687509 Arthritis (M19.90) Active confirmed Problem 811535385 Lumbar disc dise ase (M51.9) Active confirmed Problem 541831034 Tubular adenoma of colon (D12.6) Active confirmed Problem 500002864 Cervical disc di sease (M50.90) Active confirmed Problem 615465700 Migraine without aura and without status migrainosus, not intractable (G43.009) Active confirmed Problem 134365266 Gall stones (K80.20) Active confirmed Problem 789816124203815 Carpal tunnel sy ndrome of right wrist (G56.01) Active confirmed Problem Rheumatoid arthritis (74377035) Rheumatoid arthritis (M06.9) Active confirmed Problem 57648917 Dysthymia (F34.1) Active confirmed Problem 58961091 Sleep apnea, unspecified type (G47.30) Active confirmed Problem 717146061 Psychophysiologi nj insomnia (F51.04) Active confirmed Problem 518955398 Pure hypercholesterolemia (E78.00) Active confirmed Problem 31017448582387172 Bilateral carp al tunnel syndrome (G56.03) Active confirmed Problem 910306772 Mild intermitten t asthmatic bronchitis with acute exacerbation (J45.21) Active confirmed Problem 637620632 Moderate persist ent asthmatic bronchitis with acute exacerbation (J45.41) Active confirmed Problem 913674072 Malignant neopla sm of kidney, 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00 and Vitamin D deficiency E55.9 [address]reet V[address] [place] [id number] 08/03/2024 Harpreet Vega Lymphocytosis D72.82 [address] V[address] [place] [id number] 02/05/2025 Harpreet Vega Pure hypercholestero lemia E78.00 ; Vitamin D deficiency E55.9 and Lymphocytosis D72.820 Harpreet Vega MD [address] [place] [address] [id number] 02/14/2024 Harpreet Vega Mild intermittent asthmatic bronchitis with acute exacerbation J45.21 ; Microscopic hematuria R31.29 ; Lymphocytosis D72.820 ; Pure hypercholesterolemia E78.00 ; Vitamin D deficiency E55.9 and Dysthymia F34.1 Harpreet Vega MD [address] [place] [id number] 03/09/2024 Harpreet Vega Migraine with visual aura G43.109 ; Bilateral carpal tunnel syndrome G56.03 ; Hives of unknown origin L50.9 and Diffuse arthralgia M25.50 Harpreet Vega MD [address] [place] [id number] 04/02/2024 Harpreet Vega Arthritis M19.90 Harpreet Vega MD [address] [place] [address] Drive [address] [place] [id number] 06/01/2024 Harpreet Vega Neuropathy G62.9 and Carpal tunnel syndrome G56.00 Harpreet Vega MD [address] [place] [address] Drive [address] [place] [id number] 07/14/2024 Harpreet Vega Carpal tunnel syndro me G56.00 and Rheumatoid arthritis M06.9 Harpreet Vega MD [address] [place] [address] Drive [address] [place] [address] [id number] 11/09/2024 Harpreet Vega Encounter for administration of vaccine Z23 and Arthritis M19.90 Assessments Encounter Date Diagnosis (ICD Code) Assessment Notes Treatment Notes Treatment Clinical Notes Section Notes 02/06/2024 Pure hypercholesterolemia (ICD-10 - E78.00) 02/06/2024 Vitamin D deficiency (ICD-10 - E55.9) 08/03/2024 Lymphocytosis (ICD-1 0 - D72.820) 02/05/2025 Pure hypercholesterolemia (ICD-10 - E78.00) 02/14/2024 Mild intermittent asthmatic bronchitis with acute [...] EMG ORDER WAS FA[place] [facility] [place], patient can't write due to inablilty to hold pen. seems could be carpal tunnel 04/02/2024 Arthritis (ICD-10 - M19.90) will refer to baseball scout. they are going to try to get [facility] will 06/01/2024 Neuropathy (ICD-10 - G62.9) comes [...] great on methotrexate, will contiue current regiment 02/05/2025 Vitamin D deficiency (ICD-10 - E55.9) 02/14/2024 Lymphocytosis (ICD-1 0 - D72.820) 03/09/2024 Hives of unknown regina gin (ICD-10 - L50.9) she had eaten shrimp minutes before the hive. am concerned that she has developed a seafod allergy so will give an epi pen 02/05/2025 Lymphocytosis (ICD-1 0 - D72.820) 02/14/2024 Pure [...] 2 VIEW PA & LAT 02/08/2023 XR CHEST 2 VIEW PA & LAT 11/22/2023 XR GI SERIES 04/01/2023 BONE DENSITY DEXA 12/05/2020 EMG 03/09/2024 CT abdomen pelvis wo/w con 02/08/2023 UA ClnCatch+Micro w/rflx Cult 02/05/2025 Next Appt Details Provider Name:Harpreet Cervantes ier, 02/23/2025 09:30:00 AM, [address], [address], [place], [place], [id number], Insurance Providers Payer Name Payer Address Payer Phone Subscriber Number Group Number Insured Name Patient Relationship to Insured Coverage Start Date Coverage End Date MEDICARE [employer] [address] [place] [address] [id number] Pedro Joshi Self - patient is the insured [employer] [address] [place], [place] [id number] Pedro Joshi Self - patient is [...]
== END 2025-02-05 10:35 | disposition home or self-care (01) ==
LOC: HO.LNP 10:34
PROVIDERS: Visit Provider Internal Medicine
DX: D72.820 Lymphocytosis (symptomatic) (principal); E78.00 Pure hypercholesterolemia, unspecified; E55.9 Vitamin D deficiency, unspecified
CPT/HCPCS: 80053; 80061; 81001; 82306; 85025